=== PATIENT | female | born 1935 | race Caucasian/White ===

== ENCOUNTER 2016-06-23 09:58 | Inpatient (IN) | payer OTHER, MEDICARE ==
[~2016-06-23] VITALS: Ht 148.6 cm; Wt 68.4 kg
[~2016-06-23 09:58] MED LIST: ALLO100T PO; AMOX500C3 PO; ASPI81TA28 PO; ATOR-24 PO; B-COCAP21 PO; CALC667C4 PO; CITA10TA4 PO; FLUO0.0543; FRS/40 PO; HYDR1SOL OTB; ISOS30TA51 PO; LABE300T PO; LEVO125T4 PO; NTRGSL/4 UT
[2016-06-23] MEDS ORDERED: NITROGLYCERIN 0.4 MG SL PER TAB CHARGE SL PRN (10:30)
[2016-06-23 10:59] LABS: BASO % 0.6 %; BASO ABS # 0.05 K/uL (0-0.2); EOS % 3.7 %; HEMATOCRIT 32.6 % (37-47); IG% 0.1 %; LYMPH % 11.9 %; LYMPH ABS # 0.99 K/uL (1.2-3.4); MEAN CELL VOLUME 103.5 fL (80-100); MEAN CORPUSCULAR HEMOGLOBIN 33.3 pg (25-34); MEAN PLATELET VOLUME 9.2 fL (7.4-10.4); MONO % 9.4 %; NEUT % 74.3 %; PLATELET COUNT 203 K/uL (130-400); RED BLOOD COUNT 3.15 M/uL (4.2-5.4); WHITE BLOOD COUNT 8.33 K/uL (4.8-10.8)
[2016-06-23 11:15] LABS: COMPLETE YES; MEAN CORPUSCULAR HGB CONC 32.2 g/dl (32-36)
[2016-06-23 11:23] VITALS: BP 177/76; PULSE 69; TEMP 36.7; O2SAT 96; Ht 148.6 cm; Wt 68.4 kg
[2016-06-23 11:26] LABS: ALT/SGPT 21 U/L (12-78); BLOOD UREA NITROGEN 52 mg/dl (7-18); CALCIUM 8.9 mg/dl (8.5-10.1); CARBON DIOXIDE 28 mmol/L (21-32); CHLORIDE 100 mmol/L (98-107); GLUCOSE 88 mg/dl (70-99); MAGNESIUM 2.1 mg/dl (1.8-2.4); POTASSIUM 4.3 mmol/L (3.5-5.1); SODIUM 140 mmol/L (136-145)
[2016-06-23 11:29] LABS: ALB/GLOB RATIO 0.8 (0.9-2); ALKALINE PHOSPHATASE 72 U/L (45-117); AST/SGOT 17 U/L (15-37); CKMB/CK RATIO 5.3 (0-3.0)
--- NOTE | 2016-06-23 12:41 | DIAGNOSTIC IMAGING REPORT ---
CHEST 2 VIEWS ROUTINE CLINICAL HISTORY: CAD, DYSPNEA dyspnea COMPARISON STUDY: 09/12/2015 FINDINGS: Interval development of a large right pleural effusion. This occupies 50% of right hemithoracic volume. Platelike atelectasis left midlung. Slight blunting left base and left lateral costophrenic angle. IMPRESSION: Interval development of right pleural effusion occupying 50% right hemithoracic volume. Atelectasis left midlung Electronically signed by: Bari Fu M.D. 06/23/2016 12:39 PM Dictated Date/Time: 06/23/2016 12:39 PM
[2016-06-23 13:23] LABS: INR 1.1 (0.9-1.1); PROTHROMBIN TIME (PATIENT) 11.4 SECONDS (9.0-12.0)
[2016-06-23] MEDS ORDERED: PNEUMOCOCCAL POLYSACCHARIDES 25 MCG/0.5 ML VIAL/SYR IM. ONE (14:45)
[2016-06-23] MEDS ORDERED: PNEUMOCOCCAL ADMINISTRATION CHARGE ONE (14:45)
--- NOTE | 2016-06-23 14:51 | PULMONARY CONSULTATION ---
DATE OF CONSULTATION: 06/23/2016 TIME: 1:45 p.m. REPORT OF CONSULTATION: The patient was seen in room #220. She is a pleasant 81-year-old female who has a chief complaint of shortness of breath. She has had worsening shortness of breath for about a month. Last week, she had some chest pain on the left side of her chest. She had 2 episodes which occurred the same day. They were lasting short periods of time. She has been unable to do any significant activity because of the shortness of breath. She is winded at rest. She is very short of breath just walking across the room. She has not noticed any swelling in her legs. She does not feel like she has a cold. There has been no chills, fevers or sweats. She has an occasional cough. There has been no sputum production or hemoptysis. The patient states she has been on nasal cannula oxygen for about a year. She wears 3 liters continuously. She has not been getting any relief with her oxygen. Earlier today, she was seeing Dr. Villar for a cardiac evaluation. He referred her in to be admitted after he discussed with Dr. Brambila. Pertinent history is that she has chronic renal disease and is on dialysis. She states she has been on dialysis for about a year. She could not tell me that she had had any specific lung problems. She was not certain why she had the oxygen. She has never smoked. She did not have any jobs where she worked with any significant dust, fumes or chemicals. PAST MEDICAL HISTORY: 1. Hypertension. 2. Coronary artery disease. 3. CVA. 4. Chronic kidney disease. 5. Hypothyroidism. 6. Childbirth x2. 7. Macular degeneration. PAST SURGICAL HISTORY: 1. Perm-A-Cath insertion. 2. Cholecystectomy 1957. 3. Hysterectomy 2002. 4. Abdominal surgery for diverticulitis with removal of 18 inches of colon 5. Right and left cataract surgeries. SOCIAL HISTORY: Tobacco - never. ETOH - none. ALLERGIES: BACITRACIN AND POLYMYXIN. FAMILY HISTORY: Father at age 49, [place]. Mother age 69, had diabetes and heart disease. MEDICATIONS AT HOME: 1. Acetic acid/hydrocortisone eardrops b.i.d. 2. Allopurinol 100 mg daily. 3. Amoxicillin 500 mg t.i.d. 4. Aspirin 81 mg daily. 5. Atorvastatin 40 mg daily. 6. B complex C and folic acid 1 daily. 7. Calcium acetate 667 mg t.i.d. 8. Citalopram 10 mg daily. 9. Furosemide 40 mg daily. 10. Isosorbide 30 mg daily. 11. Labetalol 300 mg b.i.d. 12. Levothyroxine 125 mcg 1 daily. 13. Nitro p.r.n. REVIEW OF SYSTEMS: GENERAL: The patient's energy level has been very poor. NEUROLOGIC: Denies syncope or near syncope. OPHTHALMIC: She has diminished vision, primarily due to macular degeneration. ENT: Denies nasal congestion or coryza. CARDIAC: No chest pains today. She had chest pain last week as noted. She does not notice any palpitations. PULMONARY: As noted above. GASTROINTESTINAL: Denies heartburn, nausea, vomiting, diarrhea, constipation. She does have some stool incontinence. GENITOURINARY: She does urinate about 2 times per day in relatively small quantities. She also has some urinary stress incontinence. MUSCULOSKELETAL: She complains of diffuse arthritic pains. DERMATOLOGIC: Denies rash. ENDOCRINE: No lymphadenopathy. PHYSICAL EXAMINATION: GENERAL: The patient is a pleasant 81-year-old female who was cooperative, alert and oriented. She is dyspneic at rest. HEENT: Eye exam showed implants bilaterally. Nasal passages were clear. Nasal cannula was in place. Mouth exam showed dentures on top. There was no erythema or exudate in the pharynx. NECK: Palpation of the neck reveals no lymph nodes. Neck veins were somewhat distended. CHEST: Normal development. Percussion reveals dullness in the right chest in the lower two-thirds. The breath sounds on the right lower two-thirds are very diminished to slightly tubular. Lung kinney were clear otherwise. No wheezing was heard. Her respiratory rate was increased to 36 breaths per minute. Oxygen saturation was 96% on 3 liters. Heart rate was 70 per minute and regular. Blood pressure 177/76. ABDOMEN: Soft. Good bowel sounds were heard. There were numerous scars from prior surgeries. There was no tenderness to palpation or mass. EXTREMITIES: Showed no cyanosis, clubbing or edema. She had degenerative joint disease of her knees. There is also some DJD of the hands. IMAGING DATA: Chest x-ray done today shows a moderate to large right pleural effusion occupying more than half of the lung space. This reflects a change compared with a prior x-ray done 09/12/2015 at which time she had very small bilateral pleural effusions. LABORATORY DATA: CBC shows a white count of 8.33. Hemoglobin is 10.5. Platelets 203,000. INR is 1.1 and PTT is 1.0. Electrolytes show sodium 140, potassium 4.3, chloride 100 and bicarbonate 28. BUN is 52 with a creatinine of 4.3. Blood sugar 96. Calcium is 8.9. Magnesium is 2.1. AST and ALT and alkaline phosphatase were all normal. Troponin was normal. Albumin was 3.3 with total protein 7.3. TSH is 2.77. The patient had an EKG done. This shows evidence of a new right bundle branch block compared with September of 2015. The underlying rhythm was normal sinus. IMPRESSIONS: 1. Right pleural effusion. 2. Shortness of breath secondary to right pleural effusion. 3. End-stage renal disease. 4. Coronary artery disease. COMMENTS: The patient has a moderate to large effusion, which I suspect is most likely a transudate. She does need a thoracentesis therapeutically and also diagnostically at least for 1 check of the numbers. I have consulted Dr. Howard for this procedure. I called and left a message on his voicemail and put the order in. I think she will get a lot of relief once this has been done. The question of course is teague the effusion. It should be checked for cell count and diff, cytology, LDH, protein, glucose, and amylase. Serum LDH should also be checked, so we can compare the ratios with the pleural fluid. We already have a total serum protein. Further suggestions will be made as her course unfolds. Thank you so much for asking me to assist in her care.
[2016-06-23 15:37] VITALS: BP 170/71; PULSE 75; TEMP 36.5; O2SAT 96
--- NOTE | 2016-06-23 15:42 | DIAGNOSTIC IMAGING REPORT ---
CHEST ONE VIEW PORTABLE CLINICAL HISTORY: thoracentesis postthoracentesis COMPARISON STUDY: No previous studies for comparison. FINDINGS: No evidence pneumothorax status post thoracentesis. Mild stable cardia megaly. Considerable improvement in aeration right base. IMPRESSION: No evidence pneumothorax status post right thoracentesis Electronically signed by: Bari Fu M.D. 06/23/2016 3:40 PM Dictated Date/Time: 06/23/2016 3:39 PM
[2016-06-23 16:31] LABS: CKMB/CK RATIO 3.5 (0-3.0)
[2016-06-23 16:42] LABS: PLEURAL FLUID TOTAL PROTEIN 4.5 g/dl
[2016-06-23 17:20] LABS: PLEURAL FLUID APPEARANCE CLOUDY; PLEURAL FLUID COLOR YELLOW; PLEURAL FLUID MONONUC RELAT 97.7 %; PLEURAL FLUID POLYNUC 2.3 %; PLEURAL FLUID SOURCE RIGHT PLEURAL FLUID; PLEURAL FLUID WBC (A) 1489 /uL
--- NOTE | 2016-06-23 17:24 | OPERATIVE REPORT ---
DATE OF OPERATION: 06/23/2016 PREOPERATIVE DIAGNOSIS: Right pleural effusion. POSTOPERATIVE DIAGNOSIS: Same. PROCEDURE: Right thoracentesis under ultrasound guidance. SURGEON: Dr. Howard. CO-SURGEON: Josue Ramirez. INDICATIONS FOR PROCEDURE: This is an 81-year-old with end-stage renal disease, had increasing right pleural effusion and is quite symptomatic at that point. I had a long talk with the patient and her family before the procedure. After appropriate consent had been signed, time-out being called, her right posterior chest was prepped and draped in the usual sterile fashion after an ultrasound revealed a good area to insert the catheter. A skin wheal was raised, 25 gauge needle was then advanced. A large bore needle was used to anesthetize the deeper muscle layers and pleura. I then put a guidewire through this we got free-flowing fluid and the needle was removed. Introducer sheath was gently slid over the guidewire and then removed. A triple lumen catheter was slid over the guidewire up to 17 cm and the guidewire removed. The patient was drained for about 1100 mL of a light rust-colored fluid. It appeared that he gotten all of this and we could no further out from any of the ports and we slowly pulled the catheter out. A Band-Aid was placed on her chest tube site. Chest x-ray is pending at this time. I attest to the content of the Intraoperative Record and any orders documented therein. Any exceptio ns are noted below.
--- NOTE | 2016-06-23 17:38 | Nephrology Consultation ---
Nephrology Consultation Date & Providers Date of Consultation: Jun 23, 2016. Primary Care Provider: Anant Brown M.D. Referring Provider: Reason for Consultation Assist in the care of this patient w/ ESRD on HD admitted with right pleural effusion History of Present Illness Mrs. Morgan is an 81 year old white female who is seen at the request of Dr. Brambila to assist in her medical care and to provide in patient HD during her hospitalization. Medical records in the EMR were reviewed during the patient's evaluation today and are summarized as follows: Mrs. Morgan had CKD w/ creatinine 1.6 - 1.8. She was hospitalized 08/24 due to UTI w/ septicemia. She developed ATN with renal failure and never recovered. She currently dialyzes TTS at [facility] (3 hr 45 min, 2K 2Ca, F-160NR, Qb 330, EDW 68.5 kg ). Her dialysis treatments have been complicated by relative hypotension which has limited her UF. The patient reports that she has experienced progressive dyspnea over the last one month. Recently this has been associated with left chest discomfort. She was evaluated by cardiology in the office today who recommended that she be admitted to the hospital for CXR, echocardiogram and ongoing evaluation. Upon admission the patient was found to have a large left pleural effusion. Thoracentesis has been performed and 1100 cc fluid was removed. Mrs. Morgan reports that her breathing is now much improved. Past Medical/Surgical History Medical: # ESRD following hospitalization for urosepsis w/ ATN. Patient dialyzes TTS at [facility] # HTN # ASCVD s/p PTCA w/ stent 2003 # Aortic stenosis # Hyperlipidemia # Macular degeneration - legally blind Surgical: # Coronary LAD stent 2003 # Left upper arm AVF by Dr. Palomares 09/23 Allergies Coded Allergies: Bacitracin (Verified Allergy, Unknown, EYES SWELLING-OINTMENT PLACED AROUND EYE, 04/21/16) Polymyxin B (Verified Allergy, Unknown, EYES [id number] PLACED AROUND EYE, 04/21/16) Inpatient Medications Current Inpatient Medications Medications (Trade) Dose Ordered Sig/Debora Route Start Time Stop Time Status Last Admin Dose Admin Nitroglycerin (Nitrostat Tab) 0.4 mg UD PRN SL 06/23/16 10:30 07/23/16 10:29 Allopurinol (Zyloprim Tab) 100 mg QAM PO 06/24/16 09:00 07/24/16 08:59 Aspirin (Ecotrin Tab) 81 mg QAM PO 06/24/16 09:00 07/24/16 08:59 Atorvastatin Calcium (Lipitor Tab) 40 mg QAM PO 06/24/16 09:00 07/24/16 08:59 Labetalol HCl (Normodyne Tab) 300 mg BID PO 06/23/16 21:00 07/23/16 20:59 Levothyroxine Sodium (Synthroid Tab) 125 mcg DAILYBB PO 06/24/16 06:00 07/24/16 05:59 Family History Negative for CKD/ESRD Social History Smoking Status: Never Smoker . Retired. Never a smoker Review of Systems Constitutional: No fever Eyes: + problem reported (legally blind due to macular degeneration) Respiratory: No shortness of breath Cardiovascular: No chest pain Abdomen: No nausea, No pain, No vomiting Genitourinary - Female: No dysuria A complete review of systems was performed. Pertinent positives are noted above. All other systems are negative. Physical Exam Date Time Temp Pulse Resp B/P Pulse Ox O2 Delivery O2 Flow Rate FiO2 06/23/16 16:00 Nasal Cannula 3.0 06/23/16 15:37 36.5 75 20 170/71 96 Nasal Cannula 3.0 06/23/16 11:23 36.7 69 18 177/76 96 Nasal Cannula 3.0 General Appearance: no apparent distress Head: normocephalic, atraumatic Eyes: PERRL, EOMI Neck: no adenopathy Respiratory/Chest: no respiratory distress, + crackles (right base) Cardiovascular: regular rate, rhythm Abdomen/GI: normal bowel sounds, non tender, soft Back: + pertinent finding (clean dressing over right thoracenesis site) Extremities/Musculoskelatal: no pedal edema, + pertinent finding (left upper arm AVF w/ + bruit) Neurologic/Psych: alert, oriented x 3, + pertinent finding (legally blind due to macular degeneration) Skin: warm/dry Laboratory Results Last 24 Hours Test 06/23/16 00:00 06/23/16 10:45 06/23/16 11:38 06/23/16 13:00 Pleural Fluid Source RIGHT PLEURAL FLUID Pleural Fluid Color YELLOW Pleural Fluid Appearance CLOUDY Pleural Fluid WBC 1489 /uL Pleural Fluid RBC 4000 /uL Pleural Fluid pH 7.39 Pleural Fluid Polynuclear WBCs % 2.3 % Pleural Fluid Mononuclear WBCs % 97.7 % Pleural Fluid Total Protein 4.5 g/dl Pleural Fluid LDH 127 IU Pleural Fluid Glucose 95 mg/dl Pleural Fluid Amylase 137 U/L White Blood Count 8.33 K/uL Red Blood Count 3.15 M/uL Hemoglobin 10.5 g/dL Hematocrit 32.6 % Mean Corpuscular Volume 103.5 fL Mean Corpuscular Hemoglobin 33.3 pg Mean Corpuscular Hemoglobin Concent 32.2 g/dl Platelet Count 203 K/uL Mean Platelet Volume 9.2 fL Neutrophils (%) (Auto) 74.3 % Lymphocytes (%) (Auto) 11.9 % Monocytes (%) (Auto) 9.4 % Eosinophils (%) (Auto) 3.7 % Basophils (%) (Auto) 0.6 % Neutrophils # (Auto) 6.19 K/uL Lymphocytes # (Auto) 0.99 K/uL Monocytes # (Auto) 0.78 K/uL Eosinophils # (Auto) 0.31 K/uL Basophils # (Auto) 0.05 K/uL RDW Standard Deviation 55.2 fL RDW Coefficient of Variation 14.4 % Immature Granulocyte % (Auto) 0.1 % Immature Granulocyte # (Auto) 0.01 K/uL Sodium Level 140 mmol/L Potassium Level 4.3 mmol/L Chloride Level 100 mmol/L Carbon Dioxide Level 28 mmol/L Anion Gap 12.0 mmol/L Blood Urea Nitrogen 52 mg/dl Creatinine 4.30 mg/dl Estimated GFR () 10.4 Estimated GFR (Non- 9.0 BUN/Creatinine Ratio 12.0 Random Glucose 88 mg/dl Calcium Level 8.9 mg/dl Magnesium Level 2.1 mg/dl Total Bilirubin 0.4 mg/dl Aspartate Amino Transf (AST/SGOT) 17 U/L Alanine Aminotransferase (ALT/SGPT) 21 U/L Alkaline Phosphatase 72 U/L Total Creatine Kinase 36 U/L Creatine Kinase MB 1.9 ng/ml Creatine Kinase MB Ratio 5.3 Troponin I < 0.015 ng/ml Total Protein 7.3 gm/dl Albumin 3.3 gm/dl Globulin 4.0 gm/dl Albumin/Globulin Ratio 0.8 Thyroid Stimulating Hormone (TSH) 2.770 uIu/ml Free Thyroxine 1.24 ng/dl Bedside Glucose 96 mg/dl Prothrombin Time 11.4 SECONDS Prothromb Time International Ratio 1.1 Activated Partial Thromboplast Time 25.5 SECONDS Partial Thromboplastin Ratio 1.0 Test 06/23/16 15:34 06/23/16 16:10 Lactate Dehydrogenase 158 U/L Total Creatine Kinase 40 U/L Creatine Kinase MB 1.4 ng/ml Creatine Kinase MB Ratio 3.5 Troponin I < 0.015 ng/ml Bedside Glucose 134 mg/dl Impression (1) Pleural effusion on right (2) End-stage renal disease needing dialysis (3) Coronary artery disease Mrs. Morgan was admitted for evaluation of dyspnea. CXR revealed a large right pleural effusion. She has undergone thoracentesis w/ 1100 cc volume removal. Her breathing is now subjectively improved. ECG shows RBBB. Initial cardiac enzymes are negative. Echocardiogram is pending. Patient has ESRD. She will require HD TTS during her hospitalization. Recommendations -- Will schedule heparin free HD for am -- Await thoracentesis results -- Await culture results -- Await echocardiogram results -- Continue Phos-lo with meals and provide daily nephrocap
--- NOTE | 2016-06-23 17:50 | ECHOCARDIOGRAM REPORT ---
*NOTICE TO RECEIVING LIBERTARIAN AGENCY This information is strictly Confidential and protected under [place] law. [place] law prohibits you from making any further disclosure of this information unless further disclosure is expressly permitted by the written consent of the person to whom it pertains or is authorized by law. A general authorization for the release of medical or other information is not sufficient for this purpose. Hospital accepts no responsibility if the information is made available to any other person, INCLUDING THE PATIENT. Interpretation Summary * NO DEFINITY USED, PATIENT DID NOT HAVE IV * Name: ALEKSANDR GREGORIO Study Date: 06/23/2016 12:44 PM BP: 177/76 mmHg * Patient Location: 220 HR: 69 * : 1935 (M/d/yyy) Gender: Female Height: 59 in * Age: 81 yrs Ethnicity: [place] Weight: 164 lb * Referring Physician: ANNY SIDDIQUI * Performed By: Karen Montgomery RDCS * * Reason For Study: CHEST PAIN * BSA: 1.7 m2 * History: CHEST PAIN * -- Conclusions -- * 1. Normal LV size. Mild concentric LVH. * 2. Normal LV systolic function. LVEF 60-65%. No regional wall motion abnormalities. Grade 2 diastolic dysfunction * 3. Normal RV size and function. * 4. Mild aortic valve sclerosis without stenosis. Trace aortic insufficiency * 5. Normal estimated PA and RA pressures. * 6. Compared with prior study on 07/31/2015: No significant change Procedure Details * A complete two-dimensional transthoracic echocardiogram was performed (2D, M-mode, Doppler and color flow Doppler). Left Ventricle * The left ventricle is grossly normal size. * There is mild concentric left ventricular hypertrophy. * Ejection Fraction = 60-65%. Right Ventricle * The right ventricle is grossly normal size. * The right ventricular systolic function is normal as assessed by tricuspid annular plane systolic excursion (TAPSE) (normal >1.5 cm). Atria * The left atrium is mildly dilated. * Right atrial size is normal. * No ASD detected; PFO is not assessed. Mitral Valve * The mitral valve leaflets appear thickened, but open well. * Mitral stenosis is absent. * Significant mitral regurgitation is absent. Tricuspid Valve * The tricuspid valve is not well visualized. * There is trace tricuspid regurgitation. Aortic Valve * The aortic valve is trileaflet. * Aortic valve sclerosis mild, without significant aortic valvular stenosis. * Trace aortic regurgitation. Pulmonic Valve * The pulmonary valve is inadequately visualized, but the Doppler data is adequate for interpretation. * There is no pulmonic valvular stenosis. * Trace pulmonic valvular regurgitation. Great Vessels * The aortic root and proximal ascending aorta are normal sized. Pericardium/Pleural * There is no pericardial effusion. Great Vessels * Normal inferior vena cava size and collapsability with sniff indicates a normal right atrial pressure of 3 mmHg Left Ventricular Diastolic Function * Diastolic dysfunction, Grade II (pseudonormalization pattern). MMode 2D Measurements and Calculations IVSd 1.2 cm IVSs 1.7 cm LVIDd 4.3 cm LVIDs 2.7 cm LVPWd 1.2 cm LVPWs 1.5 cm IVS/LVPW 0.96 FS 38.0 % EDV(Teich) 83.0 ml ESV(Teich) 26.2 ml EF(Teich) 68.4 % EDV(cubed) 79.5 ml ESV(cubed) 19.0 ml EF(cubed) 76.1 % % IVS thick 39.8 % % LVPW thick 19.8 % LV mass(C)d 186.2 grams LV mass(C)dI 109.9 grams/m\S\2 LV mass(C)s 146.8 grams LV mass(C)sI 86.6 grams/m\S\2 SV(Teich) 56.8 ml SI(Teich) 33.5 ml/m\S\2 SV(cubed) 60.5 ml SI(cubed) 35.7 ml/m\S\2 LVAd ap4 26.6 cm\S\2 LVLd ap4 7.4 cm EDV(MOD-sp4) 80.5 ml EDV(sp4-el) 80.5 ml LVAs ap4 16.0 cm\S\2 LVLs ap4 6.0 cm ESV(MOD-sp4) 36.9 ml ESV(sp4-el) 36.5 ml EF(MOD-sp4) 54.1 % EF(sp4-el) 54.7 % LVAd ap2 28.6 cm\S\2 LVLd ap2 7.9 cm EDV(MOD-sp2) 86.3 ml EDV(sp2-el) 87.4 ml LVAs ap2 14.7 cm\S\2 LVLs ap2 6.1 cm ESV(MOD-sp2) 30.3 ml ESV(sp2-el) 30.2 ml EF(MOD-sp2) 64.9 % EF(sp2-el) 65.5 % LVLd %diff 6.3 % EDV(MOD-bp) 86.2 ml LVLs %diff 1.9 % ESV(MOD-bp) 33.4 ml EF(MOD-bp) 61.3 % SV(MOD-sp4) 43.6 ml SI(MOD-sp4) 25.7 ml/m\S\2 SV(MOD-sp2) 56.1 ml SI(MOD-sp2) 33.1 ml/m\S\2 SV(MOD-bp) 52.8 ml SI(MOD-bp) 31.2 ml/m\S\2 SV(sp4-el) 44.0 ml SI(sp4-el) 26.0 ml/m\S\2 SV(sp2-el) 57.2 ml SI(sp2-el) 33.8 ml/m\S\2 Doppler Measurements and Calculations MV E max monserrat 114.0 cm/sec MV A max monserrat 101.9 cm/sec MV E/A 1.1 MV dec time 0.21 sec Ao V2 max 170.5 cm/sec Ao max PG 11.6 mmHg Ao max PG (full) 5.8 mmHg LV V1 max PG 5.8 mmHg LV V1 max 120.3 cm/sec TR max monserrat 225.3 cm/sec
[2016-06-23 19:39] VITALS: BP 167/65; PULSE 80; TEMP 36.8; O2SAT 92
[2016-06-23] MEDS ORDERED: LABETALOL HCL 300 MG TAB PO SCH (21:00)
--- NOTE | 2016-06-23 22:32 | HISTORY & PHYSICAL EXAMINATION ---
DATE OF ADMISSION: 06/23/2016 SUBJECTIVE: An 81-year-old female admitted directly from Dr. Villar's office with chest pain and shortness of breath. HISTORY OF PRESENT ILLNESS: The patient with an extensive medical history including end-stage renal failure, currently on hemodialysis, coronary artery disease with history of stenting of her LAD in June of 2013, arterial hypertension, hyperlipidemia, hypothyroidism, degenerative disk disease of the lumbar spine with spinal stenosis, macular degeneration with legal blindness and history of gout. The patient had an appointment this morning to see Dr. Villar for her cardiology followup. He called me after he saw the patient. He was alarmed about her condition. She was complaining of left-sided chest pain. She was markedly dyspneic. She was feeling weak and tired. She has not had any fever or any chills. No cough or sputum or hemoptysis. She had no nausea or vomiting. He was concerned about her shortness of breath and chest pain and he recommended that we admit the patient for further evaluation and treatment. PAST MEDICAL HISTORY: 1. Coronary artery disease. She had a cardiac catheterization done on 07/08/2013. She had 90% stenosis of her mid LAD. A drug-eluting stent was placed. The cardiac catheterization was done because of her chest pain and abnormal stress test. 2. End-stage renal disease. She has been on hemodialysis. 3. AV fistula, left arm. Now, the fistula is used without any problem. Initially, there were some issues related to the use of her fistula on a regular basis. She did have a tunneled dialysis catheter which has been removed. 4. Arterial hypertension. Longstanding. Treated. 5. Mild to moderate aortic stenosis as demonstrated on her prior echocardiogram. 6. History of diverticulitis. She has had multiple episodes. She has required sigmoid colon resection because of stenosis and recurrent acute infectious episodes. This was done in 2006. 7. Cholecystectomy in 1958. 8. TAHBSO done in the remote past. She had cysts. 9. Tonsillectomy in childhood. 10. Bilateral cataract surgery. The right eye was done in July 2004 and the left one in 2006. She did require post-cataract laser treatment in the right eye in 2006. 11. Macular degeneration. Severe. She is legally blind. 12. History of microhematuria. She has had a urology evaluation in the past which was unremarkable for any evidence of any specific etiology. 13. History of gout. Has not had any recent acute episode. 14. Hypothyroidism. Compensated. She has been treated for at least about 16 years. 15. Left basal ganglia, lacunar cerebral infarction and left thalamic acute cerebral infarction in March of 2012. She does not have any residual deficit. 16. Degenerative disk disease of the lumbar spine with spinal stenosis. 17. Mild depression and anxiety. 18. General debilitation with progressive fatigue. SOCIAL HISTORY: She is , had 2 daughters. No history of any smoking, no alcohol or drugs. No excessive coffee, tea or soft drinks. 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 FAMILY HISTORY: Her mother at age 69, she was diabetic and had renal complications. She also had coronary artery disease. Her father at age 49, had tuberculosis and heart disease. One sister had lung removed for lung cancer. One brother who is diabetic. Her maternal grandmother had throat cancer. One daughter is treated for arterial hypertension. ALLERGIES: 1. BACITRACIN. 2. POLYMYXIN B. BOTH TOPICAL ANTIBIOTICS PRODUCED LOCAL REACTION. CURRENT MEDICATIONS: Include: 1. Symbicort 160/4.5 two inhalations twice a day. 2. Allopurinol 100 mg daily. 3. Lipitor 40 mg daily. 4. Renal cap 1 daily. 5. Labetalol 200 mg twice a day. 6. Levothyroxine 125 mcg daily. 7. Isosorbide mononitrate 30 mg daily. 8. Citalopram 10 mg daily. 9. Furosemide 80 mg daily. REVIEW OF SYSTEMS: Overall, her condition has been deteriorating. She has been feeling tired and weak. She denied any headache. No dizziness, no lightheadedness. She is legally blind. She has had chest pain as noted above, mostly left side. She has been complaining of progressive dyspnea. This has been going on for about 1 month. Denied any abdominal pain. No nausea, no vomiting and no problem with her bowel movements. She still has some residual urine output. She does complain of chronic back pain. She does not have any ankle edema. She does have chronic respiratory failure and she is on oxygen by nasal cannula at 3 liters per minute. PHYSICAL EXAMINATION: GENERAL: Well developed in no distress. Her recorded weight is 70.45 kg, height 148.6 cm, BMI 31.9. VITAL SIGNS: On arrival to the hospital, her blood pressure was 177/76, pulse 69, respirations 18, temperature 36.7, oxygen saturation 96% on 3 liter oxygen by nasal cannula. SKIN: Warm and dry. No rash. She does have some ecchymotic areas over her left arm where the fistula is. HEENT: She wears glasses. Markedly decreased vision. She is legally blind pain. She does have chronic eczematous rash of her external ears and the distal part of her external ear canals. No mucosal abnormality in her nose, mouth or throat. She does have her oxygen cannula in place. NECK: Supple. Nontender. No adenopathy, no thyromegaly. No JVD. Normal carotid pulses. She does have bilateral carotid bruit. CHEST: Normal. HEART: Regular heart sounds with 1-2/6 systolic murmur. No rub, no gallop. LUNGS: Decreased breath sounds. No wheezing, no rhonchi. ABDOMEN: Soft, nontender, without organomegaly or masses. Surgical scars. BACK: She does have some low back pain, which is chronic. EXTREMITIES: No edema, clubbing, or cyanosis. No joint or muscle tenderness. Absent dorsalis pedis pulses. Good posterior tibialis pulses. She does have an AV fistula in her left arm. NEUROLOGIC: She is alert and oriented. There is no evidence of any lateralized deficit. ADMISSION LABORATORY TESTS: WBC count 8330, hemoglobin 10.5, hematocrit 32.6, platelet count 203,000. Prothrombin time 11.4, INR 1.1, PTT 25.5. Sodium 140, potassium 4.3, chloride 100, CO2 28, BUN 52, creatinine 4.3, glucose 88, calcium 8.9, magnesium 2.1, total bilirubin 0.4, AST 17, ALT 21, alkaline phosphatase 72, total CK 36, MB fraction 1.9, troponin I less than 0.015, total protein 7.3, albumin 3.3, globulin 4.0. TSH 2.77, free T4 1.24. IMAGING DATA: Her electrocardiogram showed a sinus rhythm with a new right bundle branch block. Her chest x-ray showed evidence of a large right pleural effusion. It was occupying 50% of the right hemithoracic volume. ASSESSMENT: 1. Coronary artery disease. 2. Chest pain. 3. Dyspnea. 4. Large right pleural effusion. 5. Chronic obstructive pulmonary disease. 6. Chronic respiratory failure. 7. History of diastolic congestive heart failure. 8. Chronic respiratory failure on home oxygen. 9. Arterial hypertension. 10. Hypothyroidism. 11. Hyperlipidemia. 12. Depression. 13. Mild to moderate aortic stenosis. 14. Legally blind from macular degeneration. 15. Arteriovenous fistula, left arm. She does have end-stage renal disease and currently on hemodialysis with a Thursday, , Thursday schedule. PLAN: 1. The patient was admitted to PCU with telemetry. Resuscitation level 5. All her laboratory tests were ordered. Cardiology consultation was requested from Dr. Villar. He just saw the patient this morning in his office. Renal consultation was requested to continue with her hemodialysis. After the finding on the chest x-ray with a large right pleural effusion was noted, I requested a pulmonary consultation. The patient was seen by Dr. Qasim Farah. He consulted Dr. Qasim Howard and a thoracentesis was done. He evacuated 1100 mL of pleural fluid. The fluid was sent for different studies. After the procedure, the patient felt much improved. An echocardiogram was done. Continued on her oral medications. Continued her on oxygen. She will be scheduled for hemodialysis tomorrow. We will complete her cardiac isoenzymes. We will repeat her electrocardiogram. Dr. Villar will decide on further cardiac evaluation. The patient's condition improved significantly after the thoracentesis. I spoke with her family, everybody was in her room including her 2 daughters, her son-in-law and her . SAWYER
[2016-06-23 23:26] VITALS: BP 188/62; PULSE 81; TEMP 36.8; O2SAT 92
--- NOTE | 2016-06-23 23:42 | SURGICAL CONSULTATION ---
DATE OF CONSULTATION: 06/23/2016 Chief complaint: "I'm having a hard time breathing". HPI: This is a pleasant 81 yo with ESRD who has noted increasing dyspnea, especially over the last few weeks. CXR's show an enlarging right pleural effusion despite dialysis. She is markedly SOB. No fevers or productive cough. No weight loss. Past Medical History 1. Enlarging right pleural effusion. 2. Chronic renal failure (dialysis dependent). 3. History of coronary artery disease. 4. Hypothyroidism. 5. Macular degeneration resulting in legal blindness. 6. Cerebrovascular accident in the past. PAST SURGICAL HISTORY: 1. 2, para 2, aborta 0. 2. Hysterectomy. 3. Left colon resection for diverticulitis. 4. Bilateral cataract extractions with lens implants. 5. Cholecystectomy (open). 6. Permacath insertion and autogenous arteriovenous hemodialysis fistula. MEDICATIONS: 1. Nitroglycerin sublingually p.r.n. 2. Synthroid. 3. Eardrops. 4. Allopurinol. 5. Citalopram. 6. Lasix. 7. Isosorbide. 8. Labetalol. 9. Aspirin. 10. Amoxicillin. 11. Folic acid. ALLERGIES: 1. BACITRACIN. 2. POLYMYXIN. SOCIAL HISTORY: The patient lives with her family, who are very supportive. She has never smoked cigarettes. She is a very attentive mother and grandmother. Her 2 daughters and her were at the bedside during this interview. FAMILY MEDICAL HISTORY: The patient's father at age 49 of myocardial infarction. Mother at age 69 of diabetes mellitus and coronary artery disease. Her children, grandchildren and great grandchildren are healthy. REVIEW OF SYSTEMS: The patient has had shortness of breath for the last several months, which is progressively getting worse and worse. She has been fatigued. She really has difficulty seeing secondary to her macular degeneration. She has had no neurologic events such as focal weakness, seizure, amaurosis fugax, transient ischemic attacks. She continues to urinate although very small amounts. She does move her bowels, although she has had bit of incontinence recently. She has had no nausea or vomiting. She is quite short of breath, but denies productive cough. She has had no fevers. She has had no skin breakdown. She does have arthritic pain. PHYSICAL EXAMINATION: GENERAL: This is a small (4-foot, 10-1/2-inch) 155-pound white female, who wears glasses. She has evidence of cataract extractions. Her extraocular movements are intact. She has no nasolabial flattening. Her tongue is midline. NECK: Supple. I detect no carotid bruits. LUNGS: She has decreased breath sounds at both bases, particularly on the right. She also has some end expiratory wheezing. HEART: She has a regular rate and rhythm of her heart with a soft systolic ejection murmur versus rub. ABDOMEN: Soft, nontender and protuberant. I detect no evidence of abdominal aortic aneurysm. EXTREMITIES: Evaluation of her lower extremities, she does have peripheral pulses. She has no real joint effusions. She has trace edema of her lower extremities. NEUROLOGIC: She has no asterixis. She is awake, alert and oriented, no focal deficits. DATA: I reviewed her chest x-ray and she has a large right pleural effusion. ASSESSMENT AND PLAN: Large right pleural effusion. I discussed this case with Dr. Rey Farah as well as the patient and her and family members. Long discussion and I discussed observation from one end of the spectrum and thoracoscopy with pleurectomy at the other end. We could also insert a PleurX catheter, but I think at this point that a simple right thoracentesis would be helpful not only a diagnosis, but assessing how she responds to drainage of the fluid. We will perform this thoracentesis later this afternoon. SAWYER
[2016-06-23 23:44] LABS: CKMB/CK RATIO 4.3 (0-3.0)
[2016-06-23] MEDS ORDERED: NURSING VERBAL MED ORDER ONE (23:45)
[2016-06-23] MEDS ORDERED: ACETAMINOPHEN 500 MG TAB PO ONE (23:45)
[2016-06-24] VITALS (11 sets, daily range): BP systolic 103–185; BP diastolic 52–82; PULSE 64–84; TEMP 36.6–37; O2SAT 91–94
[2016-06-24] MEDS ORDERED: AMLODIPINE BESYLATE 5 MG TAB PO ONE (05:45)
[2016-06-24] MEDS ORDERED: EPOETIN ALFA 10,000 UNITS/ML VIAL IV. ONE (06:00)
[2016-06-24] MEDS ORDERED: EPOETIN ALFA INJ 7,000 UNITS in SYRINGE 0 ML IV. SCH (06:00)
[2016-06-24] MEDS: LEVOTHYROXINE 125 MCG TAB PO SCH (06:17)
[2016-06-24 07:03] LABS: MEAN CELL VOLUME 102.6 fL (80-100); MEAN CORPUSCULAR HEMOGLOBIN 33.7 pg (25-34); MEAN CORPUSCULAR HGB CONC 32.8 g/dl (32-36); MEAN PLATELET VOLUME 9.4 fL (7.4-10.4); PLATELET COUNT 181 K/uL (130-400); RED BLOOD COUNT 3.12 M/uL (4.2-5.4); WHITE BLOOD COUNT 8.22 K/uL (4.8-10.8)
[2016-06-24] MEDS: CALCIUM ACETATE 667MG GELCAP PO SCH ×3 (07:15→16:45)
[2016-06-24] MEDS: ATORVASTATIN 40 MG TAB PO SCH (07:15)
[2016-06-24] MEDS: ASPIRIN 81 MG ECTAB PO SCH (07:15)
[2016-06-24] MEDS: CITALOPRAM 20 MG TAB PO SCH (07:16)
[2016-06-24] MEDS: ALLOPURINOL 100 MG TAB PO SCH (07:18)
[2016-06-24] MEDS: NEPHROCAPS PO SCH (07:18)
[2016-06-24 07:53] LABS: BUN/CREATININE RATIO 13.9 (10-20); CALCIUM 8.9 mg/dl (8.5-10.1); POTASSIUM 4.5 mmol/L (3.5-5.1)
[2016-06-24] MEDS ORDERED: LABETALOL HCL 300 MG TAB PO SCH (09:00)
[2016-06-24] MEDS: LABETALOL HCL 100 MG TAB PO SCH ×3 (09:00→20:25)
--- NOTE | 2016-06-24 09:15 | Nephrology Progress Note ---
Nephrology Progress Note Date of Service Jun 24, 2016. Chief Complaint Assist in the care of this patient w/ ESRD on HD admitted with right pleural effusion Subjective Mrs. Morgan was seen & examined in her hospital room this morning. She reports that her breathing has improved following thoracentesis. She denies fever, dyspnea, pleurisy or angina. Review of Systems Constitutional: No fever Cardiovascular: No chest pain Respiratory: No dyspnea at rest Abdomen: No nausea, No pain, No vomiting Extremities: No leg edema A complete review of systems was performed. Pertinent positives are noted above. All other systems are negative. Vital Signs Last 8 Hrs Date Time Temp Pulse Resp B/P Pulse Ox O2 Delivery O2 Flow Rate FiO2 06/24/16 08:00 Nasal Cannula 3.0 06/24/16 07:37 36.9 71 16 153/72 94 Nasal Cannula 2.0 06/24/16 04:00 Nasal Cannula 3.0 06/24/16 03:33 36.6 76 20 185/71 94 Nasal Cannula 3.0 I & O 24-Hour Column 06/24/16 07:59 Intake Total 1010 ml Output Total 450 ml Balance 560 ml Last Recorded Weight Weight (Kilograms): 69.700 Physical Exam General Appearance: no apparent distress Head: normocephalic, atraumatic Eyes: PERRL, EOMI Neck: no adenopathy Respiratory/Chest: + crackles (right base) Cardiovascular: regular rate, rhythm Abdomen/GI: normal bowel sounds, non tender, soft Extremities/Musculoskelatal: no pedal edema, + pertinent finding (left upper arm AVF + bruit) Neurologic/Psych: alert, oriented x 3 Family History Negative for CKD/ESRD Social History Smoking Status: Never smoker . Retired. Never a smoker Laboratory Results Past 24 Hours 06/23/16 10:45 Red Blood Count 3.15, Mean Corpuscular Volume 103.5, Mean Corpuscular Hemoglobin 33.3, Mean Corpuscular Hemoglobin Concent 32.2, Mean Platelet Volume 9.2, Neutrophils (%) (Auto) 74.3, Lymphocytes (%) (Auto) 11.9, Monocytes (%) ( Auto) 9.4, Eosinophils (%) (Auto) 3.7, Basophils (%) (Auto) 0.6, Neutrophils # ( Auto) 6.19, Lymphocytes # (Auto) 0.99, Monocytes # (Auto) 0.78, Eosinophils # ( Auto) 0.31, Basophils # (Auto) 0.05 06/24/16 06:56 06/23/16 10:45 06/24/16 06:56 Test 06/23/16 10:45 06/23/16 11:38 06/23/16 13:00 06/23/16 15:34 White Blood Count 8.33 K/uL (4.8-10.8) Red Blood Count 3.15 M/uL (4.2-5.4) Hemoglobin 10.5 g/dL (12.0-16.0) Hematocrit 32.6 % (37-47) Mean Corpuscular Volume 103.5 fL (80-100) Mean Corpuscular Hemoglobin 33.3 pg (25-34) Mean Corpuscular Hemoglobin Concent 32.2 g/dl (32-36) Platelet Count 203 K/uL (130-400) Mean Platelet Volume 9.2 fL (7.4-10.4) Neutrophils (%) (Auto) 74.3 % Lymphocytes (%) (Auto) 11.9 % Monocytes (%) (Auto) 9.4 % Eosinophils (%) (Auto) 3.7 % Basophils (%) (Auto) 0.6 % Neutrophils # (Auto) 6.19 K/uL (1.4-6.5) Lymphocytes # (Auto) 0.99 K/uL (1.2-3.4) Monocytes # (Auto) 0.78 K/uL (0.11-0.59) Eosinophils # (Auto) 0.31 K/uL (0-0.5) Basophils # (Auto) 0.05 K/uL (0-0.2) RDW Standard Deviation 55.2 fL (36.4-46.3) RDW Coefficient of Variation 14.4 % (11.5-14.5) Immature Granulocyte % (Auto) 0.1 % Immature Granulocyte # (Auto) 0.01 K/uL (0.00-0.02) Anion Gap 12.0 mmol/L (3-11) Estimated GFR () 10.4 Estimated GFR (Non- 9.0 BUN/Creatinine Ratio 12.0 (10-20) Calcium Level 8.9 mg/dl (8.5-10.1) Magnesium Level 2.1 mg/dl (1.8-2.4) Total Bilirubin 0.4 mg/dl (0.2-1) Aspartate Amino Transf (AST/SGOT) 17 U/L (15-37) Alanine Aminotransferase (ALT/SGPT) 21 U/L (12-78) Alkaline Phosphatase 72 U/L (45-117) Total Creatine Kinase 36 U/L (26-192) 40 U/L (26-192) Creatine Kinase MB 1.9 ng/ml (0.5-3.6) 1.4 ng/ml (0.5-3.6) Creatine Kinase MB Ratio 5.3 (0-3.0) 3.5 (0-3.0) Troponin I < 0.015 ng/ml (0-0.045) < 0.015 ng/ml (0-0.045) Total Protein 7.3 gm/dl (6.4-8.2) Albumin 3.3 gm/dl (3.4-5.0) Globulin 4.0 gm/dl (2.5-4.0) Albumin/Globulin Ratio 0.8 (0.9-2) Thyroid Stimulating Hormone (TSH) 2.770 uIu/ml (0.300-4.500) Free Thyroxine 1.24 ng/dl (0.80-1.60) Bedside Glucose 96 mg/dl (70-90) Prothrombin Time 11.4 SECONDS (9.0-12.0) Prothromb Time International Ratio 1.1 (0.9-1.1) Activated Partial Thromboplast Time 25.5 SECONDS (21.0-31.0) Partial Thromboplastin Ratio 1.0 Lactate Dehydrogenase 158 U/L (84-246) Test 06/23/16 16:10 06/23/16 20:10 06/23/16 23:01 06/24/16 06:32 Bedside Glucose 134 mg/dl (70-90) 110 mg/dl (70-90) 96 mg/dl (70-90) Total Creatine Kinase 37 U/L (26-192) Creatine Kinase MB 1.6 ng/ml (0.5-3.6) Creatine Kinase MB Ratio 4.3 (0-3.0) Troponin I < 0.015 ng/ml (0-0.045) Test 06/24/16 06:56 Red Blood Count 3.12 M/uL (4.2-5.4) Mean Corpuscular Volume 102.6 fL (80-100) Mean Corpuscular Hemoglobin 33.7 pg (25-34) Mean Corpuscular Hemoglobin Concent 32.8 g/dl (32-36) RDW Standard Deviation 53.9 fL (36.4-46.3) RDW Coefficient of Variation 14.3 % (11.5-14.5) Mean Platelet Volume 9.4 fL (7.4-10.4) Anion Gap 11.0 mmol/L (3-11) Est Creatinine Clear Calc Drug Dose 7.3 ml/min Estimated GFR () 8.7 Estimated GFR (Non- 7.5 BUN/Creatinine Ratio 13.9 (10-20) Calcium Level 8.9 mg/dl (8.5-10.1) Allergies Coded Allergies: Bacitracin (Verified Allergy, Unknown, EYES SWELLING-OINTMENT PLACED AROUND EYE, 04/21/16) Polymyxin B (Verified Allergy, Unknown, EYES [id number] PLACED AROUND EYE, 04/21/16) Medications Current Inpatient Medications Medications (Trade) Dose Ordered Sig/Debora Route Start Time Stop Time Status Last Admin Dose Admin Nitroglycerin (Nitrostat Tab) 0.4 mg UD PRN SL 06/23/16 10:30 07/23/16 10:29 Allopurinol (Zyloprim Tab) 100 mg QAM PO 06/24/16 09:00 07/24/16 08:59 06/24/16 07:18 100 MG Aspirin (Ecotrin Tab) 81 mg QAM PO 06/24/16 09:00 07/24/16 08:59 06/24/16 07:15 81 MG Atorvastatin Calcium (Lipitor Tab) 40 mg QAM PO 06/24/16 09:00 07/24/16 08:59 06/24/16 07:15 40 MG Levothyroxine Sodium (Synthroid Tab) 125 mcg DAILYBB PO 06/24/16 06:00 07/24/16 05:59 06/24/16 06:17 125 MCG Heparin Sodium (Porcine) 1 ea 1 ea TODAY@0600 N/A 06/24/16 06:00 06/24/16 23:00 Epoetin Magdy/ Syringe (Procrit Inj/ Syringe) 0.35 ml @ 1 mls/min TODAY@0600 IV. 06/24/16 06:00 06/24/16 23:00 Labetalol HCl (Normodyne Tab) 200 mg BID PO 06/24/16 09:00 07/24/16 08:59 Vitamin B Complex/ Vit C/Folic Acid (Nephrocaps) 1 cap DAILY PO 06/24/16 09:00 07/24/16 08:59 06/24/16 07:18 1 CAP Calcium Acetate (Phoslo Cap) 667 mg TIDM PO 06/24/16 07:30 07/24/16 07:29 06/24/16 07:15 667 MG Furosemide (Lasix Tab) 80 mg QAM PO 06/24/16 09:00 07/24/16 08:59 Citalopram Hydrobromide (celeXA TAB) 10 mg QAM PO 06/24/16 09:00 07/24/16 08:59 06/24/16 07:16 10 MG Isosorbide Mononitrate (Imdur Ext Rel Tab) 30 mg QAM PO 06/24/16 09:00 07/24/16 08:59 Acetaminophen (Tylenol Tab) 500 mg Q4H PRN PO 06/23/16 23:45 07/23/16 23:44 Impression (1) Pleural effusion on right (2) End-stage renal disease needing dialysis (3) Coronary artery disease Mrs. Morgan was admitted for evaluation of dyspnea. CXR revealed a large right pleural effusion. She has undergone thoracentesis w/ 1100 cc volume removal. Her breathing is now subjectively improved. ECG shows RBBB. Initial cardiac enzymes are negative. Echocardiogram is pending. Patient has ESRD. She will require HD TTS during her hospitalization. Recommendations -- Heparin free HD has been scheduled for this am. Orders entered into EMR and HD RN notified -- Await thoracentesis results and further pulmonology recommendations -- Await culture results -- Echocardiogram report 06/23/16 reviewed: Normal LVEF, mild to moderate MR -- Continue Phos-lo with meals and provide daily nephrocap
--- NOTE | 2016-06-24 09:47 | SURGERY PROGRESS NOTE ---
DATE: 06/24/2016 DATE: 06/24/2016. Ms. Morgan was seen today on 06/24/2016. I performed a thoracentesis yesterday of her right pleural cavity and drained out about 1100 mL of a rust colored fluid. Her x-ray looked quite good. She looks better. Her oxygen saturation has been 94% on 2 liters. She subjectively is much better and she slept well last night. This fluid is transudate and pH 7.39. It does not appear that we are dealing with any infections or malignancy. ASSESSMENT AND PLAN: Right pleural effusion, probably related to renal failure. The patient is extremely happy with how much better she feels. She sounds better on auscultation. At this point, should the fluid reaccumulated I believe inserting a PleurX catheter and sending her home with it would be advisable. We will see how she does over the next few days.
--- NOTE | 2016-06-24 10:54 | Dialysis Progress Note ---
Hemodialysis Note Date of Service Jun 24, 2016. Chief Complaint Assist in the care of this patient w/ ESRD on HD admitted with right pleural effusion Vital Signs Last 8 Hrs Date Time Temp Pulse Resp B/P Pulse Ox O2 Delivery O2 Flow Rate FiO2 06/24/16 09:31 Nasal Cannula 3.0 06/24/16 08:00 Nasal Cannula 3.0 06/24/16 07:37 36.9 71 16 153/72 94 Nasal Cannula 2.0 06/24/16 04:00 Nasal Cannula 3.0 06/24/16 03:33 36.6 76 20 185/71 94 Nasal Cannula 3.0 I & O 24-Hour Column 06/24/16 07:59 Intake Total 1010 ml Output Total 450 ml Balance 560 ml Last Recorded Weight Weight (Kilograms): 69.700 Family History Negative for CKD/ESRD Social History Smoking Status: Never smoker . Retired. Never a smoker Laboratory Results Past 24 Hours 06/24/16 06:56 06/24/16 06:56 Test 06/23/16 11:38 06/23/16 13:00 06/23/16 15:34 06/23/16 16:10 Bedside Glucose 96 mg/dl (70-90) 134 mg/dl (70-90) Prothrombin Time 11.4 SECONDS (9.0-12.0) Prothromb Time International Ratio 1.1 (0.9-1.1) Activated Partial Thromboplast Time 25.5 SECONDS (21.0-31.0) Partial Thromboplastin Ratio 1.0 Lactate Dehydrogenase 158 U/L (84-246) Total Creatine Kinase 40 U/L (26-192) Creatine Kinase MB 1.4 ng/ml (0.5-3.6) Creatine Kinase MB Ratio 3.5 (0-3.0) Troponin I < 0.015 ng/ml (0-0.045) Test 06/23/16 20:10 06/23/16 23:01 06/24/16 06:32 06/24/16 06:56 Bedside Glucose 110 mg/dl (70-90) 96 mg/dl (70-90) Total Creatine Kinase 37 U/L (26-192) Creatine Kinase MB 1.6 ng/ml (0.5-3.6) Creatine Kinase MB Ratio 4.3 (0-3.0) Troponin I < 0.015 ng/ml (0-0.045) Red Blood Count 3.12 M/uL (4.2-5.4) Mean Corpuscular Volume 102.6 fL (80-100) Mean Corpuscular Hemoglobin 33.7 pg (25-34) Mean Corpuscular Hemoglobin Concent 32.8 g/dl (32-36) RDW Standard Deviation 53.9 fL (36.4-46.3) RDW Coefficient of Variation 14.3 % (11.5-14.5) Mean Platelet Volume 9.4 fL (7.4-10.4) Anion Gap 11.0 mmol/L (3-11) Est Creatinine Clear Calc Drug Dose 7.3 ml/min Estimated GFR () 8.7 Estimated GFR (Non- 7.5 BUN/Creatinine Ratio 13.9 (10-20) Calcium Level 8.9 mg/dl (8.5-10.1) Allergies Coded Allergies: Bacitracin (Verified Allergy, Unknown, EYES SWELLING-OINTMENT PLACED AROUND EYE, 04/21/16) Polymyxin B (Verified Allergy, Unknown, EYES [id number] PLACED AROUND EYE, 04/21/16) Medications Current Inpatient Medications Medications (Trade) Dose Ordered Sig/Debora Route Start Time Stop Time Status Last Admin Dose Admin Nitroglycerin (Nitrostat Tab) 0.4 mg UD PRN SL 06/23/16 10:30 07/23/16 10:29 Allopurinol (Zyloprim Tab) 100 mg QAM PO 06/24/16 09:00 07/24/16 08:59 06/24/16 07:18 100 MG Aspirin (Ecotrin Tab) 81 mg QAM PO 06/24/16 09:00 07/24/16 08:59 06/24/16 07:15 81 MG Atorvastatin Calcium (Lipitor Tab) 40 mg QAM PO 06/24/16 09:00 07/24/16 08:59 06/24/16 07:15 40 MG Levothyroxine Sodium (Synthroid Tab) 125 mcg DAILYBB PO 06/24/16 06:00 07/24/16 05:59 06/24/16 06:17 125 MCG Heparin Sodium (Porcine) 1 ea 1 ea TODAY@0600 N/A 06/24/16 06:00 06/24/16 23:00 Epoetin Magdy/ Syringe (Procrit Inj/ Syringe) 0.35 ml @ 1 mls/min TODAY@0600 IV. 06/24/16 06:00 06/24/16 23:00 Labetalol HCl (Normodyne Tab) 200 mg BID PO 06/24/16 09:00 07/24/16 08:59 Vitamin B Complex/ Vit C/Folic Acid (Nephrocaps) 1 cap DAILY PO 06/24/16 09:00 07/24/16 08:59 06/24/16 07:18 1 CAP Calcium Acetate (Phoslo Cap) 667 mg TIDM PO 06/24/16 07:30 07/24/16 07:29 06/24/16 07:15 667 MG Furosemide (Lasix Tab) 80 mg QAM PO 06/24/16 09:00 07/24/16 08:59 Citalopram Hydrobromide (celeXA TAB) 10 mg QAM PO 06/24/16 09:00 07/24/16 08:59 06/24/16 07:16 10 MG Isosorbide Mononitrate (Imdur Ext Rel Tab) 30 mg QAM PO 06/24/16 09:00 07/24/16 08:59 Acetaminophen (Tylenol Tab) 500 mg Q4H PRN PO 06/23/16 23:45 07/23/16 23:44 Impression (1) Pleural effusion on right (2) End-stage renal disease needing dialysis (3) Coronary artery disease Mrs. Morgan was admitted for evaluation of dyspnea. CXR revealed a large right pleural effusion. She has undergone thoracentesis w/ 1100 cc volume removal. Her breathing is now subjectively improved. ECG shows RBBB. Initial cardiac enzymes are negative. Echocardiogram is pending. Patient has ESRD. She will require HD TTS during her hospitalization. Recommendations HD RN reports difficulty accessing AVF. Patient had high venous resistance while on HD. Treatment stopped after 25 minutes. Will reschedule dialysis for tomorrow am and have HD RN attempt different site placement of needles.
[2016-06-24] MEDS: FUROSEMIDE 80 MG TAB PO SCH (11:01)
[2016-06-24] MEDS: ISOSORBIDE MONONITRATE 30 MG TABCR PO SCH (11:01)
--- NOTE | 2016-06-24 12:57 | PROGRESS NOTE ---
DATE: 06/24/2016 PROBLEM LIST: Includes, 1. Dyspnea. 2. Pleural effusion on the right. 3. End-stage renal disease. 4. Coronary artery disease. SUBJECTIVE: The patient underwent thoracentesis yesterday with Dr. Howard. He removed 1100 mL of fluid, it does look to be transudative at this time. The patient is reporting significant improvement in her breathing. She states that she is not back to normal yet, but is much improved. She still has a little bit of discomfort at the thoracentesis site, but states that it is significantly improving as well. She still has a little bit of cough and wheeze, this is no worse than her normal. She states that she is feeling pretty well otherwise. She has no chest pain, no palpitations, no chest heaviness or tightness. She has no abdominal pain. No nausea, vomiting, no indigestion or heartburn. She has no difficulty with her bowels. She was scheduled for dialysis today. Unfortunately, there was some difficulty with access, so she is having dialysis tomorrow, otherwise no complaints. OBJECTIVE: GENERAL: The patient is a small framed 81-year-old female lying in bed. No acute distress. She is interactive and co-operative, no respiratory distress. VITAL SIGNS: Temp 36.9, pulse 71, respirations 16, blood pressure is 152/72, pulse ox 94% on 3 liters. HEENT: Normocephalic, atraumatic. Pupils equal, round and reactive to light and accommodation. Extraocular movements are intact. [place] moist gingival and buccal mucosa. NECK: Short neck. No mass. No adenopathy. No bruits, no JVD, no thyromegaly. CHEST: Diminished breath sounds, a little bit of dullness and decreased breath sounds on the right base, but much improved. No wheezing, rale or rhonchi heard. CARDIOVASCULAR: Regular rate and rhythm. No murmurs, gallops or rubs appreciated. ABDOMEN: Bowel sounds present. Abdomen soft, nontender. No guarding, rigidity or organomegaly. EXTREMITIES: No cyanosis or clubbing. No edema noted. NEUROLOGIC: Cranial nerves II through XII are intact. No focal deficits. LABORATORY DATA: Shows a white count of 8000, H\T\H are 10.5 and 32.0, platelet count of 181,000. Pleural fluid showed a pH of 7.39. White blood cell count 1489, red blood cell count of 4000, total protein of 4.5. LDH 127, glucose 95, amylase 137. Gram stain is showing many white blood cells, but no organisms. Fungal is showing no yeast or hyphae. No new imaging. IMPRESSION: This is an 81-year-old female with right-sided pleural effusion, appears to be transudative, most likely secondary to her chronic kidney disease. At this time, her breathing is improved following thoracentesis. At this point, we will continue to follow the patient through hospitalization. PULMONARY ATTENDING ADDENDUM: The patient's clinical hx would be most compatible with a transudate but the pleural fluid protein is elevated. This would raise suspicion for an exudate. Await further studies. AMADOUD
--- NOTE | 2016-06-24 17:38 | PROGRESS NOTE ---
DATE: 06/24/2016 HISTORY OF PRESENT ILLNESS: An 81-year-old female admitted with shortness of breath and chest pain. She was found to have a large right pleural effusion. Her medical problems also include end-stage renal disease, she is on hemodialysis, coronary artery disease, arterial hypertension, and hypothyroidism. The patient was admitted. She was seen in pulmonary consultation by Dr. Farah. Dr. Farah consulted Dr. Howard and a thoracentesis was done and 1100 mL of fluid drained. She was also seen in renal consultation by Dr. Llanes. She is on dialysis with the scheduled of Thursday, and Thursday. The patient was admitted directly from Dr. Villar's office after he saw her in his office. Overall, she had an excellent night. She rested comfortably. She has not had any pain. No headache and no dizziness. No chest pain. Her shortness of breath persists, but she does have chronic respiratory failure and she is chronically on oxygen, but definitely her condition has markedly improved since yesterday. No nausea and no vomiting. No problem with her bowel movements. She does have residual urine flow. Denied any pain in her back. Denied any swelling in her ankles. PHYSICAL EXAMINATION: GENERAL: Well developed in no distress. VITAL SIGNS: Blood pressure 153/72, pulse 71, respirations 16, temperature 36.9, and oxygen saturation 94% on 2 liter oxygen by nasal cannula. SKIN: Warm and dry. No rash. HEENT: She is legally blind because of macular degeneration. No mucosal abnormality. NECK: No JVD. No adenopathy. Bilateral bruit. HEART: Regular heart sounds with 2/6 systolic murmur. LUNGS: Decreased breath sounds. Scattered rhonchi. ABDOMEN: Soft and nontender. EXTREMITIES: No edema, clubbing, or cyanosis. AV fistula in the left arm. TODAY'S LABORATORY TESTS: WBC count 8220, hemoglobin 10.5, hematocrit 32%, and platelet count 181,000. Sodium 138, potassium 4.5, chloride 101, CO2 of 26, BUN 69, creatinine 5.0, glucose 95, and calcium 8.9. ASSESSMENT: 1. Large right-sided pleural effusion requiring thoracentesis with removal of 1100 mL. 2. Dyspnea, most likely related to her pleural effusion. 3. Coronary artery disease. 4. Arterial hypertension. 5. End-stage renal disease on hemodialysis. PLAN: 1. Continuing the same medications. 2. Her blood pressure was elevated during the night, so I gave her 1 dose of amlodipine 5 mg p.o. and her blood pressure improved. 3. She will be dialyzed today. 4. We will order physical and occupation therapy. 5. We will repeat her chest x-ray in the morning.
--- NOTE | 2016-06-24 19:29 | CARDIOLOGY PROGRESS NOTE ---
DATE: 06/24/2016 TIME: 1632 p.m. SUBJECTIVE: Ms. Morgan was evaluated today at 7:45 a.m. She feels 65% better following thoracentesis removing 1.1 liters of pleural fluid yesterday by Dr. Howard. Her breathing is not yet back to what she considers baseline, but much improved from presentation. She denies chest pain but this sort at the thoracentesis site. She denies syncope, near syncope, palpitations or edema. She is due for dialysis today. OBJECTIVE: VITAL SIGNS: Temperature 36.9 degrees, heart rate 71 beats per minute, respiration rate 16, blood pressure 153/72 mmHg, oxygen saturation 94% on 2 liters per nasal cannula. Weight 69.7 kg. GENERAL: No acute distress. She was alert. NECK: Mild JVD. CARDIAC: No ventricular heave, regular, normal S1, S2, 2/6 systolic murmur. No rubs or gallops. LUNGS: Coarse breath sounds throughout with scant expiratory wheezing. Much better air movement in the right lower lung field compared to when she was evaluated in the office yesterday. ABDOMEN: Soft, nontender, nondistended. Normoactive bowel sounds. EXTREMITIES: No cyanosis or edema. PSYCHIATRIC: Affect appears appropriate. MEDICATIONS: Include aspirin 81 mg daily, Lipitor 40 mg daily, Lasix 80 mg p.o. daily, isosorbide mononitrate 30 mg daily, labetalol 200 mg p.o. b.i.d., Synthroid 125 mcg daily. LABORATORY DATA: White blood cell count is 8.2, hemoglobin 10.5, platelets 181. Sodium 138, potassium 4.5, BUN 69, creatinine 5. Troponin undetectable x3. TSH 2.77, AST 17, ALT 21. Magnesium 2.1. IMAGING DATA: Chest x-ray performed yesterday after the thoracentesis demonstrated no evidence of pneumothorax as per radiology. Prior to thoracentesis, chest x-ray reported a right pleural effusion occupying 50% of the right hemithoracic volume. Echocardiogram report reviewed. This was performed on 06/23/2016. Normal left ventricular systolic function with an EF of 60-65%. Normal wall motion. Type 2 diastolic dysfunction. Sclerotic aortic valve without stenosis. Trace AI. Normal estimated right ventricular systolic pressure. ECG upon presentation personally reviewed. Sinus rhythm, right bundle branch block, 72 beats per minute. Chart reviewed. ASSESSMENT AND PLAN: 1. Shortness of breath: Likely secondary to the pleural effusion which has been managed by pulmonology and Dr. Howard of thoracic surgery. Shortness of breath overall much improved following thoracentesis. Hopefully, she improves even further after dialysis today. 2. Chest pain: She did have some atypical chest pain which was described as a left-sided chest discomfort at rest. This happened as an outpatient. No further chest pain as an inpatient. It may or may not have been related to her pleural effusion and other respiratory issues. If it returns, could perform an ischemic evaluation but her symptoms were not typical for angina. 3. Coronary artery disease status post mid left anterior descending percutaneous coronary intervention: She describes that her chest pain is different than prior angina. She appeared euvolemic yesterday, possibly slightly hypervolemic today but is due for dialysis. Continue aspirin 81 mg daily indefinitely given percutaneous coronary intervention. Continue beta annette and statin therapy. 4. Hypertension: We will defer to nephrology given the fact that she has had issues with symptomatic hypotension during dialysis. 5. Disposition: The patient's care was discussed with Dr. Farah of pulmonology who has seen her in consultation.
[2016-06-24] MEDS: ACETAMINOPHEN 500 MG TAB PO PRN (20:25)
[2016-06-25] VITALS (25 sets, daily range): BP systolic 103–163; BP diastolic 46–95; PULSE 57–81; TEMP 36.5–37.3; O2SAT 92–99
[2016-06-25] MEDS ORDERED: EPOETIN ALFA INJ 7,000 UNITS in SYRINGE 0 ML IV. SCH (06:00)
[2016-06-25] MEDS ORDERED: EPOETIN ALFA 10,000 UNITS/ML VIAL IV. ONE (06:00)
[2016-06-25 06:19] LABS: HEMATOCRIT 29.6 % (37-47); MEAN CELL VOLUME 102.8 fL (80-100); MEAN CORPUSCULAR HEMOGLOBIN 33.7 pg (25-34); MEAN CORPUSCULAR HGB CONC 32.8 g/dl (32-36); MEAN PLATELET VOLUME 9.6 fL (7.4-10.4); PLATELET COUNT 182 K/uL (130-400); RED BLOOD COUNT 2.88 M/uL (4.2-5.4)
[2016-06-25] MEDS: LEVOTHYROXINE 125 MCG TAB PO SCH (06:22)
[2016-06-25 07:11] LABS: BUN/CREATININE RATIO 13.3 (10-20); CALCIUM 8.5 mg/dl (8.5-10.1); CREATININE 5.2 mg/dl (0.60-1.20); POTASSIUM 4.6 mmol/L (3.5-5.1)
[2016-06-25] MEDS: CALCIUM ACETATE 667MG GELCAP PO SCH ×3 (07:30→16:47)
--- NOTE | 2016-06-25 08:55 | DIAGNOSTIC IMAGING REPORT ---
TWO VIEW CHEST CLINICAL HISTORY: Pleural effusion. Recent thoracentesis. FINDINGS: AP and lateral chest radiographs are compared to study dated 06/23/2016 and correlated with chest CT dated 04/18/2010. The AP view is degraded by patient rotation, and the examination is also degraded by large body habitus. The heart is enlarged and there is atherosclerotic calcification of the thoracic aorta. There is pulmonary vascular congestion. There are small to moderate pleural effusions, right larger than left with associated bibasilar consolidation. These appear at least partially loculated. There is a small right-sided pneumothorax. The skeletal structures are osteopenic. Degenerative change is present throughout the thoracic spine. IMPRESSION: 1. There are small to moderate pleural effusions with bibasilar consolidation, right slightly larger than left. 2. There is a small right apical pneumothorax. 3. Cardiomegaly with mild pulmonary vascular congestion. Electronically signed by: Meir Mooney M.D. 06/25/2016 8:54 AM Dictated Date/Time: 06/25/2016 8:51 AM
--- NOTE | 2016-06-25 09:04 | CARDIOLOGY PROGRESS NOTE ---
DATE: 06/25/2016 TIME: 8:09 a.m. SUBJECTIVE: She feels much better today. Unfortunately, she stated that dialysis was unable to be completed yesterday and therefore she states that she has dialysis scheduled once again for today. Her breathing is stable, much improved following thoracentesis. No chest pain, syncope, near syncope, or palpitations. She denies any bleeding. OBJECTIVE: VITAL SIGNS: Temperature 36.5 degrees, heart rate 76 beats per minute, respiration rate 22, blood pressure 154/70 mmHg, oxygen saturation 92% on 3 liters per nasal cannula. GENERAL: No acute distress. She is alert. NECK: Mild JVD. CARDIAC EXAMINATION: No ventricular heave. Regular, normal S1, S2. A 2/6 systolic murmur. No rubs or gallops. LUNGS: Much improved from yesterday. Rather clear throughout. ABDOMEN: Soft, nontender, nondistended. Normoactive bowel sounds. EXTREMITIES: No significant edema. No cyanosis. PSYCHIATRIC: Affect appears appropriate. MEDICATIONS: Include aspirin 81 mg daily, atorvastatin 40 mg every day, Lasix 80 mg p.o. every day, isosorbide mononitrate 30 mg daily, labetalol 200 mg p.o. b.i.d. She also received a dose of amlodipine 5 mg yesterday morning. LABORATORIES: White blood cell count is 8.9, hemoglobin 9.7, platelets 182. Sodium 138, potassium 4.6, BUN 69, creatinine 5.2. ASSESSMENT AND PLAN: 1. Shortness of breath/pleural effusion: Her shortness of breath appears to be secondary to pleural effusion which is being managed by Pulmonology and Dr. Howard of thoracic surgery. No further cardiac testing planned at this time. 2. Chest pain: She had atypical chest pain as an outpatient which has not returned. It did not appear to be consistent with her prior angina. No further testing from a cardiac standpoint at this time unless her chest discomfort returns and cannot be attributed to her pulmonary issues. 3. Coronary artery disease status post left anterior descending percutaneous coronary intervention: Continue aspirin 81 mg daily indefinitely to reduce the risk of stent thrombosis. Continue beta annette and statin therapy. No angina. 4. Hypertension: She was given amlodipine with improvement of her blood pressure yesterday. She has had issues with symptomatic hypotension during dialysis in the past. Therefore, will defer further management to Dr. Brambila and Nephrology. 5. Disposition: Cardiology will sign off at this time. Please call for any further questions or concerns.
--- NOTE | 2016-06-25 10:18 | Nephrology Progress Note ---
Nephrology Progress Note Date of Service Jun 25, 2016. Chief Complaint Assist in the care of this patient w/ ESRD on HD admitted with right pleural effusion Subjective Mrs. Morgan was seen & examined in her hospital room this morning. She reports that her breathing has improved following thoracentesis. She is scheduled for a follow up CXR this morning. Mrs. Morgan currently denies fever, dyspnea, pleurisy or angina. The patient received only 20 min HD yesterday. Her AVF was difficult to access. She had repeated high venous pressure alarms. Dialysis was stopped yesterday. She has been scheduled for dialysis later this morning. AVF has a small amount of ecchymosis surrounding the venous limb. AVF has + bruit Review of Systems Constitutional: No fever Cardiovascular: No chest pain Respiratory: No dyspnea at rest Abdomen: No nausea, No pain, No vomiting Extremities: No leg edema A complete review of systems was performed. Pertinent positives are noted above. All other systems are negative. Vital Signs Last 8 Hrs Date Time Temp Pulse Resp B/P Pulse Ox O2 Delivery O2 Flow Rate FiO2 06/25/16 10:00 72 141/74 06/25/16 09:45 72 103/53 06/25/16 09:34 72 152/69 06/25/16 08:00 Nasal Cannula 3.0 06/25/16 07:34 36.8 76 20 156/77 94 Nasal Cannula 2.5 06/25/16 04:00 Nasal Cannula 3.0 06/25/16 03:37 36.5 76 22 154/70 92 Nasal Cannula 3.0 I & O 24-Hour Column 06/25/16 08:00 Intake Total 360 ml Output Total 200 ml Balance 160 ml Last Recorded Weight Weight (Kilograms): 68.500 Physical Exam General Appearance: no apparent distress Head: normocephalic (temporal muscle wasting) Eyes: PERRL, EOMI Neck: no adenopathy Respiratory/Chest: + crackles (right base) Cardiovascular: regular rate, rhythm Abdomen/GI: normal bowel sounds, non tender, soft Extremities/Musculoskelatal: no pedal edema, + pertinent finding (left upper arm AVF + bruit) Neurologic/Psych: alert, oriented x 3 Family History Negative for CKD/ESRD Social History Smoking Status: Never smoker . Retired. Never a smoker Laboratory Results Past 24 Hours 06/25/16 05:49 06/25/16 05:49 Test 06/24/16 11:15 06/24/16 15:56 06/24/16 20:03 06/25/16 05:49 Bedside Glucose 106 mg/dl (70-90) 112 mg/dl (70-90) 134 mg/dl (70-90) Red Blood Count 2.88 M/uL (4.2-5.4) Mean Corpuscular Volume 102.8 fL (80-100) Mean Corpuscular Hemoglobin 33.7 pg (25-34) Mean Corpuscular Hemoglobin Concent 32.8 g/dl (32-36) RDW Standard Deviation 54.1 fL (36.4-46.3) RDW Coefficient of Variation 14.3 % (11.5-14.5) Mean Platelet Volume 9.6 fL (7.4-10.4) Anion Gap 9.0 mmol/L (3-11) Est Creatinine Clear Calc Drug Dose 6.9 ml/min Estimated GFR () 8.3 Estimated GFR (Non- 7.1 BUN/Creatinine Ratio 13.3 (10-20) Calcium Level 8.5 mg/dl (8.5-10.1) Test 06/25/16 06:26 Bedside Glucose 88 mg/dl (70-90) Allergies Coded Allergies: Bacitracin (Verified Allergy, Unknown, EYES SWELLING-OINTMENT PLACED AROUND EYE, 04/21/16) Polymyxin B (Verified Allergy, Unknown, EYES [id number] PLACED AROUND EYE, 04/21/16) Medications Current Inpatient Medications Medications (Trade) Dose Ordered Sig/Debora Route Start Time Stop Time Status Last Admin Dose Admin Nitroglycerin (Nitrostat Tab) 0.4 mg UD PRN SL 06/23/16 10:30 07/23/16 10:29 Allopurinol (Zyloprim Tab) 100 mg QAM PO 06/24/16 09:00 07/24/16 08:59 06/24/16 07:18 100 MG Aspirin (Ecotrin Tab) 81 mg QAM PO 06/24/16 09:00 07/24/16 08:59 06/24/16 07:15 81 MG Atorvastatin Calcium (Lipitor Tab) 40 mg QAM PO 06/24/16 09:00 07/24/16 08:59 06/24/16 07:15 40 MG Levothyroxine Sodium (Synthroid Tab) 125 mcg DAILYBB PO 06/24/16 06:00 07/24/16 05:59 06/25/16 06:22 125 MCG Vitamin B Complex/ Vit C/Folic Acid (Nephrocaps) 1 cap DAILY PO 06/24/16 09:00 07/24/16 08:59 06/24/16 07:18 1 CAP Calcium Acetate (Phoslo Cap) 667 mg TIDM PO 06/24/16 07:30 07/24/16 07:29 06/25/16 07:30 667 MG Furosemide (Lasix Tab) 80 mg QAM PO 06/24/16 09:00 07/24/16 08:59 06/24/16 11:01 80 MG Citalopram Hydrobromide (celeXA TAB) 10 mg QAM PO 06/24/16 09:00 07/24/16 08:59 06/24/16 07:16 10 MG Isosorbide Mononitrate (Imdur Ext Rel Tab) 30 mg QAM PO 06/24/16 09:00 07/24/16 08:59 06/24/16 11:01 30 MG Acetaminophen (Tylenol Tab) 500 mg Q4H PRN PO 06/23/16 23:45 07/23/16 23:44 06/24/16 20:25 500 MG Heparin Sodium (Porcine) (No Heparin In Dialysis) 1 ea TODAY@0600 N/A 06/25/16 06:00 06/25/16 23:59 Labetalol HCl 200 mg 200 mg BID PO 06/24/16 09:00 07/24/16 08:59 06/24/16 20:25 200 MG Epoetin Magdy/ Syringe (Procrit Inj/ Syringe) 0.35 ml @ 1 mls/min TODAY@0600 IV. 06/25/16 06:00 06/25/16 23:59 Impression (1) Pleural effusion on right (2) End-stage renal disease needing dialysis (3) Coronary artery disease Mrs. Morgan was admitted for evaluation of dyspnea. CXR revealed a large right pleural effusion. She has undergone thoracentesis w/ 1100 cc volume removal. Her breathing is now subjectively improved. ECG shows RBBB. Initial cardiac enzymes are negative. Echocardiogram is pending. Patient has ESRD. She will require HD TTS during her hospitalization. Recommendations -- Heparin free HD has been scheduled for this am. Orders entered into EMR and HD RN notified -- CXR films reviewed this am. Patient has recurrent right pleural effusion and a small apical pneumothorax -- Bacterial cultures of pleural fluid are negative. Await fungal and mycobacterial cultures -- Await further pulmonology recommendations -- Echocardiogram report 06/23/16 reviewed: Normal LVEF, mild to moderate MR -- Continue Phos-lo with meals and provide daily Nephrocaps
[2016-06-25] MEDS: ISOSORBIDE MONONITRATE 30 MG TABCR PO SCH (14:10)
[2016-06-25] MEDS: CITALOPRAM 20 MG TAB PO SCH (14:10)
[2016-06-25] MEDS: FUROSEMIDE 80 MG TAB PO SCH (14:10)
[2016-06-25] MEDS: LABETALOL HCL 100 MG TAB PO SCH ×2 (14:10→20:26)
[2016-06-25] MEDS: ASPIRIN 81 MG ECTAB PO SCH (14:11)
[2016-06-25] MEDS: ALLOPURINOL 100 MG TAB PO SCH (14:11)
[2016-06-25] MEDS: ATORVASTATIN 40 MG TAB PO SCH (14:11)
[2016-06-25] MEDS: NEPHROCAPS PO SCH (14:11)
--- NOTE | 2016-06-25 16:36 | PULMONARY PROGRESS NOTE ---
DATE: 06/25/2016 TIME: 4:00 p.m. SUBJECTIVE: The patient complains of nausea today. She did not tell the nurse. She has not vomited, but she felt like it. This was earlier in the day. Her breathing is much better since the fluid was removed 2 days ago. The fluid analysis was reviewed. This shows that the pleural fluid, LDH was elevated to 127 and the ratio between the pleural fluid and the serum LDH was elevated at 0.8. Review of the pleural fluid protein shows it is 4.5, which would be elevated. These numbers would suggest an exudate. However, she has been on furosemide, which can alter the results somewhat. One would be anticipating more of a transudate with her history of renal failure. The pleural fluid cytology showed no evidence of any tumor cells. OBJECTIVE: GENERAL: The patient appeared comfortable. She was not short of breath at all. She is afebrile with a temperature of 36.5. HEART: Heart rate was 80 beats per minute. The rhythm was regular. LUNGS: Lung kinney revealed rales bilaterally posteriorly. The breath sounds were diminished on the right compared with the left. ABDOMEN: Soft. Bowel sounds were present. There was no tenderness to palpation. EXTREMITIES: Showed no edema. Chest x-ray today suggests a small right apical pneumothorax. She did not take a deeper breath, but it appears that there may be some recurrence already of pleural effusions. CBC today showed a white count of 8.9. Hemoglobin was 9.7. Platelets were 182,000. The MCV has been elevated. Electrolytes today show sodium 138, potassium 4.6, chloride 103, bicarbonate 26. The BUN today was 69 and had been 52 on June 23. Creatinine today was 5.2 and it had been 4.3 on June 23. Fungal smear of pleural fluid was negative. AFB smear was negative. Bacterial culture shows no growth. IMPRESSIONS: 1. Right pleural effusion -- uncertain etiology. 2. Shortness of breath secondary to #1 -- improved. 3. End-stage renal disease stage IV. 4. Small right pneumothorax. COMMENTS AND RECOMMENDATIONS: Would continue surveillance of a chest x-ray probably in about 48 hours or so. I told the patient, she should let nursing staff know if she is having significant nausea, so that something could be ordered for her.
[2016-06-26] VITALS (7 sets, daily range): BP systolic 123–150; BP diastolic 55–78; PULSE 71–77; TEMP 36.7–37; O2SAT 94–99
[2016-06-26] MEDS: LEVOTHYROXINE 125 MCG TAB PO SCH (06:10)
[2016-06-26 07:26] LABS: HEMATOCRIT 30.2 % (37-47); MEAN CORPUSCULAR HEMOGLOBIN 32.4 pg (25-34); MEAN CORPUSCULAR HGB CONC 32.1 g/dl (32-36); MEAN PLATELET VOLUME 9.2 fL (7.4-10.4); PLATELET COUNT 197 K/uL (130-400); RED BLOOD COUNT 2.99 M/uL (4.2-5.4); WHITE BLOOD COUNT 8.16 K/uL (4.8-10.8)
[2016-06-26 07:56] LABS: BUN/CREATININE RATIO 9.6 (10-20); CALCIUM 8.4 mg/dl (8.5-10.1); CREATININE 3.5 mg/dl (0.60-1.20); POTASSIUM 4.3 mmol/L (3.5-5.1)
--- NOTE | 2016-06-26 08:01 | DIAGNOSTIC IMAGING REPORT ---
TWO VIEW CHEST CLINICAL HISTORY: Pleural effusion. FINDINGS: AP and lateral chest radiographs are compared to study dated 06/25/2016 and correlated with chest CT dated 04/18/2010. The AP view is degraded by patient rotation, and the examination is also degraded by large body habitus. The heart is enlarged and there is atherosclerotic calcification of the thoracic aorta. There is pulmonary vascular congestion. There are small to moderate pleural effusions, right larger than left with associated bibasilar consolidation. Fluid is noted at the right apex. The small right-sided pneumothorax seen yesterday is no longer identified. The skeletal structures are osteopenic. Degenerative change is present throughout the thoracic spine. IMPRESSION: 1. There are small to moderate pleural effusions with bibasilar consolidation, right slightly larger than left. These are similar to yesterday. 2. The small right apical pneumothorax identified yesterday is no longer seen. Fluid is now noted at the right apex. 3. Cardiomegaly with persistent pulmonary vascular congestion. Electronically signed by: Meir Mooney M.D. 06/26/2016 7:59 AM Dictated Date/Time: 06/26/2016 7:57 AM
[2016-06-26] MEDS: CALCIUM ACETATE 667MG GELCAP PO SCH ×3 (08:02→16:44)
[2016-06-26] MEDS: ISOSORBIDE MONONITRATE 30 MG TABCR PO SCH (08:03)
[2016-06-26] MEDS: ALLOPURINOL 100 MG TAB PO SCH (08:03)
[2016-06-26] MEDS: FUROSEMIDE 80 MG TAB PO SCH (08:03)
[2016-06-26] MEDS: CITALOPRAM 20 MG TAB PO SCH (08:03)
[2016-06-26] MEDS: NEPHROCAPS PO SCH (08:03)
[2016-06-26] MEDS: LABETALOL HCL 100 MG TAB PO SCH ×2 (08:03→20:40)
[2016-06-26] MEDS: ATORVASTATIN 40 MG TAB PO SCH (08:04)
[2016-06-26] MEDS: ASPIRIN 81 MG ECTAB PO SCH (08:04)
[2016-06-26 08:46] LABS: HEPATITIS B AB NEG
--- NOTE | 2016-06-26 09:34 | Nephrology Progress Note ---
Nephrology Progress Note Date of Service Jun 26, 2016. Chief Complaint Assist in the care of this patient w/ ESRD on HD admitted with right pleural effusion Subjective Mrs. Morgan was seen & examined in her hospital room this morning. She reports that her breathing has improved following thoracentesis. She currently denies fever, dyspnea, pleurisy or angina. The patient dialyzed for 3 hr 45 min yesterday. 2.2 L UF obtained. AVF functioned without complication. Patient voices no new medical concerns at this time. Review of Systems Constitutional: No fever Cardiovascular: No chest pain Respiratory: No dyspnea at rest Abdomen: No diarrhea, No pain, No vomiting Extremities: No leg edema A complete review of systems was performed. Pertinent positives are noted above. All other systems are negative. Vital Signs Last 8 Hrs Date Time Temp Pulse Resp B/P Pulse Ox O2 Delivery O2 Flow Rate FiO2 06/26/16 08:00 Nasal Cannula 3.0 06/26/16 07:22 36.7 72 21 149/71 96 Nasal Cannula 2.0 06/26/16 04:09 37.0 77 22 148/55 97 Nasal Cannula 4.0 06/26/16 04:00 97 Nasal Cannula I & O 24-Hour Column 06/26/16 08:00 Intake Total 170 ml Output Total 2400 ml Balance -2230 ml Last Recorded Weight Weight (Kilograms): 67.300 Physical Exam General Appearance: no apparent distress Head: normocephalic, atraumatic Eyes: PERRL, EOMI Neck: no adenopathy Respiratory/Chest: + crackles (at right base) Cardiovascular: regular rate, rhythm Abdomen/GI: normal bowel sounds, non tender, soft Extremities/Musculoskelatal: no calf tenderness, no pedal edema, + pertinent finding (left upper arm AVF + bruit) Neurologic/Psych: alert, oriented x 3 Family History Negative for CKD/ESRD Social History Smoking Status: Never smoker . Retired. Never a smoker Laboratory Results Past 24 Hours 06/26/16 07:12 06/26/16 07:12 Test 06/25/16 16:20 06/26/16 07:12 Bedside Glucose 121 mg/dl (70-90) Red Blood Count 2.99 M/uL (4.2-5.4) Mean Corpuscular Volume 101.0 fL (80-100) Mean Corpuscular Hemoglobin 32.4 pg (25-34) Mean Corpuscular Hemoglobin Concent 32.1 g/dl (32-36) RDW Standard Deviation 53.5 fL (36.4-46.3) RDW Coefficient of Variation 14.5 % (11.5-14.5) Mean Platelet Volume 9.2 fL (7.4-10.4) Anion Gap 7.0 mmol/L (3-11) Est Creatinine Clear Calc Drug Dose 10.2 ml/min Estimated GFR () 13.4 Estimated GFR (Non- 11.5 BUN/Creatinine Ratio 9.6 (10-20) Calcium Level 8.4 mg/dl (8.5-10.1) Hepatitis B Surface Antigen NEG (NEG) Hepatitis B Surface Antibody NEG Allergies Coded Allergies: Bacitracin (Verified Allergy, Unknown, EYES SWELLING-OINTMENT PLACED AROUND EYE, 04/21/16) Polymyxin B (Verified Allergy, Unknown, EYES [id number] PLACED AROUND EYE, 04/21/16) Medications Current Inpatient Medications Medications (Trade) Dose Ordered Sig/Debora Route Start Time Stop Time Status Last Admin Dose Admin Nitroglycerin (Nitrostat Tab) 0.4 mg UD PRN SL 06/23/16 10:30 07/23/16 10:29 Allopurinol (Zyloprim Tab) 100 mg QAM PO 06/24/16 09:00 07/24/16 08:59 06/26/16 08:03 100 MG Aspirin (Ecotrin Tab) 81 mg QAM PO 06/24/16 09:00 07/24/16 08:59 06/26/16 08:04 81 MG Atorvastatin Calcium (Lipitor Tab) 40 mg QAM PO 06/24/16 09:00 07/24/16 08:59 06/26/16 08:04 40 MG Levothyroxine Sodium (Synthroid Tab) 125 mcg DAILYBB PO 06/24/16 06:00 07/24/16 05:59 06/26/16 06:10 125 MCG Vitamin B Complex/ Vit C/Folic Acid (Nephrocaps) 1 cap DAILY PO 06/24/16 09:00 07/24/16 08:59 06/26/16 08:03 1 CAP Calcium Acetate (Phoslo Cap) 667 mg TIDM PO 06/24/16 07:30 07/24/16 07:29 06/26/16 08:02 667 MG Furosemide (Lasix Tab) 80 mg QAM PO 06/24/16 09:00 07/24/16 08:59 06/26/16 08:03 80 MG Citalopram Hydrobromide (celeXA TAB) 10 mg QAM PO 06/24/16 09:00 07/24/16 08:59 06/26/16 08:03 10 MG Isosorbide Mononitrate (Imdur Ext Rel Tab) 30 mg QAM PO 06/24/16 09:00 07/24/16 08:59 06/26/16 08:03 30 MG Acetaminophen (Tylenol Tab) 500 mg Q4H PRN PO 06/23/16 23:45 07/23/16 23:44 06/24/16 20:25 500 MG Labetalol HCl (Normodyne Tab) 200 mg BID PO 06/24/16 09:00 07/24/16 08:59 06/26/16 08:03 200 MG Impression (1) Pleural effusion on right (2) End-stage renal disease needing dialysis (3) Coronary artery disease Mrs. Morgan was admitted for evaluation of dyspnea. CXR revealed a large right pleural effusion. She has undergone thoracentesis 06/23/16 with 1100 cc volume removal. Her breathing is now subjectively improved. ECG shows RBBB. Initial cardiac enzymes are negative. Echocardiogram is pending. Patient has ESRD. She will require HD 3 x weekly during her hospitalization. Her outpatient HD schedule is TTS. Recommendations -- Patient dialyzed yesterday without complication. Volume status and electrolyte balance are acceptable at this time. No acute indication for HD today. Will schedule next HD for tomorrow. -- AVF examined this am. Fistula has a strong bruit. 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 There is only a short venous segment available for cannulation. This dives deep into the muscle and limits needle placement. Patient has ecchymosis surrounding the venous limb associated with previous infiltration. If continued difficulty w/ AVF may need to ask vascular surgery to reassess AVF and evaluate for transposition -- CXR films reviewed yesterday. Patient has recurrent right pleural effusion and a small apical pneumothorax. Await further input from thoracic surgery -- Bacterial cultures of pleural fluid are negative. Await fungal and mycobacterial cultures -- Echocardiogram report 06/23/16 reviewed: Normal LVEF, mild to moderate MR -- Continue Phos-lo with meals and provide daily Nephrocaps
--- NOTE | 2016-06-26 10:04 | SURGERY PROGRESS NOTE ---
DATE: 06/26/2016 DATE: 06/26/2016. Ms. Morgan was seen today on 06/26/2016. Unfortunately, she is continuing to have more dyspnea. She was down to 2 but now back up to 3 liters to maintain her. In addition, an x-ray was obtained this morning and I think she has a bit more fluid on the right than she did 2 days ago. I discussed this case with Dr. Brambila. I believe that Mrs. Morgan is a candidate for PleurX catheter insertion. We will do this tomorrow. I think this will help her symptoms and help her get out of the hospital.
--- NOTE | 2016-06-26 11:52 | PULMONARY PROGRESS NOTE ---
DATE: 06/26/2016 PROBLEM LIST: Includes: 1. Right pleural effusion. 2. Right pneumothorax, which is small. 3. End-stage renal disease, on dialysis. SUBJECTIVE: The patient reports that she is feeling pretty good today. She did undergo dialysis yesterday and is feeling better from that. She states that her breathing is about the same as it has been, she may be a little bit more short of breath. She is not really having much in the way of cough or congestion. No wheezing, no chest heaviness or tightness. No abdominal pain. No nausea or vomiting. No change in the swelling of her legs. Her chest x-ray did show a little bit increase in fluid and after reviewing Dr. Howard's note, concern is that the pleural effusion is reaccumulating. Therefore, the plan is to place a PleurX catheter tomorrow. This was discussed and explained to the patient. The patient voiced understanding. OBJECTIVE: GENERAL: The patient is an 81-year-old female lying in bed in no acute distress. She is alert and oriented x3. Mood is good. Affect is good. VITAL SIGNS: Temp 36.7, pulse 72, respirations 21, blood pressure 149/71, pulse ox 96% on 2 liters. HEENT: Normocephalic, atraumatic. Pupils equal, round and reactive to light and accommodation. Extraocular movements are intact. [place] moist gingival and buccal mucosa. NECK: Supple. No mass. No adenopathy. No bruit. CHEST: Bibasilar rales which are faint. No wheeze or rhonchi noted. CARDIOVASCULAR: Regular rate and rhythm. No murmurs, no gallops, no rubs noted. ABDOMEN: Bowel sounds present. Abdomen soft, nontender. No guarding, rigidity or organomegaly. EXTREMITIES: No erythema or edema. NEUROLOGIC: Cranial nerves II-XII are intact. No focal deficits noted. LABORATORY DATA: Shows a white count of 8000, H\T\H 9.7 and 30.2, platelet count of 197,000. Creatinine down to 3.5 from 5.2. The patient did have chest x-ray done showing pleural effusion, predominantly on the left. Not much change from yesterday. The pneumothorax noted yesterday not seen today. IMPRESSION: 1. Right-sided pleural effusion. At this point, after reviewing Dr. Howard's note, he is planning on doing PleurX catheter in the a.m. Again, this was discussed with the patient and explained to her to some degree. The patient voiced understanding. 2. Pneumothorax on the right, which no evidence of this today. 3. End-stage renal disease. PLAN: Continue to provide supportive care to the patient from a pulmonary side. Will continue to follow through hospitalization.
--- NOTE | 2016-06-26 12:15 | DIAGNOSTIC IMAGING REPORT ---
CHEST CT WITHOUT CONTRAST CT DOSE: 421.63 mGycm HISTORY: Atypical chest pain. Short of breath. pleural effusion TECHNIQUE: Multiaxial CT images of the chest were performed without contrast. COMPARISON: Chest CT 04/18/2010. Chest x-ray 06/26/2016. FINDINGS: The central airways are patent. Mild emphysema. Small left pleural effusion. Consolidation within the left lower lobe posteriorly favors compressive atelectasis from the pleural fluid. There is also a linear density within the lingula suggestive of subsegmental atelectasis. Groundglass and patchy consolidation seen throughout the majority of the right lower lobe. There is a [id number] partially loculated right pleural effusion. Small focus of gas seen within one of the loculated areas of pleural fluid within the posterior medial hemithorax. There are few subcentimeter nodules within the right upper lobe with the largest on image 79 measuring 4 mm. The visualized liver and spleen are unremarkable. Mild thickening of the left gland remains stable. Normal right adrenal gland. Subcentimeter mediastinal lymph nodes do not meet CT criteria for pathologic involvement. Calcified subcarinal lymph node. The heart is top normal in size. Normal caliber thoracic aorta. IMPRESSION: 1. Small to moderate partially loculated right pleural effusion. There is a small pocket of gas within the right pleural fluid medially. 2. Small left pleural effusion. 3. Right lower lobe consolidation may be due to compressive atelectasis from the pleural fluid, reexpansion pulmonary edema, or a developing pneumonia. 4. A few subcentimeter nodules within the right upper lobe with the largest measuring 4 mm. Please refer to the chart below for recommended follow-up. 5. Lingular and left lower lobe consolidation favors atelectasis. Please refer to below summary of Fleischner criteria recommendations for follow-up of incidental CT nodules (Devi Farnsworth, Guidelines for management of small pulmonary nodules detected on CT scans: A statement from the Fleischner Society, Radiology 237: [id number].) Low Risk Patient: Minimal or no smoking or other known risk factors for malignancy <=4 mm: No follow-up needed. >4-6 mm: Initial follow-up CT at 12 months; if unchanged, no further follow-up. >6-8 mm: Initial follow-up CT at 6-12 months then at 18-24 months if no change. >8 mm: Follow-up CT at \R\3, 9, 24 months, or PET and/or biopsy. High Risk Patient: History of smoking or other known risk factors <=4 mm: Follow-up at 12 months; if unchanged, no further follow-up. >4-6 mm: Initial follow-up CT at 6-12 months then at 18-24 months if no change. >6-8 mm: Initial follow-up CT at 3-6 months then at 9-12 and 24 months if no change. >8 mm: Same as low risk patient. Note: Nodule size measured as average of length and width. Ground glass or partly solid nodules may require longer follow-up to exclude indolent adenocarcinoma. Electronically signed by: Cleve Hill M.D. 06/26/2016 12:14 PM Dictated Date/Time: 06/26/2016 12:00 PM
[2016-06-26] MEDS: ACETAMINOPHEN 500 MG TAB PO PRN (20:58)
--- NOTE | 2016-06-26 21:55 | PROGRESS NOTE ---
DATE: 06/26/2016 An 81-year-old female admitted with shortness of breath. She has a complex medical history with coronary artery disease, qgjd-[id number]-[id number] aortic stenosis, arterial hypertension, end-stage renal disease, on hemodialysis, hypothyroidism. On admission, she was found to have a large right pleural effusion. Pulmonary consultation was requested from Dr. Farah. After he evaluated the patient, he asked Dr. Howard to see the patient to do a thoracentesis, which was done and he evacuated 1100 mL of fluid. Subsequently, she was feeling well. Her condition improved significantly after the procedure. The patient was continued on dialysis, but at one time, she only was able to be dialyzed for 24 minutes, because there was a problem with the fistula, but yesterday, the whole session of dialysis went fine without any problem. The patient denied any headache or dizziness. No chest pain. Her shortness of breath has markedly improved. No nausea, no vomiting. No problem with her bowel movements. No problem urinating. No pain in her back or extremities. PHYSICAL EXAMINATION: GENERAL: Well developed, in no distress. VITAL SIGNS: Blood pressure 149/71, pulse 72, respiration 21, temperature 36.7, oxygen saturation 96% on 2 liters oxygen by nasal cannula. SKIN: Warm and dry. No rash. HEENT: Oxygen cannula in place. NECK: No JVD. No adenopathy. Bilateral bruits. HEART: Regular heart sounds with a 2/6 systolic murmur. LUNGS: Markedly decreased breath sounds, especially at the right base. ABDOMEN: Soft, nontender. BACK: No spinal tenderness. EXTREMITIES: No edema, clubbing, or cyanosis. TODAY'S LABORATORY TESTS: WBC count 8160, hemoglobin 9.7, hematocrit 30.2, platelet count 197,000. Sodium 138, potassium 4.3, chloride 104, CO2 27, BUN 34, creatinine 3.5, glucose 83, calcium 8.4. ASSESSMENT: 1. Large right pleural effusion, status post thoracentesis. 2. Evidence of re-accumulation of the pleural effusion on repeated chest x-ray, including the one done this morning. 3. Coronary artery disease. 4. Qdxi-du-oqnwghka aortic stenosis. 5. Arterial hypertension. 6. End-stage renal disease, on hemodialysis. PLAN: 1. I spoke with Dr. Farah and Dr. Whitlark this morning. Dr. Howard is recommending placement of a drainage catheter that could be taken care of at home by home health nursing. 2. Dr. Llanes is deciding on further dialysis. 3. Continuing all her medications. 4. Physical and occupation therapies continued. 5. Her condition is improved, but we need to take care of the right pleural effusion. Hopefully, the catheter that Dr. Howard is placing tomorrow will address this situation. 6. We will continue with her treatment and medications and dialysis and physical and occupational therapies.
[2016-06-27] VITALS (24 sets, daily range): BP systolic 94–164; BP diastolic 41–76; PULSE 65–80; TEMP 36.6–37; O2SAT 92–97
[2016-06-27] MEDS: LEVOTHYROXINE 125 MCG TAB PO SCH (05:47)
[2016-06-27] MEDS ORDERED: EPOETIN ALFA 10,000 UNITS/ML VIAL IV. SCH (06:00)
[2016-06-27 07:58] LABS: BUN/CREATININE RATIO 10.2 (10-20); CALCIUM 8.5 mg/dl (8.5-10.1); CREATININE 4.8 mg/dl (0.60-1.20); POTASSIUM 4.5 mmol/L (3.5-5.1)
[2016-06-27] MEDS: ISOSORBIDE MONONITRATE 30 MG TABCR PO SCH (08:10)
[2016-06-27] MEDS: FUROSEMIDE 80 MG TAB PO SCH (08:10)
[2016-06-27] MEDS: CITALOPRAM 20 MG TAB PO SCH (08:10)
[2016-06-27] MEDS: ASPIRIN 81 MG ECTAB PO SCH (08:11)
[2016-06-27] MEDS: LABETALOL HCL 100 MG TAB PO SCH ×2 (08:11→21:23)
[2016-06-27] MEDS: ATORVASTATIN 40 MG TAB PO SCH (08:11)
[2016-06-27] MEDS: ALLOPURINOL 100 MG TAB PO SCH (08:11)
[2016-06-27] MEDS: CALCIUM ACETATE 667MG GELCAP PO SCH ×3 (08:11→17:14)
[2016-06-27] MEDS: NEPHROCAPS PO SCH (09:00)
--- NOTE | 2016-06-27 09:40 | Dialysis Progress Note ---
Hemodialysis Note Date of Service Jun 27, 2016. Chief Complaint Assist in the care of this patient w/ ESRD on HD admitted with right pleural effusion Subjective Mrs. Morgan was seen & examined in her hospital room during HD this morning. She is currently breathing comfortably. She reports that she may require a right Pleur-x catheter. She currently denies fever, dyspnea, pleurisy or angina. The patient's AVF is functioning well at Qb 400 cc/min. HD director of midwifery/staff midwife reports that the venous limb is deep. A 1.25 in venous needle is needed in order to access the venous limb of the AVF. The patient voices no new medical concerns at this time. Review of Systems Constitutional: No fever Cardiovascular: No chest pain Respiratory: No dyspnea at rest Abdomen: No diarrhea, No pain, No vomiting Extremities: No leg edema A complete review of systems was performed. Pertinent positives are noted above. All other systems are negative. Vital Signs Last 8 Hrs Date Time Temp Pulse Resp B/P Pulse Ox O2 Delivery O2 Flow Rate FiO2 06/27/16 09:09 66 148/65 06/27/16 07:49 36.7 69 18 154/71 97 3.0 06/27/16 04:00 Nasal Cannula 3.0 06/27/16 03:55 36.6 69 20 161/64 97 Nasal Cannula 3.0 I & O 24-Hour Column 06/27/16 07:59 Intake Total 635 ml Output Total 350 ml Balance 285 ml Last Recorded Weight Weight (Kilograms): 68.500 Physical Exam General Appearance: no apparent distress Head: atraumatic Eyes: PERRL, EOMI Neck: no adenopathy Respiratory/Chest: lungs clear (anteriorly) Cardiovascular: regular rate, rhythm Abdomen/GI: normal bowel sounds, non tender, soft Extremities/Musculoskelatal: no pedal edema, + pertinent finding (left arm AVF functioning well) Neurologic/Psych: alert (legally blind due to macular degeneration), oriented x 3 Family History Negative for CKD/ESRD Social History Smoking Status: Never smoker . Retired. Never a smoker Laboratory Results Past [address] 06/26/16: 1. Small to moderate partially loculated right pleural effusion. There is a small pocket of gas within the right pleural fluid medially. 2. Small left pleural effusion. 3. Right lower lobe consolidation may be due to compressive atelectasis from the pleural fluid, reexpansion pulmonary edema, or a developing pneumonia. 4. A few subcentimeter nodules within the right upper lobe with the largest measuring 4 mm. Please refer to the chart below for recommended follow-up. 5. Lingular and left lower lobe consolidation favors atelectasis. 06/27/16 06:15 Test 06/27/16 06:15 Anion Gap 11.0 mmol/L (3-11) Est Creatinine Clear Calc Drug Dose 7.5 ml/min Estimated GFR () 9.1 Estimated GFR (Non- 7.9 BUN/Creatinine Ratio 10.2 (10-20) Calcium Level 8.5 mg/dl (8.5-10.1) Allergies Coded Allergies: Bacitracin (Verified Allergy, Unknown, EYES SWELLING-OINTMENT PLACED AROUND EYE, 04/21/16) Polymyxin B (Verified Allergy, Unknown, EYES [id number] PLACED AROUND EYE, 04/21/16) Medications Current Inpatient Medications Medications (Trade) Dose Ordered Sig/Debora Route Start Time Stop Time Status Last Admin Dose Admin Nitroglycerin (Nitrostat Tab) 0.4 mg UD PRN SL 06/23/16 10:30 07/23/16 10:29 Allopurinol (Zyloprim Tab) 100 mg QAM PO 06/24/16 09:00 07/24/16 08:59 06/27/16 08:11 100 MG Aspirin (Ecotrin Tab) 81 mg QAM PO 06/24/16 09:00 07/24/16 08:59 06/27/16 08:11 81 MG Atorvastatin Calcium (Lipitor Tab) 40 mg QAM PO 06/24/16 09:00 07/24/16 08:59 06/27/16 08:11 40 MG Levothyroxine Sodium (Synthroid Tab) 125 mcg DAILYBB PO 06/24/16 06:00 07/24/16 05:59 06/27/16 05:47 125 MCG Vitamin B Complex/ Vit C/Folic Acid (Nephrocaps) 1 cap DAILY PO 06/24/16 09:00 07/24/16 08:59 06/26/16 08:03 1 CAP Calcium Acetate (Phoslo Cap) 667 mg TIDM PO 06/24/16 07:30 07/24/16 07:29 06/27/16 08:11 667 MG Furosemide (Lasix Tab) 80 mg QAM PO 06/24/16 09:00 07/24/16 08:59 06/27/16 08:10 80 MG Citalopram Hydrobromide (celeXA TAB) 10 mg QAM PO 06/24/16 09:00 07/24/16 08:59 06/27/16 08:10 10 MG Isosorbide Mononitrate (Imdur Ext Rel Tab) 30 mg QAM PO 06/24/16 09:00 07/24/16 08:59 06/27/16 08:10 30 MG Acetaminophen (Tylenol Tab) 500 mg Q4H PRN PO 06/23/16 23:45 07/23/16 23:44 06/26/16 20:58 500 MG Labetalol HCl (Normodyne Tab) 200 mg BID PO 06/24/16 09:00 07/24/16 08:59 06/27/16 08:11 200 MG Epoetin Magdy (Procrit Inj) 10,000 units TODAY@0600 IV. 06/27/16 06:00 06/27/16 18:00 Heparin Sodium (Porcine) (No Heparin In Dialysis) 1 ea 0600 N/A 06/27/16 06:00 06/27/16 18:00 Impression (1) Pleural effusion on right (2) End-stage renal disease needing dialysis (3) Coronary artery disease Mrs. Morgan was admitted for evaluation of dyspnea. CXR revealed a large right pleural effusion. She has undergone thoracentesis 06/23/16 with 1100 cc volume removal. Her breathing is now subjectively improved. ECG shows RBBB. Cardiac enzymes were negative. Echocardiogram revealed normal LVEF and mild/moderate MR. Patient has ESRD. She will require HD 3 x weekly during her hospitalization. Her outpatient HD schedule is TTS. Recommendations END STAGE RENAL DISEASE: -- Patient dialyzing today without complication. Will attempt 3 L UF. Heparin is being held. -- HD director of midwifery/staff midwife reports that 1.25 in needle is needed to access venous limb of AVF. Venous limb is deep. I have notified the outpatient HD unit today to use 1.25 in venous needle. -- Continue Phos-lo with meals and provide daily Nephrocaps RIGHT PLEURAL EFFUSION: -- Chest CT report 06/26/16 reviewed today: Patient has recurrent right pleural effusion. This is partially loculated. She also has small pulmonary nodules which will require outpatient follow up. Await further input from thoracic surgery -- Echocardiogram report 06/23/16 reviewed: Normal LVEF, mild to moderate MR ID: -- Bacterial cultures of pleural fluid are negative. Await fungal and mycobacterial cultures
--- NOTE | 2016-06-27 11:11 | PROGRESS NOTE ---
DATE: 06/27/2016 PULMONARY PROGRESS NOTE PROBLEM LIST: Includes: 1. Right pleural effusion. 2. Right pneumothorax which is small 3. End-stage renal disease on dialysis. SUBJECTIVE: The patient reports no difficulty. At this time, she states that she got up to go take a bath last evening and did become dyspneic. Otherwise no complaints or concerns. Very little cough, very little congestion at this time. No wheezing that she is aware of. No chest heaviness, no tightness. Denies any abdominal pain. No nausea or vomiting. Appetite is doing pretty well. No change in swelling in her extremities. The patient was receiving dialysis when I evaluated her. OBJECTIVE: GENERAL: The patient is an 81-year-old female, lying in bed in no acute distress. She is alert and oriented x3. Mood is good. Affect is good. VITAL SIGNS: Temp 36.7, pulse 69, respirations 18, blood pressure is 154/71, pulse ox 97% on 3 liters. HEENT: Normocephalic, atraumatic. Pupils equal, round and reactive to light and accommodation. Extraocular movements are intact. [place] moist gingival and buccal mucosa. NECK: Supple, short. No mass. No adenopathy. No bruit. CHEST: Still some diminished breath sounds on the right, otherwise no significant changes. No wheeze, rale or rhonchi appreciated. CARDIOVASCULAR: Regular rate and rhythm. There are no murmurs, gallops or rubs noted. ABDOMEN: Bowel sounds are positive. Abdomen is soft, nontender. No guarding, no rigidity, no organomegaly. EXTREMITIES: No erythema or edema. NEUROLOGIC: Cranial nerves II-XII are intact. No focal deficit noted. LABORATORY DATA: Shows white count of 8000, platelet count is 197,000. IMAGING DATA: CT of the chest done yesterday shows loculated pleural effusion, small to moderate in size, some compressive atelectasis in the right lower lobe. IMPRESSION: This is an 81-year-old female who we have been following for pleural effusion and some compressive atelectasis at that time. I did speak with Dr. Howard who had planned to place a PleurX catheter; however, after reviewing the images he is going to hold off. He is questioning if she may need bronchoscopic evaluation. Dr. Howard is going to hold off on PleurX for now. Dr. Waters is covering the hospital starting tomorrow and potentially will possibly do a bronchoscopy on Thursday. Will discuss this with him when I see him later today. At this point, continue to follow patient and discuss further with Dr. Waters. SAWYER
--- NOTE | 2016-06-27 12:25 | SURGERY PROGRESS NOTE ---
DATE: 06/27/2016 DATE: 06/27/2016. Ms. Morgan was seen today on 06/27/2016. I had contemplated placing a chest tube; however, in reviewing her CT scan with Gabriel Alvarado we are in agreement that I would hold off putting this in as I think that part of the problem with her right lung is consolidation and I do not believe this is compressive from the fluid. She states that she "feels fine." She is on dialysis this morning. Her pulse oximetry is 97%.
--- NOTE | 2016-06-27 19:55 | PROGRESS NOTE ---
DATE: 06/27/2016 An 81-year-old female, admitted with shortness of breath and chest pain. She has end-stage renal disease on hemodialysis, arterial hypertension and hyperlipidemia. On admission, her chest x-ray showed a large right-sided pleural effusion. She had a thoracentesis done by Dr. Howard and 1100 mL of fluid was evacuated. She was also seen in pulmonary consultation by Dr Farah. Her condition has improved. She is being dialyzed. She was dialyzed today and was well-tolerated. She denied any headache or dizziness. No chest pain, no shortness of breath. No abdominal pain. She is tolerating her diet. No nausea, no vomiting. No pain in her back or extremities. Dr. Howard was planning on placing a pleural catheter today, but he decided not to proceed with the procedure mainly because of the finding on her CT scan related to her right lower lobe. We will monitor and see if this procedure is necessary. We will be repeating her chest x-ray to see if there is any reaccumulation of the pleural effusion. PHYSICAL EXAMINATION: GENERAL: Well-developed, in no distress. VITAL SIGNS: Blood pressure early this morning when I first saw her 154/71, pulse 69, respirations 18, temperature 36.7 and oxygen saturation 97% on 3 liters oxygen by nasal cannula. SKIN: Warm and dry. No rash. HEENT: She is legally blind. She has macular degeneration. NECK: No JVD. No adenopathy. HEART: Regular heart sounds with 2/6 systolic murmur. LUNGS: Decreased breath sounds, especially at the right base. ABDOMEN: Soft, nontender. EXTREMITIES: No edema, clubbing or cyanosis. AV fistula in place. TODAY'S LABORATORY TESTS: WBC count 8160, hemoglobin 9.7, hematocrit 30.2 and platelet count 197,000. Sodium 135, potassium 4.5, chloride 101, CO2 23, BUN 49, creatinine 4.8, glucose 82 and calcium 8.5. ASSESSMENT: 1. Large right pleural effusion. 2. Coronary artery disease. 3. Chronic respiratory failure. 4. End-stage renal disease, on dialysis. 5. Arterial hypertension. PLAN: 1. Continue the same medication. 2. We will repeat her chest x-ray on Thursday. 3. Decide on the need for any additional thoracentesis or any drainage tube. 4. She was dialyzed today and well tolerated. 5. Dr Llanes decides on the need for dialysis. 6. Anticipating that after her acute hospitalization the patient will be able to go home with her family. SAWYER
[2016-06-28] VITALS (7 sets, daily range): BP systolic 104–182; BP diastolic 62–75; PULSE 67–90; TEMP 36.6–36.9; O2SAT 95–98
[2016-06-28] MEDS: ACETAMINOPHEN 500 MG TAB PO PRN ×2 (03:35→21:47)
[2016-06-28] MEDS: LEVOTHYROXINE 125 MCG TAB PO SCH (06:25)
--- NOTE | 2016-06-28 06:33 | Surgery Progress Note ---
Subjective Date of Service: Jun 28, 2016. Pt. notes a restful night. Currently no SOB. Objective Vitals Date Time Temp Pulse Resp B/P Pulse Ox O2 Delivery O2 Flow Rate FiO2 06/28/16 04:00 Nasal Cannula 3.0 06/28/16 04:00 36.6 80 20 164/75 95 Nasal Cannula 3.0 06/28/16 00:00 97 Nasal Cannula 3.0 06/28/16 00:00 36.9 79 20 153/72 97 Nasal Cannula 3.0 06/27/16 20:00 95 Nasal Cannula 3.0 06/27/16 19:33 36.9 80 18 164/76 95 Nasal Cannula 3.0 06/27/16 16:05 36.7 77 18 147/70 92 Nasal Cannula 2.0 06/27/16 16:02 Nasal Cannula 3.0 06/27/16 14:54 93 06/27/16 13:20 36.6 71 131/54 06/27/16 12:45 65 103/55 06/27/16 12:30 65 103/49 06/27/16 12:15 65 117/52 06/27/16 12:06 Nasal Cannula 3.0 06/27/16 12:00 65 105/51 06/27/16 11:45 67 106/47 06/27/16 11:30 65 103/55 06/27/16 11:15 65 94/41 06/27/16 11:00 65 120/57 06/27/16 10:45 65 117/51 06/27/16 10:30 66 124/56 06/27/16 10:15 65 115/49 06/27/16 10:00 66 118/62 06/27/16 09:45 67 114/53 06/27/16 09:30 67 121/56 06/27/16 09:09 66 148/65 06/27/16 09:00 36.7 67 151/70 06/27/16 08:05 Nasal Cannula 3.0 06/27/16 07:49 36.7 69 18 154/71 97 3.0 Physical Exam General: + well developed, + well nourished, No distress CV: + RRR Pulmonary: + pertinent finding (some decrease BS noted at right base), No accessory muscle use, No respiratory distress Extremities: No calf tenderness 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
[2016-06-28 07:39] LABS: HEMATOCRIT 31.9 % (37-47); MEAN CELL VOLUME 102.6 fL (80-100); MEAN CORPUSCULAR HEMOGLOBIN 33.1 pg (25-34); MEAN CORPUSCULAR HGB CONC 32.3 g/dl (32-36); MEAN PLATELET VOLUME 9.3 fL (7.4-10.4); PLATELET COUNT 253 K/uL (130-400); RED BLOOD COUNT 3.11 M/uL (4.2-5.4)
[2016-06-28] MEDS: CITALOPRAM 20 MG TAB PO SCH (07:41)
[2016-06-28] MEDS: NEPHROCAPS PO SCH (07:41)
[2016-06-28] MEDS: ASPIRIN 81 MG ECTAB PO SCH (07:41)
[2016-06-28] MEDS: FUROSEMIDE 80 MG TAB PO SCH (07:41)
[2016-06-28] MEDS: ATORVASTATIN 40 MG TAB PO SCH (07:41)
[2016-06-28] MEDS: ISOSORBIDE MONONITRATE 30 MG TABCR PO SCH (07:42)
[2016-06-28] MEDS: CALCIUM ACETATE 667MG GELCAP PO SCH ×3 (07:42→16:02)
[2016-06-28] MEDS: LABETALOL HCL 100 MG TAB PO SCH ×2 (07:42→21:13)
[2016-06-28] MEDS: ALLOPURINOL 100 MG TAB PO SCH (07:42)
[2016-06-28 08:17] LABS: BUN/CREATININE RATIO 6.3 (10-20); CALCIUM 8.6 mg/dl (8.5-10.1); CREATININE 3.3 mg/dl (0.60-1.20); POTASSIUM 3.8 mmol/L (3.5-5.1)
--- NOTE | 2016-06-28 12:20 | Nephrology Progress Note ---
Nephrology Progress Note Date of Service Jun 28, 2016. Chief Complaint Follow-up for end-stage renal disease on hemodialysis. Cande Campos was seen and examined in his room this morning. She is currently otherwise feeling well, denies shortness of breath or chest pain. Overnight had some difficulty sleeping but eventually was able to sleep with Tylenol p.m.. Had dialysis yesterday, currently blood pressure electrolyte and volume status stable. Review of Systems A complete review of systems was performed. Pertinent positives are noted above. All other systems are negative. Vital Signs Last 8 Hrs Date Time Temp Pulse Resp B/P Pulse Ox O2 Delivery O2 Flow Rate FiO2 06/28/16 07:51 36.9 71 16 154/73 98 2.0 06/28/16 04:00 Nasal Cannula 3.0 06/28/16 04:00 36.6 80 20 164/75 95 Nasal Cannula 3.0 I & O 24-Hour Column 06/28/16 08:00 Intake Total 320 ml Output Total 2300 ml Balance -1980 ml Last Recorded Weight Weight (Kilograms): 66.700 Physical Exam GENERAL:Elderly female , AAA x 3, pleasant, healthy-appearing, not in any distress. NECK: Supple, no JVD. RESPIRATORY: Normal breathing efforts, no accessory muscle use, crackles at both lung bases. CARDIOVASCULAR: S1, S2 normal, rate rhythm regular. EXTREMITY: No lower extremity edema NEURO: speech fluent. PSYCHIATRY: Normal mood and judgment Family History Negative for CKD/ESRD Social History Smoking Status: Never smoker . Retired. Never a smoker Laboratory Results Past 24 Hours 06/28/16 06:49 06/28/16 06:49 Test 06/28/16 06:49 Red Blood Count 3.11 M/uL (4.2-5.4) Mean Corpuscular Volume 102.6 fL (80-100) Mean Corpuscular Hemoglobin 33.1 pg (25-34) Mean Corpuscular Hemoglobin Concent 32.3 g/dl (32-36) RDW Standard Deviation 54.3 fL (36.4-46.3) RDW Coefficient of Variation 14.5 % (11.5-14.5) Mean Platelet Volume 9.3 fL (7.4-10.4) Anion Gap 11.0 mmol/L (3-11) Est Creatinine Clear Calc Drug Dose 10.8 ml/min Estimated GFR () 14.3 Estimated GFR (Non- 12.4 BUN/Creatinine Ratio 6.3 (10-20) Calcium Level 8.6 mg/dl (8.5-10.1) Allergies Coded Allergies: Bacitracin (Verified Allergy, Unknown, EYES SWELLING-OINTMENT PLACED AROUND EYE, 04/21/16) Polymyxin B (Verified Allergy, Unknown, EYES [id number] PLACED AROUND EYE, 04/21/16) Medications Current Inpatient Medications Medications (Trade) Dose Ordered Sig/Debora Route Start Time Stop Time Status Last Admin Dose Admin Nitroglycerin (Nitrostat Tab) 0.4 mg UD PRN SL 06/23/16 10:30 07/23/16 10:29 Allopurinol (Zyloprim Tab) 100 mg QAM PO 06/24/16 09:00 07/24/16 08:59 06/28/16 07:42 100 MG Aspirin (Ecotrin Tab) 81 mg QAM PO 06/24/16 09:00 07/24/16 08:59 06/28/16 07:41 81 MG Atorvastatin Calcium (Lipitor Tab) 40 mg QAM PO 06/24/16 09:00 07/24/16 08:59 06/28/16 07:41 40 MG Levothyroxine Sodium (Synthroid Tab) 125 mcg DAILYBB PO 06/24/16 06:00 07/24/16 05:59 06/28/16 06:25 125 MCG Vitamin B Complex/ Vit C/Folic Acid (Nephrocaps) 1 cap DAILY PO 06/24/16 09:00 07/24/16 08:59 06/28/16 07:41 1 CAP Calcium Acetate (Phoslo Cap) 667 mg TIDM PO 06/24/16 07:30 07/24/16 07:29 06/28/16 07:42 667 MG Furosemide (Lasix Tab) 80 mg QAM PO 06/24/16 09:00 07/24/16 08:59 06/28/16 07:41 80 MG Citalopram Hydrobromide (celeXA TAB) 10 mg QAM PO 06/24/16 09:00 07/24/16 08:59 06/28/16 07:41 10 MG Isosorbide Mononitrate (Imdur Ext Rel Tab) 30 mg QAM PO 06/24/16 09:00 07/24/16 08:59 06/28/16 07:42 30 MG Acetaminophen (Tylenol Tab) 500 mg Q4H PRN PO 06/23/16 23:45 07/23/16 23:44 06/28/16 03:35 500 MG Labetalol HCl (Normodyne Tab) 200 mg BID PO 06/24/16 09:00 07/24/16 08:59 06/28/16 07:42 200 MG Impression (1) Pleural effusion on right (2) End-stage renal disease needing dialysis (3) Coronary artery disease Mrs. Morgan was admitted for evaluation of dyspnea. CXR revealed a large right pleural effusion. She has undergone thoracentesis 06/23/16 with 1100 cc volume removal. Her breathing is now subjectively improved. ECG shows RBBB. Cardiac enzymes were negative. Echocardiogram revealed normal LVEF and mild/moderate MR. Patient has ESRD. She will require HD 3 x weekly during her hospitalization. Her outpatient HD schedule is TTS. Recommendations END STAGE RENAL DISEASE: -- Patient had dialysis yesterday without complication. Heparin is being held. --currently electrolyte, volume status and blood pressure stable no acute indication for dialysis, will monitor over the weekend and keep on schedule for dialysis on Thursday --avoid IV fluid, continue on renal diet -- Continue Phos-lo with meals and provide daily Nephrocaps RIGHT PLEURAL EFFUSION: -- Chest CT report 06/26/16 reviewed today: Patient has recurrent right pleural effusion. This is partially loculated. She also has small pulmonary nodules which will require outpatient follow up. Await further input from thoracic surgery -- Echocardiogram report 06/23/16 reviewed: Normal LVEF, mild to moderate MR ID: -- Bacterial cultures of pleural fluid are negative. Await fungal and mycobacterial cultures
--- NOTE | 2016-06-28 15:20 | Pulmonology Progress Note ---
Pulmonary Progress Note Date of Service Jun 28, 2016. Attending Sourav Waters Subjective 81-year-old female admitted for acute on chronic shortness of breath with history of chronic renal failure on hemodialysis Thursday, CVA (left basal ganglia lacunar infarction ), macular degeneration and coronary artery disease. Since her admission she is undergone diuresis as well as A1.1 liter thoracentesis. Patient notes dramatic improvement in respiratory status especially with ambulation. At this time she denies: Fever, chills, productive cough, chest pain Objective Patient is doing well shows no signs of increased work of breathing: She is able to complete full sentences, she is not, it is able to ambulate with no signs of increased work of breathing as well. Vital signs: Reviewed stable Respiratory: Decreased breath sounds bilaterally at the bases right greater than left Cardiac: S1 and S2 distant heart sounds I'm unable to auscultate for murmurs rubs or gallops Abdomen, positive bowel sounds soft nontender next line skin: No tissue breakdown, no edema noted Labs from 06/23/2016 Pleural effusion: CBC within normal limits/pill protein 4.5/LDH 127/glucose 97 /amylase 137/cholesterol 29/pH: 7.39 oMicrobiologic analysis negative to date o Pathology: Many lymphocytes, reactive mesothelial cells with no tumor burden noted Serum chemistry: Total protein 7.3/glucose 96 Gradient: 7.3-4.5= 2.6 CT thorax 06/26/2016: Multiloculated right-sided pleural effusion with pleural calcifications and diffuse infiltrate of the lower lobe. Also appears to be possible loculated versus free-flowing pleural effusion left-sided with pleural calcifications also noted. Cali station 7 calcification. Consolidation of the lingula platelike. Infiltrative the lingula lateral subsegment Chest x-ray 03/10/2013: Elevated right hemidiaphragm no blunting of costophrenic angles Chest x-ray 07/31/15: Elevated right hemidiaphragm but no blunting of costophrenic angles Chest x-ray 08/25/2015: Blunting of the bilateral costophrenic angles right greater than left Chest x-ray 09/12/2015: Mild blunting of the right costophrenic angle notable purulent at the left costophrenic angle Chest x-ray 06/23/2016: Opacification care home through the right alden-thorax with blunting of the left costophrenic angle Chest x-ray 06/25/2016: Bilateral costophrenic blunting right greater than left with small most likely pseudo-pneumothorax Assessment & Plan 7-year-old female admitted for acute on chronic shortness of breath: #1 pleural effusion: Patient's pleural effusion is notably exudative in nature with elevated amylase level. Amylase which pleural effusions are notably worrisome as they have a higher rate of malignancy. Other etiologies are notably tuberculosis, pancreatitis both acute/chronic, cirrhosis, cardiac failure and esophageal ruptures. At this time the patient's pleural fluid evaluation is most consistent with a CHF/parapneumonic effusion as the glucose was 97 and no lymphocytes where noted. 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 The patient is clinically improved and continue to maintain proper I's and O's. She can be reevaluated as an outpatient if required for possible repeat thoracentesis and/ or Pleurx catheter at that time. #2 pulmonary nodule: 4.4 mm pulmonary nodule noted on CAT scan. We'll have to risk stratify patient for further follow-up. Data Medications: Current Inpatient Medications Medications (Trade) Dose Ordered Sig/Debora Route Start Time Stop Time Status Last Admin Dose Admin Nitroglycerin (Nitrostat Tab) 0.4 mg UD PRN SL 06/23/16 10:30 07/23/16 10:29 Allopurinol (Zyloprim Tab) 100 mg QAM PO 06/24/16 09:00 07/24/16 08:59 06/28/16 07:42 100 MG Aspirin (Ecotrin Tab) 81 mg QAM PO 06/24/16 09:00 07/24/16 08:59 06/28/16 07:41 81 MG Atorvastatin Calcium (Lipitor Tab) 40 mg QAM PO 06/24/16 09:00 07/24/16 08:59 06/28/16 07:41 40 MG Levothyroxine Sodium (Synthroid Tab) 125 mcg DAILYBB PO 06/24/16 06:00 07/24/16 05:59 06/28/16 06:25 125 MCG Vitamin B Complex/ Vit C/Folic Acid (Nephrocaps) 1 cap DAILY PO 2/14/17 09:00 07/24/16 08:59 06/28/16 07:41 1 CAP Calcium Acetate (Phoslo Cap) 667 mg TIDM PO 06/24/16 07:30 07/24/16 07:29 06/28/16 07:42 667 MG Furosemide (Lasix Tab) 80 mg QAM PO 06/24/16 09:00 07/24/16 08:59 06/28/16 07:41 80 MG Citalopram Hydrobromide (celeXA TAB) 10 mg QAM PO 06/24/16 09:00 07/24/16 08:59 06/28/16 07:41 10 MG Isosorbide Mononitrate (Imdur Ext Rel Tab) 30 mg QAM PO 06/24/16 09:00 07/24/16 08:59 06/28/16 07:42 30 MG Acetaminophen (Tylenol Tab) 500 mg Q4H PRN PO 06/23/16 23:45 07/23/16 23:44 06/28/16 03:35 500 MG Labetalol HCl (Normodyne Tab) 200 mg BID PO 06/24/16 09:00 07/24/16 08:59 06/28/16 07:42 200 MG I & O: 24-Hour Column 06/28/16 08:00 Intake Total 320 ml Output Total 2300 ml Balance -1980 ml Vital Signs: Date Time Temp Pulse Resp B/P Pulse Ox O2 Delivery O2 Flow Rate FiO2 06/28/16 12:02 Nasal Cannula 3.0 06/28/16 11:14 36.9 67 16 104/62 97 Nasal Cannula 2.0 06/28/16 08:05 Nasal Cannula 3.0 06/28/16 07:51 36.9 71 16 154/73 98 2.0 06/28/16 04:00 Nasal Cannula 3.0 06/28/16 04:00 36.6 80 20 164/75 95 Nasal Cannula 3.0 06/28/16 00:00 97 Nasal Cannula 3.0 06/28/16 00:00 36.9 79 20 153/72 97 Nasal Cannula 3.0 06/27/16 20:00 95 Nasal Cannula 3.0 06/27/16 19:33 36.9 80 18 164/76 95 Nasal Cannula 3.0 06/27/16 16:05 36.7 77 18 147/70 92 Nasal Cannula 2.0 06/27/16 16:02 Nasal Cannula 3.0 Laboratory Results: Last 24 Hours Test 06/28/16 06:49 White Blood Count 8.90 K/uL Red Blood Count 3.11 M/uL Hemoglobin 10.3 g/dL Hematocrit 31.9 % Mean Corpuscular Volume 102.6 fL Mean Corpuscular Hemoglobin 33.1 pg Mean Corpuscular Hemoglobin Concent 32.3 g/dl RDW Standard Deviation 54.3 fL RDW Coefficient of Variation 14.5 % Platelet Count 253 K/uL Mean Platelet Volume 9.3 fL Sodium Level 139 mmol/L Potassium Level 3.8 mmol/L Chloride Level 103 mmol/L Carbon Dioxide Level 25 mmol/L Anion Gap 11.0 mmol/L Blood Urea Nitrogen 21 mg/dl Creatinine 3.30 mg/dl Est Creatinine Clear Calc Drug Dose 10.8 ml/min Estimated GFR () 14.3 Estimated GFR (Non- 12.4 BUN/Creatinine Ratio 6.3 Random Glucose 82 mg/dl Calcium Level 8.6 mg/dl
--- NOTE | 2016-06-28 18:26 | PROGRESS NOTE ---
DATE: 06/28/2016 An 81-year-old female, admitted with chest pain and shortness of breath. She does have coronary artery disease, history of congestive heart failure, end-stage renal disease on hemodialysis and treated for arterial hypertension. The patient was admitted. Chest x-ray showed a large right pleural effusion. She underwent a thoracentesis by Dr. Howard. She is also undergoing her hemodialysis. Her condition has improved. She denied any headache. No dizziness. No chest pain. Her shortness of breath has definitely improved after the thoracentesis. No abdominal pain, no nausea, no vomiting. No problem with her bowel movements. She does produce some urine. She denied any pain in her back or extremities. No ankle edema. PHYSICAL EXAMINATION: GENERAL: Well-developed, in no distress. VITAL SIGNS: Blood pressure 154/73, pulse 71, respirations 18, temperature 36.9 and oxygen saturation 98% on 2 liters oxygen by nasal cannula. SKIN: Warm and dry. No rash. HEENT: She is legally blind. Macular degeneration. No mucosal abnormality. NECK: No adenopathy, no thyromegaly. No JVD. HEART: Regular heart sounds. LUNGS: Markedly decreased breath sounds, right base. ABDOMEN: Soft and nontender, without organomegaly or masses. BACK: No spinal tenderness. EXTREMITIES: No edema, clubbing or cyanosis. Left arm fistula. TODAY'S LABORATORY TESTS: WBC count 8900, hemoglobin 10.3, hematocrit 31.9 and platelet count 253,000. Sodium 139, potassium 3.8, chloride 103, CO2 25, BUN 21, creatinine 3.3, glucose 82 and calcium 8.6. ASSESSMENT: 1. Large right pleural effusion. 2. End-stage renal disease, on dialysis. 3. Coronary artery disease. 4. Arterial hypertension. PLAN: 1. Continuing the same medications. 2. Continue with her therapies. 3. Dialysis as recommended by Dr. Do. The patient is on a Thursday, and Thursday schedule. 4. Planning on repeating her chest x-ray tomorrow. To decide on any further thoracentesis.
[2016-06-29] VITALS (9 sets, daily range): BP systolic 118–188; BP diastolic 52–82; PULSE 66–84; TEMP 36.6–37; O2SAT 91–98
[2016-06-29] MEDS: LEVOTHYROXINE 125 MCG TAB PO SCH (05:20)
[2016-06-29 08:02] LABS: BASO % 0.5 %; BASO ABS # 0.05 K/uL (0-0.2); COMPLETE YES; EOS % 5.3 %; HEMATOCRIT 32.3 % (37-47); IG% 0.2 %; LYMPH % 11.8 %; LYMPH ABS # 1.11 K/uL (1.2-3.4); MEAN CELL VOLUME 101.3 fL (80-100); MEAN CORPUSCULAR HEMOGLOBIN 32.9 pg (25-34); MEAN CORPUSCULAR HGB CONC 32.5 g/dl (32-36); MONO % 6.2 %; PLATELET COUNT 266 K/uL (130-400); RED BLOOD COUNT 3.19 M/uL (4.2-5.4); WHITE BLOOD COUNT 9.39 K/uL (4.8-10.8)
[2016-06-29] MEDS: FUROSEMIDE 80 MG TAB PO SCH (08:02)
[2016-06-29] MEDS: ISOSORBIDE MONONITRATE 30 MG TABCR PO SCH (08:02)
[2016-06-29] MEDS: CALCIUM ACETATE 667MG GELCAP PO SCH ×3 (08:02→16:50)
[2016-06-29] MEDS: CITALOPRAM 20 MG TAB PO SCH (08:02)
[2016-06-29] MEDS: NEPHROCAPS PO SCH (08:02)
[2016-06-29] MEDS: ATORVASTATIN 40 MG TAB PO SCH (08:03)
[2016-06-29] MEDS: ALLOPURINOL 100 MG TAB PO SCH (08:03)
[2016-06-29] MEDS: ASPIRIN 81 MG ECTAB PO SCH (08:03)
[2016-06-29] MEDS: LABETALOL HCL 100 MG TAB PO SCH (08:04)
[2016-06-29 09:07] LABS: BUN/CREATININE RATIO 8.4 (10-20); POTASSIUM 4.7 mmol/L (3.5-5.1)
--- NOTE | 2016-06-29 09:38 | DIAGNOSTIC IMAGING REPORT ---
CHEST 2 VIEWS ROUTINE CLINICAL HISTORY: pleural effusion dyspnea COMPARISON STUDY: 06/26/2016 FINDINGS: Similar/slightly improved right pleural effusion. Diminished left pleural effusion. Plate like atelectasis mid lung regions bilaterally. No evidence pneumothorax. IMPRESSION: Bilateral pleural effusions slightly improved in the prior study. No evidence for pneumothorax Electronically signed by: Bari Fu M.D. 06/29/2016 9:37 AM Dictated Date/Time: 06/29/2016 9:35 AM
--- NOTE | 2016-06-29 12:21 | Nephrology Progress Note ---
Nephrology Progress Note Date of Service Jun 29, 2016. Chief Complaint Follow-up for end-stage renal disease on hemodialysis. Cande Campos was seen and examined in his room this morning. She is currently otherwise feeling well, denies shortness of breath or chest pain. Had dialysis on Thursday, currently blood pressure electrolyte and volume status stable. Review of Systems A complete review of systems was performed. Pertinent positives are noted above. All other systems are negative. Vital Signs Last 8 Hrs Date Time Temp Pulse Resp B/P Pulse Ox O2 Delivery O2 Flow Rate FiO2 06/29/16 11:14 36.9 66 16 118/52 96 Nasal Cannula 2.0 06/29/16 08:00 Nasal Cannula 3.0 06/29/16 07:37 36.6 73 16 145/67 91 2.0 I & O 24-Hour Column 06/29/16 08:00 Intake Total 1340 ml Balance 1340 ml Last Recorded Weight Weight (Kilograms): 67.100 Physical Exam GENERAL:Elderly female , AAA x 3, pleasant, healthy-appearing, not in any distress. NECK: Supple, no JVD. RESPIRATORY: Normal breathing efforts, no accessory muscle use, crackles at right base. CARDIOVASCULAR: S1, S2 normal, rate rhythm regular. EXTREMITY: No lower extremity edema NEURO: speech fluent. PSYCHIATRY: Normal mood and judgment Family History Negative for CKD/ESRD Social History Smoking Status: Never smoker . Retired. Never a smoker Laboratory Results Past 24 Hours 06/29/16 07:50 Red Blood Count 3.19, Mean Corpuscular Volume 101.3, Mean Corpuscular Hemoglobin 32.9, Mean Corpuscular Hemoglobin Concent 32.5, Mean Platelet Volume 9.0, Neutrophils (%) (Auto) 76.0, Lymphocytes (%) (Auto) 11.8, Monocytes (%) ( Auto) 6.2, Eosinophils (%) (Auto) 5.3, Basophils (%) (Auto) 0.5, Neutrophils # ( Auto) 7.13, Lymphocytes # (Auto) 1.11, Monocytes # (Auto) 0.58, Eosinophils # ( Auto) 0.50, Basophils # (Auto) 0.05 06/29/16 07:50 Test 06/29/16 07:50 White Blood Count 9.39 K/uL (4.8-10.8) Red Blood Count 3.19 M/uL (4.2-5.4) Hemoglobin 10.5 g/dL (12.0-16.0) Hematocrit 32.3 % (37-47) Mean Corpuscular Volume 101.3 fL (80-100) Mean Corpuscular Hemoglobin 32.9 pg (25-34) Mean Corpuscular Hemoglobin Concent 32.5 g/dl (32-36) Platelet Count 266 K/uL (130-400) Mean Platelet Volume 9.0 fL (7.4-10.4) Neutrophils (%) (Auto) 76.0 % Lymphocytes (%) (Auto) 11.8 % Monocytes (%) (Auto) 6.2 % Eosinophils (%) (Auto) 5.3 % Basophils (%) (Auto) 0.5 % Neutrophils # (Auto) 7.13 K/uL (1.4-6.5) Lymphocytes # (Auto) 1.11 K/uL (1.2-3.4) Monocytes # (Auto) 0.58 K/uL (0.11-0.59) Eosinophils # (Auto) 0.50 K/uL (0-0.5) Basophils # (Auto) 0.05 K/uL (0-0.2) RDW Standard Deviation 53.4 fL (36.4-46.3) RDW Coefficient of Variation 14.3 % (11.5-14.5) Immature Granulocyte % (Auto) 0.2 % Immature Granulocyte # (Auto) 0.02 K/uL (0.00-0.02) Anion Gap 12.0 mmol/L (3-11) Est Creatinine Clear Calc Drug Dose 7.1 ml/min Estimated GFR () 8.7 Estimated GFR (Non- 7.5 BUN/Creatinine Ratio 8.4 (10-20) Calcium Level 9.0 mg/dl (8.5-10.1) Allergies Coded Allergies: Bacitracin (Verified Allergy, Unknown, EYES SWELLING-OINTMENT PLACED AROUND EYE, 04/21/16) Polymyxin B (Verified Allergy, Unknown, EYES [id number] PLACED AROUND EYE, 04/21/16) Medications Current Inpatient Medications Medications (Trade) Dose Ordered Sig/Debora Route Start Time Stop Time Status Last Admin Dose Admin Nitroglycerin (Nitrostat Tab) 0.4 mg UD PRN SL 06/23/16 10:30 07/23/16 10:29 Allopurinol (Zyloprim Tab) 100 mg QAM PO 06/24/16 09:00 07/24/16 08:59 06/29/16 08:03 100 MG Aspirin (Ecotrin Tab) 81 mg QAM PO 06/24/16 09:00 07/24/16 08:59 06/29/16 08:03 81 MG Atorvastatin Calcium (Lipitor Tab) 40 mg QAM PO 06/24/16 09:00 07/24/16 08:59 06/29/16 08:03 40 MG Levothyroxine Sodium (Synthroid Tab) 125 mcg DAILYBB PO 06/24/16 06:00 07/24/16 05:59 06/29/16 05:20 125 MCG Vitamin B Complex/ Vit C/Folic Acid (Nephrocaps) 1 cap DAILY PO 06/24/16 09:00 07/24/16 08:59 06/29/16 08:02 1 CAP Calcium Acetate (Phoslo Cap) 667 mg TIDM PO 06/24/16 07:30 07/24/16 07:29 06/29/16 11:32 667 MG Furosemide (Lasix Tab) 80 mg QAM PO 06/24/16 09:00 07/24/16 08:59 06/29/16 08:02 80 MG Citalopram Hydrobromide (celeXA TAB) 10 mg QAM PO 06/24/16 09:00 07/24/16 08:59 06/29/16 08:02 10 MG Isosorbide Mononitrate (Imdur Ext Rel Tab) 30 mg QAM PO 06/24/16 09:00 07/24/16 08:59 06/29/16 08:02 30 MG Acetaminophen (Tylenol Tab) 500 mg Q4H PRN PO 06/23/16 23:45 07/23/16 23:44 06/28/16 21:47 500 MG Labetalol HCl (Normodyne Tab) 300 mg BID PO 06/29/16 21:00 07/29/16 20:59 Impression (1) Pleural effusion on right (2) End-stage renal disease needing dialysis (3) Coronary artery disease Mrs. Morgan was admitted for evaluation of dyspnea. CXR revealed a large right pleural effusion. She has undergone thoracentesis 06/23/16 with 1100 cc volume removal. Her breathing is now subjectively improved. ECG shows RBBB. Cardiac enzymes were negative. Echocardiogram revealed normal LVEF and mild/moderate MR. Patient has ESRD. She will require HD 3 x weekly during her hospitalization. Her outpatient HD schedule is TTS. Recommendations END STAGE RENAL DISEASE: -- Patient had dialysis last Thursday. Currently she is otherwise stable, volume status, blood pressure electrolyte acceptable. Will plan for dialysis tomorrow morning and then patient will get discharged and she will go to her outpatient dialysis unit Thursday as her regular schedule. --avoid IV fluid, continue on renal diet -- Continue Phos-lo with meals and provide daily Nephrocaps RIGHT PLEURAL EFFUSION: -- had thoracentesis, currently clinically stable, no plan for any further intervention, tentatively plan to discharge on Thursday. ID: -- Bacterial cultures of pleural fluid are negative. Await fungal and mycobacterial cultures
[2016-06-29] MEDS: LABETALOL HCL 300 MG TAB PO SCH (20:03)
--- NOTE | 2016-06-29 20:25 | PROGRESS NOTE ---
DATE: 06/29/2016 An 81-year-old female, admitted with shortness of breath. She also has coronary artery disease and chronic kidney disease. She is on hemodialysis. Treated for arterial hypertension, hyperlipidemia and hypothyroidism. She has macular degeneration and she is legally blind. The patient was admitted. Her chest x-ray showed a large right pleural effusion. A thoracentesis was done by Dr. Howard. Her condition improved. She was also seen in pulmonary consultation by Dr. Farah. The patient is improving. She remains afebrile. No headache, no dizziness, no lightheadedness. No chest pain. No shortness of breath. No nausea or vomiting. She is tolerating her diet. She is still producing some urine. No pain in her back or extremities. PHYSICAL EXAMINATION: GENERAL: Well-developed, in no distress. VITAL SIGNS: Blood pressure 145/67, pulse 73, respirations 16, temperature 36.3 and oxygen saturation 91% on 2 liters oxygen by nasal cannula. SKIN: Warm and dry. No rash. HEENT: She is legally blind. Oxygen cannula is in place. NECK: No JVD. No adenopathy. Bilateral carotid bruits. HEART: Regular heart sounds with 2/6 systolic murmur. LUNGS: Decreased breath sounds at the bases. ABDOMEN: Soft and nontender. EXTREMITIES: She has a fistula in her left arm. No edema, clubbing or cyanosis. TODAY'S LABORATORY TESTS: WBC count 9390, hemoglobin 10.5, hematocrit 32.5, platelet count 266,000. Sodium 139, potassium 4.7, chloride 104, CO2 23, BUN 42, creatinine 5.0, glucose 116 and calcium 9.0. A repeat chest x-ray was done today. It showed bilateral pleural effusions, slightly improved from the prior study. No evidence of any pneumothorax. ASSESSMENT: 1. Large right pleural effusion. 2. Acute respiratory failure. 3. Chronic respiratory failure, on home oxygen. 4. Chronic kidney disease, on hemodialysis. 5. Coronary artery disease. 6. Mild to moderate aortic stenosis. 7. Arterial hypertension. PLAN: 1. Continuing the same medications. 2. Continue with her therapies. 3. She was transferred to a medical bed. 4. I spoke with Dr. Do this morning. We will plan on getting her dialyzed tomorrow. If her condition permits, I will discharge her after her dialysis tomorrow. SAWYER
[2016-06-29] MEDS: ACETAMINOPHEN 500 MG TAB PO PRN (23:17)
[2016-06-30] VITALS (17 sets, daily range): BP systolic 129–184; BP diastolic 63–87; PULSE 69–81; TEMP 36.4–36.8; O2SAT 95–96
[2016-06-30] MEDS: LEVOTHYROXINE 125 MCG TAB PO SCH (06:05)
[2016-06-30] MEDS: NEPHROCAPS PO SCH (07:39)
[2016-06-30] MEDS: ASPIRIN 81 MG ECTAB PO SCH (07:40)
[2016-06-30] MEDS: CITALOPRAM 20 MG TAB PO SCH (07:40)
[2016-06-30] MEDS: ATORVASTATIN 40 MG TAB PO SCH (07:40)
[2016-06-30] MEDS: CALCIUM ACETATE 667MG GELCAP PO SCH ×3 (07:40→18:00)
[2016-06-30] MEDS: ALLOPURINOL 100 MG TAB PO SCH (07:41)
[2016-06-30] MEDS: LABETALOL HCL 300 MG TAB PO SCH (07:41)
--- NOTE | 2016-06-30 12:03 | Pulmonology Progress Note ---
Pulmonary Progress Note Date of Service Jun 30, 2016. Attending Sourav Waters Subjective Patient continues to note dramatic improvement in her respiratory status. She still notes dyspnea on exertion but has dramatically improved since her admission. At this time denies: Productive cough, pleurisy, cardiac chest pain, fever or chills Objective Patient is lying in bed in the supine position and able have conversation with no signs of increased work of breathing. Vital signs: Reviewed stable (3LNC) Respiratory: Decreased breath sounds bilaterally at the bases right greater than left Cardiac: S1 and S2 distant heart sounds I'm unable to auscultate for murmurs rubs or gallops Abdomen, positive bowel sounds soft nontender next line skin: No tissue breakdown, no edema noted Labs from 06/23/2016 Pleural effusion: CBC within normal limits/pill protein 4.5/LDH 127/glucose 97 /amylase 137/cholesterol 29/pH: 7.39 oMicrobiologic analysis negative to date o Pathology: Many lymphocytes, reactive mesothelial cells with no tumor burden noted Serum chemistry: Total protein 7.3/glucose 96 Gradient: 7.3-4.5= 2.6 CT thorax 06/26/2016: Multiloculated right-sided pleural effusion with pleural calcifications and diffuse infiltrate of the lower lobe. Also appears to be possible loculated versus free-flowing pleural effusion left-sided with pleural calcifications also noted. Cali station 7 calcification. Consolidation of the lingula platelike. Infiltrative the lingula lateral subsegment Chest x-ray 03/10/2013: Elevated right hemidiaphragm no blunting of costophrenic angles Chest x-ray 07/31/15: Elevated right hemidiaphragm but no blunting of costophrenic angles Chest x-ray 08/25/2015: Blunting of the bilateral costophrenic angles right greater than left Chest x-ray 09/12/2015: Mild blunting of the right costophrenic angle notable purulent at the left costophrenic angle Chest x-ray 06/23/2016: Opacification snf through the right alden-thorax with blunting of the left costophrenic angle Chest x-ray 06/25/2016: Bilateral costophrenic blunting right greater than left with small most likely pseudo-pneumothorax Chest x-ray 06/25/2016: Bilateral costophrenic blunting right greater than left with small most likely pseudo-pneumothorax Assessment & Plan 81-year-old female admitted for acute on chronic shortness of breath: #1 Pleural Effusion: Patient admitted with acute on chronic shortness of breath and underwent 1.1 L thoracentesis on 04/22/17 along with aggressive diuresis. At this time the patient notes dramatic improvement. I do believe that the patient most likely has trapped versus entrapped lung with associated rounded atelectasis. As patient did have a transudate effusion that should be monitored in the future and possible repeat thoracentesis and if required IPC/ Pluer-X placement. #2 Pulmonary Nodule: 4.4 mm pulmonary nodule noted on CAT scan. We'll have to risk stratify patient for further follow-up. #3 Follow-Up: Patient in follow-up in the [place] [facility] in at this time pulmonary will sign off. Please contact the pulmonary service if any changes are noted. Data Medications: Current Inpatient Medications Medications (Trade) Dose Ordered Sig/Debora Route Start Time Stop Time Status Last Admin Dose Admin Nitroglycerin (Nitrostat Tab) 0.4 mg UD PRN SL 06/23/16 10:30 07/23/16 10:29 Allopurinol (Zyloprim Tab) 100 mg QAM PO 06/24/16 09:00 07/24/16 08:59 06/30/16 07:41 100 MG Aspirin (Ecotrin Tab) 81 mg QAM PO 06/24/16 09:00 07/24/16 08:59 06/30/16 07:40 81 MG Atorvastatin Calcium (Lipitor Tab) 40 mg QAM PO 06/24/16 09:00 07/24/16 08:59 06/30/16 07:40 40 MG Levothyroxine Sodium (Synthroid Tab) 125 mcg DAILYBB PO 06/24/16 06:00 07/24/16 05:59 06/30/16 06:05 125 MCG Vitamin B Complex/ Vit C/Folic Acid (Nephrocaps) 1 cap DAILY PO 06/24/16 09:00 07/24/16 08:59 06/30/16 07:39 1 CAP Calcium Acetate (Phoslo Cap) 667 mg TIDM PO 06/24/16 07:30 07/24/16 07:29 06/30/16 07:40 667 MG Furosemide (Lasix Tab) 80 mg QAM PO 06/24/16 09:00 07/24/16 08:59 06/29/16 08:02 80 MG Citalopram Hydrobromide (celeXA TAB) 10 mg QAM PO 06/24/16 09:00 07/24/16 08:59 06/30/16 07:40 10 MG Isosorbide Mononitrate (Imdur Ext Rel Tab) 30 mg QAM PO 06/24/16 09:00 07/24/16 08:59 06/29/16 08:02 30 MG Acetaminophen (Tylenol Tab) 500 mg Q4H PRN PO 06/23/16 23:45 07/23/16 23:44 06/29/16 23:17 500 MG Labetalol HCl (Normodyne Tab) 300 mg BID PO 06/29/16 20:00 07/29/16 20:59 06/29/16 20:03 300 MG I & O: 24-Hour Column 06/30/16 07:59 Intake Total 660 ml Balance 660 ml Vital Signs: Date Time Temp Pulse Resp B/P Pulse Ox O2 Delivery O2 Flow Rate FiO2 06/30/16 08:00 Nasal Cannula 3.0 06/30/16 07:57 36.6 69 16 138/69 95 2.0 06/30/16 00:00 Nasal Cannula 3.0 06/29/16 23:23 36.8 81 20 143/60 97 3.0 06/29/16 19:59 78 164/82 06/29/16 15:45 94 Nasal Cannula 3.0 06/29/16 15:41 37.0 72 20 148/67 94 Room Air 2.0 06/29/16 14:52 36.9 66 16 96 3.0 06/29/16 12:00 Nasal Cannula 3.0
[2016-06-30] MEDS: FUROSEMIDE 80 MG TAB PO SCH (12:08)
[2016-06-30] MEDS: ISOSORBIDE MONONITRATE 30 MG TABCR PO SCH (12:08)
--- NOTE | 2016-06-30 12:20 | Nephrology Progress Note ---
Nephrology Progress Note Date of Service Jun 30, 2016. Chief Complaint Follow-up for end-stage renal disease on hemodialysis. Cande Campos was seen and examined in his room this morning. She is currently otherwise feeling well, denies shortness of breath or chest pain. Had dialysis on Thursday, currently blood pressure electrolyte and volume status stable. Looking forward to go home. Review of Systems A complete review of systems was performed. Pertinent positives are noted above. All other systems are negative. Vital Signs Last 8 Hrs Date Time Temp Pulse Resp B/P Pulse Ox O2 Delivery O2 Flow Rate FiO2 06/30/16 08:00 Nasal Cannula 3.0 06/30/16 07:57 36.6 69 16 138/69 95 2.0 I & O 24-Hour Column 06/30/16 07:59 Intake Total 660 ml Balance 660 ml Last Recorded Weight Weight (Kilograms): 67.100 Physical Exam GENERAL:Elderly female , AAA x 3, pleasant, healthy-appearing, not in any distress. NECK: Supple, no JVD. RESPIRATORY: Normal breathing efforts, no accessory muscle use, crackles at right base. CARDIOVASCULAR: S1, S2 normal, rate rhythm regular. EXTREMITY: No lower extremity edema NEURO: speech fluent. PSYCHIATRY: Normal mood and judgment Family History Negative for CKD/ESRD Social History Smoking Status: Never smoker . Retired. Never a smoker Allergies Coded Allergies: Bacitracin (Verified Allergy, Unknown, EYES SWELLING-OINTMENT PLACED AROUND EYE, 04/21/16) Polymyxin B (Verified Allergy, Unknown, EYES [id number] PLACED AROUND EYE, 04/21/16) Medications Current Inpatient Medications Medications (Trade) Dose Ordered Sig/Debora Route Start Time Stop Time Status Last Admin Dose Admin Nitroglycerin (Nitrostat Tab) 0.4 mg UD PRN SL 06/23/16 10:30 07/23/16 10:29 Allopurinol (Zyloprim Tab) 100 mg QAM PO 06/24/16 09:00 07/24/16 08:59 06/30/16 07:41 100 MG Aspirin (Ecotrin Tab) 81 mg QAM PO 06/24/16 09:00 07/24/16 08:59 06/30/16 07:40 81 MG Atorvastatin Calcium (Lipitor Tab) 40 mg QAM PO 06/24/16 09:00 07/24/16 08:59 06/30/16 07:40 40 MG Levothyroxine Sodium (Synthroid Tab) 125 mcg DAILYBB PO 06/24/16 06:00 07/24/16 05:59 06/30/16 06:05 125 MCG Vitamin B Complex/ Vit C/Folic Acid (Nephrocaps) 1 cap DAILY PO 06/24/16 09:00 07/24/16 08:59 06/30/16 07:39 1 CAP Calcium Acetate (Phoslo Cap) 667 mg TIDM PO 06/24/16 07:30 07/24/16 07:29 06/30/16 12:07 667 MG Furosemide (Lasix Tab) 80 mg QAM PO 06/24/16 09:00 07/24/16 08:59 06/29/16 08:02 80 MG Citalopram Hydrobromide (celeXA TAB) 10 mg QAM PO 06/24/16 09:00 07/24/16 08:59 06/30/16 07:40 10 MG Isosorbide Mononitrate (Imdur Ext Rel Tab) 30 mg QAM PO 06/24/16 09:00 07/24/16 08:59 06/29/16 08:02 30 MG Acetaminophen (Tylenol Tab) 500 mg Q4H PRN PO 06/23/16 23:45 07/23/16 23:44 06/29/16 23:17 500 MG Labetalol HCl (Normodyne Tab) 300 mg BID PO 06/29/16 20:00 07/29/16 20:59 06/29/16 20:03 300 MG Impression (1) Pleural effusion on right (2) End-stage renal disease needing dialysis (3) Coronary artery disease Mrs. Morgan was admitted for evaluation of dyspnea. CXR revealed a large right pleural effusion. She has undergone thoracentesis 06/23/16 with 1100 cc volume removal. Her breathing is now subjectively improved. ECG shows RBBB. Cardiac enzymes were negative. Echocardiogram revealed normal LVEF and mild/moderate MR. Patient has ESRD. She will require HD 3 x weekly during her hospitalization. Her outpatient HD schedule is TTS. Recommendations END STAGE RENAL DISEASE: -- Patient had dialysis last Thursday. Currently she is otherwise stable, volume status, blood pressure electrolyte acceptable. Will plan for dialysis this afternoon and then patient will get discharged and she will go to her outpatient dialysis unit Thursday as her regular schedule. --avoid IV fluid, continue on renal diet -- Continue Phos-lo with meals and provide daily Nephrocaps RIGHT PLEURAL EFFUSION: -- had thoracentesis, currently clinically stable, no plan for any further intervention, tentatively plan to discharge on Thursday. ID: -- Bacterial cultures of pleural fluid are negative. Await fungal and mycobacterial cultures
--- NOTE | 2016-06-30 17:32 | SURGERY PROGRESS NOTE ---
DATE: 06/30/2016 HISTORY OF PRESENT ILLNESS: Ms. Morgan was seen today on 06/30/2016. She states that her breathing is better. Her x-ray looks a bit better. Her left pleural effusion looks better and her right has not really reaccumulated. She has better aeration in the right base. At this point, I would not do anything different. AMADOUD
[2016-06-30] MEDS ORDERED: IMDSR30 PO (18:05)
[2016-06-30] MEDS ORDERED: LBT300 PO (18:05)
--- NOTE | 2016-06-30 18:11 | Discharge Instructions ---
Discharge Instructions Admission Reason for Admission: LARGE RIGHT PLEURAL EFFUSION CHRONIC RESPIRATORY DISEASE END STAGE RENAL DISEASE ON DIALYSIS CORONARY ARTERY DISEASE ARTERIAL HYPERTENSION HYPOTHYROIDISM MACULAR DEGENERATION Discharge Discharge Diagnosis / Problem: RIGHT PLEURAL EFFUSION,CHRONIC RESPIRATORY FAILURE, END-STAGE RENAL DISEASE Discharge Goals Goal(s): Decrease discomfort, Improve function, Increase independence, Improve disease control, Improve nutritional status Activity Recommendations Activity Limitations: resume your previous activity . Instructions / Follow-Up Instructions / Follow-Up DIALYSIS ON SCHEDULE TOMORROW DR CHACON IN ONE WEEK Current Hospital Diet Patient's current hospital diet: AHA Diet (Heart Healthy), Renal Diet Discharge Diet Recommended Diet: Renal Diet Pending Studies Studies pending at discharge: no Medical Emergencies . Who to Call and When: Medical Emergencies: If at any time you feel your situation is an emergency, please call 911 immediately. . Non-Emergent Contact Non-Emergency issues call your: Primary Care Provider . . "Provider Documentation" section prepared by Anant Chacon. VTE Core Measure Inpt VTE Proph given/why not?: Treatment not indicated
--- NOTE | 2016-06-30 22:41 | PROGRESS NOTE ---
DATE: 06/30/2016 An 81-year-old female, admitted with shortness of breath and chest pain. On admission, she was noted to have a large right pleural effusion. She had a thoracentesis done by Dr. Howard and 1100 mL of pleural fluid removed. Her medical problems also include; end-stage renal disease on hemodialysis, arterial hypertension, hyperlipidemia and hypothyroidism. Her condition has improved after the thoracentesis. Her chest x-rays were repeated. There is still some evidence of pleural effusions, but definitely no reaccumulation at this point. She denied any headache or dizziness. No chest pain. She does feel short of breath with activity. She does have chronic respiratory failure. She is on home oxygen. She denied any abdominal pain. No nausea, no vomiting. No problem with her bowel movements. No problem urinating. She is still producing some urine. No pain in her back. No ankle edema. PHYSICAL EXAMINATION: GENERAL: Well-developed, in no distress. VITAL SIGNS: Blood pressure 138/69, pulse 69, respirations 18, temperature 36.6 and oxygen saturation 95% on 2 liters oxygen by nasal cannula. SKIN: Warm and dry. No rash. HEENT: She is legally blind related to her macular degeneration. NECK: No JVD. No adenopathy. HEART: Regular heart sounds with 2/6 systolic murmur. LUNGS: Decreased breath sounds at the bases. ABDOMEN: Soft and nontender. EXTREMITIES: No edema, clubbing or cyanosis. NEUROLOGIC: She does have an AV fistula in her left arm. ASSESSMENT: 1. Large right pleural effusion, status post thoracentesis. 2. Coronary artery disease. 3. Arterial hypertension. 4. Chronic respiratory failure, on home oxygen. 5. End-stage renal disease, on dialysis. PLAN: 1. The patient did well throughout the day. She was dialyzed this afternoon for 3 hours. I saw her after dialysis. She was doing well. The plan was for her to go home with home health nursing; this has been arranged. 2. I will see her in the office in 1 week. 3. She will continue her dialysis on schedule; Thursday, and Thursday. 4. Nephrology followup with Dr. Do.
--- NOTE | 2016-07-13 18:15 | DISCHARGE SUMMARY ---
DISCHARGE DIAGNOSES: 1. Large right pleural effusion. 2. Chronic respiratory failure. 3. End-stage renal disease, on hemodialysis. 4. Coronary artery disease. 5. Arterial hypertension. 6. Hypothyroidism. 7. Macular degeneration. DISCHARGE MEDICATIONS: Included: 1. Imdur 30 mg daily. 2. Labetalol 300 mg twice a day. 3. Allopurinol 100 mg daily. 4. Aspirin 81 mg daily. 5. Lipitor 40 mg daily. 6. Strang caps 1 capsule daily. 7. PhosLo 667 mg 3 times a day with meals. 8. Citalopram 10 mg daily. 9. Lidex 0.05% cream to apply on the rash in her ears as needed. 10. Furosemide 40 mg daily. 11. Acetic acid/hydrocortisone eardrops to use in both ears twice daily as needed. CONSULTATIONS: 1. Dr. Qasim Farah in pulmonary medicine. 2. Dr. Qasim Howard in thoracic surgery. 3. Dr. Alfa Llanes in nephrology. 4. Dr. Ignacio Villar in cardiology. PROCEDURE: Right-sided thoracentesis done by Dr. Howard. HISTORY OF PRESENT ILLNESS: An 81-year-old female, admitted directly from Dr. Villar's office with chest pain and shortness of breath. The patient with extensive medical history including end-stage renal disease, on dialysis, coronary artery disease with history of LAD stenting in June 2013, arterial hypertension, hyperlipidemia, hypothyroidism, degenerative disc disease of the lumbar spine and spinal stenosis, macular degeneration with legal blindness and gout. The patient had an appointment in the morning of her admission day with Dr. Villar for her cardiology followup. He called me after he saw the patient because he was alarmed about her condition. She was complaining of left-sided chest pain. She was markedly dyspneic. She was feeling weak and tired. She has not had any fever or chills. No cough or sputum or hemoptysis. No nausea or vomiting but the shortness of breath was the main concern. So we made arrangements for her to be admitted. PAST MEDICAL HISTORY, SOCIAL HISTORY AND FAMILY HISTORY: All as noted. ALLERGIES: 1. BACITRACIN. 2. POLYMYXIN. MEDICATIONS ON ADMISSION: All as noted on her history and physical. PHYSICAL EXAMINATION AND ADMISSION LABORATORY TESTS: All as noted. HOSPITAL COURSE: The patient was admitted to PCU with telemetry. Resuscitation level 5. All her laboratory tests were ordered. Cardiology consultation was requested. After her chest x-ray became available and showing a large right pleural effusion, pulmonary consultation was requested from Dr. Farah. The patient needed a thoracentesis. So Dr. Farah asked Dr. Howard to see the patient and performed a thoracentesis. He evacuated 1100 mL of pleural fluid. After the procedure, the patient felt much better. Laboratory tests were ordered. Echocardiogram was ordered. She was continued on her oxygen. Renal consultation was requested. The patient was to continue with her dialysis. After the thoracentesis and remarkable improvement in her condition, Dr. Villar did not feel that she needed any additional cardiac testing at this point. Her condition improved. Her shortness of breath subsided. She continued to feel tired and exhausted most of the time but this has been a chronic issue related to her chronic kidney disease and hemodialysis. Her blood pressure was also elevated. She required addition of amlodipine and also the increase of the dose of her labetalol from 200 twice a day to 300 twice a day. The patient was continued on dialysis. Her renal function was monitored. Her echocardiogram did not really show any new changes. She had mild to moderate aortic stenosis. She had good left ventricular function. Physical and occupational therapies were ordered. She was tolerating her increased activity. Tolerating her diet. Tolerated her dialysis. Repeat chest x-rays were done. There were persistent consolidative changes at the lung bases but she remained afebrile. She had no evidence of any cough or purulent sputum or hemoptysis. At one time, Dr. Howard recommended placing a drainage tube for her recurrent pleural effusion but the chest x-ray did not really show any significant reaccumulation, so that was put on hold. Case management consultation was requested. The patient was to continue with her medications. She has excellent support at home. The potential need for a Pleurx catheter insertion is to be considered in the future. The patient was discharged home once her condition improved. Medications as noted above. She was to resume her dialysis on the Thursday, and Thursday schedule. She was to follow up with Dr. Villar. She was to see me in the office in 1 week after her discharge.
[2016-11-24] MEDS ORDERED: FURO80TA63 PO (12:38)
[2016-11-24] MEDS ORDERED: ISOS60TA2 PO (12:38)
[2016-11-24] MEDS ORDERED: CALC667C4 PO (12:38)
[2016-11-24] MEDS ORDERED: B-COCAP21 PO (12:38)
== END 2016-06-30 19:45 | disposition home health service (06) | DRG 186 ==
LOC: ENRESERVDT → ENRESERVTM → UNDOADMIN 09:58 → C.2T 09:58 → C.4E 06-29 15:00
PROVIDERS: ADMIT Internal Medicine; ATTEND Internal Medicine
PROC: 0W993ZZ Drainage of Right Pleural Cavity, Percutaneous Approach (ICD-10-PCS; principal; 2016-06-23)
DX: J90 Pleural effusion, not elsewhere classified (principal); J96.20 Acute and chronic respiratory failure, unspecified whether with hypoxia or hypercapnia; N18.6 End stage renal disease; I13.2 Hypertensive heart and chronic kidney disease with heart failure and with stage 5 chronic kidney disease, or end stage renal disease; I50.32 Chronic diastolic (congestive) heart failure; Z99.2 Dependence on renal dialysis; M10.9 Gout, unspecified; E78.5 Hyperlipidemia, unspecified; E03.9 Hypothyroidism, unspecified; H54.8 Legal blindness, as defined in USA; Z95.5 Presence of coronary angioplasty implant and graft; Z86.73 Personal history of transient ischemic attack (TIA), and cerebral infarction without residual deficits; F32.9 Major depressive disorder, single episode, unspecified; F41.9 Anxiety disorder, unspecified; Z79.899 Other long term (current) drug therapy; G89.29 Other chronic pain; I35.0 Nonrheumatic aortic (valve) stenosis; Z99.81 Dependence on supplemental oxygen; I25.10 Atherosclerotic heart disease of native coronary artery without angina pectoris; J44.9 Chronic obstructive pulmonary disease, unspecified; H35.30 Unspecified macular degeneration; Z83.3 Family history of diabetes mellitus; Z82.49 Family history of ischemic heart disease and other diseases of the circulatory system; Z79.82 Long term (current) use of aspirin; Z98.41 Cataract extraction status, right eye; Z98.42 Cataract extraction status, left eye; Z96.1 Presence of intraocular lens; Z90.710 Acquired absence of both cervix and uterus; Z90.49 Acquired absence of other specified parts of digestive tract; R91.1 Solitary pulmonary nodule; M51.36 Other intervertebral disc degeneration, lumbar region; R53.81 Other malaise; Z87.19 Personal history of other diseases of the digestive system; Z84.1 Family history of disorders of kidney and ureter; Z80.1 Family history of malignant neoplasm of trachea, bronchus and lung; Z80.8 Family history of malignant neoplasm of other organs or systems; Z90.722 Acquired absence of ovaries, bilateral; Z90.79 Acquired absence of other genital organ(s); Z88.1 Allergy status to other antibiotic agents

== ENCOUNTER → 2016-07-07 | Outpatient (CLI) | payer OTHER, MEDICARE ==
[~2016-07-07] MED LIST changes: -AMOX500C3 PO; +FURO80TA63 PO; +IMDSR30 PO; -ISOS30TA51 PO; +ISOS60TA2 PO; -LABE300T PO; +LBT300 PO
--- NOTE | 2016-07-07 12:33 | DIAGNOSTIC IMAGING REPORT ---
TWO VIEW CHEST CLINICAL HISTORY: Pleural effusion. FINDINGS: PA and lateral chest radiographs are compared to study dated 06/29/2016 and correlated with chest CT dated 06/26/2016. The PA view is degraded by patient rotation, and the examination is also degraded by large body habitus. The heart is enlarged and there is atherosclerotic calcification of the thoracic aorta. There is pulmonary vascular congestion. There are small to moderate pleural effusions, right larger than left with associated bibasilar consolidation. Fluid tracks to the right apex. No pneumothorax is seen. The skeletal structures are osteopenic. Degenerative change is present throughout the thoracic spine. IMPRESSION: 1. Cardiomegaly with persistent pulmonary vascular congestion. 2. Unchanged appearance of pleural effusions with bibasilar consolidation, right larger than left when compared to the 06/29/2016 examination. Electronically signed by: Meir Mooney M.D. 07/07/2016 12:31 PM Dictated Date/Time: 07/07/2016 12:29 PM
== END | disposition home or self-care (01) ==
LOC: C.RAD1850 12:15
PROVIDERS: ATTEND Surgery
DX: J90 Pleural effusion, not elsewhere classified (principal)

== ENCOUNTER → 2016-08-04 | Outpatient (CLI) | payer OTHER, MEDICARE ==
--- NOTE | 2016-08-04 09:02 | DIAGNOSTIC IMAGING REPORT ---
TWO VIEW CHEST CLINICAL HISTORY: Pleural effusions. FINDINGS: PA and lateral chest radiographs are compared to study dated 07/07/2016 and correlated with chest CT dated 06/26/2016. The PA view is degraded by patient rotation, and the examination is also degraded by large body habitus. The heart is enlarged and there is atherosclerotic calcification of the thoracic aorta. There is mild pulmonary vascular congestion. There are small to moderate pleural effusions, right larger than left with associated bibasilar consolidation. Fluid tracks to the right apex. No pneumothorax is seen. The skeletal structures are osteopenic. Degenerative change is present throughout the thoracic spine. IMPRESSION: 1. Cardiomegaly with persistent pulmonary vascular congestion. 2. Unchanged appearance of pleural effusions with bibasilar consolidation, right larger than left when compared to the 07/07/2016 examination. Electronically signed by: Meir Mooney M.D. 08/04/2016 9:01 AM Dictated Date/Time: 08/04/2016 8:59 AM
== END | disposition home or self-care (01) ==
LOC: C.RAD1850 08:46
PROVIDERS: ATTEND Surgery
DX: J90 Pleural effusion, not elsewhere classified (principal)

== ENCOUNTER → 2016-08-13 | Outpatient (CLI) | payer OTHER, MEDICARE ==
[~2016-08-13] MED LIST changes: -LEVO125T4 PO; +LEVO125T5 PO
--- NOTE | 2016-08-13 14:42 | MAMMOGRAPHY REPORT ---
BILATERAL DIGITAL SCREENING MAMMOGRAM WITH CAD: 08/13/2016 CLINICAL HISTORY: Routine screening. Patient has no complaints. TECHNIQUE: Current study was also evaluated with a Computer Aided Detection (CAD) system. Bilatera l CC and MLO views were obtained. COMPARISON: Comparison is made to exams dated: 06/21/2015 mammogram, 06/20/2014 mammogram, 06/14/2013 m ammogram, 06/10/2012 mammogram, 06/10/2011 mammogram, and 10/11/2009 mammogram - [facility] enter. BREAST COMPOSITION: There are scattered areas of fibroglandular density in both breasts. FINDINGS: No suspicious masses, calcifications, or areas of architectural distortion are noted in e ither breast. There has been no significant interval change compared to prior exams. IMPRESSION: ACR BI-RADS CATEGORY 1: NEGATIVE There is no mammographic evidence of malignancy. A 1 year screening mammogram is recommended. The p atient will receive written notification of the results. Approximately 10% of breast cancers are not detected with mammography. A negative mammographic repor t should not delay biopsy if a clinically suggestive mass is present. Beth Luque M.D. /:08/13/2016 13:37:54 Scroll Saw Operator: Mery OVIEDO(R)(M), [facility] letter sent: Normal 1/2 BI-RADS Code: ACR BI-RADS Category 1: Negative
== END | disposition home or self-care (01) ==
LOC: C.MAMM 12:39
PROVIDERS: ATTEND Internal Medicine
DX: Z12.31 Encounter for screening mammogram for malignant neoplasm of breast (principal)

== ENCOUNTER → 2016-09-15 | Outpatient (CLI) | payer OTHER, MEDICARE ==
--- NOTE | 2016-09-15 09:38 | DIAGNOSTIC IMAGING REPORT ---
CHEST 2 VIEWS ROUTINE CLINICAL HISTORY: Pleural effusion. COMPARISON STUDY: Chest CT June 26, 2016 and chest radiograph August 04, 2016. FINDINGS: Linear left midlung opacity persists. This may reflect scarring or atelectasis. Small bilateral pleural effusion are noted. The right pleural effusion is decreased in size since exam of August 04, 2016. Mild cardiomegaly is unchanged. There is pulmonary vascular congestion. There is no pneumothorax. IMPRESSION: 1. Small bilateral pleural effusions. The right pleural effusion has decreased in size since exam August 04, 2016. 2. Pulmonary vascular congestion with possible mild pulmonary edema. Electronically signed by: Alexy Pierre M.D. 09/15/2016 9:37 AM Dictated Date/Time: 09/15/2016 9:31 AM
== END | disposition home or self-care (01) ==
LOC: C.RAD1850 09:21
PROVIDERS: ATTEND Surgery
DX: J90 Pleural effusion, not elsewhere classified (principal)

== ENCOUNTER → 2016-10-01 | Outpatient (CLI) | payer OTHER, MEDICARE ==
--- NOTE | 2016-10-01 13:37 | DIAGNOSTIC IMAGING REPORT ---
LUMBAR SPINE 5 VIEWS CLINICAL HISTORY: Fall. Low back pain. FINDINGS: Five views of the lumbar spine are correlated with MRI of the lumbar spine dated 05/15/2011. Skeletal structures are osteopenic. There is no radiographic evidence of fracture or malalignment. Vertebral body height and alignment are maintained throughout the lumbar spine. Anterior and lateral marginal osteophytes are seen throughout. The transverse and spinous processes appear intact. There is no evidence of spondylolysis. There is qwradvel-[id number] degenerative disc space narrowing at L5-S1 with associated endplate sclerosis. Moderate degenerative disc space narrowing is seen at L4-L5. Only mild disc space narrowing is seen at the remaining lumbar levels. Facet arthropathy is seen in the [id number] lumbar region. The bony pelvis is intact as imaged. Sclerotic change is noted in the sacroiliac joints. Enthesophytes arise from the anterosuperior iliac spine bilaterally. There is a nonobstructed abdominal bowel gas pattern noting moderate colonic fecal retention. Advanced atherosclerotic calcification is present in the abdominal aorta. IMPRESSION: 1. There is no acute bony abnormality seen involving the lumbosacral spine. 2. Osteopenia and spondylotic change as above. Dictated: 10/01/2016 1:29 PM Transcribed: 10/01/2016 1:36 PM Dwayne Electronically signed by: Meir Mooney M.D. 10/01/2016 1:43 PM Dictated Date/Time: 10/01/2016 1:29 PM
== END | disposition home or self-care (01) ==
LOC: C.RAD 12:27
PROVIDERS: ATTEND Internal Medicine
DX: M54.5 Low back pain (principal); W19.XXXA Unspecified fall, initial encounter

== ENCOUNTER → 2016-11-26 | Day surgery (SDC) | payer OTHER, MEDICARE ==
[2016-11-24 12:39] VITALS: BMI 29.0
[~2016-11-26] VITALS: Ht 149.9 cm; Wt 65.9 kg
[~2016-11-26] MED LIST changes: -FLUO0.0543; -FRS/40 PO; -HYDR1SOL OTB; -IMDSR30 PO; +LEVO125T4 PO; -LEVO125T5 PO; +LIDOCAINE HCL 2% 2 ML VIAL (20MG/ML) ONE; -NTRGSL/4 UT; +PROPOFOL IV EMULSION 10 MG/ML 20 ML VIAL IV ONE; +SODIUM CHLORIDE 0.9% 500ML 500 ML IV ONE
[2016-11-26 12:44] VITALS: Ht 149.9 cm; Wt 65.9 kg
[2016-11-26 13:04] VITALS: TEMP 36.3
--- NOTE | 2016-11-26 13:19 | Endo History and Physical ---
History & Physical Date of Service: Nov 26, 2016. Chief Complaint: diarrhea and weight loss. Referring Physician: Dr. Tran Valdez History of Present Illness anorexia; diarrhea, fecal incontinence Past Medical History Neurological Disorder, Angioplasty/Stent, Endocrine Disorder, Osteoporosis, Arthritis, Gastrointestinal Disorder, Anxiety, High Cholesterol, Heart Disease, Hypertension, Thyroid Disease, Kidney Disease, Other, Depression Past Surgical History Hx Cardiac Surgery: Yes (HEART CATH-2 STENTS PLACED) Hx Internal Defibrillator: No Hx Pacemaker: No Hx Abdominal Surgery: Yes (COLON RESECTION, ZAID, HYSTERECTOMY) Hx of Implantable Prosthesis: No Hx Post-Op Nausea and Vomiting: No Hx Cancer Surgery: No Hx Thoracic Surgery: No Hx Orthopedic: No Hx Urinary Tract Surgery: No Family History None Social History Smoking Status: Never Smoker Hx Substance Use: No Hx Alcohol Use: No Allergies Coded Allergies: Bacitracin (Verified Allergy, Unknown, EYES SWELLING-OINTMENT PLACED AROUND EYE, 11/26/16) Polymyxin B (Verified Allergy, Unknown, EYES [id number] PLACED AROUND EYE, 11/26/16) Current Medications Reported Home Medications Medications Dose Route/Sig Max Daily Dose Days Date Category Kevin Caps (B-Complex W/ C & Folic Acid) 1 Cap Cap 1 Cap PO DAILY AT LUNCH 11/24/16 Reported Lasix (Furosemide) 80 Mg Tab 80 Mg PO DAILY AFTERNOON 11/24/16 Reported Imdur Ext Rel (Isosorbide Mononitrate) 60 Mg Tab 60 Mg PO QAM 11/24/16 Reported Phoslo 667 Mg (Calcium Acetate) 667 Mg Cap 2 Cap PO TID 30 11/24/16 Reported Labetalol HCl 300 Mg Tab 300 Mg PO BID 90 06/30/16 Rx Levothyroxine Sodium 125 Mcg Tab 1 Tab PO QAM 90 09/12/15 Reported Lipitor (Atorvastatin Calcium) 40 Mg Tab 40 Mg PO QAM 09/12/15 Reported Zyloprim (Allopurinol) 100 Mg Tab 100 Mg PO QAM 09/12/15 Reported Citalopram Hydrobromide 10 Mg Tab 10 Mg PO QAM 07/08/13 Reported Aspirin Ec (Aspirin) 81 Mg Tab 81 Mg PO QAM 07/08/13 Reported Vital Signs Weight (Kilograms): 65.91 Height (Feet): 4 Height (Inches): 11 Date Time Temp Pulse Resp B/P (MAP) Pulse Ox O2 Delivery O2 Flow Rate FiO2 7/19/17 13:04 36.3 69 18 141/63 (89) 99 Nasal Cannula 3 Physical Exam AAOx3 Nls1s2 Lungs CTA Abd soft NT/ND + BS - CCE Assessment and Plan EGD/BX Colon Bx
--- NOTE | 2016-11-26 13:58 | Discharge Instructions ---
Endoscopy Patient Instructions Date / Procedure(s) Performed Nov 26, 2016. Colonoscopy, EGD Allergy Information Coded Allergies: Bacitracin (Verified Allergy, Unknown, EYES SWELLING-OINTMENT PLACED AROUND EYE, 11/26/16) Polymyxin B (Verified Allergy, Unknown, EYES [id number] PLACED AROUND EYE, 11/26/16) Discharge Date / Findings Nov 26, 2016. 1) HH; mild gastritis 2) COLON WITH TICS, POLYPS, Medication Instructions Stopped Medication(s): no medication taken this am. Restart Stopped Medication(s): Reported Home Medications Medications Dose Route/Sig Max Daily Dose Days Date Category Kevin Caps (B-Complex W/ C & Folic Acid) 1 Cap Cap 1 Cap PO DAILY AT LUNCH 11/24/16 Reported Lasix (Furosemide) 80 Mg Tab 80 Mg PO DAILY AFTERNOON 11/24/16 Reported Imdur Ext Rel (Isosorbide Mononitrate) 60 Mg Tab 60 Mg PO QAM 11/24/16 Reported Phoslo 667 Mg (Calcium Acetate) 667 Mg Cap 2 Cap PO TID 30 11/24/16 Reported Labetalol HCl 300 Mg Tab 300 Mg PO BID 90 06/30/16 Rx Levothyroxine Sodium 125 Mcg Tab 1 Tab PO QAM 90 09/12/15 Reported Lipitor (Atorvastatin Calcium) 40 Mg Tab 40 Mg PO QAM 09/12/15 Reported Zyloprim (Allopurinol) 100 Mg Tab 100 Mg PO QAM 09/12/15 Reported Citalopram Hydrobromide 10 Mg Tab 10 Mg PO QAM 07/08/13 Reported Aspirin Ec (Aspirin) 81 Mg Tab 81 Mg PO QAM 07/08/13 Reported Reported Home Medications Medications Dose Route/Sig Max Daily Dose Days Date Category [place] Caps (B-Complex W/ C & Folic Acid) 1 Cap Cap 1 Cap PO DAILY AT LUNCH 11/24/16 Reported Lasix (Furosemide) 80 Mg Tab 80 Mg PO DAILY AFTERNOON 11/24/16 Reported Imdur Ext Rel (Isosorbide Mononitrate) 60 Mg Tab 60 Mg PO QAM 11/24/16 Reported Phoslo 667 Mg (Calcium Acetate) 667 Mg Cap 2 Cap PO TID 30 11/24/16 Reported Labetalol HCl 300 Mg Tab 300 Mg PO BID 90 06/30/16 Rx Levothyroxine Sodium 125 Mcg Tab 1 Tab PO QAM 90 09/12/15 Reported Lipitor (Atorvastatin Calcium) 40 Mg Tab 40 Mg PO QAM 09/12/15 Reported Zyloprim (Allopurinol) 100 Mg Tab 100 Mg PO QAM 09/12/15 Reported Citalopram Hydrobromide 10 Mg Tab 10 Mg PO QAM 07/08/13 Reported Aspirin Ec (Aspirin) 81 Mg Tab 81 Mg PO QAM 07/08/13 Reported Provider Instructions Activity Restrictions - No exercising or heavy lifting for 24 hours. - Do not drink alcohol the day of the procedure. - Do not drive a car or operate machinery until the day after the procedure. - Do not make any important decisions or sign important papers in 24 hours after the procedure. Following Day: - Return to full activity which may include returning to work/school. Diet Start your diet with liquids and light foods (jello, soup, juice, toast). Then eat your usual diet if not nauseated. Treatment For Common After Affects For mild abdominal pain, bloating, or excessive gas: - Rest - Eat lightly - Lie on right side Follow-Up Information Follow-up with Dr. Tran Valdez as scheduled Anesthesia Information What You Should Know You have had a procedure that required some medicine to reduce anxiety and discomfort. This treatment is called moderate sedation. After receiving the treatment, you may be sleepy, but you will be able to breathe on your own. The effects of the treatment may last for several hours. Follow these instructions along with Activity/Diet recommendations noted above: * Do NOT do anything where dizziness or clumsiness would be dangerous. * Rest quietly at home today, then you can be up and about tomorrow. * Have a responsible person stay with you the rest of today. * You may have had an I.V. today. If so, you may take the dressing off later today. Recommendations Call your doctor if: * Trouble breathing * Continuous vomiting for more than 24 hours * Temperature above 101 degrees * Severe abdominal pain or bloating * Pain not relieved by pain medicine ordered * There is increased drainage or redness from any incision * A large amount of rectal bleeding greater than 2-3 tablespoons. (If you had a polyp/s removed or have hemorrhoids, a small amount of blood - from the rectum is to be expected.) * You have any unanswered questions or concerns. IN THE EVENT OF A SERIOUS EMERGENCY, GO TO THE NEAREST EMERGENCY ROOM Your discharge instructions were prepared by provider Hector Jones. Patient Instructions Signature Page Beth Morgan Patient (or Guardian) Signature/Date: I have read and understand the instructions given to me by my caregivers. Caregiver/RN/Doctor Signature/Date: The above-named patient and/or guardian has received patient instructions on this date. + Original Patient Signature Page (only) stays with chart. Please make copy for patient.
[2016-11-26 14:15] LABS: ISTAT CREATININE 4.2 mg/dl (0.6-1.3); ISTAT HEMOGLOBIN 12.2 g/dl (12.0-16.0); ISTAT IONIZED CALCIUM 1.16 mmol/l (1.12-1.32)
--- NOTE | 2016-11-26 14:17 | GI REPORT ---
Procedure Date: 11/26/2016 1:29 PM Procedure: Colonoscopy Indications: Chronic diarrhea, Fecal incontinence Medicines: Propofol per Anesthesia Complications: No immediate complications. Estimated Blood Loss: Estimated blood loss was minimal. Estimated blood loss was minimal. Procedure: Pre-Anesthesia Assessment: - Prior to the procedure, a History and Physical was performed, and patient medications and allergies were reviewed. The patient's tolerance of previous anesthesia was also reviewed. The risks and benefits of the procedure and the sedation options and risks were discussed with the patient. All questions were answered, and informed consent was obtained. Prior Anticoagulants: The patient has taken no previous anticoagulant or antiplatelet agents. ASA Grade Assessment: IV - A patient with severe systemic disease that is a constant threat to life. After reviewing the risks and benefits, the patient was deemed in satisfactory condition to undergo the procedure. After I obtained informed consent, the scope was passed under direct vision. Throughout the procedure, the patient's blood pressure, pulse, and oxygen saturations were monitored continuously. The scope was introduced through the anus and advanced to the terminal ileum, with identification of the appendiceal orifice and IC valve. The colonoscopy was performed without difficulty. The patient tolerated the procedure well. The quality of the bowel preparation was good. Findings: The perianal and digital rectal examinations were normal. Pertinent negatives include normal sphincter tone, no palpable rectal lesions and no anal lesion or abnormality was detected. A 5 mm polyp was found in the rectum. The polyp was sessile. The polyp was removed with a cold biopsy forceps. Resection and retrieval were complete. Estimated blood loss was minimal. Verification of patient identification for the specimen was done by the physician and auto body repair technician using the patient's name and medical record number. Many small-mouthed diverticula were found in the entire colon. The terminal ileum appeared normal. The rectum, descending colon and ascending colon appeared normal. Biopsies were taken with a cold forceps for histology. Estimated blood loss was minimal. Verification of patient identification for the specimen was done by the physician and auto body repair technician using the patient's name and medical record number. The exam was otherwise without abnormality. The retroflexed view of the distal rectum and anal verge was normal and showed no anal or rectal abnormalities. Impression: - One 5 mm polyp in the rectum, removed with a cold biopsy forceps. Resected and retrieved. - Diverticulosis in the entire examined colon. - The examined portion of the ileum was normal. - The rectum, descending colon and ascending colon are normal. Biopsied. - The examination was otherwise normal. - The distal rectum and anal verge are normal on retroflexion view. Recommendation: - Discharge patient to home (ambulatory). - Advance diet as tolerated. - Continue present medications. - Await pathology results. - Return to referring physician as previously scheduled. MD Hector Regan MD 11/26/2016 2:16:38 PM This report has been signed electronically. Note Initiated On: 11/26/2016 1:29 PM I attest to the content of the Intraoperative Record and orders documented therein, exceptions below
[2016-11-26 14:24] VITALS: BP 160/59; PULSE 74; O2SAT 99
--- NOTE | 2016-11-26 14:33 | Anesthesiology Progress Note ---
Anesthesia Post Op Note Date & Time Nov 26, 2016 at 14:33 Vital Signs Pain Intensity: 0 Vital Signs Past 12 Hours Date Time Temp Pulse Resp B/P (MAP) Pulse Ox O2 Delivery O2 Flow Rate FiO2 11/26/16 14:24 74 18 160/59 (92) 99 Nasal Cannula 3 11/26/16 14:09 69 18 137/51 (79) 97 Nasal Cannula 3 11/26/16 13:54 73 18 131/49 (76) 97 Nasal Cannula 3 11/26/16 13:04 36.3 69 18 141/63 (89) 99 Nasal Cannula 3 Notes Mental Status: alert / awake / arousable, participated in evaluation Pt Amnestic to Procedure: Yes Nausea / Vomiting: adequately controlled Pain: adequately controlled Airway Patency, RR, SpO2: stable & adequate BP & HR: stable & adequate Hydration State: stable & adequate Anesthetic Complications: no major complications apparent
--- NOTE | 2016-11-26 14:39 | GI REPORT ---
Procedure Date: 11/26/2016 1:00 PM Procedure: Upper GI endoscopy Indications: Anorexia Medicines: Propofol per Anesthesia Complications: No immediate complications. Estimated blood loss: Minimal. Estimated Blood Loss: Estimated blood loss was minimal. Procedure: Pre-Anesthesia Assessment: - Prior to the procedure, a History and Physical was performed, and patient medications and allergies were reviewed. The patient's tolerance of previous anesthesia was also reviewed. The risks and benefits of the procedure and the sedation options and risks were discussed with the patient. All questions were answered, and informed consent was obtained. Prior Anticoagulants: The patient has taken no previous anticoagulant or antiplatelet agents. ASA Grade Assessment: IV - A patient with severe systemic disease that is a constant threat to life. After reviewing the risks and benefits, the patient was deemed in satisfactory condition to undergo the procedure. After obtaining informed consent, the endoscope was passed under direct vision. Throughout the procedure, the patient's blood pressure, pulse, and oxygen saturations were monitored continuously. The scope was introduced through the mouth, and advanced to the third part of duodenum. The upper GI endoscopy was accomplished without difficulty. The patient tolerated the procedure well. Findings: The examined esophagus was normal. A small hiatus hernia was found. The proximal extent of the gastric folds (end of tubular esophagus) was 37 cm from the incisors. The hiatal narrowing was 40 cm from the incisors. The Z-line was 37 cm from the incisors. Patchy mildly erythematous mucosa without bleeding was found in the gastric antrum. Biopsies were taken with a cold forceps for histology. Estimated blood loss was minimal. Verification of patient identification for the specimen was done by the physician and pharmacy picking technician using the patient's name and medical record number. The examined duodenum was normal. Biopsies for histology were taken with a cold forceps for evaluation of celiac disease. Estimated blood loss was minimal. Verification of patient identification for the specimen was done by the physician and pharmacy picking technician using the patient's name and medical record number. The cardia and gastric fundus were normal on retroflexion. Retained gastric contents are not identified on this exam. The exam of the stomach was otherwise normal. Impression: - Normal esophagus. - Small hiatus hernia. - Erythematous mucosa in the antrum. Biopsied. - Normal examined duodenum. Biopsied. Recommendation: - Discharge patient to home (ambulatory). - Discharge patient to home (ambulatory). - Advance diet as tolerated. - Await pathology results. - Return to referring physician as previously scheduled. MD Hector Regan MD 11/26/2016 2:38:50 PM This report has been signed electronically. Note Initiated On: 11/26/2016 1:00 PM I attest to the content of the Intraoperative Record and orders documented therein, exceptions below
== END | disposition home or self-care (01) ==
LOC: C.GI 12:09
PROVIDERS: ATTEND Internal Medicine Gastroenterology
DX: R63.0 Anorexia (principal); R19.7 Diarrhea, unspecified; K62.1 Rectal polyp; K44.9 Diaphragmatic hernia without obstruction or gangrene; K57.90 Diverticulosis of intestine, part unspecified, without perforation or abscess without bleeding; R15.9 Full incontinence of feces; Z95.5 Presence of coronary angioplasty implant and graft; M81.0 Age-related osteoporosis without current pathological fracture; E78.00 Pure hypercholesterolemia, unspecified; I10 Essential (primary) hypertension; Z90.49 Acquired absence of other specified parts of digestive tract; Z90.710 Acquired absence of both cervix and uterus; Z79.82 Long term (current) use of aspirin; J44.9 Chronic obstructive pulmonary disease, unspecified; Z99.81 Dependence on supplemental oxygen; I25.10 Atherosclerotic heart disease of native coronary artery without angina pectoris; E78.5 Hyperlipidemia, unspecified; M19.90 Unspecified osteoarthritis, unspecified site; Z86.73 Personal history of transient ischemic attack (TIA), and cerebral infarction without residual deficits; E03.9 Hypothyroidism, unspecified; Z99.2 Dependence on renal dialysis; N18.6 End stage renal disease

== ENCOUNTER 2016-12-02 12:50 | Observation (INO) | payer OTHER, MEDICARE ==
[~2016-12-02] VITALS: Ht 148.6 cm; Wt 65.6 kg
[~2016-12-02 12:50] MED LIST changes: -LIDOCAINE HCL 2% 2 ML VIAL (20MG/ML) ONE; -PROPOFOL IV EMULSION 10 MG/ML 20 ML VIAL IV ONE; -SODIUM CHLORIDE 0.9% 500ML 500 ML IV ONE
[2016-12-02 13:20] LABS: BASO % 0.4 %; BASO ABS # 0.04 K/uL (0-0.2); COMPLETE YES; EOS % 2.4 %; HEMATOCRIT 32.7 % (37-47); IG% 0.2 %; LYMPH % 4.3 %; LYMPH ABS # 0.45 K/uL (1.2-3.4); MEAN CELL VOLUME 98.8 fL (80-100); MEAN CORPUSCULAR HEMOGLOBIN 31.1 pg (25-34); MEAN CORPUSCULAR HGB CONC 31.5 g/dl (32-36); MEAN PLATELET VOLUME 8.8 fL (7.4-10.4); MONO % 9.5 %; NEUT % 83.2 %; PLATELET COUNT 254 K/uL (130-400); RED BLOOD COUNT 3.31 M/uL (4.2-5.4); WHITE BLOOD COUNT 10.46 K/uL (4.8-10.8)
--- NOTE | 2016-12-02 13:29 | EMERGENCY ROOM VISIT NOTE ---
History Report prepared by Valarie: Nazia Acevedo Under the Supervision of: Dr. Santana Byrd M.D. 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 She states that she was receiving dialysis when she experienced syncope. She thinks that she was almost finished with her dialysis when she experienced syncope. The patient does not remember what happened but she remembers waking up with nurses surrounding her. The patient was sitting in the chair when she experienced syncope. EMS reported that the patient experienced LOC for 10 minutes. The patient's daughter states that the patient has experienced syncope with dialysis in the past, but never to this extent. The patient has not missed dialysis at all recently. She receives dialysis Tuesdays, , and Saturdays. She also adds that the patient's blood pressure has been very low when she receives dialysis recently. The patient is also experiencing intermittent dizziness but she states that she has been experiencing dizziness since she started dialysis over 1 year ago. The patient states that she feels fatigued and her daughter states that she has been fatigued a lot recently. She states that she still makes a very small amount of urine. The patient is eating and drinking normally. She denies headache, fevers, chills, cough, congestion, nausea, vomiting, chest pain, abdominal pain, diarrhea, and burning with urination. The patient lives at home with her and they live next door to their daughter. The patient's daughter states that she had a colonoscopy and endoscopy 6 days ago. 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 A total of ten systems were reviewed and were otherwise negative. Past Medical & Surgical Medical Problems: (1) Acute kidney injury (2) Anemia (3) CHEST PAIN,CAD,ESRD (4) chf exac /ESRD/uremic (5) Chronic kidney disease (6) Coronary artery disease (7) DEHYD.,UTI, MSC, CAD (8) DEHYDRATION, MSC, UTI (9) End-stage renal disease needing dialysis (10) Metabolic acidosis (11) Pleural effusion on right (12) Proteinuria (13) Secondary hyperparathyroidism of renal origin (14) SYNCOPE,ESRD,CAD (15) Volume overload Family History Cancer Diabetes mellitus Gallbladder disease Heart disease Hypertension Lung disease Social History Smoking Status: Never Smoker Marital Status: Housing Status: lives with family Current/Historical Medications Scheduled Allopurinol (Zyloprim), 100 MG PO QAM Aspirin (Aspirin Ec), 81 MG PO QAM Atorvastatin (Lipitor), 40 MG PO QAM B-Complex W/ C & Folic Acid (Kevin Caps), 1 CAP PO DAILY AT LUNCH Calcium Acetate (Phoslo 667 Mg), 2 CAP PO TID Citalopram Hydrobromide (Citalopram Hydrobromide), 10 MG PO QAM Furosemide (Lasix), 80 MG PO DAILY AFTERNOON Isosorbide Mononitrate (Imdur Ext Rel), 60 MG PO QAM Labetalol HCl (Labetalol HCl), 300 MG PO BID Levothyroxine Sodium (Levothyroxine Sodium), 1 TAB PO QAM Allergies Coded Allergies: Bacitracin (Verified Allergy, Unknown, EYES SWELLING-OINTMENT PLACED AROUND EYE, 11/26/16) Polymyxin B (Verified Allergy, Unknown, EYES [id number] PLACED AROUND EYE, 11/26/16) Physical Exam Vital Signs Date Time Temp Pulse Resp B/P (MAP) Pulse Ox O2 Delivery O2 Flow Rate FiO2 12/02/16 14:45 71 24 97 12/02/16 13:57 67 18 99/44 98 Nasal Cannula 2.0 12/02/16 13:05 67 12/02/16 13:00 Nasal Cannula 3.0 12/02/16 12:59 Room Air 12/02/16 12:54 36.8 68 20 127/48 94 Room Air 3.0 Nasal Cannula Physical Exam GENERAL: Awake, alert, fatigued, weak-appearing, in no distress HENT: Normocephalic, atraumatic. Dry mucous membranes. EYES: Normal conjunctiva. Sclera non-icteric. NECK: Supple. No nuchal rigidity. FROM. No JVD. RESPIRATORY: Clear to auscultation. CARDIAC: Regular rate, normal rhythm. Extremities warm and well perfused. Pulses equal. ABDOMEN: Soft, non-distended. No tenderness to palpation. No rebound or guarding. No masses. RECTAL: Deferred. MUSCULOSKELETAL: Chest examination reveals no tenderness. The back is symmetrical on inspection without obvious abnormality. There is no CVA tenderness to palpation. No joint edema. LOWER EXTREMITIES: Calves are equal size bilaterally and non-tender. No edema. No discoloration. NEURO: Normal sensorium. No sensory or motor deficits noted. No focal deficits. Moving all extremities. SKIN: No rash or jaundice noted. Medical Decision & Procedures ER Provider Diagnostic Interpretation: Radiology results as stated below per my review and radiologist interpretation: CHEST ONE VIEW PORTABLE FINDINGS: There are calcifications of the tracheobronchial tree. Cardiac silhouette is again mildly enlarged. There is no pneumothorax. There is unchanged blunting of the bilateral costophrenic angles compatible small pleural effusions. Linear pleural-based opacities are again seen within the lateral mid lungs bilaterally compatible with atelectasis/scarring. There is mild pulmonary vascular congestion without significant change from comparison. There is mild left basilar consolidation. There is atherosclerosis of the aorta. The bones are grossly intact. IMPRESSION: 1. Cardiomegaly with mild pulmonary vascular congestion. 2. Small bilateral pleural effusions with left basilar consolidation suggesting atelectasis. The above report was generated using voice recognition software. It may contain grammatical, syntax or spelling errors. Electronically signed by: Ernesto Faulkner M.D. 12/02/2016 1:32 PM Dictated Date/Time: 12/02/2016 1:31 PM Laboratory Results 12/02/16 13:05 Red Blood Count 3.31, Mean Corpuscular Volume 98.8, Mean Corpuscular Hemoglobin 31.1, Mean Corpuscular Hemoglobin Concent 31.5, Mean Platelet Volume 8.8, Neutrophils (%) (Auto) 83.2, Lymphocytes (%) (Auto) 4.3, Monocytes (%) (Auto) 9.5, Eosinophils (%) (Auto) 2.4, Basophils (%) (Auto) 0.4, Neutrophils # (Auto) 8.71, Lymphocytes # (Auto) 0.45, Monocytes # (Auto) 0.99, Eosinophils # (Auto) 0.25, Basophils # (Auto) 0.04 12/02/16 13:05 Test 12/02/16 13:05 White Blood Count 10.46 K/uL (4.8-10.8) Red Blood Count 3.31 M/uL (4.2-5.4) Hemoglobin 10.3 g/dL (12.0-16.0) Hematocrit 32.7 % (37-47) Mean Corpuscular Volume 98.8 fL (80-100) Mean Corpuscular Hemoglobin 31.1 pg (25-34) Mean Corpuscular Hemoglobin Concent 31.5 g/dl (32-36) Platelet Count 254 K/uL (130-400) Mean Platelet Volume 8.8 fL (7.4-10.4) Neutrophils (%) (Auto) 83.2 % Lymphocytes (%) (Auto) 4.3 % Monocytes (%) (Auto) 9.5 % Eosinophils (%) (Auto) 2.4 % Basophils (%) (Auto) 0.4 % Neutrophils # (Auto) 8.71 K/uL (1.4-6.5) Lymphocytes # (Auto) 0.45 K/uL (1.2-3.4) Monocytes # (Auto) 0.99 K/uL (0.11-0.59) Eosinophils # (Auto) 0.25 K/uL (0-0.5) Basophils # (Auto) 0.04 K/uL (0-0.2) RDW Standard Deviation 59.8 fL (36.4-46.3) RDW Coefficient of Variation 16.7 % (11.5-14.5) Immature Granulocyte % (Auto) 0.2 % Immature Granulocyte # (Auto) 0.02 K/uL (0.00-0.02) Anion Gap 6.0 mmol/L (3-11) Est Creatinine Clear Calc Drug Dose 10.9 ml/min Estimated GFR () 14.9 Estimated GFR (Non- 12.8 BUN/Creatinine Ratio 7.8 (10-20) Calcium Level 9.1 mg/dl (8.5-10.1) Phosphorus Level 1.8 mg/dl (2.5-4.9) Magnesium Level 2.0 mg/dl (1.8-2.4) Troponin I < 0.015 ng/ml (0-0.045) Laboratory results reviewed by me ECG Indication: syncope Rate (beats per minute): 69 Rhythm: normal sinus Findings: no acute ischemic change, other (right axis deviation) ED Course 1258: The patient was evaluated in room A10. A complete history and physical exam was performed. 1325: The patient's nurse called dialysis to have them come deactivate the patient's fistula. 1354: Discussed the patient's case with Dr. Brambila of the [facility]. The patient will be evaluated for further treatment and disposition. 1400: Upon reexamination, the patient was resting comfortably. She is still feeling a little fatigued. I discussed the test results and treatment plan with the patient and her family. The patient was reluctant but agreeable. The patient will be evaluated for further management. Medical Decision I reviewed the patient's past medical history, medications, and the nursing notes as described above. Differential diagnoses considered include orthostatic hypotension in the setting of dialysis, vasovagal episode, ACS, dehydration. Patient is an 81-year-old woman with a conjugate past medical history including end-stage renal disease on hemodialysis presents to emergency department after having a syncopal episode when nearing the end of her dialysis session. Per EMS report staff reported that the patient became unresponsive for 10 minutes in the setting of hypotension. Per family the patient has been having episodes of brief syncope during her dialysis dialysis sessions similar to today however never for such a prolonged period of time. On arrival the patient appears fatigued and weak however in no acute distress. AFVSS. Clinically dry. EKG unremarkable. Chest x-ray with mild venous congestion however patient at baseline oxygen saturation 2 L nasal cannula. Otherwise, labs are unremarkable with normal white count and negative troponin. Symptoms most likely consistent with orthostatic syncope in the setting of mild intravascular depletion in the setting of hemodialysis. Considering prolonged syncopal episode in the setting of hypotension in this elderly patient with multiple comorbidities hospital observation is reasonable. Findings and plan discussed with patient's doctor Dr. Brambila who agreed with plan and will admit patient Medication Reconcilliation Current Medication List: was personally reviewed by me Blood Pressure Screening Patient's blood pressure: Elevated blood pressure Blood pressure disposition: Did not require urgent referral Consults Time Called: 1351 Consulting Physician: Dr. Brambila - [facility] Returned Call: 1354 Discussed the patient's case with Dr. Brambila of the [facility]. The patient will be evaluated for further treatment and disposition. Impression Primary Impression: Syncope Scribe Attestation The scribe's documentation has been prepared under my direction and personally reviewed by me in its entirety. I confirm that the note above accurately reflects all work, treatment, procedures, and medical decision making performed by me. Departure Information Dispostion Other (Being Evaluated by Dr. Brambila of the [facility]) Referrals Anant Brown M.D. (PCP) Patient Instructions My [facility] Problem Qualifiers Primary Impression: Syncope Syncope type: unspecified Qualified Codes: R55 - Syncope and collapse
--- NOTE | 2016-12-02 13:34 | DIAGNOSTIC IMAGING REPORT ---
CHEST ONE VIEW PORTABLE HISTORY: 81 years-old Female syncope COMPARISON: Chest radiographs 09/15/2016 TECHNIQUE: Portable upright AP view of the chest FINDINGS: There are calcifications of the tracheobronchial tree. Cardiac silhouette is again mildly enlarged. There is no pneumothorax. There is unchanged blunting of the bilateral costophrenic angles compatible small pleural effusions. Linear pleural-based opacities are again seen within the lateral mid lungs bilaterally compatible with atelectasis/scarring. There is mild pulmonary vascular congestion without significant change from comparison. There is mild left basilar consolidation. There is atherosclerosis of the aorta. The bones are grossly intact. IMPRESSION: 1. Cardiomegaly with mild pulmonary vascular congestion. 2. Small bilateral pleural effusions with left basilar consolidation suggesting atelectasis. The above report was generated using voice recognition software. It may contain grammatical, syntax or spelling errors. Electronically signed by: Ernesto Faulkner M.D. 12/02/2016 1:32 PM Dictated Date/Time: 12/02/2016 1:31 PM
[2016-12-02 13:35] LABS: BLOOD UREA NITROGEN 25 mg/dl (7-18); BUN/CREATININE RATIO 7.8 (10-20); CALCIUM 9.1 mg/dl (8.5-10.1); CARBON DIOXIDE 31 mmol/L (21-32); CHLORIDE 99 mmol/L (98-107); GLUCOSE 104 mg/dl (70-99); POTASSIUM 3.9 mmol/L (3.5-5.1); SODIUM 136 mmol/L (136-145)
[2016-12-02 13:39] LABS: PHOSPHORUS 1.8 mg/dl (2.5-4.9)
[2016-12-02] MEDS ORDERED: ACETAMINOPHEN 325 MG TAB PO PRN (14:15)
[2016-12-02] MEDS ORDERED: IV FLUIDS COMPLETED PRN (14:45)
[2016-12-02 16:00] VITALS: BP 140/52; PULSE 81; TEMP 37; O2SAT 96
[2016-12-02 18:08] VITALS: BP 140/52; PULSE 81; TEMP 37; Ht 148.6 cm; Wt 65.6 kg
--- NOTE | 2016-12-02 19:22 | Nephrology Consultation ---
Nephrology Consultation Date & Providers Date of Consultation: Dec 02, 2016. Primary Care Provider: Aannt Brown M.D. Referring Provider: Reason for Consultation ESRD History of Present Illness Mrs. Beth Morgan is a an 81-year-old female with ESRD who was seen and evaluated this afternoon with her family at the bedside. She was admitted from the dialysis unit following an episode of acute unresponsiveness and hypotension. Beth is maintained on hemodialysis on a TTS scheduled at [facility]. She was seen and evaluated this morning during dialysis by Dr. Llanes. At the time of his evaluation, she was tolerating hemodialysis well. Blood pressure predialysis was 140/70 mmHg. Ultrafiltration was set for 3 L. Prior treatments have averaged around 1.5-2 liter UF. EDW is ~65 kg. Weight has been stable. She has left the dialysis unit at 65-65.5 kg for the last several treatments. Unfortunately, within the last 15 minutes of her treatment today she became acutely unresponsive. Beth does not recall losing consciousness or feeling poorly during dialysis. Staff report that she was unable to be aroused for at least 5 minutes. She was attended to by nursing staff and blood pressure was notably low. Pressure was initially difficult to obtain. IVF 500 ml bolus was given to obtain a systolic pressure greater than 100 mmHg. The patient left the dialysis unit with a blood pressure of 145/80 mmHg after several minutes. Her post weight was documented at 65 kg. Heart rate reported to remain consistently 70-80 bpm. She has some baseline dementia reported but she was not found to be significant confused following the event. No focal findings were appreciated on initial assessment or by EMS or ED attendings. No cardiac arrythmia reported. She denies any recent palpitations. She was having left sided chest pain within the past couple of months. This seemed to improve in September after her LA nitrate was increased. Beth has chronic hypotension with dialysis. She does not tolerate large volume UF well. EDW was increased in the beginning of October. She has been struggling with recent chronic diarrhea. Appetite is good. She denies significant weight loss. She had a recent colonoscopy and EGD on November 27. Polypectomy and gastric biopsies were performed. Medical history is notable for CAD, aortic sclerosis as well as a history of stroke (left basal ganglia lacunar infarction and left thalamic acute infarction March 2012). She is on 3 L of supplemental oxygen via nasal cannula. Past Medical/Surgical History Medical: # ESRD attributed to ATN and history of microvascular CKD. Started hemodialysis in August of 2015. Patient dialyzes TTS at [facility]. # HTN # ASCVD s/p PTCA w/ stent 2013 # Aortic sclerosis without significant stenosis per most recent echocardiogram # Hyperlipidemia # Macular degeneration - legally blind # Pleural effusion - transudative # Osteoarthritis # Hypothyroidism Surgical: # Coronary LAD stent 2003 # Left upper arm transposed AVF by Dr. Palomares 09/23 # Thoracentesis for right pleural effusion Allergies Coded Allergies: Bacitracin (Verified Allergy, Unknown, EYES SWELLING-OINTMENT PLACED AROUND EYE, 11/26/16) Polymyxin B (Verified Allergy, Unknown, EYES [id number] PLACED AROUND EYE, 11/26/16) Inpatient Medications Current Inpatient Medications Medications (Trade) Dose Ordered Sig/Debora Route Start Time Stop Time Status Last Admin Dose Admin Acetaminophen (Tylenol Tab) 650 mg Q4H PRN PO 12/02/16 14:15 01/01/17 14:14 Allopurinol (Zyloprim Tab) 100 mg QAM PO 12/03/16 09:00 01/02/17 08:59 Aspirin (Ecotrin Tab) 81 mg QAM PO 12/03/16 09:00 01/02/17 08:59 Atorvastatin Calcium (Lipitor Tab) 40 mg QAM PO 12/03/16 09:00 01/02/17 08:59 Vitamin B Complex/ Vit C/Folic Acid (Nephrocaps) 1 cap DAILY PO 12/03/16 09:00 01/02/17 08:59 Calcium Acetate (Phoslo Cap) 1,334 mg TID PO 12/02/16 21:00 01/01/17 20:59 Furosemide (Lasix Tab) 80 mg DAILY PO 12/03/16 09:00 01/02/17 08:59 Isosorbide Mononitrate (Imdur Ext Rel Tab) 60 mg QAM PO 12/03/16 09:00 01/02/17 08:59 Labetalol HCl (Normodyne Tab) 300 mg BID PO 12/02/16 21:00 01/01/17 20:59 Levothyroxine Sodium (Synthroid Tab) 125 mcg DAILYBB PO 12/03/16 06:30 01/02/17 06:59 Citalopram Hydrobromide (celeXA TAB) 10 mg QAM PO 12/03/16 09:00 01/02/17 08:59 Miscellaneous (Iv Fluids Completed) 1 ea PRN PRN N/A 12/02/16 14:45 12/02/17 14:44 Family History Cancer Diabetes mellitus Gallbladder disease Heart disease Hypertension Lung disease Social History Smoking Status: Never Smoker Marital Status: Review of Systems A complete review of systems was performed. Pertinent positives are noted above. All other systems are negative. Physical Exam Date Time Temp Pulse Resp B/P (MAP) Pulse Ox O2 Delivery O2 Flow Rate FiO2 12/02/16 16:00 37.0 81 18 140/52 (81) 96 Nasal Cannula 3.0 12/02/16 15:27 36.8 73 22 100/47 98 12/02/16 15:20 73 22 100/47 98 12/02/16 14:50 73 24 96 12/02/16 14:45 71 24 97 12/02/16 13:57 67 18 99/44 98 Nasal Cannula 2.0 12/02/16 13:05 67 12/02/16 13:00 Nasal Cannula 3.0 12/02/16 12:59 Room Air 12/02/16 12:54 36.8 68 20 127/48 94 Room Air 3.0 Nasal Cannula General Appearance: no apparent distress, + obese Head: normocephalic, atraumatic Eyes: normal inspection, sclerae normal ENT: normal ENT inspection, pharynx normal Neck: supple, no JVD Respiratory/Chest: lungs clear, no respiratory distress, no accessory muscle use Cardiovascular: regular rate, rhythm, no gallop, + systolic murmur Abdomen/GI: non tender, soft Extremities/Musculoskelatal: normal inspection, + pedal edema (trace; LUE AVF with thrill and bruit) Neurologic/Psych: alert, normal mood/affect Laboratory Results Last 24 Hours Test 12/02/16 13:05 White Blood Count 10.46 K/uL Red Blood Count 3.31 M/uL Hemoglobin 10.3 g/dL Hematocrit 32.7 % Mean Corpuscular Volume 98.8 fL Mean Corpuscular Hemoglobin 31.1 pg Mean Corpuscular Hemoglobin Concent 31.5 g/dl Platelet Count 254 K/uL Mean Platelet Volume 8.8 fL Neutrophils (%) (Auto) 83.2 % Lymphocytes (%) (Auto) 4.3 % Monocytes (%) (Auto) 9.5 % Eosinophils (%) (Auto) 2.4 % Basophils (%) (Auto) 0.4 % Neutrophils # (Auto) 8.71 K/uL Lymphocytes # (Auto) 0.45 K/uL Monocytes # (Auto) 0.99 K/uL Eosinophils # (Auto) 0.25 K/uL Basophils # (Auto) 0.04 K/uL RDW Standard Deviation 59.8 fL RDW Coefficient of Variation 16.7 % Immature Granulocyte % (Auto) 0.2 % Immature Granulocyte # (Auto) 0.02 K/uL Sodium Level 136 mmol/L Potassium Level 3.9 mmol/L Chloride Level 99 mmol/L Carbon Dioxide Level 31 mmol/L Anion Gap 6.0 mmol/L Blood Urea Nitrogen 25 mg/dl Creatinine 3.20 mg/dl Est Creatinine Clear Calc Drug Dose 10.9 ml/min Estimated GFR () 14.9 Estimated GFR (Non- 12.8 BUN/Creatinine Ratio 7.8 Random Glucose 104 mg/dl Calcium Level 9.1 mg/dl Phosphorus Level 1.8 mg/dl Magnesium Level 2.0 mg/dl Troponin I < 0.015 ng/ml Impression (1) End-stage renal disease needing dialysis (2) Syncope Mrs. eBth Morgan is an 81 year-old female with ESRD who was admitted for evaluation of an acute loss of consciousness during hemodialysis today. Treatment was stopped 15 minutes early. Post weight consistent with EDW (65 kg) . We will check orthostatic vital signs now and tomorrow AM. Overall blood pressure and volume status currently appear appropriate. Unfortunately, Beth does not tolerate large volume UF with hemodialysis well. Aortic valve was evaluated as recently as June per records. She does not have significant valvular heart disease. She has chronic hypotension but nitrate and beta annette have been escalated to help control chronic stable anginal symptoms. I will plan on discussing further with cardiology and her PCP tomorrow. In the interim, I have educated the patient about limiting fluid intake. She is taking a diuretic but reports very minimal urine output. She remains in sinus rhythm on telemetry and repeat cardiac enzymes are pending. I do not have detailed records regarding her prior CVA evaluation.
[2016-12-02 19:43] VITALS: BP 175/56; PULSE 80; TEMP 36.9; O2SAT 97
[2016-12-02 20:46] VITALS: BP 188/67; PULSE 76
[2016-12-02] MEDS: LABETALOL HCL 300 MG TAB PO SCH (20:49)
[2016-12-02] MEDS: CALCIUM ACETATE 667MG GELCAP PO SCH (20:50)
--- NOTE | 2016-12-02 21:33 | History and Physical ---
History & Physical Date of Service Dec 02, 2016. History & Physical CHIEF COMPLAINT: 81-year-old female admitted through the emergency room after a syncopal episode which she sustained during her dialysis session in the outpatient dialysis unit. She was brought to the emergency room by ambulance. PRESENT ILLNESS: Patient with extensive medical history E. She has end-stage renal disease she is on hemodialysis 3 times a week on Tuesdays and Saturdays. She has coronary artery disease. She underwent stenting of her left anterior descending artery in June of 2013. She is also treated for arterial hypertension, hyperlipidemia, hypothyroidism, degenerative disc disease of the lumbar spine with spinal stenosis, macular degeneration with legally blind status, gout, anxiety, depression, recent diarrhea, and generalized weakness. Patient was in the outpatient dialysis unit today. Toward the end of her dialysis session she had a syncopal episode which was witnessed by her family and the dialysis staff. She was completely unresponsive. It is estimated that she had been unresponsive for about 10 minutes. She continued to have spontaneous respirations. She was hypotensive. She was transferred to the emergency room. After the syncopal episode she was back to her baseline status neurologically. She was awake and alert. She remembers when she woke up in the dialysis unit everybody was around her looking at her. She denied any headache or dizziness. No chest pain no shortness of breath. No abdominal pain. No nausea no vomiting. Overall her condition has been weakening progressively. She has had multiple problems in dialysis with fistula access and also with hypotension. Patient was evaluated in the emergency room. Multiple laboratory tests were done. She was reported to be in her usual mental status. The patient was complaining of feeling weakened and fatigued. Her family was concerned. In view of her multiple medical problems and a syncopal episode I admitted her under observation status to PCU with telemetry. PAST MEDICAL HISTORY: 1. Coronary artery disease. First diagnosed on 07/08/2013. she was complaining of chest pain and had an abnormal stress test.She had a 90% stenosis of her left mid LAD. A drug-eluting stent was placed. 2. End-stage renal disease. She is on hemodialysis. 3. She has an AV fistulain her left arm. Initially she did have problem being dialyzed through her physicians. There was a problem with access in it. But now the problem seems to have been resolved and her fistula is used every time she goes to dialysis. 4. Arterial hypertension. Long-standing. 5. Moderate to mild aortic stenosis. She had an echocardiogram during her last hospitalization back in June of this year. 6. History of diverticulitis. She had multiple episodes. She had stenosis of the sigmoid colon. She did require resection back in 2006 7. Cholecystectomy in 195 8. Total abdominal hysterectomy in the remote past. She had multiple cysts. 9. Tonsillectomy in childhood 10. History of bilateral cataract surgery in 2004 10 2006. She did require post cataract laser treatments. Most in the right eye in 2006. 11. Macular degeneration. Severe. She is legally blind. 12. History of microhematuria with negative urological evaluation in the past. 13. History of gout. No recent acute episode. 14. Hypothyroidism. Compensated. 15. History of CVA in 2011 with involvement of the left basal ganglia she had a lacunar infarction. She also had a left thalamic acute cerebral infarction. She does not have any residual deficit. 16. Degenerative disc disease of the lumbar spine with spinal stenosis. 17. Anxiety and depression. Treated. 18. Back in June of this year she was admitted with large right pleural effusion. She did require thoracentesis. Eventually the effusion resolved. SOCIAL HISTORY: She is . Has 2 daughters. No history of any smoking or alcohol or drugs. No excessive coffee tea or soft drinks. 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 FAMILY HISTORY: Her mother had diabetes mellitus and renal complications and coronary artery disease. She at age 69. Her father at age 49 had tuberculosis and heart disease. One sister had lung removal for lung cancer. One brother is diabetic. Her maternal grandmother had throat cancer. One daughter is treated for arterial hypertension. ALLERGIES: Polymyxin B with local reaction Bacitracin with local reaction CURRENT MEDICATIONS: All as noted on her home medication list REVIEW OF SYSTEMS: She has been feeling quite tired and exhausted. Her symptoms are quite exacerbated after her dialysis session. She denied any headache. She does feel lightheaded. She does not have any history of prior syncopal episode. She is legally blind. No earache sore throat or neck pain. No chest pain pressure or tightness. No shortness of breath. No cough. No abdominal pain. No nausea no vomiting. As noted she had diarrhea recently. She had a GI evaluation. She had an EGD and a colonoscopy. Some of the biopsies are still pending..She does have chronic pain in her back.no leg edema noted. EXAMINATION: GENERAL : Well developed. Well nourished. No acute distress.Feeling very weak and tired. Her recorded weight is 65.6 kg. Height 148.6 cm. BMI 29.7. VITAL SIGNS ; Blood Pressure : 127/48, pulse 68, respiration 20, temperature 36.8, oxygen saturation 94% on 3 L oxygen by nasal cannula. SKIN : Warm and dry. multiple ecchymotic areas HEENT :She is legally blind. Chronic eczematous rash of her extremity use. No mucosal abnormalities in her nose mouth or throat. Oxygen cannula in place. NECK : Supple. No lymph node or thyroid enlargement. No JVD. Normal carotid pulses. Bilateral carotid bruits. HEART: Regular heart tones with 2/6 systolic murmur. No rub no gallop. LUNGS: Clear. decreased breath sounds at the bases ABDOMEN: Soft nontender. No organomegaly or masses. Good bowel sounds. BACK: No spine or CVA tenderness. EXTREMITIES: No edema clubbing or cyanosis. Multiple ecchymotic areas. Fish in the left arm. Absent dorsalis pedis pulses. NEUROLOGICAL EXAMINATION: She is alert and oriented. She is at her normal mental status. There is no evidence of any lateralized deficit. Admission laboratory tests: WBC count 10,460, hemoglobin 10.3, hematocrit 32.7, platelet count 254,000. Sodium 136, potassium 3.9, chloride 99, CO2 31, BUN 25, creatinine 3.2, glucose 104, calcium 9.1, phosphorus 1.8, magnesium 2.0, troponin I less than 0.015. Chest x-ray showed cardiomegaly with mild pulmonary vascular congestion. Smal bilateral pulmonary effusions with left base consolidation suggesting atelectasis. Electrocardiogram did not show any acute changes. ASSESSMENT: 1.Syncopal episode during her dialysis session. Most likely on the basis of hypotension. Initial cardiac and neurological evaluations have been unremarkable. She is back to her usual mental status. 2. End-stage renal disease on dialysis 3. Coronary artery disease 4. Arterial hypertension. She does become hypotensive with her dialysis. 5. Hyperlipidemia 6. Hypothyroidism 7. History of gout 8. Generalized weakness 9. Blindness secondary to macular degeneration. PLAN: Patient was admitted to PCU with telemetry under observation status. All her laboratory tests were ordered. Will check her cardiac isoenzymes. Her blood pressure would be monitored. Cardiology consultation was requested. Nephrology consultation was also requested. As far as her medications she had been on Lasix. She has minimal urine output. I would go head and discontinue it for now. One of the things that we have to consider whether we should adjust her medications specifically on the day of her dialysis especially her nitrates and beta blockers. Her condition will be monitored. So far there is no evidence of any arrhythmias. Mentally she is back to normal. She is continued on her oxygen. We see what the recommendation from cardiology and nephrology. If her condition remains stable I anticipate sending her home tomorrow afternoon. Her condition and the plan of treatment were discussed with her family including her and her 2 daughters.
[2016-12-02 22:24] VITALS: BP 174/66; PULSE 75
[2016-12-03] VITALS (9 sets, daily range): BP systolic 118–183; BP diastolic 56–73; PULSE 71–77; TEMP 36.9–37.1; O2SAT 94–99
[2016-12-03 00:58] LABS: CKMB/CK RATIO 2.2 (0-3.0)
[2016-12-03] MEDS ORDERED: LEVOTHYROXINE 125 MCG TAB PO SCH (06:30)
[2016-12-03 06:54] LABS: BASO % 0.5 %; BASO ABS # 0.04 K/uL (0-0.2); COMPLETE YES; EOS % 3.4 %; HEMATOCRIT 33.1 % (37-47); IG% 0.2 %; LYMPH % 11.8 %; LYMPH ABS # 0.97 K/uL (1.2-3.4); MEAN CELL VOLUME 99.1 fL (80-100); MEAN CORPUSCULAR HEMOGLOBIN 30.5 pg (25-34); MEAN CORPUSCULAR HGB CONC 30.8 g/dl (32-36); MONO % 8.9 %; NEUT % 75.2 %; PLATELET COUNT 257 K/uL (130-400); RED BLOOD COUNT 3.34 M/uL (4.2-5.4); WHITE BLOOD COUNT 8.24 K/uL (4.8-10.8)
[2016-12-03 07:35] LABS: ALB/GLOB RATIO 0.7 (0.9-2); ALKALINE PHOSPHATASE 100 U/L (45-117); ALT/SGPT 25 U/L (12-78); AST/SGOT 22 U/L (15-37); BUN/CREATININE RATIO 8.3 (10-20); CARBON DIOXIDE 29 mmol/L (21-32); CHLORIDE 100 mmol/L (98-107); CKMB/CK RATIO 2.2 (0-3.0); GLUCOSE 86 mg/dl (70-99); POTASSIUM 4.1 mmol/L (3.5-5.1); SODIUM 135 mmol/L (136-145)
[2016-12-03 07:53] LABS: BLOOD UREA NITROGEN 41 mg/dl (7-18)
[2016-12-03 07:55] LABS: PHOSPHORUS 3.6 mg/dl (2.5-4.9)
[2016-12-03] MEDS: LABETALOL HCL 300 MG TAB PO SCH (08:30)
[2016-12-03] MEDS: CALCIUM ACETATE 667MG GELCAP PO SCH ×2 (08:30→13:26)
[2016-12-03] MEDS ORDERED: ATORVASTATIN 40 MG TAB PO SCH (09:00)
[2016-12-03] MEDS ORDERED: FUROSEMIDE 80 MG TAB PO SCH (09:00)
[2016-12-03] MEDS ORDERED: ISOSORBIDE MONONITRATE 60 MG TABCR PO SCH (09:00)
[2016-12-03] MEDS ORDERED: CITALOPRAM 20 MG TAB PO SCH (09:00)
[2016-12-03] MEDS ORDERED: ALLOPURINOL 100 MG TAB PO SCH (09:00)
[2016-12-03] MEDS ORDERED: NEPHROCAPS PO SCH (09:00)
[2016-12-03] MEDS ORDERED: ASPIRIN 81 MG ECTAB PO SCH (09:00)
--- NOTE | 2016-12-03 09:19 | Cardiology Consultation ---
Cardiology Consultation Date of Consultation: Dec 03, 2016. Requesting Physician: Dr. Brambila Attending Physician: Dr. Brambila Reason for Consultation: Syncope and CAD Pt evaluation today including: conversation w/ patient, physical exam, chart review, lab review, review of studies, conversation w/ commercial sales consultant (Dr. Singh), review of inpatient medication list History of Present Illness Mrs. Morgan is a pleasant 81-year-old female with a history significant for CAD status post LAD PCI, hypertension, ESRD on hemodialysis (T,H,Sat), and stroke ( left basal ganglia lacunar infarction and left thalamic acute infarction March 2012). She also has progressively worsening eyesight secondary to macular degeneration. She is on 3 L of supplemental oxygen via nasal cannula. She has had the following studies: 1. Nuclear stress 07/05/13: Positive for apical and inferolateral ischemia. Lexiscan induced chest pain and dyspnea. Normal EF. 2. Cardiac cath and PCI 07/08/13: Mid LAD 90%. Xience 2.75 x 15 mm YUMKIO placed within mid LAD. Mid circumflex 20-30%. Dominant circumflex. No aortic stenosis. 3. Echo 07/28/13: Normal LV size, wall motion, systolic function. EF 60-65%. Sclerotic aortic valve with mild regurgitation. Mild to moderate MR. 4. Myocardial perfusion scan 05/10/14: Negative for significant ischemia. Large anterior, anteroseptal, anterolateral defect which was fixed. Normal wall motion. Fixed defect likely secondary to attenuation artifact. EF 67%. 5. Echo 05/10/14: Normal LV size, wall motion, systolic function. EF 65%. Sclerotic aortic valve with mild regurgitation. Mild MR. Mild to moderate PI. Definity used. 6. Echo 06/23/2016: Normal LV systolic function. EF 60-65%. Type 2 diastolic dysfunction. Sclerotic aortic valve without significant stenosis. Trace AI. While at dialysis, she was having more fluid removed than usual and had a syncopal episode. She was reportedly hypotensive as well. She otherwise denies syncope or near syncopal episodes. She denies chest discomfort since her medications have been adjusted a few months ago. She denies worsening shortness of breath and states that now she feels short of breath only if she does not use her oxygen. She denies palpitations, edema, melena, hematochezia, hematuria, or other significant bleeding. She has had some minor epistaxis with her nasal cannula in place intermittently. She states that when she awakened from her syncopal episode, she felt her usual self. She feels at her baseline currently as well. Review of systems: As above and review of systems otherwise negative/ unremarkable. Family History Cancer Diabetes mellitus Gallbladder disease Heart disease Hypertension Lung disease Her mother at 69 with diabetes and renal complications. She also had heart disease. Her father at age 49 with heart disease and tuberculosis. She has a sister with lung cancer and a brother with diabetes. Social History Smoking Status: Never Smoker History of Alcohol Use: No Denies tobacco, alcohol, drug abuse. 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 She is and has 2 daughters. She was alone in her hospital room when she was evaluated this morning at approximately 9:00 a.m.. Allergies Coded Allergies: Bacitracin (Verified Allergy, Unknown, EYES SWELLING-OINTMENT PLACED AROUND EYE, 11/26/16) Polymyxin B (Verified Allergy, Unknown, EYES [id number] PLACED AROUND EYE, 11/26/16) Medications Current Inpatient Medications Medications (Trade) Dose Ordered Sig/Debora Route Start Time Stop Time Status Last Admin Dose Admin Acetaminophen (Tylenol Tab) 650 mg Q4H PRN PO 12/02/16 14:15 01/01/17 14:14 Allopurinol (Zyloprim Tab) 100 mg QAM PO 12/03/16 09:00 01/02/17 08:59 12/03/16 08:29 100 MG Aspirin (Ecotrin Tab) 81 mg QAM PO 12/03/16 09:00 01/02/17 08:59 12/03/16 08:29 81 MG Atorvastatin Calcium (Lipitor Tab) 40 mg QAM PO 12/03/16 09:00 01/02/17 08:59 12/03/16 08:28 40 MG Vitamin B Complex/ Vit C/Folic Acid (Nephrocaps) 1 cap DAILY PO 12/03/16 09:00 01/02/17 08:59 12/03/16 08:28 1 CAP Calcium Acetate (Phoslo Cap) 1,334 mg TID PO 12/02/16 21:00 01/01/17 20:59 12/03/16 08:30 1,334 MG Furosemide (Lasix Tab) 80 mg DAILY PO 12/03/16 09:00 01/02/17 08:59 12/03/16 08:28 80 MG Isosorbide Mononitrate (Imdur Ext Rel Tab) 60 mg QAM PO 12/03/16 09:00 01/02/17 08:59 12/03/16 08:29 60 MG Labetalol HCl (Normodyne Tab) 300 mg BID PO 12/02/16 21:00 01/01/17 20:59 12/03/16 08:30 300 MG Levothyroxine Sodium (Synthroid Tab) 125 mcg DAILYBB PO 12/03/16 06:30 01/02/17 06:59 12/03/16 07:04 125 MCG Citalopram Hydrobromide (celeXA TAB) 10 mg QAM PO 12/03/16 09:00 01/02/17 08:59 12/03/16 08:30 10 MG Miscellaneous (Iv Fluids Completed) 1 ea PRN PRN N/A 12/02/16 14:45 12/02/17 14:44 Physical Exam Vital Signs Past 12 Hours Date Time Temp Pulse Resp B/P (MAP) Pulse Ox O2 Delivery O2 Flow Rate FiO2 12/03/16 08:27 76 171/70 (103) 12/03/16 08:00 Room Air 12/03/16 07:07 37.1 77 20 141/64 (89) 94 Room Air 12/03/16 04:05 36.9 75 18 168/69 (102) 94 Nasal Cannula 3.0 12/03/16 04:00 Nasal Cannula 3.0 12/03/16 00:33 37.1 76 20 183/73 (109) 99 Nasal Cannula 3.0 12/03/16 00:00 Nasal Cannula 3.0 12/02/16 22:24 75 174/66 (102) Gen.: No acute distress. Alert. HEENT: Anicteric sclera. Neck: No appreciable JVD. Cardiac: PMI was nonpalpable. No ventricular heave. Regular. No ectopy. Normal S1-S2. 2/6 early peaking systolic ejection murmur right upper sternal border. No rubs, or gallops. Continuous murmur left upper chest, likely secondary to left upper extremity AV fistula. Pulmonary: Clear without wheezes, rales, or rhonchi Abdomen: Soft, nontender, nondistended, with normoactive bowel sounds. No bruits noted. Extremities: 2+ right radial pulse. Left upper extremity AV fistula with palpable thrill and audible bruit. 2+ posterior tibialis pulses bilaterally. No edema or cyanosis. Psychiatric: Affect appears appropriate. Data Laboratory Results: Last 24 Hours Test 12/02/16 13:05 12/03/16 00:21 12/03/16 06:08 White Blood Count 10.46 K/uL 8.24 K/uL Red Blood Count 3.31 M/uL 3.34 M/uL Hemoglobin 10.3 g/dL 10.2 g/dL Hematocrit 32.7 % 33.1 % Mean Corpuscular Volume 98.8 fL 99.1 fL Mean Corpuscular Hemoglobin 31.1 pg 30.5 pg Mean Corpuscular Hemoglobin Concent 31.5 g/dl 30.8 g/dl Platelet Count 254 K/uL 257 K/uL Mean Platelet Volume 8.8 fL 9.0 fL Neutrophils (%) (Auto) 83.2 % 75.2 % Lymphocytes (%) (Auto) 4.3 % 11.8 % Monocytes (%) (Auto) 9.5 % 8.9 % Eosinophils (%) (Auto) 2.4 % 3.4 % Basophils (%) (Auto) 0.4 % 0.5 % Neutrophils # (Auto) 8.71 K/uL 6.20 K/uL Lymphocytes # (Auto) 0.45 K/uL 0.97 K/uL Monocytes # (Auto) 0.99 K/uL 0.73 K/uL Eosinophils # (Auto) 0.25 K/uL 0.28 K/uL Basophils # (Auto) 0.04 K/uL 0.04 K/uL RDW Standard Deviation 59.8 fL 59.9 fL RDW Coefficient of Variation 16.7 % 16.8 % Immature Granulocyte % (Auto) 0.2 % 0.2 % Immature Granulocyte # (Auto) 0.02 K/uL 0.02 K/uL Sodium Level 136 mmol/L 135 mmol/L Potassium Level 3.9 mmol/L 4.1 mmol/L Chloride Level 99 mmol/L 100 mmol/L Carbon Dioxide Level 31 mmol/L 29 mmol/L Anion Gap 6.0 mmol/L 6.0 mmol/L Blood Urea Nitrogen 25 mg/dl 41 mg/dl Creatinine 3.20 mg/dl 4.90 mg/dl Est Creatinine Clear Calc Drug Dose 10.9 ml/min 7.2 ml/min Estimated GFR () 14.9 8.9 Estimated GFR (Non- 12.8 7.7 BUN/Creatinine Ratio 7.8 8.3 Random Glucose 104 mg/dl 86 mg/dl Calcium Level 9.1 mg/dl 9.0 mg/dl Phosphorus Level 1.8 mg/dl 3.6 mg/dl Magnesium Level 2.0 mg/dl 2.0 mg/dl Troponin I < 0.015 ng/ml < 0.015 ng/ml < 0.015 ng/ml Total Creatine Kinase 41 U/L 36 U/L Creatine Kinase MB 0.9 ng/ml 0.8 ng/ml Creatine Kinase MB Ratio 2.2 2.2 Total Bilirubin 0.5 mg/dl Aspartate Amino Transf (AST/SGOT) 22 U/L Alanine Aminotransferase (ALT/SGPT) 25 U/L Alkaline Phosphatase 100 U/L Total Protein 7.8 gm/dl Albumin 3.2 gm/dl Globulin 4.6 gm/dl Albumin/Globulin Ratio 0.7 ECG personally reviewed. ECG 12/02/2016: Sinus rhythm 69 bpm. ECG 12/03/2016: Sinus rhythm 74 bpm. Telemetry personally reviewed. No arrhythmia. Chest x-ray 12/02/2016: Cardiomegaly. Small bilateral pleural effusions with left basilar consolidation suggesting atelectasis as per Radiology. Mild pulmonary vascular congestion per Radiology. Assessment & Plan ASSESSMENT/PLAN: 1. Syncope: Likely due to hypotension during dialysis. Dr. Singh, of Nephrology , inform me that they were removing more fluid than usual. He states that she does have fluctuations of her blood pressure with intermittent hypotension during dialysis. If larger amounts of fluid need to be removed, can reduce labetalol or hold labetalol on the day of dialysis to allow appropriate ultrafiltration as deemed by Nephrology. She does appear to be orthostatic with vital signs that were done today, but otherwise has resting hypertension and therefore would continue medications on non dialysis days as otherwise prescribed as she asymptomatic, without syncope on these other days. 2. CAD status post mid LAD PCI: She has describes symptoms concerning for angina in the past, and during her outpatient visit on 09/12/2016, isosorbide mononitrate was increased to 60 mg daily. She does not recall any further chest pain since then. Would continue her outpatient doses of her anti anginal medications and make adjustments as necessary during dialysis as noted above. Continue aspirin 81 mg daily indefinitely given prior PCI. She had easy bruising and epistaxis on Plavix and chose to discontinue this in the past. Continue statin therapy. 3. Hypertension: She has hypertension, and blood pressure has been elevated during her hospitalization. She also has orthostatic hypotension as noted. Recommendations as above. 4. Sclerotic aortic valve: No significant stenosis on most recent echo. No further evaluation necessary at this time. 5. Orthostatic hypotension: Can change positions slowly. Monitor closely for hypotension during dialysis. Nephrology will make adjustments to her antihypertensive regimen as they deem appropriate to avoid further syncopal episodes. Consider support stockings. 6. Disposition: Patient care was discussed with Nephrology to help manage her antihypertensive medications. Please call for any other questions or concerns. No further evaluation recommended at this time from a cardiology standpoint. Thank you for allowing me to participate in the care of your patient. Please call for any other questions or concerns. Sincerely, Jj Villar M.D.
--- NOTE | 2016-12-03 10:27 | Nephrology Progress Note ---
Nephrology Progress Note Date of Service Dec 03, 2016. Chief Complaint ESRD Subjective No acute events overnight. Beth was resting comfortably in bed this morning. Appetite is good. She admits to liberal fluid intake. She denies shortness of breath. She denies lightheadedness or dizziness since admission. She denies fevers or chills. No changes noted on telemetry. Review of Systems A complete review of systems was performed. Pertinent positives are noted above. All other systems are negative. Vital Signs Last 8 Hrs Date Time Temp Pulse Resp B/P (MAP) Pulse Ox O2 Delivery O2 Flow Rate FiO2 12/03/16 08:27 76 171/70 (103) 12/03/16 08:00 Room Air 12/03/16 07:07 37.1 77 20 141/64 (89) 94 Room Air 12/03/16 04:05 36.9 75 18 168/69 (102) 94 Nasal Cannula 3.0 12/03/16 04:00 Nasal Cannula 3.0 Last Recorded Weight Weight (Kilograms): 65.600 Physical Exam General Appearance: no apparent distress, + obese Head: normocephalic, atraumatic Eyes: normal inspection, sclerae normal ENT: normal ENT inspection, pharynx normal Neck: supple, + JVD (JVP slightly increased) Respiratory/Chest: chest non-tender Cardiovascular: regular rate, rhythm, + systolic murmur Abdomen/GI: non tender, soft Extremities/Musculoskelatal: + pertinent finding (AVF with thrill and bruit) Neurologic/Psych: alert, oriented x 3 Family History Cancer Diabetes mellitus Gallbladder disease Heart disease Hypertension Lung disease Social History Smoking Status: Never smoker Marital Status: Laboratory Results Past 24 Hours 12/02/16 13:05 Red Blood Count 3.31, Mean Corpuscular Volume 98.8, Mean Corpuscular Hemoglobin 31.1, Mean Corpuscular Hemoglobin Concent 31.5, Mean Platelet Volume 8.8, Neutrophils (%) (Auto) 83.2, Lymphocytes (%) (Auto) 4.3, Monocytes (%) (Auto) 9.5, Eosinophils (%) (Auto) 2.4, Basophils (%) (Auto) 0.4, Neutrophils # (Auto) 8.71, Lymphocytes # (Auto) 0.45, Monocytes # (Auto) 0.99, Eosinophils # (Auto) 0.25, Basophils # (Auto) 0.04 12/03/16 06:08 Red Blood Count 3.34, Mean Corpuscular Volume 99.1, Mean Corpuscular Hemoglobin 30.5, Mean Corpuscular Hemoglobin Concent 30.8, Mean Platelet Volume 9.0, Neutrophils (%) (Auto) 75.2, Lymphocytes (%) (Auto) 11.8, Monocytes (%) (Auto) 8.9, Eosinophils (%) (Auto) 3.4, Basophils (%) (Auto) 0.5, Neutrophils # (Auto) 6.20, Lymphocytes # (Auto) 0.97, Monocytes # (Auto) 0.73, Eosinophils # (Auto) 0.28, Basophils # (Auto) 0.04 12/02/16 13:05 12/03/16 06:08 Test 12/02/16 13:05 12/03/16 00:21 12/03/16 06:08 White Blood Count 10.46 K/uL (4.8-10.8) 8.24 K/uL (4.8-10.8) Red Blood Count 3.31 M/uL (4.2-5.4) 3.34 M/uL (4.2-5.4) Hemoglobin 10.3 g/dL (12.0-16.0) 10.2 g/dL (12.0-16.0) Hematocrit 32.7 % (37-47) 33.1 % (37-47) Mean Corpuscular Volume 98.8 fL (80-100) 99.1 fL (80-100) Mean Corpuscular Hemoglobin 31.1 pg (25-34) 30.5 pg (25-34) Mean Corpuscular Hemoglobin Concent 31.5 g/dl (32-36) 30.8 g/dl (32-36) Platelet Count 254 K/uL (130-400) 257 K/uL (130-400) Mean Platelet Volume 8.8 fL (7.4-10.4) 9.0 fL (7.4-10.4) Neutrophils (%) (Auto) 83.2 % 75.2 % Lymphocytes (%) (Auto) 4.3 % 11.8 % Monocytes (%) (Auto) 9.5 % 8.9 % Eosinophils (%) (Auto) 2.4 % 3.4 % Basophils (%) (Auto) 0.4 % 0.5 % Neutrophils # (Auto) 8.71 K/uL (1.4-6.5) 6.20 K/uL (1.4-6.5) Lymphocytes # (Auto) 0.45 K/uL (1.2-3.4) 0.97 K/uL (1.2-3.4) Monocytes # (Auto) 0.99 K/uL (0.11-0.59) 0.73 K/uL (0.11-0.59) Eosinophils # (Auto) 0.25 K/uL (0-0.5) 0.28 K/uL (0-0.5) Basophils # (Auto) 0.04 K/uL (0-0.2) 0.04 K/uL (0-0.2) RDW Standard Deviation 59.8 fL (36.4-46.3) 59.9 fL (36.4-46.3) RDW Coefficient of Variation 16.7 % (11.5-14.5) 16.8 % (11.5-14.5) Immature Granulocyte % (Auto) 0.2 % 0.2 % Immature Granulocyte # (Auto) 0.02 K/uL (0.00-0.02) 0.02 K/uL (0.00-0.02) Anion Gap 6.0 mmol/L (3-11) 6.0 mmol/L (3-11) Est Creatinine Clear Calc Drug Dose 10.9 ml/min 7.2 ml/min Estimated GFR () 14.9 8.9 Estimated GFR (Non- 12.8 7.7 BUN/Creatinine Ratio 7.8 (10-20) 8.3 (10-20) Calcium Level 9.1 mg/dl (8.5-10.1) 9.0 mg/dl (8.5-10.1) Phosphorus Level 1.8 mg/dl (2.5-4.9) 3.6 mg/dl (2.5-4.9) Magnesium Level 2.0 mg/dl (1.8-2.4) 2.0 mg/dl (1.8-2.4) Troponin I < 0.015 ng/ml (0-0.045) < 0.015 ng/ml (0-0.045) < 0.015 ng/ml (0-0.045) Total Creatine Kinase 41 U/L (26-192) 36 U/L (26-192) Creatine Kinase MB 0.9 ng/ml (0.5-3.6) 0.8 ng/ml (0.5-3.6) Creatine Kinase MB Ratio 2.2 (0-3.0) 2.2 (0-3.0) Total Bilirubin 0.5 mg/dl (0.2-1) Aspartate Amino Transf (AST/SGOT) 22 U/L (15-37) Alanine Aminotransferase (ALT/SGPT) 25 U/L (12-78) Alkaline Phosphatase 100 U/L (45-117) Total Protein 7.8 gm/dl (6.4-8.2) Albumin 3.2 gm/dl (3.4-5.0) Globulin 4.6 gm/dl (2.5-4.0) Albumin/Globulin Ratio 0.7 (0.9-2) Allergies Coded Allergies: Bacitracin (Verified Allergy, Unknown, EYES SWELLING-OINTMENT PLACED AROUND EYE, 11/26/16) Polymyxin B (Verified Allergy, Unknown, EYES [id number] PLACED AROUND EYE, 11/26/16) Medications Current Inpatient Medications Medications (Trade) Dose Ordered Sig/Debora Route Start Time Stop Time Status Last Admin Dose Admin Acetaminophen (Tylenol Tab) 650 mg Q4H PRN PO 12/02/16 14:15 01/01/17 14:14 Allopurinol (Zyloprim Tab) 100 mg QAM PO 12/03/16 09:00 01/02/17 08:59 12/03/16 08:29 100 MG Aspirin (Ecotrin Tab) 81 mg QAM PO 12/03/16 09:00 01/02/17 08:59 12/03/16 08:29 81 MG Atorvastatin Calcium (Lipitor Tab) 40 mg QAM PO 12/03/16 09:00 01/02/17 08:59 12/03/16 08:28 40 MG Vitamin B Complex/ Vit C/Folic Acid (Nephrocaps) 1 cap DAILY PO 12/03/16 09:00 01/02/17 08:59 12/03/16 08:28 1 CAP Calcium Acetate (Phoslo Cap) 1,334 mg TID PO 12/02/16 21:00 01/01/17 20:59 12/03/16 08:30 1,334 MG Furosemide (Lasix Tab) 80 mg DAILY PO 12/03/16 09:00 01/02/17 08:59 12/03/16 08:28 80 MG Isosorbide Mononitrate (Imdur Ext Rel Tab) 60 mg QAM PO 12/03/16 09:00 01/02/17 08:59 12/03/16 08:29 60 MG Labetalol HCl (Normodyne Tab) 300 mg BID PO 12/02/16 21:00 01/01/17 20:59 12/03/16 08:30 300 MG Levothyroxine Sodium (Synthroid Tab) 125 mcg DAILYBB PO 12/03/16 06:30 01/02/17 06:59 12/03/16 07:04 125 MCG Citalopram Hydrobromide (celeXA TAB) 10 mg QAM PO 12/03/16 09:00 01/02/17 08:59 12/03/16 08:30 10 MG Miscellaneous (Iv Fluids Completed) 1 ea PRN PRN N/A 12/02/16 14:45 12/02/17 14:44 Impression (1) End-stage renal disease needing dialysis (2) Syncope Mrs. Beth Morgan is an 81 year-old female with ESRD who was admitted for evaluation of an acute loss of consciousness during hemodialysis. I discussed the plan of care with Dr. Moreno this morning. Overall blood pressure is certainly acceptable this morning and volume status appears appropriate. I again had a long conversation with Beth regarding the importance of limiting fluid intake. There is no acute cardiac etiology to explain her symptoms. She has had recent cardiac evaluation. There is likely underlying cerebrovascular disease but unsure that an evaluation for carotid vascular is warranted or would pack changer. At this time, we will try holding labetalol prior to dialysis and avoid aggressive UF during treatment. I hope this will help with intradialytic hypotension in the future. Beth is aware of the risk of fluid accumulation by limiting UF and states that she will work on decreasing her fluid intake. Recommendations will be discussed with Dr. Brambila.
--- NOTE | 2016-12-03 14:38 | Progress Note ---
Progress Note Date of Service Dec 03, 2016. Progress Note 81-year-old female admitted yesterday through the emergency room after she was brought by ambulance from the dialysis unit the patient had a syncopal episode due to her dialysis session. She recovered without any symptoms whatsoever. Neurologically she was back to her usual mental status. She had no evidence of any headache or dizziness or lightheadedness. She had no chest pain or shortness of breath. Did not experience any abdominal pain or any nausea or any vomiting. She had no other complaints. Patient was admitted. All her laboratory tests were ordered. Cardiac isoenzymes were normal. Since then she has had no problem or complaints. She had no documented arrhythmias. Her vitals are stable and. Her blood pressure did fluctuate. Patient was seen in renal consultation by Dr. Singh. She was also seen in cardiology consultation by Dr. Villar. Patient is resting comfortably. She has a good appetite.she had no complaints. EXAMINATION: General : Well developed, well nourished, in no distress. Vital Signs : BP :141/64, ALT 77, respirations 20, temperature 37.1, oxygen saturation 94% on 3 L oxygen by nasal cannula. Skin : Warm and dry. No Rash. HEENT : no evidence of any mucosal abnormality.legally blind. Oxygen cannula in place Neck : Supple. Nontender. No adenopathy. No thyromegaly. No JVD. Normal carotid pulses. Bilateral carotid bruit. Heart : Regular heart sounds. No rub or gallop. PMI is not displaced. 2/6 systolic murmur Lungs : Clear. Decreased breath sounds at the bases Abdomen : Soft nontender. No organomegaly or masses. Active bowel sounds. No hernia. Back : No spinal or CVA tenderness. Extremities : No edema clubbing or cyanosis. Neurological Examination : Alert and oriented. No evidence of any lateralized deficit. Today's laboratory tests: WBC count 8240, hemoglobin 10.2, hematocrit 33.1, platelet count 257,000. Sodium 135, potassium 4.1, chloride 100, CO2 29, BUN 41, creatinine 4.9, glucose 86, calcium 9.0, phosphorus 3.6, magnesium 2.0, total bilirubin 0.5, AST 22, AST 25, alkaline phosphatase 100, total CK 36, MB fraction 0.8, troponin I less than 0.015, total protein 7.8, albumin 3.2. ASSESSMENT: Syncope End-stage renal disease on dialysis Coronary artery disease Arterial hypertension. But she does have significant drop of her blood pressure during dialysis and that is most likely the cause of her syncope Hypothyroidism Blindness PLAN: At this time we will plan on cutting down her medications before dialysis.I spoke with Dr. Singh today. I will be holding her labetalol on the day of dialysis in the morning and I also cut down her Imdur dose in half.I will speak with Dr. Villar to make sure that he has no objection. I will see her again this afternoon. If she remains stable then I plan on discharging her home. She is due for dialysis tomorrow. Dr. Singh is planning on modifyingher dialysis prescription.
--- NOTE | 2016-12-03 17:09 | Discharge Instructions ---
Discharge Instructions Date of Service Dec 03, 2016. Admission Reason for Admission: Syncope, Esrd, Cad Discharge Discharge Diagnosis / Problem: SYNCOPE. HYPOTENSION. RENAL FAILURE ON DIALYSIS Discharge Goals Goal(s): Improve function, Increase independence, Improve disease control Activity Recommendations Activity Limitations: resume your previous activity . Instructions / Follow-Up Instructions / Follow-Up MEDICATION CHANGES : 1) DISCONTINUE FUROSEMIDE 2) DO NOT TAKE LABETALOL IN THE MORNING ON YOUR DIALYSIS DAYS THURSDAY, THURSDAY , THURSDAY 3) IMDUR OR ISOSORBIDE MONONITRATE. YOU ARE TAKING 60 MG DAILY. ON YOUR DIALYSIS DAYS THURSDAY, THURSDAY AND THURSDAY TAKE ONLY 1/2 (ONE HALF) TABLET. 4) OTHERWISE CONTINUE YOUR MEDICATIONS UNCHANGED. FOLLOW-UP IN THE OFFICE IN 7-10 DAYS.. Current Hospital Diet Patient's current hospital diet: Renal Diet Discharge Diet Recommended Diet: Renal Diet Pending Studies Studies pending at discharge: no Medical Emergencies . Who to Call and When: Medical Emergencies: If at any time you feel your situation is an emergency, please call 911 immediately. . Non-Emergent Contact Non-Emergency issues call your: Primary Care Provider . . "Provider Documentation" section prepared by Anant Brambila. . VTE Core Measure Inpt VTE Proph given/why not?: Treatment not indicated
--- NOTE | 2016-12-13 16:11 | Discharge Summary ---
Discharge Summary Date of Service Dec 13, 2016. Discharge Summary ADMISSION DATE: 12/02/2016 DISCHARGE DATE: 12/03/2016 DISCHARGED DIAGNOSES: * syncope. Most likely related to hypotension during her dialysis session. * End-stage renal disease on hemodialysis * Coronary artery disease * Hyperlipidemia * arterial hypertension * hypothyroidism * Gout * Generalized weakness * Macular degeneration with legal blindness * mild depression DISCHARGE MEDICATIONS: * allopurinol 100 mg daily * Aspirin 81 mg daily * Lipitor 40 mg daily * [place] Caps one capsule daily * calcium acetate 667 mg 2 capsules 3 times a day * Citalopram 20 mg daily * Isosorbide mononitrate 60 mg tablets one tablet daily except for Tuesdays, , Saturdays to take only half a tablet daily before dialysis * Labetalol 300 mg twice a day. Instructed to skip the morning dose on her dialysis days Tuesdays, and Saturdays * Levothyroxine 125 mcg daily * Discontinue Lasix. She was on 80 mg daily CONSULTATIONS: * Dr. Navi Singh in nephrology * Dr. Ignacio Villar in cardiology 81-year-old female admitted through the emergency room after a syncopal episode which she sustained during her dialysis session in the outpatient dialysis unit. Patient with extensive medical history including coronary artery disease, status post stenting of her LAD, end-stage renal disease on hemodialysis, arterial hypertension, hyperlipidemia, mild depression, hypothyroidism, degenerative disc disease of the lumbar spine, gout, and advanced macular degeneration with legal blindness. Patient was having her hemodialysis on the day of admission. Toward the end of her session she had a syncopal episode which was witnessed by her family and the dialysis staff. She was completely unresponsive. It is estimated that she may have been unresponsive for about 10 minutes. She continued to have spontaneous respiration. She was hypotensive. there was no evidence of any seizure activity. She was brought to the emergency room by ambulance. By that time she was awake and alert. She was back to her baseline status from a neurological standpoint. She denied any headache. No chest pain. No shortness of breath. No abdominal pain no nausea no vomiting. She was evaluated in the emergency room. Multiple laboratory tests were ordered. She was complaining of feeling weak. She was tired. Patient was admitted to PCU with telemetry for observation. Past medical history, social history, family history, all as noted on her admission history and physical Allergies: Topical antibiotic with local reaction including bacitracin and polymyxin B. Medications on admission were all as noted on her home medication list HOSPITAL COURSE : Patient was admitted to PCU with telemetry. Observation status. Resuscitation level 5. All her laboratory tests were ordered. Cardiac isoenzymes were ordered. Cardiology and nephrology consultations were requested. Her condition remained stable her. She had no evidence of any arrhythmias. Her isoenzymes were negative for any evidence of myocardial infarction. She was seen in cardiology consultation by Dr. Igancio Villar and a nephrology consultation by Dr. iSngh. The recommendation was to adjust her medications prior to her dialysis session. Also Dr. Singh was going to make adjustments in her dialysis prescription. She remained asymptomatic. She was tolerating her diet. She was getting out of bed. Patient was discharged home. Medications as noted above. Maintain her dialysis scheduled on scheduled. Followup in the office in one week.
== END 2016-12-03 18:40 | disposition home or self-care (01) ==
LOC: EDBD 12:50 → C.EDA 12:53 → C.MED 14:21 → EDBEDREQ 14:36 → ENRESERV 15:10
PROVIDERS: ADMIT Internal Medicine; ATTEND Internal Medicine
DX: R55 Syncope and collapse (principal); Z99.2 Dependence on renal dialysis; N18.6 End stage renal disease; I25.10 Atherosclerotic heart disease of native coronary artery without angina pectoris; N25.81 Secondary hyperparathyroidism of renal origin; Z83.3 Family history of diabetes mellitus; Z82.49 Family history of ischemic heart disease and other diseases of the circulatory system; Z79.82 Long term (current) use of aspirin; Z95.818 Presence of other cardiac implants and grafts; E78.5 Hyperlipidemia, unspecified; H35.30 Unspecified macular degeneration; J90 Pleural effusion, not elsewhere classified; M19.90 Unspecified osteoarthritis, unspecified site; I12.9 Hypertensive chronic kidney disease with stage 1 through stage 4 chronic kidney disease, or unspecified chronic kidney disease; Z90.49 Acquired absence of other specified parts of digestive tract; Z90.710 Acquired absence of both cervix and uterus; E03.9 Hypothyroidism, unspecified; Z86.73 Personal history of transient ischemic attack (TIA), and cerebral infarction without residual deficits; F32.9 Major depressive disorder, single episode, unspecified; F41.9 Anxiety disorder, unspecified; M10.9 Gout, unspecified

== ENCOUNTER → 2017-02-23 | Outpatient (CLI) | payer OTHER, MEDICARE ==
[~2017-02-23] MED LIST changes: -FURO80TA63 PO
--- NOTE | 2017-02-23 17:28 | DIAGNOSTIC IMAGING REPORT ---
CHEST 2 VIEWS ROUTINE CLINICAL HISTORY: Chest tightness. Pleural effusion. COMPARISON STUDY: Chest CT June 26, 2016 and chest radiograph December 02, 2016. FINDINGS: Lung volumes are normal. No pneumothorax is present. Small bilateral pleural effusions are unchanged. Linear bilateral opacities suggest atelectasis or scarring. Cardiomegaly is unchanged. Pulmonary vascular congestion is unchanged. IMPRESSION: No change in appearance of the chest with small bilateral pleural effusions and pulmonary vascular congestion. Electronically signed by: Alexy Pierre M.D. 02/23/2017 5:26 PM Dictated Date/Time: 02/23/2017 5:24 PM
== END | disposition home or self-care (01) ==
LOC: C.RAD1850 16:53
PROVIDERS: ATTEND Physician Assistant
DX: J90 Pleural effusion, not elsewhere classified (principal); R07.89 Other chest pain

== ENCOUNTER → 2017-03-06 | Outpatient (CLI) | payer OTHER, MEDICARE ==
[~2017-03-06] MED LIST changes: -LEVO125T4 PO; +LEVO125T5 PO; +REGADENOSON 0.4 MG/5 ML SYR ONE
--- NOTE | 2017-03-10 15:38 | Myocardial Perfusion Study ---
Myocardial Perfusion Study Rpt Myocardial Perfusion Study Rpt Date of Service 03/10/17 Myocardial Perfusion Study Rpt Procedure: 1. Myocardial perfusion study performed in multiple views/images 2. Lexiscan pharmacologic stress ECG Indications: 1. Chest pain 2. CAD Consent: Informed written consent was obtained prior to the procedure. Ordering physician: Dr. Villar Procedural notes: I was made aware that this study was performed and pending interpretation on 03/10/2017. Procedural details: For the stress portion of the study, Lexiscan 0.4 mg was intravenously administered followed by a saline flush. This was followed by 29.4 mCi of technetium 99m Cardiolite, injected at 11:15 a.m. on 03/06/2017. 30 minutes following the injection, imaging of the heart was performed in multiple projections. For the rest portion of the study, 9.7 mCi technetium 99m Cardiolite was injected intravenously at 9:40 a.m. on 03/06/2017. 1 hour following the injection, imaging of the heart was performed in the same projections. Lexiscan stress ECG: Resting ECG demonstrated: Sinus rhythm at 79 bpm. Left posterior fascicular block. Maximum heart rate: 87 bpm Resting blood pressure: 156/74 mmHg Maximum blood pressure: 156/74 mmHg Maximal, age-predicted heart rate: 63 % Significant ST changes: None Arrhythmia: None. Stress ECG demonstrated development of right bundle branch block. Symptoms: Chest tightness and vomiting. Findings: Rotating raw imaging demonstrated no significant lung uptake. There is no significant motion artifact. Heart size appeared normal. Myocardial perfusion was normal, without significant reversible or fixed defect. Ejection fraction: 71 % Wall motion: Normal No significant transient ischemic dilation. Impression: 1. Normal myocardial perfusion study, without significant infarct or ischemia 2. Ejection fraction 71%. Normal LV systolic function. 3. Normal wall motion. 4. No arrhythmia. 5. Lexiscan induced chest tightness and vomiting. 6. Nondiagnostic Lexiscan ECG. There was development of right bundle branch block.
== END | disposition home or self-care (01) ==
LOC: C.NUCL 09:13
PROVIDERS: ATTEND Physician Assistant
DX: I10 Essential (primary) hypertension (principal); I25.10 Atherosclerotic heart disease of native coronary artery without angina pectoris; R06.02 Shortness of breath; R07.89 Other chest pain

== ENCOUNTER 2017-05-05 13:49 | Inpatient (IN) | payer OTHER, MEDICARE ==
[~2017-05-05] VITALS: Ht 149.9 cm; Wt 68.2 kg
[~2017-05-05 13:49] MED LIST changes: -REGADENOSON 0.4 MG/5 ML SYR ONE
--- NOTE | 2017-05-05 15:15 | EMERGENCY ROOM VISIT NOTE ---
History Report prepared by Valarie: Juan Bermudez Under the Supervision of: Dr. Riley Epps M.D. First contact with patient: 15:12 Chief Complaint: GI ASSESSMENT Stated Complaint: DOCTOR SENT TO ER;BLEEDING FROM BOWELS History of Present Illness The patient is an 82 year old white female with a past medical history of CHF, end-stage renal disease, hypertension, hyperlipidemia, external hemorrhoids, diverticulitis, partial colon removal who presents to the ED with a cc of a persistent need for a GI assessment beginning 3 days ago. Positive diarrhea, rectal bleeding, dark stool. Negative abdominal pain, nausea, vomiting, rectal pain. She states that she is dialyzed 3 days per week, and was dialyzed prior to coming in today. She says that the bright red blood fills the toilet, and she notices blood on wiping. The patient states that she is having 2 to 3 episodes of the diarrhea each day. The patient wears 3 liters of oxygen daily. Source of History: patient Onset: 3 days ago Position: other (global - need for GI assessment) Timing: other (persistent need) Associated Symptoms: + diarrhea, No nausea, No vomiting, No abdominal pain Note: Associated symptoms: Rectal bleeding, dark stool. Denies rectal pain. Review of Systems See HPI for pertinent positives and negatives. A total of ten systems were reviewed and were otherwise negative. Past Medical & Surgical Medical Problems: (1) Acute kidney injury (2) Anemia (3) CHEST PAIN,CAD,ESRD (4) chf exac /ESRD/uremic (5) Chronic kidney disease (6) Coronary artery disease (7) DEHYD.,UTI, MSC, CAD (8) DEHYDRATION, MSC, UTI (9) End-stage renal disease needing dialysis (10) Metabolic acidosis (11) Pleural effusion on right (12) Proteinuria (13) Secondary hyperparathyroidism of renal origin (14) SYNCOPE,ESRD,CAD (15) Volume overload Family History Cancer Diabetes mellitus Gallbladder disease Heart disease Hypertension Lung disease Social History Smoking Status: Never Smoker Marital Status: Housing Status: lives with family Current/Historical Medications Scheduled Allopurinol (Zyloprim), 100 MG PO QAM Aspirin (Aspirin Ec), 81 MG PO QAM Atorvastatin (Lipitor), 40 MG PO QAM B-Complex W/ C & Folic Acid ([place] Caps), 1 CAP PO DAILY AT LUNCH Calcium Acetate (Phoslo 667 Mg), 2 CAP PO TIDM Citalopram Hydrobromide (Citalopram Hydrobromide), 10 MG PO QAM Colestipol Hcl (Colestid), 1 GM PO DAILY Isosorbide Mononitrate (Imdur Ext Rel), 60 MG PO QAM Labetalol HCl (Labetalol HCl), 300 MG PO AMPM Levothyroxine Sodium (Levothyroxine Sodium), 1 TAB PO QAM Methylcellulose (Laxative) (Citrucel), 1 TAB PO DAILY Allergies Coded Allergies: Bacitracin (Verified Allergy, Unknown, EYES SWELLING-OINTMENT PLACED AROUND EYE, 05/05/17) Polymyxin B (Verified Allergy, Unknown, EYES [id number] PLACED AROUND EYE, 05/05/17) Physical Exam Vital Signs Date Time Temp Pulse Resp B/P (MAP) Pulse Ox O2 Delivery O2 Flow Rate FiO2 05/05/17 20:12 86 156/63 05/05/17 17:58 37.1 82 16 156/63 100 Nasal Cannula 3.0 05/05/17 17:56 Nasal Cannula 3.0 05/05/17 16:23 81 05/05/17 16:06 74 16 155/52 96 Room Air 05/05/17 13:52 36.4 84 20 151/84 100 3.0 Physical Exam GENERAL: Awake, alert, obese, well-appearing, NAD HENT: Normocephalic, atraumatic. EYES: Normal conjunctiva. Sclera non-icteric. NECK: Supple. No nuchal rigidity. FROM. RESPIRATORY: CTAB, no rhonchi, wheezing, crackle CARDIAC: RRR, murmur noted at the pulmonary position. ABDOMEN: Soft, NTND, BS+. Surgical scars over abdomen. MSK: No chest wall TTP, no LE edema NEURO: GCS 15, CN 2-12 intact, moves all 4s on command SKIN: No rash or jaundice noted. Medical Decision & Procedures ER Provider Diagnostic Interpretation: Radiology results as stated below per my review and radiologist interpretation: CHEST ONE VIEW PORTABLE CLINICAL HISTORY: ABDOMINAL PAIN/GI pain. Nausea. COMPARISON STUDY: 02/23/2017 FINDINGS: Mild stable cardiomegaly. Platelike scarring/atelectasis left midlung unchanged. A slight chronic blunting left lateral costophrenic angle. Lungs otherwise appear clear. IMPRESSION: Chronic change. Mild stable cardiomegaly. No acute or interval process. The above report was generated using voice recognition software. It may contain grammatical, syntax or spelling errors. Electronically signed by: Bari Fu M.D. 05/05/2017 3:50 PM Dictated Date/Time: 05/05/2017 3:49 PM ABD/PELVIS NO IV OR ORAL CONT CLINICAL HISTORY: 82 years-old Female presenting with LLQ tenderness, diarrhea, Gi bleed. TECHNIQUE: Multidetector CT of the abdomen and pelvis was performed without the use of intravenous contrast. IV contrast: None. A dose lowering technique was used consistent with the principles of ALARA (as low as reasonably achievable). COMPARISON: 11/16/2006. CT DOSE (mGy.cm): The estimated cumulative dose is 379.25 mGy.cm. 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 Lung bases: Extensive basilar consolidation in the dependent distribution. Associated volume loss. Multichamber enlargement of the heart. Coronary artery and aortic valve calcification. Small left pleural effusion with suggestion of pleural thickening. Liver: Normal morphology. Normal density. Biliary: Mild biliary ductal prominence likely a reservoir effect in the post cholecystectomy state. Gallbladder surgically absent. Pancreas: Normal noncontrast appearance. Spleen: Normal noncontrast appearance. Adrenal glands: Normal noncontrast appearance. Kidneys and ureters: Marked cortical atrophy of the bilateral kidneys. Exophytic low-density lesion along the posterior aspect of the interpolar region of the right kidney likely cyst. No commencing evidence of a solid renal neoplasm. No hydronephrosis. Renal vascular calcification versus few punctate nonobstructing renal calculi. Ureters normal. Bladder: Incompletely evaluated secondary to underdistention. Pelvic organs: Uterus surgically absent. Bowel: Nelson colonic diverticulosis with mild stool burden primarily in the left colon. Prominent diverticulum measuring over 3 cm in diameter in the central pelvis arising from the proximal to mid sigmoid colon. No pericolonic inflammatory change. Lipomatous hypertrophy of the ileocecal valve. No bowel obstruction. Small hiatal hernia. Limited herniation of small bowel in the midline infraumbilical abdomen. No bowel wall thickening or perienteric inflammatory change. Peritoneal cavity: No free fluid or intraperitoneal gas. Lymph nodes: No gross lymphadenopathy allowing for noncontrast technique. Vasculature: Atherosclerosis of the normal caliber abdominal aorta. Abdominal wall: Focal ventral midline hernia in the infraumbilical region associated with a surgical scar. This contains small bowel and mesentery. No evidence of strangulation. Mild body wall edema. Musculoskeletal: Degenerative changes of the spine. Old fracture deformity of the left inferior pubic ramus. Mild osteopenia. IMPRESSION: 1. Diverticulosis including a large sigmoid colon diverticula. No evidence of diverticulitis. No acute intra-abdominal pathology. 2. Ventral incisional hernia in the infraumbilical midline abdominal wall containing a limited loop of small bowel. No bowel obstruction or evidence of strangulation. 3. Extensive bibasilar atelectasis. 4. Small left pleural effusion with suggestion of left pleural thickening. This could suggest a chronic effusion, acute or chronic inflammatory change, or infection. Correlate clinically. 5. Marked bilateral renal atrophy. Electronically signed by: Ehsna Smith M.D. 05/05/2017 5:24 PM Dictated Date/Time: 05/05/2017 5:15 PM Laboratory Results 05/05/17 16:24 Red Blood Count 2.21, Mean Corpuscular Volume 105.4, Mean Corpuscular Hemoglobin 33.5, Mean Corpuscular Hemoglobin Concent 31.8, Mean Platelet Volume 9.7, Neutrophils (%) (Auto) 83.8, Lymphocytes (%) (Auto) 8.5, Monocytes (%) ( Auto) 5.7, Eosinophils (%) (Auto) 1.4, Basophils (%) (Auto) 0.3, Neutrophils # ( Auto) 9.08, Lymphocytes # (Auto) 0.92, Monocytes # (Auto) 0.62, Eosinophils # ( Auto) 0.15, Basophils # (Auto) 0.03 05/05/17 16:24 Test 05/05/17 16:24 White Blood Count 10.83 K/uL (4.8-10.8) Red Blood Count 2.21 M/uL (4.2-5.4) Hemoglobin 7.4 g/dL (12.0-16.0) Hematocrit 23.3 % (37-47) Mean Corpuscular Volume 105.4 fL (80-100) Mean Corpuscular Hemoglobin 33.5 pg (25-34) Mean Corpuscular Hemoglobin Concent 31.8 g/dl (32-36) Platelet Count 169 K/uL (130-400) Mean Platelet Volume 9.7 fL (7.4-10.4) Neutrophils (%) (Auto) 83.8 % Lymphocytes (%) (Auto) 8.5 % Monocytes (%) (Auto) 5.7 % Eosinophils (%) (Auto) 1.4 % Basophils (%) (Auto) 0.3 % Neutrophils # (Auto) 9.08 K/uL (1.4-6.5) Lymphocytes # (Auto) 0.92 K/uL (1.2-3.4) Monocytes # (Auto) 0.62 K/uL (0.11-0.59) Eosinophils # (Auto) 0.15 K/uL (0-0.5) Basophils # (Auto) 0.03 K/uL (0-0.2) RDW Standard Deviation 54.7 fL (36.4-46.3) RDW Coefficient of Variation 14.9 % (11.5-14.5) Immature Granulocyte % (Auto) 0.3 % Immature Granulocyte # (Auto) 0.03 K/uL (0.00-0.02) Polychromasia 1+ Hypochromasia PRESENT Macrocytosis PRESENT Anion Gap 5.0 mmol/L (3-11) Est Creatinine Clear Calc Drug Dose 13.9 ml/min Estimated GFR () 18.9 Estimated GFR (Non- 16.3 BUN/Creatinine Ratio 7.7 (10-20) Calcium Level 7.7 mg/dl (8.5-10.1) Magnesium Level 2.1 mg/dl (1.8-2.4) Total Bilirubin 0.3 mg/dl (0.2-1) Direct Bilirubin < 0.1 mg/dl (0-0.2) Aspartate Amino Transf (AST/SGOT) 21 U/L (15-37) Alanine Aminotransferase (ALT/SGPT) 24 U/L (12-78) Alkaline Phosphatase 110 U/L (45-117) Troponin I < 0.015 ng/ml (0-0.045) Total Protein 6.6 gm/dl (6.4-8.2) Albumin 3.0 gm/dl (3.4-5.0) Lipase 295 U/L (73-393) Laboratory results reviewed by me ECG Indication: other (fall) Rate (beats per minute): 76 Rhythm: normal sinus Findings: RBBB, T-wave inversion (V2 and lead 3), other (wide QRS) Comparison ECG Date: compared to 12/03/16, RBBB is new, TWI in V2 is new ED Course 1514: The patient was evaluated in room C6 by the resident. A complete history and physical exam was performed. 1610: The patient was evaluated in room C6. A complete history and physical exam was performed. 1840: The patient was discussed with Dr. Jocelyn Ny - [facility] closing agent - he will evaluate the patient for further treatment. 1845: Upon reexamination, the patient was resting comfortably. I discussed the test results and treatment plan with her. She expressed understanding and agreement The patient will be evaluated for further management. Medical Decision The patient is an 82 year old white female with a past medical history of CHF, end-stage renal disease, hypertension, hyperlipidemia, external hemorrhoids, diverticulitis, partial colon removal who presents to the ED with a cc of a persistent need for a GI assessment beginning 3 days ago. Positive diarrhea, rectal bleeding, dark stool. Negative abdominal pain, nausea, vomiting, rectal pain. Differential diagnosis: Etiologies such as diverticulosis, AVM, coagulopathy, colitis, inflammatory bowel disease, malignancy, Kimberly-Christine tear, esophagitis, peptic ulcer disease , variceal bleed, gastritis, epistaxis, fissure, hemorrhoids, as well as others were entertained. Patient was seen and evaluated the bedside. Patient is a has a known history of ESRD dialyzed prior to presenting here. Patient has noticed some blood in her stool. Patient does not take any blood thinning medications. Patient did have a prior history of diverticulitis status post colectomy. On exam patient is fairly well-appearing. Patient did have melenic appearing stool in her diaper which is heme positive. Patient's hemoglobin had dropped from 10 to 7. Patient was not tachycardic nor hypotensive. Patient was typed and screened and 2 units were ordered of PRBCs in addition to a PPI drip. Patient admitted to medicine. CT non-con w/ diverticulosis w/o diverticulitis. Known CKD, elevated creatinine. Medication Reconcilliation Current Medication List: was personally reviewed by me Blood Pressure Screening Patient's blood pressure: Elevated blood pressure Referred to closing agent. Consults Time Called: 1830 Consulting Physician: Dr. Jocelyn Alejo closing agent Returned Call: 1840 The patient was discussed with Dr. Jocelyn Alejo closing agent - he will evaluate the patient for further treatment. Impression Primary Impression: Anemia Additional Impressions: GI bleed ESRD (end stage renal disease) Critical Care I have personally spent greater than 35 minutes of critical care time in the direct management of this patient. This includes bedside care, interpretation of diagnostic studies, and testing, discussion with consultants, patient, and family members, and other required patient management activities. This 35 minutes is in excess of all separately billable procedures. Scribe Attestation The scribe's documentation has been prepared under my direction and personally reviewed by me in its entirety. I confirm that the note above accurately reflects all work, treatment, procedures, and medical decision making performed by me. Departure Information Dispostion Being Evaluated By Hospitalist Referrals Anant Brown M.D. (PCP) Patient Instructions My [facility] Problem Qualifiers Primary Impression: Anemia Anemia type: other cause Other causes of anemia: acute posthemorrhagic Qualified Codes: D62 - Acute posthemorrhagic anemia Additional Impressions: GI bleed GI bleed type/associated pathology: unspecified gastrointestinal hemorrhage type Qualified Codes: K92.2 - Gastrointestinal hemorrhage, unspecified
--- NOTE | 2017-05-05 15:51 | DIAGNOSTIC IMAGING REPORT ---
CHEST ONE VIEW PORTABLE CLINICAL HISTORY: ABDOMINAL PAIN/GI pain. Nausea. COMPARISON STUDY: 02/23/2017 FINDINGS: Mild stable cardiomegaly. Platelike scarring/atelectasis left midlung unchanged. A slight chronic blunting left lateral costophrenic angle. Lungs otherwise appear clear. IMPRESSION: Chronic change. Mild stable cardiomegaly. No acute or interval process. The above report was generated using voice recognition software. It may contain grammatical, syntax or spelling errors. Electronically signed by: Bari Fu M.D. 05/05/2017 3:50 PM Dictated Date/Time: 05/05/2017 3:49 PM
--- NOTE | 2017-05-05 15:58 | EMERGENCY ROOM VISIT NOTE ---
History First contact with patient: 15:10 Chief Complaint: GI ASSESSMENT Stated Complaint: DOCTOR SENT TO ER;BLEEDING FROM BOWELS History of Present Illness The patient is a 82 year old female with hx of CHF, ESRD, anemia, HTN, hypothyroidism, gout and anxiety who presents to the Emergency Room with complaints of bright red blood and dark and loose BMs since thursday, 05/02. Reports blood fills the toilet and she has also noticed blood upon wiping. Gets HD on , and Sats. Came here today right after dialysis. Denies any rectal or abdominal pain, n/v. Associated with mouth dryness, increased blurry vision (pt is legally blind), chills (which she gets after HD), sob (at baseline on 3L of O2 at all times) and diarrhea/dark stools (has BM 2-3x/day). Reports hx of surgery about 11 years ago for diverticulosis (had 18 inches of colon removed). Pt reports hx of loose and uncontrollable bowels for which she had a recent colonoscopy by Dr. Jones. Recent EGD/colonscopy on 11/26/16 for diarrhea/anorexia which was normal with normal pathology results except for a hiatal hernia (per records). Reports taking colestipol and citracel now which has helped with diarrhea/control of bowels. Colestipol dosage was increased to 2x/day by Dr. Jones recently and she is not sure if that has caused current symptoms. Also has hx of hemorrhoids. Lives with who is in early stages of dementia. Here with daughter today who lives next door. Daughter working on getting them help at home. Review of Systems see below Constitutional: + chills, No fever Eyes: + worsening of vision Respiratory: + shortness of breath Cardiovascular: No chest pain Abdomen: + diarrhea (dark and loose stools), + GI bleeding (bright red blood ), No pain, No nausea, No vomiting, No constipation Genitourinary - Female: No dysuria Neurologic: No weakness, No numbness/tingling Past Medical/Surgical History Medical Problems: (1) Acute kidney injury (2) Anemia (3) CHEST PAIN,CAD,ESRD (4) chf exac /ESRD/uremic (5) Chronic kidney disease (6) Coronary artery disease (7) DEHYD.,UTI, MSC, CAD (8) DEHYDRATION, MSC, UTI (9) End-stage renal disease needing dialysis (10) Metabolic acidosis (11) Pleural effusion on right (12) Proteinuria (13) Secondary hyperparathyroidism of renal origin (14) SYNCOPE,ESRD,CAD (15) Volume overload Family History Cancer Diabetes mellitus Gallbladder disease Heart disease Hypertension Lung disease Social History Smoking Status: Never Smoker Marital Status: Housing Status: lives with family Current/Historical Medications Scheduled Allopurinol (Zyloprim), 100 MG PO QAM Aspirin (Aspirin Ec), 81 MG PO QAM Atorvastatin (Lipitor), 40 MG PO QAM B-Complex W/ C & Folic Acid ([place] Caps), 1 CAP PO DAILY AT LUNCH Calcium Acetate (Phoslo 667 Mg), 2 CAP PO TIDM Citalopram Hydrobromide (Citalopram Hydrobromide), 10 MG PO QAM Colestipol Hcl (Colestid), 1 GM PO DAILY Isosorbide Mononitrate (Imdur Ext Rel), 60 MG PO QAM Labetalol HCl (Labetalol HCl), 300 MG PO AMPM Levothyroxine Sodium (Levothyroxine Sodium), 1 TAB PO QAM Methylcellulose (Laxative) (Citrucel), 1 TAB PO DAILY Physical Exam Vital Signs Date Time Temp Pulse Resp B/P (MAP) Pulse Ox O2 Delivery O2 Flow Rate FiO2 05/05/17 17:58 37.1 82 16 156/63 100 Nasal Cannula 3.0 05/05/17 17:56 Nasal Cannula 3.0 05/05/17 16:23 81 05/05/17 16:06 74 16 155/52 96 Room Air 05/05/17 13:52 36.4 84 20 151/84 100 3.0 Physical Exam see below General Appearance: no apparent distress Eyes: normal inspection ENT: + pertinent finding (dry MMs) Neck: no JVD Respiratory/Chest: lungs clear, normal breath sounds Cardiovascular: regular rate, rhythm, no murmur Abdomen / GI: normal bowel sounds, soft, + tenderness (LLQ) Extremities: no calf tenderness, no pedal edema, + slow capillary refill, + pertinent finding (L arm HD port with good thrill; 2 cm area of sloughed epidermis on R wrist region) Medical Decision & Procedures Laboratory Results 05/05/17 16:24 Red Blood Count 2.21, Mean Corpuscular Volume 105.4, Mean Corpuscular Hemoglobin 33.5, Mean Corpuscular Hemoglobin Concent 31.8, Mean Platelet Volume 9.7, Neutrophils (%) (Auto) 83.8, Lymphocytes (%) (Auto) 8.5, Monocytes (%) ( Auto) 5.7, Eosinophils (%) (Auto) 1.4, Basophils (%) (Auto) 0.3, Neutrophils # ( Auto) 9.08, Lymphocytes # (Auto) 0.92, Monocytes # (Auto) 0.62, Eosinophils # ( Auto) 0.15, Basophils # (Auto) 0.03 05/05/17 16:24 Test 05/05/17 16:24 White Blood Count 10.83 K/uL (4.8-10.8) Red Blood Count 2.21 M/uL (4.2-5.4) Hemoglobin 7.4 g/dL (12.0-16.0) Hematocrit 23.3 % (37-47) Mean Corpuscular Volume 105.4 fL (80-100) Mean Corpuscular Hemoglobin 33.5 pg (25-34) Mean Corpuscular Hemoglobin Concent 31.8 g/dl (32-36) Platelet Count 169 K/uL (130-400) Mean Platelet Volume 9.7 fL (7.4-10.4) Neutrophils (%) (Auto) 83.8 % Lymphocytes (%) (Auto) 8.5 % Monocytes (%) (Auto) 5.7 % Eosinophils (%) (Auto) 1.4 % Basophils (%) (Auto) 0.3 % Neutrophils # (Auto) 9.08 K/uL (1.4-6.5) Lymphocytes # (Auto) 0.92 K/uL (1.2-3.4) Monocytes # (Auto) 0.62 K/uL (0.11-0.59) Eosinophils # (Auto) 0.15 K/uL (0-0.5) Basophils # (Auto) 0.03 K/uL (0-0.2) RDW Standard Deviation 54.7 fL (36.4-46.3) RDW Coefficient of Variation 14.9 % (11.5-14.5) Immature Granulocyte % (Auto) 0.3 % Immature Granulocyte # (Auto) 0.03 K/uL (0.00-0.02) Polychromasia 1+ Hypochromasia PRESENT Macrocytosis PRESENT Anion Gap 5.0 mmol/L (3-11) Est Creatinine Clear Calc Drug Dose 13.9 ml/min Estimated GFR () 18.9 Estimated GFR (Non- 16.3 BUN/Creatinine Ratio 7.7 (10-20) Calcium Level 7.7 mg/dl (8.5-10.1) Magnesium Level 2.1 mg/dl (1.8-2.4) Total Bilirubin 0.3 mg/dl (0.2-1) Direct Bilirubin < 0.1 mg/dl (0-0.2) Aspartate Amino Transf (AST/SGOT) 21 U/L (15-37) Alanine Aminotransferase (ALT/SGPT) 24 U/L (12-78) Alkaline Phosphatase 110 U/L (45-117) Troponin I < 0.015 ng/ml (0-0.045) Total Protein 6.6 gm/dl (6.4-8.2) Albumin 3.0 gm/dl (3.4-5.0) Lipase 295 U/L (73-393) ECG Indication: SOB/dyspnea Rate (beats per minute): 76 Rhythm: normal sinus ED Course -CBC w/t diff: H/H 7.4/23.3 - baseline 10.8 -CXR-1 view: no acute changes -EKG- NSR 76 -Troponin <0.015 -LFT - wnl -Lipase - nl 295 -BMP slightly elevated bicarb of 35; BUN/Cr 20/2.61 (HD today) -Heme occult positive -Abdomen/Pelvis CT without contrast - diverticulosis and a large sigmoid diverticula, ventral incisional hernia (infraumbilical midline) with limited loop of small bowel with no obstruction/strangulation; extensive bibasilar atelectasis; small L pleural effusion/pleural thickening consistent with chronic effusion; bilateral renal atrophy -Ordered type and screen given Hgb of 7.4 -Requested inpatient admission given 3 pt decrease in Hgb from baseline and active bright red lower GI bleed with melena and diarrhea in the setting of ESRD and CHF. Signed out pt to Dr. Ny. Per Dr. Ny ordered 2 units of pRBCs and Protonix 40mg IV BID. Medical Decision 82 year old female with hx of CHF, ESRD, anemia, HTN, hypothyroidism, gout and anxiety with bright red blood and dark/loose BMs x 4 days consistent with likely hemorrhoidal vs. diverticular bleeding vs. upper GI bleed given melena and aspirin usage. -Ordered labs: CBC w/t diff, BMP, magnesium, LFT, lipase, Udip, UA/UCx, CXR, ECG , Trop -CBC w/t diff: H/H 7.4/23.3 - baseline 10.8 -CXR-1 view: no acute changes -EKG- NSR 76 -Troponin <0.015 -LFT - wnl -Lipase - nl 295 -BMP slightly elevated bicarb of 35; BUN/Cr 20/2.61 (HD today) -Heme occult positive -Ordered CT abdomen without contrast given H&H significantly worse than baseline -Abdomen/Pelvis CT without contrast - diverticulosis and a large sigmoid diverticula, ventral incisional hernia (infraumbilical midline) with limited loop of small bowel with no obstruction/strangulation; extensive bibasilar atelectasis; small L pleural effusion/pleural thickening consistent with chronic effusion; bilateral renal atrophy -Ordered type and screen given Hgb of 7.4 -Requested inpatient admission given 3 pt decrease in Hgb from baseline and active bright red lower GI bleed with melena and diarrhea in the setting of ESRD and CHF. Signed out pt to Dr. Ny. Per Dr. Ny ordered 2 units of pRBCs and Protonix 40mg IV BID. -Pt consented for blood transfusion Impression Primary Impression: End-stage renal disease needing dialysis Resident Involvement: Resident Care Provided Care Provided: Adult ED Departure Information Referrals Anant Brown M.D. (PCP) Patient Instructions My [facility]
[2017-05-05] MEDS ORDERED: LBT300 PO (16:05)
[2017-05-05] MEDS ORDERED: COLE1TAB PO (16:05)
[2017-05-05] MEDS ORDERED: METH500T3 PO (16:05)
[2017-05-05 16:44] LABS: BASO % 0.3 %; BASO ABS # 0.03 K/uL (0-0.2); EOS % 1.4 %; EOS ABS # 0.15 K/uL (0-0.5); HEMATOCRIT 23.3 % (37-47); HEMOGLOBIN 7.4 g/dL (12.0-16.0); IG# 0.03 K/uL (0.00-0.02); LYMPH % 8.5 %; LYMPH ABS # 0.92 K/uL (1.2-3.4); MEAN CELL VOLUME 105.4 fL (80-100); MEAN CORPUSCULAR HEMOGLOBIN 33.5 pg (25-34); MEAN CORPUSCULAR HGB CONC 31.8 g/dl (32-36); MEAN PLATELET VOLUME 9.7 fL (7.4-10.4); MONO % 5.7 %; MONO ABS # 0.62 K/uL (0.11-0.59); NEUT % 83.8 %; NEUT ABS # 9.08 K/uL (1.4-6.5); PLATELET COUNT 169 K/uL (130-400); RED CELL DISTRIBUTION WIDTH CV 14.9 % (11.5-14.5); RED CELL DISTRIBUTION WIDTH SD 54.7 fL (36.4-46.3); WHITE BLOOD COUNT 10.83 K/uL (4.8-10.8)
[2017-05-05 17:04] LABS: ALT/SGPT 24 U/L (12-78); BLOOD UREA NITROGEN 20 mg/dl (7-18); CALCIUM 7.7 mg/dl (8.5-10.1); CARBON DIOXIDE 35 mmol/L (21-32); CREATININE 2.61 mg/dl (0.60-1.20); GLUCOSE 90 mg/dl (70-99); LIPASE 295 U/L (73-393); POTASSIUM 3.7 mmol/L (3.5-5.1); SODIUM 136 mmol/L (136-145)
[2017-05-05 17:09] LABS: ALKALINE PHOSPHATASE 110 U/L (45-117); AST/SGOT 21 U/L (15-37); TOTAL PROTEIN 6.6 gm/dl (6.4-8.2)
--- NOTE | 2017-05-05 17:25 | DIAGNOSTIC IMAGING REPORT ---
ABD/PELVIS NO IV OR ORAL CONT CLINICAL HISTORY: 82 years-old Female presenting with LLQ tenderness, diarrhea, Gi bleed. TECHNIQUE: Multidetector CT of the abdomen and pelvis was performed without the use of intravenous contrast. IV contrast: None. A dose lowering technique was used consistent with the principles of ALARA (as low as reasonably achievable). COMPARISON: 11/16/2006. CT DOSE (mGy.cm): The estimated cumulative dose is 379.25 mGy.cm. FINDINGS: [employer] Examiner topogram: Unremarkable. Lung bases: Extensive basilar consolidation in the dependent distribution. Associated volume loss. Multichamber enlargement of the heart. Coronary artery and aortic valve calcification. Small left pleural effusion with suggestion of pleural thickening. Liver: Normal morphology. Normal density. Biliary: Mild biliary ductal prominence likely a reservoir effect in the post cholecystectomy state. Gallbladder surgically absent. Pancreas: Normal noncontrast appearance. Spleen: Normal noncontrast appearance. Adrenal glands: Normal noncontrast appearance. Kidneys and ureters: Marked cortical atrophy of the bilateral kidneys. Exophytic low-density lesion along the posterior aspect of the interpolar region of the right kidney likely cyst. No commencing evidence of a solid renal neoplasm. No hydronephrosis. Renal vascular calcification versus few punctate nonobstructing renal calculi. Ureters normal. Bladder: Incompletely evaluated secondary to underdistention. Pelvic organs: Uterus surgically absent. Bowel: Nelson colonic diverticulosis with mild stool burden primarily in the left colon. Prominent diverticulum measuring over 3 cm in diameter in the central pelvis arising from the proximal to mid sigmoid colon. No pericolonic inflammatory change. Lipomatous hypertrophy of the ileocecal valve. No bowel obstruction. Small hiatal hernia. Limited herniation of small bowel in the midline infraumbilical abdomen. No bowel wall thickening or perienteric inflammatory change. Peritoneal cavity: No free fluid or intraperitoneal gas. Lymph nodes: No gross lymphadenopathy allowing for noncontrast technique. Vasculature: Atherosclerosis of the normal caliber abdominal aorta. Abdominal wall: Focal ventral midline hernia in the infraumbilical region associated with a surgical scar. This contains small bowel and mesentery. No evidence of strangulation. Mild body wall edema. Musculoskeletal: Degenerative changes of the spine. Old fracture deformity of the left inferior pubic ramus. Mild osteopenia. IMPRESSION: 1. Diverticulosis including a large sigmoid colon diverticula. No evidence of diverticulitis. No acute intra-abdominal pathology. 2. Ventral incisional hernia in the infraumbilical midline abdominal wall containing a limited loop of small bowel. No bowel obstruction or evidence of strangulation. 3. Extensive bibasilar atelectasis. 4. Small left pleural effusion with suggestion of left pleural thickening. This could suggest a chronic effusion, acute or chronic inflammatory change, or infection. Correlate clinically. 5. Marked bilateral renal atrophy. Electronically signed by: Ehsan Smith M.D. 05/05/2017 5:24 PM Dictated Date/Time: 05/05/2017 5:15 PM
[2017-05-05 17:56] VITALS: Ht 149.9 cm; Wt 68.2 kg
--- NOTE | 2017-05-05 18:09 | NUR ---
admission assessment completed in ED room C6 with patient daughters and present. see documentation. call marquis in reach. awaiting bed placement.
[2017-05-05] MEDS ORDERED: ZOLPIDEM TARTRATE 5 MG TAB PO PRN ×2 (21:00)
[2017-05-05] MEDS ORDERED: ONDANSETRON INJ 2 MG/ML 2 ML VIAL IV PRN (21:00)
[2017-05-05] MEDS ORDERED: ALUMINUM/MAGNESIUM/SIMETH (MAALOX MAX) 30 ML UDC PO PRN (21:00)
[2017-05-05] MEDS ORDERED: MAGNESIUM HYDROXIDE SUSP 30 ML UDC PO PRN (21:00)
[2017-05-05] MEDS ORDERED: POLYETHYLENE (MIRALAX) 17 GM PACK PO PRN (21:00)
[2017-05-05] MEDS ORDERED: ACETAMINOPHEN 325 MG TAB PO PRN (21:00)
--- NOTE | 2017-05-05 21:18 | History and Physical ---
History & Physical Date & Time of Service: May 05, 2017 at 20:55 Chief Complaint: Doctor Sent To Er;Bleeding From Bowels Primary Care Physician: Anant Brown M.D. History of Present Illness Source: patient, family 82 years old female with PMHx of hypertension, hyperlipidemia, hypothyroidism, degenerative disc disease of the lumbar spine with spinal stenosis, macular degeneration with legally blind status, gout, anxiety, depression end-stage renal disease on hemodialysis every Thursday//Thursday last dialysis was today, presented to the ED with one-week history of lower GI bleed. Patient has been having multiple episodes of bloody diarrhea mixed with black stools for the past 6 days. Denies any vomiting or abdominal pain or fever. Patient did not want to tell her family because she did not one-on-one the [place]. Daughter is at her bedside and angry because of that. Patient does have generalized weakness and fatigue but denies any other associated symptoms like chest pain or palpitation. Admit to chronic shortness of breath she is on home oxygen but other than that no active bleeding in her urine Patient has CAD S/P LAD stent in 06/2013, currently only on aspirin which also has been helped She is . Has 2 daughters Denies smoking or alcohol. Renal disease, heart disease, diabetes in her mother Dad from tuberculosis Family History Cancer Diabetes mellitus Gallbladder disease Heart disease Hypertension Lung disease Social History Smoking Status: Never Smoker Marital Status: Immunizations History of Influenza Vaccine: Yes Influenza Vaccine Date: Feb 10, 2012 History of Tetanus Vaccine?: No History of Pneumococcal: No History of Hepatitis B Vaccine: No Multi-Drug Resistant Organisms History of MDRO: Yes Type of MDRO: MRSA Allergies Coded Allergies: Bacitracin (Verified Allergy, Unknown, EYES SWELLING-OINTMENT PLACED AROUND EYE, 05/05/17) Polymyxin B (Verified Allergy, Unknown, EYES [id number] PLACED AROUND EYE, 05/05/17) Home Medications Scheduled Allopurinol (Zyloprim), 100 MG PO QAM Aspirin (Aspirin Ec), 81 MG PO QAM Atorvastatin (Lipitor), 40 MG PO QAM B-Complex W/ C & Folic Acid ([place] Caps), 1 CAP PO DAILY AT LUNCH Calcium Acetate (Phoslo 667 Mg), 2 CAP PO TIDM Citalopram Hydrobromide (Citalopram Hydrobromide), 10 MG PO QAM Colestipol Hcl (Colestid), 1 GM PO DAILY Isosorbide Mononitrate (Imdur Ext Rel), 60 MG PO QAM Labetalol HCl (Labetalol HCl), 300 MG PO AMPM Levothyroxine Sodium (Levothyroxine Sodium), 1 TAB PO QAM Methylcellulose (Laxative) (Citrucel), 1 TAB PO DAILY Review of Systems Constitutional: + weakness, + fatigue, No fever, No chills, No sweats, No weight loss, No problem reported Eyes: No worsening of vision, No eye pain, No redness, No discharge, No diplopia, No problem reported ENT: No hearing loss, No unusual epistaxis, No nasal symptoms, No sore throat, No tinnitus, No dental problems, No trouble swallowing, No problem reported Respiratory: No cough, No sputum, No wheezing, No shortness of breath, No dyspnea on exertion, No dyspnea at rest, No hemoptysis, No problem reported Cardiovascular: No chest pain, No orthopnea, No PND, No edema, No claudication , No palpitations, No problem reported Abdomen: + GI bleeding, No pain, No nausea, No vomiting, No diarrhea, No constipation, No problem reported Musculoskeletal: No joint pain, No muscle pain, No swelling, No calf pain, No problem reported Genitourinary - Female: No dysuria, No urinary frequency, No urinary urgency, No urinary incontinence, No urinary retention, No hematuria, No dysmenorrhea, No menorrhagia, No metrorrhagia, No rash, No vaginal bleeding, No vaginal discharge, No vaginal itching, No vulvodynia, No , No problem reported Neurologic: No memory loss, No paralysis, No weakness, No numbness/tingling, No vertigo, No balance problems, No problem reported Psychiatric: No depression symptoms, No anhedonism, No anxiety, No insomnia, No substance abuse, No problem reported Endocrine: No fatigue, No excessive thirst, No excessive urination, No problem reported Hematologic / Lymphatic: No abnormal bleeding/bruising, No clotting problems, No swollen lymph nodes, No night sweats, No problem reported Integumentary: No rash, No itch, No new/changing skin lesions, No color change , No bleeding, No problem reported Allergic / Immunologic: No environmental allergies, No seasonal allergies, No pet sensitivities, No food allergies, No hives, No frequent infections, No poor healing, No prolonged convalescence, No problem reported Physical Exam Vital Signs Date Time Temp Pulse Resp B/P (MAP) Pulse Ox O2 Delivery O2 Flow Rate FiO2 05/05/17 20:28 86 05/05/17 20:12 86 156/63 05/05/17 17:58 37.1 82 16 156/63 100 Nasal Cannula 3.0 05/05/17 17:56 Nasal Cannula 3.0 05/05/17 16:23 81 05/05/17 16:06 74 16 155/52 96 Room Air 05/05/17 13:52 36.4 84 20 151/84 100 3.0 General Appearance: WD/WN, + mild distress Head: normocephalic, atraumatic Eyes: normal inspection, EOMI, + pertinent finding (visual acuity) ENT: normal ENT inspection, hearing grossly normal Neck: supple Respiratory/Chest: chest non-tender, lungs clear, normal breath sounds, no respiratory distress Cardiovascular: regular rate, rhythm, no edema, no gallop, no JVD, no murmur Abdomen/GI: normal bowel sounds, non tender, soft, no organomegaly Back: normal inspection Extremities/Musculoskelatal: normal inspection, no calf tenderness, normal capillary refill, no pedal edema Neurologic/Psych: transport aide II-XII nml as tested, no motor/sensory deficits, alert, normal mood/affect, normal reflexes, oriented x 3 Skin: normal color, warm/dry, no rash Diagnostics Laboratory Results Results Past 24 Hours Test 05/05/17 16:24 05/05/17 20:46 Range/Units White Blood Count 10.83 4.8-10.8 K/uL Red Blood Count 2.21 4.2-5.4 M/uL Hemoglobin 7.4 12.0-16.0 g/dL Hematocrit 23.3 37-47 % Mean Corpuscular Volume 105.4 80-100 fL Mean Corpuscular Hemoglobin 33.5 25-34 pg Mean Corpuscular Hemoglobin Concent 31.8 32-36 g/dl Platelet Count 169 130-400 K/uL Mean Platelet Volume 9.7 7.4-10.4 fL Neutrophils (%) (Auto) 83.8 % Lymphocytes (%) (Auto) 8.5 % Monocytes (%) (Auto) 5.7 % Eosinophils (%) (Auto) 1.4 % Basophils (%) (Auto) 0.3 % Neutrophils # (Auto) 9.08 1.4-6.5 K/uL Lymphocytes # (Auto) 0.92 1.2-3.4 K/uL Monocytes # (Auto) 0.62 0.11-0.59 K/uL Eosinophils # (Auto) 0.15 0-0.5 K/uL Basophils # (Auto) 0.03 0-0.2 K/uL RDW Standard Deviation 54.7 36.4-46.3 fL RDW Coefficient of Variation 14.9 11.5-14.5 % Immature Granulocyte % (Auto) 0.3 % Immature Granulocyte # (Auto) 0.03 0.00-0.02 K/uL Polychromasia 1+ Hypochromasia PRESENT Macrocytosis PRESENT Sodium Level 136 136-145 mmol/L Potassium Level 3.7 3.5-5.1 mmol/L Chloride Level 96 98-107 mmol/L Carbon Dioxide Level 35 21-32 mmol/L Anion Gap 5.0 3-11 mmol/L Blood Urea Nitrogen 20 7-18 mg/dl Creatinine 2.61 0.60-1.20 mg/dl Est Creatinine Clear Calc Drug Dose 13.9 ml/min Estimated GFR () 18.9 Estimated GFR (Non- 16.3 BUN/Creatinine Ratio 7.7 10-20 Random Glucose 90 70-99 mg/dl Calcium Level 7.7 8.5-10.1 mg/dl Magnesium Level 2.1 1.8-2.4 mg/dl Total Bilirubin 0.3 0.2-1 mg/dl Direct Bilirubin < 0.1 0-0.2 mg/dl Aspartate Amino Transf (AST/SGOT) 21 15-37 U/L Alanine Aminotransferase (ALT/SGPT) 24 12-78 U/L Alkaline Phosphatase 110 45-117 U/L Troponin I < 0.015 0-0.045 ng/ml Total Protein 6.6 6.4-8.2 gm/dl Albumin 3.0 3.4-5.0 gm/dl Lipase 295 73-393 U/L Impression Assessment and Plan 82 years old female with PMHx of CAD S/P LAD on aspirin P/W lower GI fresh blood and melena X 6 days Assessment: GI bleed acute blood loss anemia CAD S/P LAD hypertension hyperlipidemia hypothyroidism spinal stenosis macular degeneration / legally blind gout anxiety / depression end-stage renal disease on hemodialysis every Thursday/ Plan: Admit to tele PPI BID GI consult one unit PRBCs hold asa continue home meds except asa decrease BB annette dose supportive care serial H&H SCD boots for dvt prophylaxis Advanced Directives Existing Living Will: Yes Existing Power of Water Pollution Specialist: Yes VTE Prophylaxis VTE Risk Assessment Done? Y/N: Yes Risk Level: Moderate
[2017-05-05 21:45] VITALS: O2SAT 100
--- NOTE | 2017-05-05 21:45 | NUR ---
A: Patient arrived to room 235 via litter. Patient A&O, denies pain. Patient states, "legally blind" can see "outlines." Left upper arm A/V with positive thrill and bruit. environmental monitoring specialist applied, NSR, HR 80's. Code word and fall agreement signed. Patient oriented to room, call marquis and procedures. Call marquis in reach, will monitor.
[2017-05-05 21:52] VITALS: BP 185/68; PULSE 90; TEMP 37.9; O2SAT 97
[2017-05-05 21:54] LABS: HEMATOCRIT 21.6 % (37-47); HEMOGLOBIN 7.2 g/dL (12.0-16.0)
[2017-05-05] MEDS: PANTOprazole INJ 40 MG in SYRINGE 0 ML IV SCH (22:39)
[2017-05-05] MEDS: LABETALOL HCL 200 MG TAB PO SCH (22:39)
[2017-05-05 22:54] VITALS: BP 163/63; PULSE 89; TEMP 37.8; O2SAT 94
[2017-05-05 23:09] VITALS: BP 150/70; PULSE 85; TEMP 37.1; O2SAT 100
[2017-05-05 23:30] VITALS: BP 151/67; PULSE 84; TEMP 37.1; O2SAT 100
[2017-05-06] VITALS (14 sets, daily range): BP systolic 111–158; BP diastolic 55–80; PULSE 69–78; TEMP 34.4–37.5; O2SAT 94–100
[2017-05-06] MEDS ORDERED: NURSING VERBAL MED ORDER ONE (00:30)
[2017-05-06] MEDS ORDERED: CALCIUM ACETATE 667MG GELCAP PO STA (00:32)
--- NOTE | 2017-05-06 04:00 | NUR ---
A: Patient without complaints through the night. PRBC's infusing without s/s of difficulty. Call marquis in reach, will monitor.
[2017-05-06] MEDS: LEVOTHYROXINE 125 MCG TAB PO SCH (05:18)
[2017-05-06 06:48] LABS: ALBUMIN 2.8 gm/dl (3.4-5.0); CALCIUM 8.1 mg/dl (8.5-10.1); CREATININE 3.78 mg/dl (0.60-1.20); POTASSIUM 4.3 mmol/L (3.5-5.1)
[2017-05-06 06:56] LABS: TOTAL PROTEIN 6.1 gm/dl (6.4-8.2)
[2017-05-06 06:57] LABS: HEMATOCRIT 26.3 % (37-47); HEMOGLOBIN 8.6 g/dL (12.0-16.0); MEAN CORPUSCULAR HEMOGLOBIN 32.7 pg (25-34); MEAN CORPUSCULAR HGB CONC 32.7 g/dl (32-36); MEAN PLATELET VOLUME 10.1 fL (7.4-10.4); PLATELET COUNT 154 K/uL (130-400)
[2017-05-06 07:02] LABS: BASO % 0.5 %; BASO ABS # 0.05 K/uL (0-0.2); EOS % 3.9 %; EOS ABS # 0.36 K/uL (0-0.5); IG# 0.02 K/uL (0.00-0.02); LYMPH % 15.2 %; LYMPH ABS # 1.41 K/uL (1.2-3.4); MONO % 8.1 %; MONO ABS # 0.75 K/uL (0.11-0.59); NEUT % 72.1 %; NEUT ABS # 6.71 K/uL (1.4-6.5)
--- NOTE | 2017-05-06 08:00 | NUR ---
Patient assessed around this time. vss. see EMR for more details. Patient requested dressing to KEE AV fistula be removed, when removed small amount of oozing noted new dressing applied. Patient assisted to bathroom, ambulated fairly well had moderated liquid josiah bloody stool. small amount of urine in the hat but not enough for a UA, will attempt to obtain when patient voids again. Per patient she occasionally voids due to dialysis, which she received yesterday. Call marquis in reach safety reviewed needs addressed. Patient is legally blind. Linens changed and skin care provided post BR.
[2017-05-06] MEDS: CALCIUM ACETATE 667MG GELCAP PO SCH ×3 (08:05→15:59)
[2017-05-06] MEDS: LABETALOL HCL 200 MG TAB PO SCH ×2 (08:05→19:54)
[2017-05-06] MEDS: ATORVASTATIN 20 MG TAB PO SCH (08:05)
[2017-05-06] MEDS: ISOSORBIDE MONONITRATE 60 MG TABCR PO SCH (08:06)
[2017-05-06] MEDS: CITALOPRAM 20 MG TAB PO SCH (08:06)
[2017-05-06] MEDS: ALLOPURINOL 100 MG TAB PO SCH (08:06)
[2017-05-06] MEDS: PANTOprazole INJ 40 MG in SYRINGE 0 ML IV SCH ×2 (08:17→20:00)
--- NOTE | 2017-05-06 09:00 | NUR ---
Angel from GI on unit, patient is established with Dr. Jones and a consult needs to be placed for him. Dr. Bishop paged to notify, awaiting call back.
--- NOTE | 2017-05-06 10:00 | NUR ---
Spoke with Dr. ventura around this time, updated on patient status he feels as though this is a diverticuli bleed and does not feel that a PPI gtt is warranted at this time.
[2017-05-06 10:38] LABS: HEMATOCRIT 24.5 % (37-47)
--- NOTE | 2017-05-06 11:21 | Nephrology Consultation ---
Nephrology Consultation Date & Providers Date of Consultation: May 06, 2017. Primary Care Provider: Anant Brown M.D. Referring Provider: Reason for Consultation ESRD requiring HD History of Present Illness Mrs. Morgan is an 82 year old white female who is seen at the request of Dr. Han to assist in her medical care and to provide inpatient HD during her hospitalization. Medical records in the EMR were reviewed today and are summarized as follows: Mrs. Morgan had CKD w/ creatinine 1.6 - 1.8. She was hospitalized 08/24 due to UTI w/ septicemia. She developed ATN with renal failure and never recovered. She currently dialyzes TTS at [facility] (3 hr 45 min, 2K 2Ca, F-160NR, Qb 330, EDW 68.5 kg). Her dialysis treatments have been complicated by relative hypotension which has limited her UF. The patient has had melanotic stool over the last week. She did not seek medical attention over the holiday. Last night she presented to the ED. She was FOBT + and Hgb was low at 7.2. Mrs. Morgan was transfused 2 U PRBC and admitted for ongoing monitoring, PPI infusion and GI evaluation. She was last dialyzed yesterday. Past Medical/Surgical History Medical: # ESRD following hospitalization for urosepsis w/ ATN. Patient dialyzes TTS at [facility] # HTN # ASCVD s/p PTCA w/ stent 2003 # Aortic stenosis # Hyperlipidemia # Macular degeneration - legally blind Surgical: # Coronary LAD stent 2003 # Left upper arm AVF by Dr. Palomares 09/23 Allergies Coded Allergies: Bacitracin (Verified Allergy, Unknown, EYES SWELLING-OINTMENT PLACED AROUND EYE, 05/05/17) Polymyxin B (Verified Allergy, Unknown, EYES [id number] PLACED AROUND EYE, 05/05/17) Inpatient Medications Current Inpatient Medications Medications (Trade) Dose Ordered Sig/Debora Route Start Time Stop Time Status Last Admin Dose Admin Pantoprazole Sodium 40 mg/ Syringe 10 ml @ 5 mls/min BID IV 05/05/17 21:00 05/10/17 20:59 05/06/17 08:17 5 MLS/MIN Allopurinol (Zyloprim Tab) 100 mg QAM PO 05/06/17 09:00 06/05/17 08:59 05/06/17 08:06 100 MG Atorvastatin Calcium (Lipitor Tab) 40 mg QAM PO 05/06/17 09:00 06/05/17 08:59 05/06/17 08:05 40 MG Calcium Acetate (Phoslo Cap) 1,334 mg TIDM PO 05/06/17 07:30 06/05/17 07:59 05/06/17 08:05 1,334 MG Isosorbide Mononitrate (Imdur Ext Rel Tab) 60 mg QAM PO 05/06/17 09:00 06/05/17 08:59 05/06/17 08:06 60 MG Labetalol HCl (Normodyne Tab) 200 mg BID PO 05/05/17 21:00 06/04/17 20:59 05/06/17 08:05 200 MG Levothyroxine Sodium (Synthroid Tab) 125 mcg DAILYBB PO 05/06/17 06:00 06/05/17 05:59 05/06/17 05:18 125 MCG Citalopram Hydrobromide (celeXA TAB) 10 mg QAM PO 05/06/17 09:00 06/05/17 08:59 05/06/17 08:06 10 MG Acetaminophen (Tylenol Tab) 650 mg Q4H PRN PO 05/05/17 21:00 06/04/17 20:59 Al Hydrox/Mg Hydrox/Simethicone (Maalox Max Susp) 15 ml Q4H PRN PO 05/05/17 21:00 06/04/17 20:59 Magnesium Hydroxide (Milk Of Magnesia Susp) 30 ml Q12H PRN PO 05/05/17 21:00 06/04/17 20:59 Zolpidem Tartrate (Ambien Tab) 5 mg HSZ PRN PO 05/05/17 21:00 06/04/17 20:59 Ondansetron HCl (Zofran Inj) 4 mg Q6H PRN IV 05/05/17 21:00 06/04/17 20:59 Polyethylene (Miralax Powder Packet) 17 gm DAILY PRN PO 05/05/17 21:00 06/04/17 20:59 Family History Cancer Diabetes mellitus Gallbladder disease Heart disease Hypertension Lung disease Negative for CKD/ESRD Social History Smoking Status: Never Smoker Marital Status: . Retired. Never a smoker Review of Systems Constitutional: No fever Respiratory: No shortness of breath Cardiovascular: No chest pain Abdomen: + problem reported (melena), No pain, No nausea, No vomiting A complete review of systems was performed. Pertinent positives are noted above. All other systems are negative. Physical Exam Date Time Temp Pulse Resp B/P (MAP) Pulse Ox O2 Delivery O2 Flow Rate FiO2 05/06/17 08:00 Nasal Cannula 3.0 05/06/17 08:00 37.1 71 22 129/70 (89) 99 Room Air 05/06/17 05:06 37.5 69 20 148/70 99 05/06/17 04:05 37.3 75 20 144/56 100 3.0 05/06/17 04:00 100 Nasal Cannula 3.0 05/06/17 03:01 34.4 73 20 153/75 100 05/06/17 02:30 37.0 73 19 148/80 98 05/06/17 01:58 37.5 73 20 158/71 99 05/06/17 01:13 37.1 74 18 148/67 100 05/06/17 00:03 100 Nasal Cannula 3.0 05/06/17 00:01 37.4 78 18 142/58 99 05/05/17 23:30 37.1 84 20 151/67 100 05/05/17 23:09 37.1 85 20 150/70 100 05/05/17 22:54 37.8 89 20 163/63 94 05/05/17 21:52 37.9 90 19 185/68 (107) 97 Nasal Cannula 2.0 05/05/17 21:45 100 Nasal Cannula 3.0 05/05/17 21:25 37.1 86 16 156/63 100 05/05/17 20:28 86 05/05/17 20:12 86 156/63 05/05/17 17:58 37.1 82 16 156/63 100 Nasal Cannula 3.0 05/05/17 17:56 Nasal Cannula 3.0 05/05/17 16:23 81 05/05/17 16:06 74 16 155/52 96 Room Air 05/05/17 13:52 36.4 84 20 151/84 100 3.0 General Appearance: + pertinent finding (frail appearing) Head: normocephalic, atraumatic Eyes: PERRL, EOMI Neck: no adenopathy Respiratory/Chest: lungs clear, no respiratory distress Cardiovascular: regular rate, rhythm Abdomen/GI: normal bowel sounds, non tender, soft Extremities/Musculoskelatal: no pedal edema, + pertinent finding (L upper arm AVF + bruit) Neurologic/Psych: alert, oriented x 3 Skin: warm/dry Laboratory Results Last 24 Hours Test 05/05/17 16:24 05/05/17 21:22 05/06/17 05:49 05/06/17 09:59 White Blood Count 10.83 K/uL 9.30 K/uL Red Blood Count 2.21 M/uL 2.63 M/uL Hemoglobin 7.4 g/dL 7.2 g/dL 8.6 g/dL 8.0 g/dL Hematocrit 23.3 % 21.6 % 26.3 % 24.5 % Mean Corpuscular Volume 105.4 fL 100.0 fL Mean Corpuscular Hemoglobin 33.5 pg 32.7 pg Mean Corpuscular Hemoglobin Concent 31.8 g/dl 32.7 g/dl Platelet Count 169 K/uL 154 K/uL Mean Platelet Volume 9.7 fL 10.1 fL Neutrophils (%) (Auto) 83.8 % 72.1 % Lymphocytes (%) (Auto) 8.5 % 15.2 % Monocytes (%) (Auto) 5.7 % 8.1 % Eosinophils (%) (Auto) 1.4 % 3.9 % Basophils (%) (Auto) 0.3 % 0.5 % Neutrophils # (Auto) 9.08 K/uL 6.71 K/uL Lymphocytes # (Auto) 0.92 K/uL 1.41 K/uL Monocytes # (Auto) 0.62 K/uL 0.75 K/uL Eosinophils # (Auto) 0.15 K/uL 0.36 K/uL Basophils # (Auto) 0.03 K/uL 0.05 K/uL RDW Standard Deviation 54.7 fL RDW Coefficient of Variation 14.9 % Immature Granulocyte % (Auto) 0.3 % 0.2 % Immature Granulocyte # (Auto) 0.03 K/uL 0.02 K/uL Polychromasia 1+ Hypochromasia PRESENT Macrocytosis PRESENT Sodium Level 136 mmol/L 138 mmol/L Potassium Level 3.7 mmol/L 4.3 mmol/L Chloride Level 96 mmol/L 99 mmol/L Carbon Dioxide Level 35 mmol/L 34 mmol/L Anion Gap 5.0 mmol/L 5.0 mmol/L Blood Urea Nitrogen 20 mg/dl 33 mg/dl Creatinine 2.61 mg/dl 3.78 mg/dl Est Creatinine Clear Calc Drug Dose 13.9 ml/min 9.5 ml/min Estimated GFR () 18.9 12.1 Estimated GFR (Non- 16.3 10.4 BUN/Creatinine Ratio 7.7 8.6 Random Glucose 90 mg/dl 81 mg/dl Calcium Level 7.7 mg/dl 8.1 mg/dl Magnesium Level 2.1 mg/dl 2.1 mg/dl Total Bilirubin 0.3 mg/dl 0.6 mg/dl Direct Bilirubin < 0.1 mg/dl Aspartate Amino Transf (AST/SGOT) 21 U/L 18 U/L Alanine Aminotransferase (ALT/SGPT) 24 U/L 21 U/L Alkaline Phosphatase 110 U/L 95 U/L Troponin I < 0.015 ng/ml Total Protein 6.6 gm/dl 6.1 gm/dl Albumin 3.0 gm/dl 2.8 gm/dl Lipase 295 U/L Anisocytosis PRESENT Globulin 3.3 gm/dl Albumin/Globulin Ratio 0.9 Impression (1) GI bleed (2) Anemia (3) End-stage renal disease needing dialysis (4) Coronary artery disease Recommendations END STAGE RENAL DISEASE: -- Patient was last dialyzed yesterday as an outpatient at [facility]. There were no complications -- Will schedule next HD for tomorrow am heparin free -- Protect L arm AVF ANEMIA: -- Will provide SARAH w/ HD -- On Pantoprazole 40 mg IV BID as per primary service -- Await GI evaluation HYPERTENSION: -- Blood pressure is currently well controlled -- Continue Labetalol and Isosorbide CKD-BMD: -- Continue Phos-Lo 2 capsules w/ each meal
--- NOTE | 2017-05-06 12:00 | NUR ---
Patient assessed around this time, see EMR for more details, no significant changes noted in assessment at this time . vss. no c/o pain nausea sob. call marquis in reach safety reviewed needs addressed. Sr on monitor.
--- NOTE | 2017-05-06 13:00 | Hospitalist Progress Note ---
Hospitalist Progress Note Date of Service May 06, 2017. (Yenifer Friend ., RIAZ-C) Subjective Pt evaluation today including: conversation w/ patient, physical exam, chart review, lab review, review of studies, review of inpatient medication list Pain: None PO Intake: Tolerating PO diet Voiding: no voiding problems (makes little urine w/ESRD on HD) The patient reports feeling well. She does feel a little short of breath as she was taken off her oxygen for lunchtime and she is chronically on 3L continuous. She otherwise denies complaints. She reports having two bowel movements this morning. Per nursing, these BMs have been bloody. The patient denies fevers, chills, sweats, chest pain, palpitations, claudication, cough, wheezing, nausea, vomiting, abdominal pain, dysuria, hematuria, urinary retention, paralysis, weakness, numbness and tingling. Additional Comments: See HPI for pertinent positives and negatives. All other systems reviewed and negative. (Yenifer Friend ., RIAZ-C) Objective Vital Signs Date Time Temp Pulse Resp B/P (MAP) Pulse Ox O2 Delivery O2 Flow Rate FiO2 05/06/17 12:00 36.7 73 18 111/63 (79) 100 Nasal Cannula 2.0 05/06/17 12:00 Nasal Cannula 3.0 05/06/17 08:00 Nasal Cannula 3.0 05/06/17 08:00 37.1 71 22 129/70 (89) 99 Room Air 05/06/17 05:06 37.5 69 20 148/70 99 05/06/17 04:05 37.3 75 20 144/56 100 3.0 05/06/17 04:00 100 Nasal Cannula 3.0 05/06/17 03:01 34.4 73 20 153/75 100 05/06/17 02:30 37.0 73 19 148/80 98 05/06/17 01:58 37.5 73 20 158/71 99 05/06/17 01:13 37.1 74 18 148/67 100 05/06/17 00:03 100 Nasal Cannula 3.0 05/06/17 00:01 37.4 78 18 142/58 99 05/05/17 23:30 37.1 84 20 151/67 100 05/05/17 23:09 37.1 85 20 150/70 100 05/05/17 22:54 37.8 89 20 163/63 94 05/05/17 21:52 37.9 90 19 185/68 (107) 97 Nasal Cannula 2.0 05/05/17 21:45 100 Nasal Cannula 3.0 05/05/17 21:25 37.1 86 16 156/63 100 05/05/17 20:28 86 05/05/17 20:12 86 156/63 05/05/17 17:58 37.1 82 16 156/63 100 Nasal Cannula 3.0 05/05/17 17:56 Nasal Cannula 3.0 05/05/17 16:23 81 05/05/17 16:06 74 16 155/52 96 Room Air 05/05/17 13:52 36.4 84 20 151/84 100 3.0 (Yenifer Friend ., PA-C) Physical Exam Notes: General appearance: +Obese. Well-developed, well-nourished, no apparent distress Head: Normocephalic, atraumatic Eyes: +Legally blind due to macular degeneration. Normal inspection, PERRL ENT: Normal ENT inspection, hearing grossly normal, pharynx normal Neck: Supple, no JVD, trachea midline Respiratory/Chest: Lungs clear to auscultation, normal breath sounds, no respiratory distress Cardiovascular: +Systolic murmur. Regular rate & rhythm, no gallop Abdomen/GI: +LLQ TTP. Normal bowel sounds, soft Extremities/Musculoskeletal: Normal inspection, no calf tenderness, no pedal edema Neurological/Psych: Alert, normal mood/affect, oriented x 3 Skin: Normal color, warm/dry, no rash (Yenifer Friend ., PA-C) Laboratory Results Last 24 Hours Test 05/05/17 16:24 05/05/17 21:22 05/06/17 05:49 05/06/17 09:59 White Blood Count 10.83 K/uL 9.30 K/uL Red Blood Count 2.21 M/uL 2.63 M/uL Hemoglobin 7.4 g/dL 7.2 g/dL 8.6 g/dL 8.0 g/dL Hematocrit 23.3 % 21.6 % 26.3 % 24.5 % Mean Corpuscular Volume 105.4 fL 100.0 fL Mean Corpuscular Hemoglobin 33.5 pg 32.7 pg Mean Corpuscular Hemoglobin Concent 31.8 g/dl 32.7 g/dl Platelet Count 169 K/uL 154 K/uL Mean Platelet Volume 9.7 fL 10.1 fL Neutrophils (%) (Auto) 83.8 % 72.1 % Lymphocytes (%) (Auto) 8.5 % 15.2 % Monocytes (%) (Auto) 5.7 % 8.1 % Eosinophils (%) (Auto) 1.4 % 3.9 % Basophils (%) (Auto) 0.3 % 0.5 % Neutrophils # (Auto) 9.08 K/uL 6.71 K/uL Lymphocytes # (Auto) 0.92 K/uL 1.41 K/uL Monocytes # (Auto) 0.62 K/uL 0.75 K/uL Eosinophils # (Auto) 0.15 K/uL 0.36 K/uL Basophils # (Auto) 0.03 K/uL 0.05 K/uL RDW Standard Deviation 54.7 fL RDW Coefficient of Variation 14.9 % Immature Granulocyte % (Auto) 0.3 % 0.2 % Immature Granulocyte # (Auto) 0.03 K/uL 0.02 K/uL Polychromasia 1+ Hypochromasia PRESENT Macrocytosis PRESENT Sodium Level 136 mmol/L 138 mmol/L Potassium Level 3.7 mmol/L 4.3 mmol/L Chloride Level 96 mmol/L 99 mmol/L Carbon Dioxide Level 35 mmol/L 34 mmol/L Anion Gap 5.0 mmol/L 5.0 mmol/L Blood Urea Nitrogen 20 mg/dl 33 mg/dl Creatinine 2.61 mg/dl 3.78 mg/dl Est Creatinine Clear Calc Drug Dose 13.9 ml/min 9.5 ml/min Estimated GFR () 18.9 12.1 Estimated GFR (Non- 16.3 10.4 BUN/Creatinine Ratio 7.7 8.6 Random Glucose 90 mg/dl 81 mg/dl Calcium Level 7.7 mg/dl 8.1 mg/dl Magnesium Level 2.1 mg/dl 2.1 mg/dl Total Bilirubin 0.3 mg/dl 0.6 mg/dl Direct Bilirubin < 0.1 mg/dl Aspartate Amino Transf (AST/SGOT) 21 U/L 18 U/L Alanine Aminotransferase (ALT/SGPT) 24 U/L 21 U/L Alkaline Phosphatase 110 U/L 95 U/L Troponin I < 0.015 ng/ml Total Protein 6.6 gm/dl 6.1 gm/dl Albumin 3.0 gm/dl 2.8 gm/dl Lipase 295 U/L Anisocytosis PRESENT Globulin 3.3 gm/dl Albumin/Globulin Ratio 0.9 (Yenifer Friend ., CAMILO) Assessment and Plan 82 y/o female with a history of CAD s/p stent Jun 2013, HTN, HLD, ESRD on HD, hypothyroidism, legally blind due to macular degeneration, anxiety/depression, and gout who presents with bloody diarrhea and melena x 6 days prior to arrival. GI bleed likely lower, acute blood loss anemia on anemia of chronic disease-- ongoing -Admit to telemetry. No acute events overnight, pt in sinus rhythm with HR in 70s -GI consulted, appreciate recs -Continue Protonix 40 mg IV BID -Hgb down to 7.2, received 2 units PRBC last night. Hgb up to 8.6 but last recheck was 8.0 on 05/06 -Hold off on further transfusion for now pending next recheck -Continue to trend H&H. Repeat at 1500 and 2100 -Pt had colonoscopy November 2016 with diverticulosis throughout entire colon, likely diverticular bleed. Defer to GI if repeat colonoscopy needed HTN, HLD, CAD, angina--stable -ASA on hold due to GI bleed -Continue labetalol 200 mg PO BID, Lipitor 40 mg PO qd, Colestid 1 gm PO qd, Imdur 60 mg PO qd ESRD on HD--stable -Nephrology following -Dialysis //. Will receive epoetin during dialysis -Continue Phoslo TIDM Hypothyroidism -Continue Synthroid 125 mcg PO qd Anxiety/depression--stable -Continue Celexa 10 mg PO qd Gout -Continue allopurinol 100 mg PO qd DVT prophylaxis -Hold chemical prophylaxis due to GI bleed/acute blood loss anemia -JONEL navarro and SCDs Code Status -Level I, FULL RESUSCITATION STATUS (Yenifer Friend ., CAMILO) RIAZ Physician Supervision Note: I interviewed and examined the patient. Discussed with Yenifer Friend PAC and agree with findings and plan as documented in the note. Any exceptions or clarifications are listed here: None PT presents with bloody diarrhea and melena for about a week found to be anemic with concerns for acute blood loss anemia. transfused 2 u prbc GI bleed likely lower, acute blood loss anemia on anemia of chronic disease--Pt with EGD and Colonoscopy this past fall, did have no bleeding in stomach and many diverticulae in colon, given lack of any upper symptoms must consider lower GI bleed from diverticuli without diverticulitis as none seen on CT -Continue Protonix 40 mg IV BID GI consult to eval if intervention vs conservative management HTN, HLD, CAD, angina--stable -ASA on hold, continue labetalol 200 mg PO BID, Lipitor 40 mg PO qd, Colestid 1 gm PO qd, Imdur 60 mg PO qd ESRD on HD--stable -Nephrology following Dr Llanes -Dialysis /. Will receive epoetin during dialysis Hypothyroidism stable on Synthroid 125 mcg PO qd Anxiety/depression-- Celexa 10 mg PO qd Gout allopurinol 100 mg PO qd DVT prophylaxis-JONEL navarro and SCDs Documented By: Sourav Bishop (Sourav Bishop M.D.)
[2017-05-06 15:40] LABS: HEMATOCRIT 23.8 % (37-47); HEMOGLOBIN 7.8 g/dL (12.0-16.0)
--- NOTE | 2017-05-06 16:00 | NUR ---
A- OOB TO BSC....MODERATE BLOODY BM....H/H LOW 7.8/23.8..... NOTIFIED....
--- NOTE | 2017-05-06 20:00 | NUR ---
A: Patient A&O, vision loss bilaterally. Denies pain, SOB on 3L O2 NC, nausea. Family at bedside. Voices no complaints, call marquis in reach, will monitor.
[2017-05-06] MEDS ORDERED: LAVAGE SOLUTION 4000ML PO SCH (22:00)
--- NOTE | 2017-05-06 22:00 | NUR ---
Dr. Jones to see patient. Ordered [facility] prep for EGD and colonoscopy.
[2017-05-06 23:13] LABS: HEMATOCRIT 24.6 % (37-47)
--- NOTE | 2017-05-06 23:56 | NUR ---
2300 Hemoglobin results 8.0. No PRBC's to infuse at this time, per Dr. Bishop previous order.
[2017-05-07] VITALS (19 sets, daily range): BP systolic 92–190; BP diastolic 41–84; PULSE 67–79; TEMP 36.4–37; O2SAT 97–100
--- NOTE | 2017-05-07 01:58 | NUR ---
Patient was ordered Pat for colonoscopy. Patient consumed 1/2 of the solution and is refusing to continue. Patient continues to have bloody to brown, liquid stool with blood clots. Patient was educated of the need to continue with prep, voiced understanding, and continues to refuse. Notified hospitalist. Will alert GI MD in am.
--- NOTE | 2017-05-07 02:06 | GASTROINTESTINAL CONSULTATION ---
DATE OF CONSULTATION: 05/06/2017 CHIEF COMPLAINT: Melena, bright red blood per rectum. HISTORY OF PRESENT ILLNESS: Mrs. Morgan is an 82-year-old white female known to me from previous procedures in November of this year. The patient was home and experienced bleeding for several days, which she apparently did not inform her family members. This had been present for approximately 6 days prior to admission on May 05. The patient does receive dialysis on Tuesdays, and Saturdays. She denied any abdominal pain with these events and had no hematemesis, coffee-ground emesis, nausea or vomiting. The patient also denied any fevers or shaking chills. There were no reports of syncopal or near syncopal events with this bleeding. She is on home oxygen. PAST MEDICAL HISTORY: Significant for coronary artery disease with a left anterior descending stent in June 2013 for which she takes aspirin. Her past medical history is significant for renal disease and she is on dialysis. She also has hyperlipidemia, hypothyroidism, degenerative disc disease, spinal stenosis, macular degeneration, gout, and anxiety. FAMILY HISTORY: Significant for diabetes, gallbladder disease, heart disease, hypertension, lung disease and cancer. SOCIAL HISTORY: The patient denies tobacco or alcohol usage. ALLERGIES: THE PATIENT HAS ALLERGIES TO BACITRACIN AND POLYMYXIN. HOME MEDICATIONS: Include allopurinol, aspirin, atorvastatin, calcium acetate, citalopram, colestipol for chronic diarrhea, isosorbide mononitrate, labetalol, levothyroxine, and Citrucel. REVIEW OF SYSTEMS: Otherwise noncontributory based on 13-point exam except for mentioned above. PHYSICAL EXAMINATION: VITAL SIGNS: In the emergency room, afebrile at 36.4, blood pressure 151/84, respirations 20, heart rate 84. She is 100% on 3 liters nasal cannula in the Emergency Room. GENERAL: The patient is awake, alert and oriented x3. At the present time, resting comfortably in bed. HEENT: Sclerae are anicteric, conjunctiva moist. Oral mucosa moist. HEART: Normal S1, S2. LUNGS: Clear to auscultation without wheezes. ABDOMEN: Soft, nontender, nondistended, mildly obese without rebound or guarding. There are no abdominal bruits or masses. I do not appreciate evidence of ascites or shifting dullness or positive bowel sounds. EXTREMITIES: Without clubbing or cyanosis. There is trace edema bilaterally. Extremities show overall normal range of motion. SKIN: Intact and dry. NEUROLOGIC: Shows no specific neurologic defects. The patient is awake, alert and oriented x3. ADMISSION LABORATORY STUDIES: Yesterday, white count 10.83, hemoglobin 7.4, MCV 105, platelets 169,000. BUN and creatinine are 20 and 2.6. ALT 21, AST 24, alkaline phosphatase 110. Troponin less than 0.015, lipase 295, albumin 3.0, magnesium 2.1, calcium 7.7, total and direct bilirubin 0.3 and 0.1, respectively. IMAGING STUDIES: The patient had a CT of the abdomen yesterday at 5:00 p.m. and this revealed evidence of diverticulosis, particularly in the sigmoid colon without evidence of acute diverticulitis. There are also ventral incisional hernias noted, which contains small bowel, but there is no evidence for bowel obstruction. There is a small left pleural effusion with bilateral renal atrophy. There is no significant lymphadenopathy identified, there is atherosclerosis. There is a focal midline hernia. Laboratory studies show that her hemoglobin has been ranging between 7.4 as high as 8.6 earlier this morning and is currently 7.8. The patient did receive 2 units of packed red blood cells. The source of the patient's bleeding is unclear, but may represent diverticular bleeding given its painless nature, possibly ischemic colitis, although one would expect abdominal pain. The mixed color of the patient's stools could suggest both an upper small bowel and lower source of bleeding. Therefore, based on these descriptions, transfusion requirement, I believe upper endoscopy and colonoscopy are prudent and we will arrange these for tomorrow. The patient will need a bowel prep tonight and this has been written. Ideally, it would be helpful if dialysis can be performed tomorrow morning with anticipation of a bidirectional endoscopy tomorrow afternoon. We would follow hemoglobin serially, renal dose adjusted, PPI as needed. Further recommendations to follow. All questions answered for the patient. Thank you for allowing me to participate in this patient's care.
[2017-05-07] MEDS ORDERED: EPOETIN ALFA 10,000 UNITS/ML VIAL IV. ONE (04:45)
[2017-05-07] MEDS ORDERED: EPOETIN ALFA INJ 8,000 UNITS in SYRINGE 0 ML IV. SCH (06:00)
[2017-05-07] MEDS: LEVOTHYROXINE 125 MCG TAB PO SCH (06:08)
--- NOTE | 2017-05-07 06:15 | NUR ---
Voice message left for dialysis dept. with [employer] request for dialysis to be done in AM for afternoon colonoscopy.
[2017-05-07 06:43] LABS: HEMATOCRIT 22.4 % (37-47); HEMOGLOBIN 7.3 g/dL (12.0-16.0); MEAN CELL VOLUME 99.6 fL (80-100); MEAN CORPUSCULAR HEMOGLOBIN 32.4 pg (25-34); MEAN CORPUSCULAR HGB CONC 32.6 g/dl (32-36); MEAN PLATELET VOLUME 9.7 fL (7.4-10.4); PLATELET COUNT 134 K/uL (130-400); RED CELL DISTRIBUTION WIDTH CV 20.2 % (11.5-14.5); RED CELL DISTRIBUTION WIDTH SD 72.3 fL (36.4-46.3); WHITE BLOOD COUNT 8.13 K/uL (4.8-10.8)
--- NOTE | 2017-05-07 07:00 | NUR ---
Dr. Joens returned page, reported patients refusal to consume bowel prep for colonoscopy. reeducated that he would have difficulty doing colonoscopy and to encourage patient to resume bowel prep.
[2017-05-07 07:26] LABS: CALCIUM 8.3 mg/dl (8.5-10.1); CREATININE 5.34 mg/dl (0.60-1.20); POTASSIUM 4.8 mmol/L (3.5-5.1)
--- NOTE | 2017-05-07 08:00 | NUR ---
A/ID: Patient resting in bed. Awake, alert, and oriented x4. Denies c/o pain. Patient did not well tolerate her bowel preparation over night. Has not had a bowel movement since 0500. Patient states that the prep made her feel nauseous and bloated. Encouraged patient to continue prep. She has agreed to attempt to continue. Plan is for dialysis today. 2 units PRBC's have been ordered by Dr. Bishop for Hgb of 7.3. Discussed with Dr. Llanes, will be transfused during dialysis today. This was also discussed with Dr. Bishop and he is in agreement. Patient is also planned for EGD/Colonoscopy by Dr. Jones later today. Has been NPO except for bowel prep since midnight. Assessment complete, see EMR for details. Patient is admitted from home where she lives with her . Undergoes outpatient hemodialysis on a Thursday//Thursday schedule. Transfers from bed to chair with 1 assist. Sinus rhythm on monitor. VSS. Side rails up x2, call marquis in reach.
--- NOTE | 2017-05-07 08:26 | Hospitalist Progress Note ---
Hospitalist Progress Note Date of Service May 07, 2017. (Blanca Patel PA-C) Subjective Pt evaluation today including: conversation w/ patient, physical exam, chart review, lab review, review of studies Pain: None PO Intake: NPO for colonoscopy and EGD today Voiding: no voiding problems The patient was seen and examined this morning. Pt reports doing ok this morning. Patient reports that she has difficulty completing the bowel prep overnight due to nausea. Her last bowel movement was 0500 and was reported as brown with blood clots in it per nursing. Patient feels somewhat lightheaded and dizzy when she does go from sitting to standing, but that it quickly resolves. Patient denies any episodes of vomiting. Patient is planning on dialysis today and understand she will be transfused another 2 units of PRBCs. Following dialysis patient will undergo endoscopy and colonoscopy by Dr. Jones. Additional Comments: Constitutional: No fever, sweats or chills Eyes: legally blind ENT: normal hearing, no trouble swallowing Respiratory: No cough, sputum, dyspnea at rest or on exertion Cardiovascular: No chest pain, tightness or palpitations Abdomen:+ Nausea, and bowel movements with dark red clot per nursing. Musculoskeletal: No joint pain, calf pain, swelling Neurologic: No weakness, numbness/tingling, or balance problems Psychiatric: No anxiety or depression Skin: No rash or itch (Blanca Patel PA-C) Objective Vital Signs Date Time Temp Pulse Resp B/P (MAP) Pulse Ox O2 Delivery O2 Flow Rate FiO2 05/07/17 07:31 36.7 70 18 125/42 (69) 98 2.0 05/07/17 04:07 Nasal Cannula 3.0 05/07/17 03:38 36.9 73 20 116/41 (66) 100 Nasal Cannula 2.0 05/07/17 00:01 Nasal Cannula 3.0 05/06/17 23:40 37.2 76 20 134/55 (81) 97 Nasal Cannula 2.0 05/06/17 20:00 Nasal Cannula 3.0 05/06/17 19:54 36.9 71 18 142/62 (88) 98 Nasal Cannula 2.0 05/06/17 16:52 Nasal Cannula 3.0 05/06/17 16:01 36.8 73 18 111/57 (75) 94 Room Air 05/06/17 12:00 36.7 73 18 111/63 (79) 100 Nasal Cannula 2.0 05/06/17 12:00 Nasal Cannula 3.0 (Blanca Patel PA-C) Physical Exam Notes: Constitutional: WD/AT Eyes: PERRL, EOMI ENT: hearing grossly normal, pharynx normal, MMM Respiratory: On 3 L via NC, no respiratory distress, lungs clear, no adventitious breath sounds, no accessory muscle use Cardiovascular: RRR, + systolic murmur, peripheral pulses intact Abdomen: NABS x 4, nondistended, nontender, no organomegaly Extremities: Non-tender, no pedal edema, no calf tenderness with palpation Neurologic: AAO x 3, CN II-XII intact, speech is clear Skin: normal color, warm/dry, no rash (Blanca Patel PA-C) Laboratory Results Last 24 Hours Test 05/06/17 09:59 05/06/17 15:32 05/06/17 23:00 05/07/17 06:08 Hemoglobin 8.0 g/dL 7.8 g/dL 8.0 g/dL 7.3 g/dL Hematocrit 24.5 % 23.8 % 24.6 % 22.4 % White Blood Count 8.13 K/uL Red Blood Count 2.25 M/uL Mean Corpuscular Volume 99.6 fL Mean Corpuscular Hemoglobin 32.4 pg Mean Corpuscular Hemoglobin Concent 32.6 g/dl RDW Standard Deviation 72.3 fL RDW Coefficient of Variation 20.2 % Platelet Count 134 K/uL Mean Platelet Volume 9.7 fL Sodium Level 136 mmol/L Potassium Level 4.8 mmol/L Chloride Level 97 mmol/L Carbon Dioxide Level 31 mmol/L Anion Gap 8.0 mmol/L Blood Urea Nitrogen 48 mg/dl Creatinine 5.34 mg/dl Est Creatinine Clear Calc Drug Dose 6.8 ml/min Estimated GFR () 8.0 Estimated GFR (Non- 6.9 BUN/Creatinine Ratio 9.1 Random Glucose 86 mg/dl Calcium Level 8.3 mg/dl (Blanca Patel PA-C) Assessment and Plan 82 y/o female with a history of CAD s/p stent Jun 2013, HTN, HLD, ESRD on HD, hypothyroidism, legally blind due to macular degeneration, anxiety/depression, and gout who presents with bloody diarrhea and melena x 6 days prior to arrival. GI bleed likely lower, acute blood loss anemia on anemia of chronic disease-- ongoing - No overnight events on tele, NSR in 60s. - GI consulted, appreciate recs - Repeat endoscopy and colonoscopy scheduled for today with Dr. Jones - Continue Protonix 40 mg IV BID - s/p 2 U PRBC on 05/05 - trending H&H- Hgb 7.3 today - plan to transfuse again 2 U PRBC during HD. HTN, HLD, CAD, angina--stable - ASA on hold due to GI bleed - Continue labetalol 200 mg PO BID, Lipitor 40 mg PO qd, Colestid 1 gm PO qd, Imdur 60 mg PO qd ESRD on HD--stable -Nephrology following -Dialysis //. Will receive epoetin during dialysis -Continue Phoslo TIDM Hypothyroidism -Continue Synthroid 125 mcg PO qd Anxiety/depression--stable -Continue Celexa 10 mg PO qd Gout -Continue allopurinol 100 mg PO qd DVT ppx: teds, scds, no chemical Code Status: Full Disposition: From home, lives with her but he is ill so possibly may need acute rehab, PT/OT on board, CM to assist with d/c planning. (Blanca Patel, CAMILO) PA Physician Supervision Note: I interviewed and examined the patient. Discussed with Blanca Patel PAC and agree with findings and plan as documented in the note. Any exceptions or clarifications are listed here: None Patient with melena and some mild anemia there was concern this was a diverticular bleed she underwent endoscopy and colonoscopy today confirming this is likely diverticular bleed should be self-limited her hemoglobin however did drop to 7.3 and she required transfusion during dialysis today Her vital signs are stable, her heart was regular lungs were clear abdomen was without tenderness with exception of some minor tenderness in the left lower quadrant Likely diverticular bleed, the patient supportive care as she likely has some chronic anemia from her renal disease. GI has recommended advancement of diet Documented By: Sourav Bishop (Sourav Bishop M.D.)
[2017-05-07] MEDS: CALCIUM ACETATE 667MG GELCAP PO SCH ×3 (09:03→18:17)
[2017-05-07] MEDS: CITALOPRAM 20 MG TAB PO SCH (09:04)
[2017-05-07] MEDS: ALLOPURINOL 100 MG TAB PO SCH (09:05)
[2017-05-07] MEDS: ATORVASTATIN 20 MG TAB PO SCH (09:05)
[2017-05-07] MEDS: LABETALOL HCL 200 MG TAB PO SCH ×2 (09:05→19:48)
[2017-05-07] MEDS: ISOSORBIDE MONONITRATE 60 MG TABCR PO SCH (09:05)
[2017-05-07] MEDS: PANTOprazole INJ 40 MG in SYRINGE 0 ML IV SCH ×2 (09:40→19:48)
[2017-05-07] MEDS ORDERED: SODIUM CHLORIDE 0.65% NA SOLN 45 ML (OCEAN) ONE (09:47)
--- NOTE | 2017-05-07 10:15 | NUR ---
A: Patient transported off floor for dialysis.
--- NOTE | 2017-05-07 11:11 | Nephrology Progress Note ---
Nephrology Progress Note Date of Service May 07, 2017. Chief Complaint ESRD requiring HD Subjective Ms. Morgan was seen & examined in the PCU this morning. She has had continued melena overnight. She denies abdominal pain. staff technologist reports that patient is scheduled for upper & lower endoscopy this afternoon. Review of Systems Constitutional: No fever Cardiovascular: No chest pain Respiratory: No dyspnea at rest Abdomen: No pain, No nausea, No vomiting Extremities: No leg edema A complete review of systems was performed. Pertinent positives are noted above. All other systems are negative. Vital Signs Last 8 Hrs Date Time Temp Pulse Resp B/P (MAP) Pulse Ox O2 Delivery O2 Flow Rate FiO2 05/07/17 08:00 Nasal Cannula 2.0 05/07/17 07:31 36.7 70 18 125/42 (69) 98 2.0 05/07/17 04:07 Nasal Cannula 3.0 05/07/17 03:38 36.9 73 20 116/41 (66) 100 Nasal Cannula 2.0 Last Recorded Weight Weight (Kilograms): 69.500 Physical Exam General Appearance: no apparent distress Head: normocephalic, atraumatic Eyes: PERRL, EOMI Neck: no adenopathy Respiratory/Chest: lungs clear Cardiovascular: regular rate, rhythm Abdomen/GI: normal bowel sounds, non tender, soft Extremities/Musculoskelatal: no pedal edema, + pertinent finding (AVF + bruit) Neurologic/Psych: alert, oriented x 3 Family History Cancer Diabetes mellitus Gallbladder disease Heart disease Hypertension Lung disease Negative for CKD/ESRD Social History Smoking Status: Never smoker Marital Status: . Retired. Never a smoker Laboratory Results Past 24 Hours 05/06/17 15:32 05/06/17 23:00 05/07/17 06:08 05/07/17 06:08 Test 05/07/17 06:08 Red Blood Count 2.25 M/uL (4.2-5.4) Mean Corpuscular Volume 99.6 fL (80-100) Mean Corpuscular Hemoglobin 32.4 pg (25-34) Mean Corpuscular Hemoglobin Concent 32.6 g/dl (32-36) RDW Standard Deviation 72.3 fL (36.4-46.3) RDW Coefficient of Variation 20.2 % (11.5-14.5) Mean Platelet Volume 9.7 fL (7.4-10.4) Anion Gap 8.0 mmol/L (3-11) Est Creatinine Clear Calc Drug Dose 6.8 ml/min Estimated GFR () 8.0 Estimated GFR (Non- 6.9 BUN/Creatinine Ratio 9.1 (10-20) Calcium Level 8.3 mg/dl (8.5-10.1) Allergies Coded Allergies: Bacitracin (Verified Allergy, Unknown, EYES SWELLING-OINTMENT PLACED AROUND EYE, 05/05/17) Polymyxin B (Verified Allergy, Unknown, EYES [id number] PLACED AROUND EYE, 05/05/17) Medications Current Inpatient Medications Medications (Trade) Dose Ordered Sig/Debora Route Start Time Stop Time Status Last Admin Dose Admin Pantoprazole Sodium 40 mg/ Syringe 10 ml @ 5 mls/min BID IV 05/05/17 21:00 05/10/17 20:59 05/07/17 09:40 5 MLS/MIN Allopurinol (Zyloprim Tab) 100 mg QAM PO 05/06/17 09:00 06/05/17 08:59 05/07/17 09:05 100 MG Atorvastatin Calcium (Lipitor Tab) 40 mg QAM PO 05/06/17 09:00 06/05/17 08:59 05/07/17 09:05 40 MG Calcium Acetate (Phoslo Cap) 1,334 mg TIDM PO 05/06/17 07:30 06/05/17 07:59 05/07/17 09:03 1,334 MG Isosorbide Mononitrate (Imdur Ext Rel Tab) 60 mg QAM PO 05/06/17 09:00 06/05/17 08:59 05/07/17 09:05 60 MG Labetalol HCl (Normodyne Tab) 200 mg BID PO 05/05/17 21:00 06/04/17 20:59 05/07/17 09:05 200 MG Levothyroxine Sodium (Synthroid Tab) 125 mcg DAILYBB PO 05/06/17 06:00 06/05/17 05:59 05/07/17 06:08 125 MCG Citalopram Hydrobromide (celeXA TAB) 10 mg QAM PO 05/06/17 09:00 06/05/17 08:59 05/07/17 09:04 10 MG Acetaminophen (Tylenol Tab) 650 mg Q4H PRN PO 05/05/17 21:00 06/04/17 20:59 Al Hydrox/Mg Hydrox/Simethicone (Maalox Max Susp) 15 ml Q4H PRN PO 05/05/17 21:00 06/04/17 20:59 Magnesium Hydroxide (Milk Of Magnesia Susp) 30 ml Q12H PRN PO 05/05/17 21:00 06/04/17 20:59 Zolpidem Tartrate (Ambien Tab) 5 mg HSZ PRN PO 05/05/17 21:00 06/04/17 20:59 Ondansetron HCl (Zofran Inj) 4 mg Q6H PRN IV 05/05/17 21:00 06/04/17 20:59 05/06/17 23:00 4 MG Polyethylene (Miralax Powder Packet) 17 gm DAILY PRN PO 05/05/17 21:00 06/04/17 20:59 Heparin Sodium (Porcine) (No Heparin In Dialysis) 1 ea TODAY@0600 N/A 05/07/17 06:00 05/07/17 18:00 Epoetin Magdy 8000 units/Syringe 0.4 ml @ 1 mls/min TODAY@0600 IV. 05/07/17 06:00 05/07/17 18:00 Polyethylene Glycol/ Electrolytes (Golytely Soln) 1 dose TODAY@2200 PO 05/06/17 22:00 05/07/17 13:00 05/06/17 22:00 1 DOSE Impression (1) GI bleed (2) Anemia (3) End-stage renal disease needing dialysis (4) Coronary artery disease Recommendations END STAGE RENAL DISEASE: -- Will provide heparin free HD this am prior to endoscopy -- Will transfuse 2 U PRBC prior to HD today -- Protect L arm AVF ANEMIA: -- Will provide SARAH w/ HD -- On Pantoprazole 40 mg IV BID as per primary service -- Await endoscopy results HYPERTENSION: -- Blood pressure is currently well controlled -- Continue Labetalol and Isosorbide CKD-BMD: -- Continue Phos-Lo 2 capsules w/ each meal
--- NOTE | 2017-05-07 15:15 | NUR ---
pt to gi lab via w/c at this time.
--- NOTE | 2017-05-07 16:04 | History & Physical Bridge Note ---
H&P Re-Evaluation Bridge Note: I have examined the patient, reviewed the History & Physical and in the interval since the performance of the History & Physical I have noted the following changes of clinical significance: No changes noted
[2017-05-07] MEDS ORDERED: PROPOFOL IV EMULSION 10 MG/ML 20 ML VIAL IV ONE ×3 (16:13→17:31)
[2017-05-07] MEDS ORDERED: LIDOCAINE HCL 2% 2 ML VIAL (20MG/ML) ONE ×2 (16:13→16:39)
[2017-05-07] MEDS ORDERED: PHENYLEPHRINE 100MCG/ML 5ML SYR ONE (17:32)
--- NOTE | 2017-05-07 17:51 | GI REPORT ---
Procedure Date: 05/07/2017 4:25 PM Procedure: Upper GI endoscopy Indications: Hematochezia, Melena Medicines: Propofol per Anesthesia Complications: No immediate complications. Estimated blood loss: None. Estimated Blood Loss: Estimated blood loss: none. Procedure: Pre-Anesthesia Assessment: - Prior to the procedure, a History and Physical was performed, and patient medications and allergies were reviewed. The patient's tolerance of previous anesthesia was also reviewed. The risks and benefits of the procedure and the sedation options and risks were discussed with the patient. All questions were answered, and informed consent was obtained. Prior Anticoagulants: The patient has taken no previous anticoagulant or antiplatelet agents. ASA Grade Assessment: III - A patient with severe systemic disease. After reviewing the risks and benefits, the patient was deemed in satisfactory condition to undergo the procedure. After obtaining informed consent, the endoscope was passed under direct vision. Throughout the procedure, the patient's blood pressure, pulse, and oxygen saturations were monitored continuously. The scope was introduced through the mouth, and advanced to the mid-jejunum. The upper GI endoscopy was accomplished without difficulty. The patient tolerated the procedure well. Findings: The examined esophagus was normal. A small hiatal hernia was present. The entire examined stomach was normal. The cardia and gastric fundus were normal on retroflexion. The examined duodenum was normal. The examined jejunum was normal. The cardia and gastric fundus were normal on retroflexion. Retained gastric contents are not identified on this exam. Impression: - Normal esophagus. - Small hiatal hernia. - Normal stomach. - Normal examined duodenum. - Normal examined jejunum. - No specimens collected. Recommendation: - Return patient to [facility] for ongoing care. - Advance diet as tolerated. - Continue present medications. MD Hector Regan MD 05/07/2017 5:50:31 PM This report has been signed electronically. Note Initiated On: 05/07/2017 4:25 PM I attest to the content of the Intraoperative Record and orders documented therein, exceptions below
--- NOTE | 2017-05-07 18:01 | GI REPORT ---
Procedure Date: 05/07/2017 4:24 PM Procedure: Colonoscopy Indications: Hematochezia, Melena Medicines: Propofol per Anesthesia Complications: No immediate complications. Estimated blood loss: None. Estimated Blood Loss: Estimated blood loss: none. Procedure: Pre-Anesthesia Assessment: - Prior to the procedure, a History and Physical was performed, and patient medications and allergies were reviewed. The patient's tolerance of previous anesthesia was also reviewed. The risks and benefits of the procedure and the sedation options and risks were discussed with the patient. All questions were answered, and informed consent was obtained. Prior Anticoagulants: The patient has taken no previous anticoagulant or antiplatelet agents. ASA Grade Assessment: III - A patient with severe systemic disease. After reviewing the risks and benefits, the patient was deemed in satisfactory condition to undergo the procedure. After I obtained informed consent, the scope was passed under direct vision. Throughout the procedure, the patient's blood pressure, pulse, and oxygen saturations were monitored continuously. The scope was introduced through the anus and advanced to the terminal ileum, with identification of the appendiceal orifice and IC valve. The colonoscopy was performed with moderate difficulty due to inadequate bowel prep. Successful completion of the procedure was aided by lavage. The patient tolerated the procedure well. The quality of the bowel preparation was unsatisfactory and 30 percent obscured. Findings: The perianal and digital rectal examinations were normal. Pertinent negatives include normal sphincter tone, no palpable rectal lesions and no anal lesion or abnormality was detected. Multiple small and large-mouthed diverticula were found in the sigmoid colon, descending colon and ascending colon. A moderate amount of semi-solid stool was found in the entire colon, interfering with visualization. Lavage of the area was performed using a moderate amount of sterile water, resulting in incomplete clearance with fair visualization. The terminal ileum appeared normal. The exam was otherwise without abnormality. No additional abnormalities were found on retroflexion. Abundant stool obscured several portions of the colon including the rectum. Impression: - Preparation of the colon was unsatisfactory. - Diverticulosis in the sigmoid colon, in the descending colon and in the ascending colon. - Stool in the entire examined colon. - The examined portion of the ileum was normal. - The examination was otherwise normal. - No specimens collected. Recommendation: - Return patient to [facility] for ongoing care. - Advance diet as tolerated. - Continue present medications. - Repeat colonoscopy PRN with 2 day prep if bleeding recurs. MD Hector Regan MD 05/07/2017 6:00:44 PM This report has been signed electronically. Note Initiated On: 05/07/2017 4:24 PM I attest to the content of the Intraoperative Record and orders documented therein, exceptions below
--- NOTE | 2017-05-07 18:15 | NUR ---
Pt received from gi lab via w/c. she is alert and oriented. denies pain or shortness of breath. lungs are clear. vital signs stable on 3 liters nasal o2. iv saline lock patent in right wrist. nsr 70s on cardiac exercise specialist. provided with renal diet and able to tolerate without nausea. family at bedside with pt. call marquis in reach. will continue to monitor.
--- NOTE | 2017-05-07 18:39 | Anesthesiology Progress Note ---
Anesthesia Post Op Note Date & Time May 07, 2017 at 18:39 Vital Signs Pain Intensity: 0.0 Vital Signs Past 12 Hours Date Time Temp Pulse Resp B/P (MAP) Pulse Ox O2 Delivery O2 Flow Rate FiO2 05/07/17 17:58 68 16 159/43 (81) 100 Nasal Cannula 3 05/07/17 17:43 68 16 124/40 (68) 96 Nasal Cannula 3 05/07/17 17:28 67 16 124/46 (72) 98 Nasal Cannula 3 05/07/17 15:23 36.9 69 16 154/59 (90) 100 Nasal Cannula 3 05/07/17 13:30 37.0 75 144/57 (86) 05/07/17 13:30 75 144/57 05/07/17 13:15 72 140/62 05/07/17 13:00 79 149/66 05/07/17 12:45 36.8 72 18 128/60 98 3.0 05/07/17 12:45 72 128/60 05/07/17 12:30 37.0 72 18 122/60 98 3.0 05/07/17 12:30 72 122/60 05/07/17 12:15 78 123/59 05/07/17 12:15 37.0 78 18 123/59 98 3.0 05/07/17 12:00 78 112/55 05/07/17 11:45 76 92/44 05/07/17 11:30 68 120/56 05/07/17 11:30 36.8 68 18 120/56 97 3.0 05/07/17 11:15 69 116/58 05/07/17 11:15 36.7 69 18 116/58 98 3.0 05/07/17 11:00 36.7 67 18 120/57 98 3.0 05/07/17 11:00 69 113/55 05/07/17 10:45 67 120/57 05/07/17 10:30 67 124/59 05/07/17 10:05 36.7 68 129/64 (85) 05/07/17 08:00 Nasal Cannula 2.0 05/07/17 07:31 36.7 70 18 125/42 (69) 98 2.0 Notes Mental Status: alert / awake / arousable, participated in evaluation Pt Amnestic to Procedure: Yes Nausea / Vomiting: adequately controlled Pain: adequately controlled Airway Patency, RR, SpO2: stable & adequate BP & HR: stable & adequate Hydration State: stable & adequate Anesthetic Complications: no major complications apparent
--- NOTE | 2017-05-07 19:48 | GASTROENTEROLOGY PROGRESS NOTE ---
DATE: 05/07/2017 GASTROINTESTINAL UPDATE NOTE SUBJECTIVE: The patient underwent upper endoscopy with push enteroscopy to the mid jejunum as well as colonoscopy to the terminal line. There was a small hiatal hernia on the upper GI examination, but no other sources of active or recent bleeding or mucosal defects. Colonoscopy was limited by the prep; however, with lavage and some manipulation, the majority of mucosa could be seen. There was no fresh or recent bleeding identified or specific bleeding sources. There is pancolonic diverticulosis that is quite dense on the left side. The terminal ileum was intubated and there was no evidence of blood in this region. The rectal vault did contain solid stool that was partly flushed and moved, although some remained that obscures mucosa, but no obvious bleeding sources were identified. LABORATORY STUDIES: The patient's laboratory studies today showed hemoglobin of 7.3. The patient was transfused 4 units of packed red blood cells on admission. IMPRESSION AND PLAN: At this point, there is no evidence for active gastrointestinal bleeding and endoscopic examining does not show a specific mucosal defect. Would observe the patient for ongoing events and if necessary, a capsule endoscopy as an outpatient may be helpful. Will sign off at this time. Please do not hesitate to contact our service, if the patient develops recurrent bleeding or if an outpatient video capsule is desired. The patient has had trouble with diarrhea in the past; however, with her retained stool, it may represent an overflow incontinence. It may be reasonable to consider a small dose of MiraLax, perhaps 3 times a weekly to encourage bowel movements, if this can be achieved without producing overt diarrhea. All questions answered. Thank you for allowing me to participate in this patient's care.
--- NOTE | 2017-05-07 20:00 | NUR ---
Pt assessed at this time. resting in the bed. denies pain or shortness of breath. lungs are clear. vital signs stable on 3 liters nasal o2. iv saline lock patent in right wrist. nsr 70s on cyanide pot hardener. tolerating diet and po fluids. 1 small liquid bowel movement without any noted bleeding. voids cloudy yellow urine. 1 assist out of the bed. call marquis in reach and needs addressed. will continue to monitor.
[2017-05-07 21:51] LABS: HEMATOCRIT 26.3 % (37-47); HEMOGLOBIN 8.8 g/dL (12.0-16.0)
[2017-05-08] VITALS (9 sets, daily range): BP systolic 125–176; BP diastolic 48–73; PULSE 69–86; TEMP 36.7–37.4; O2SAT 94–99
--- NOTE | 2017-05-08 | NUR ---
A:Nursing assessment completed. Pt resting in bed with eyes closed, wakes easily. Denies abdominal pain or nausea. Bowel sounds present x4 quadrants. Aaron hose applied to b/l le. Blood pressure elevated, pt asymptomatic. Plan to recheck. Nsr displaying on monitor. Call marquis placed within reach, verbalizes understanding to ring for assistance with needs.
--- NOTE | 2017-05-08 01:00 | NUR ---
Dr. Roche aware of elevated blood pressure. One time order received for iv Hydralazine.
[2017-05-08] MEDS ORDERED: HydrALAZINE HCL 20 MG/ML VIAL IV. STA (01:08)
[2017-05-08] MEDS ORDERED: NURSING VERBAL MED ORDER ONE (01:15)
--- NOTE | 2017-05-08 01:55 | NUR ---
Blood pressure recheck improved after Hydralazine administered.
--- NOTE | 2017-05-08 04:00 | NUR ---
A:Resting in bed with eyes closed. Vital signs stable. Denies needs.
[2017-05-08] MEDS: LEVOTHYROXINE 125 MCG TAB PO SCH (05:50)
[2017-05-08] MEDS: CITALOPRAM 20 MG TAB PO SCH (07:50)
[2017-05-08] MEDS: CALCIUM ACETATE 667MG GELCAP PO SCH ×3 (07:50→16:51)
[2017-05-08] MEDS: ISOSORBIDE MONONITRATE 60 MG TABCR PO SCH (07:51)
[2017-05-08] MEDS: ATORVASTATIN 20 MG TAB PO SCH (07:51)
[2017-05-08] MEDS: LABETALOL HCL 200 MG TAB PO SCH ×2 (07:52→21:11)
[2017-05-08] MEDS: ALLOPURINOL 100 MG TAB PO SCH (07:52)
--- NOTE | 2017-05-08 08:40 | NUR ---
A/ID: Patient assessed. A/O X4, SR on the monitor, vitals remain stable in room air. Crackles noted to bilateral lungs. IS given to patient; instruction provided. On contact for MRSA PT/OT ordered. SL right wrist. Continue to monitor.
--- NOTE | 2017-05-08 08:44 | Hospitalist Progress Note ---
Hospitalist Progress Note Date of Service May 08, 2017. (Blanca Patel PA-C) Subjective Pt evaluation today including: conversation w/ patient, physical exam, chart review, lab review, review of studies Pain: None PO Intake: Good Voiding: no voiding problems The patient was seen and examined this morning. Pt reports feeling tired today, but has no complaints of pain or discomfort. Scopes were completed yesterday without findings for any acute blood loss. She also had dialysis yesterday and received 2 U of PRBCs during it. Her session was shortened due to clotting in the lines for dialysis, but she is planned to continue on her normal schedule. She has been able to get up and use the bedside commode with assistance, had 1 BM early this morning. When he initially stands she does complain of slight lightheadedness, but that this only occurs when she first wakes up and stands up in the morning, it doesn't continue throughout the day. Additional Comments: Constitutional: No fever, sweats or chills Eyes: legally blind ENT: normal hearing, no trouble swallowing Respiratory: No cough, sputum, dyspnea at rest or on exertion Cardiovascular: No chest pain, tightness or palpitations Abdomen:+ Nausea, and bowel movements with dark red clot per nursing. Musculoskeletal: No joint pain, calf pain, swelling Neurologic: No weakness, numbness/tingling, or balance problems Psychiatric: No anxiety or depression Skin: No rash or itch (Blanca Patel PA-C) Objective Vital Signs Date Time Temp Pulse Resp B/P (MAP) Pulse Ox O2 Delivery O2 Flow Rate FiO2 05/08/17 07:35 36.7 71 16 139/63 (88) 97 2.0 05/08/17 04:00 Nasal Cannula 3.0 05/08/17 04:00 37.0 71 18 126/66 (86) 98 Nasal Cannula 2.0 05/08/17 01:54 143/48 (79) 05/08/17 00:38 176/67 (103) 05/08/17 00:00 Nasal Cannula 3.0 05/07/17 23:49 36.9 75 22 190/74 (112) 99 Nasal Cannula 2.0 05/07/17 20:00 Nasal Cannula 3.0 05/07/17 19:54 36.7 68 20 158/64 (95) 97 Nasal Cannula 2.0 05/07/17 18:15 36.4 70 19 162/84 (110) 99 Nasal Cannula 3.0 05/07/17 18:15 Nasal Cannula 3.0 05/07/17 17:58 68 16 159/43 (81) 100 Nasal Cannula 3 05/07/17 17:43 68 16 124/40 (68) 96 Nasal Cannula 3 05/07/17 17:28 67 16 124/46 (72) 98 Nasal Cannula 3 05/07/17 15:23 36.9 69 16 154/59 (90) 100 Nasal Cannula 3 05/07/17 13:30 37.0 75 144/57 (86) 05/07/17 13:30 75 144/57 05/07/17 13:15 72 140/62 05/07/17 13:00 79 149/66 05/07/17 12:45 36.8 72 18 128/60 98 3.0 05/07/17 12:45 72 128/60 05/07/17 12:30 37.0 72 18 122/60 98 3.0 05/07/17 12:30 72 122/60 05/07/17 12:15 78 123/59 05/07/17 12:15 37.0 78 18 123/59 98 3.0 05/07/17 12:00 78 112/55 05/07/17 11:45 76 92/44 05/07/17 11:30 68 120/56 05/07/17 11:30 36.8 68 18 120/56 97 3.0 05/07/17 11:15 69 116/58 05/07/17 11:15 36.7 69 18 116/58 98 3.0 05/07/17 11:00 36.7 67 18 120/57 98 3.0 05/07/17 11:00 69 113/55 05/07/17 10:45 67 120/57 05/07/17 10:30 67 124/59 05/07/17 10:05 36.7 68 129/64 (85) (Blanca Patel, CAMILO) Physical Exam Notes: Constitutional: WD/AT Eyes: PERRL, EOMI ENT: hearing grossly normal, pharynx normal, MMM Respiratory: On 3 L via NC, + crackles at bases bilaterally, no accessory muscle use or respiratory distress Cardiovascular: RRR, + systolic murmur, peripheral pulses intact Abdomen: NABS x 4, nondistended, nontender, no organomegaly Extremities: Non-tender, no pedal edema, no calf tenderness with palpation Neurologic: AAO x 3, CN II-XII intact, speech is clear Skin: normal color, warm/dry, no rash (Blanca Patel PA-C) Laboratory Results Last 24 Hours Test 05/07/17 20:00 05/07/17 21:40 05/08/17 08:29 Urine Color YELLOW Urine Appearance CLOUDY Urine pH 5.0 Urine Specific [place] 1.016 Urine Protein NEG Urine Glucose (UA) NEG Urine Ketones NEG Urine Occult Blood NEG Urine Nitrite NEG Urine Bilirubin NEG Urine Urobilinogen NEG Urine Leukocyte Esterase LARGE Urine WBC (Auto) >30 /hpf Urine RBC (Auto) 0-4 /hpf Urine Hyaline Casts (Auto) 1-5 /lpf Urine Epithelial Cells (Auto) >30 /lpf Urine Bacteria (Auto) 1+ Urine Yeast (Auto) Hemoglobin 8.8 g/dL Hematocrit 26.3 % (Blanca Patel PA-C) Assessment and Plan 82 y/o female with a history of CAD s/p stent Jun 2013, HTN, HLD, ESRD on HD, hypothyroidism, legally blind due to macular degeneration, anxiety/depression, and gout who presents with bloody diarrhea and melena x 6 days prior to arrival. GI bleed likely lower, acute blood loss anemia on anemia of chronic disease-- ongoing - No overnight events on tele, NSR in 60s-70s. - GI consulted, appreciate recs 05/07: endoscopy and colonoscopy completed: large mouth diverticula without active bleeding, and small hiatal hernia. GI plans to repeat colonoscopy prn with 2 day prep if bleeding recurs. - Continue Protonix 40 mg IV BID - s/p 2 U PRBC on 05/05, 05/07 2 U PRBC during HD - Hgb 8.8 last evening, follow serial H&Hs - Faint crackles on respiratory exam today - ordered incentive spirometry and asked her to sit up in chair more and also discussed with nursing. - PT/OT consulted for eval. HTN, HLD, CAD, angina--stable - ASA on hold due to GI bleed - Continue labetalol 200 mg PO BID, Lipitor 40 mg PO qd, Colestid 1 gm PO qd, Imdur 60 mg PO qd ESRD on HD--stable -Nephrology following -Dialysis //. Will receive epoetin during dialysis -Continue Phoslo TIDM Hypothyroidism -Continue Synthroid 125 mcg PO qd Anxiety/depression--stable -Continue Celexa 10 mg PO qd Gout -Continue allopurinol 100 mg PO qd DVT ppx: teds, scds, no chemical Code Status: Full Disposition: From home, lives with her but he is ill so possibly may need acute rehab, PT/OT ordered, CM to assist with d/c planning. (Blanca Patel, CAMILO) PA Physician Supervision Note: I interviewed and examined the patient. Discussed with Blanca Patel PAC and agree with findings and plan as documented in the note. Any exceptions or clarifications are listed here: None Patient feels slightly weak but overall is improved she had no significant change in her hemoglobin and no increase in any melena. She is scheduled for dialysis on 05/09 she'll participate in physical therapy although concerns would be that she may need some rehabilitation before returning home as she lives independently with her loss was of ill health Vital signs are stable with exception of some mild elevation of her blood pressure Cardiac exam is regular lungs are clear abdomen normoactive bowel sounds soft and nontender Likely diverticular bleed requiring transfusion status post endoscopy and colonoscopy with no clear source will follow hemoglobin in the morning perform dialysis in look to her evaluation by therapy to determine her disposition Documented By: Sourav Bishop (Sourav Bishop M.D.)
[2017-05-08 08:46] LABS: HEMATOCRIT 26.3 % (37-47); HEMOGLOBIN 8.6 g/dL (12.0-16.0)
[2017-05-08] MEDS: PANTOprazole INJ 40 MG in SYRINGE 0 ML IV SCH ×2 (09:13→21:11)
[2017-05-08 09:31] LABS: CREATININE 4.85 mg/dl (0.60-1.20); POTASSIUM 4.4 mmol/L (3.5-5.1)
--- NOTE | 2017-05-08 12:04 | Nephrology Progress Note ---
Nephrology Progress Note Date of Service May 08, 2017. Chief Complaint ESRD requiring HD Subjective Ms. Morgan was seen & examined in her hospital room this morning. She had upper and lower endoscopy yesterday. No active bleeding was identified. She reports melena overnight. Ms. Morgan denies abdominal pain. Review of Systems Constitutional: No fever Cardiovascular: No chest pain Respiratory: No dyspnea at rest Abdomen: + melena, No pain Extremities: No leg edema A complete review of systems was performed. Pertinent positives are noted above. All other systems are negative. Vital Signs Last 8 Hrs Date Time Temp Pulse Resp B/P (MAP) Pulse Ox O2 Delivery O2 Flow Rate FiO2 05/08/17 11:16 37.4 69 16 125/68 (87) 98 05/08/17 08:00 Nasal Cannula 2.0 05/08/17 07:35 36.7 71 16 139/63 (88) 97 2.0 05/08/17 04:00 Nasal Cannula 3.0 05/08/17 04:00 37.0 71 18 126/66 (86) 98 Nasal Cannula 2.0 Last Recorded Weight Weight (Kilograms): 72.000 Physical Exam General Appearance: no apparent distress Head: normocephalic, atraumatic Eyes: PERRL Neck: no adenopathy Respiratory/Chest: lungs clear Cardiovascular: regular rate, rhythm Abdomen/GI: normal bowel sounds, non tender, soft Extremities/Musculoskelatal: no calf tenderness, no pedal edema Neurologic/Psych: alert, oriented x 3 Family History Cancer Diabetes mellitus Gallbladder disease Heart disease Hypertension Lung disease Negative for CKD/ESRD Social History Smoking Status: Never smoker Marital Status: . Retired. Never a smoker Laboratory Results Past 24 Hours 05/07/17 21:40 05/08/17 08:29 05/08/17 08:29 Test 05/07/17 20:00 05/08/17 08:29 Urine Color YELLOW Urine Appearance CLOUDY (CLEAR) Urine pH 5.0 (4.5-7.5) Urine Specific [place] 1.016 (1.000-1.030) Urine Protein NEG (NEG) Urine Glucose (UA) NEG (NEG) Urine Ketones NEG (NEG) Urine Occult Blood NEG (NEG) Urine Nitrite NEG (NEG) Urine Bilirubin NEG (NEG) Urine Urobilinogen NEG (NEG) Urine Leukocyte Esterase LARGE (NEG) Urine WBC (Auto) >30 /hpf (0-5) Urine RBC (Auto) 0-4 /hpf (0-4) Urine Hyaline Casts (Auto) 1-5 /lpf (0-5) Urine Epithelial Cells (Auto) >30 /lpf (0-5) Urine Bacteria (Auto) 1+ (NEG) Urine Yeast (Auto) (NONE PRSENT) Anion Gap 7.0 mmol/L (3-11) Est Creatinine Clear Calc Drug Dose 7.6 ml/min Estimated GFR () 8.9 Estimated GFR (Non- 7.7 BUN/Creatinine Ratio 7.6 (10-20) Calcium Level 8.0 mg/dl (8.5-10.1) Allergies Coded Allergies: Bacitracin (Verified Allergy, Unknown, EYES SWELLING-OINTMENT PLACED AROUND EYE, 05/05/17) Polymyxin B (Verified Allergy, Unknown, EYES [id number] PLACED AROUND EYE, 05/05/17) Medications Current Inpatient Medications Medications (Trade) Dose Ordered Sig/Debora Route Start Time Stop Time Status Last Admin Dose Admin Pantoprazole Sodium 40 mg/ Syringe 10 ml @ 5 mls/min BID IV 05/05/17 21:00 05/10/17 20:59 05/08/17 09:13 5 MLS/MIN Allopurinol (Zyloprim Tab) 100 mg QAM PO 05/06/17 09:00 06/05/17 08:59 05/08/17 07:52 100 MG Atorvastatin Calcium (Lipitor Tab) 40 mg QAM PO 05/06/17 09:00 06/05/17 08:59 05/08/17 07:51 40 MG Calcium Acetate (Phoslo Cap) 1,334 mg TIDM PO 05/06/17 07:30 06/05/17 07:59 05/08/17 07:50 1,334 MG Isosorbide Mononitrate (Imdur Ext Rel Tab) 60 mg QAM PO 05/06/17 09:00 06/05/17 08:59 05/08/17 07:51 60 MG Labetalol HCl (Normodyne Tab) 200 mg BID PO 05/05/17 21:00 06/04/17 20:59 05/08/17 07:52 200 MG Levothyroxine Sodium (Synthroid Tab) 125 mcg DAILYBB PO 05/06/17 06:00 06/05/17 05:59 05/08/17 05:50 125 MCG Citalopram Hydrobromide (celeXA TAB) 10 mg QAM PO 05/06/17 09:00 06/05/17 08:59 05/08/17 07:50 10 MG Acetaminophen (Tylenol Tab) 650 mg Q4H PRN PO 05/05/17 21:00 06/04/17 20:59 Al Hydrox/Mg Hydrox/Simethicone (Maalox Max Susp) 15 ml Q4H PRN PO 05/05/17 21:00 06/04/17 20:59 Magnesium Hydroxide (Milk Of Magnesia Susp) 30 ml Q12H PRN PO 05/05/17 21:00 06/04/17 20:59 Zolpidem Tartrate (Ambien Tab) 5 mg HSZ PRN PO 05/05/17 21:00 06/04/17 20:59 Ondansetron HCl (Zofran Inj) 4 mg Q6H PRN IV 05/05/17 21:00 06/04/17 20:59 05/06/17 23:00 4 MG Polyethylene (Miralax Powder Packet) 17 gm DAILY PRN PO 05/05/17 21:00 06/04/17 20:59 Impression (1) GI bleed (2) Anemia (3) End-stage renal disease needing dialysis (4) Coronary artery disease Recommendations END STAGE RENAL DISEASE: -- Will provide heparin free HD tomorrow. Orders entered into EMR and HD RN notified -- Protect L arm AVF ANEMIA: -- Will provide SARAH w/ HD -- On Pantoprazole 40 mg IV BID as per primary service -- Endoscopy results reviewed. No active bleeding identified. Monitor H&H HYPERTENSION: -- Blood pressure is currently well controlled -- Continue Labetalol and Isosorbide CKD-BMD: -- Continue Phos-Lo 2 capsules w/ each meal
[2017-05-08 12:23] LABS: HEMATOCRIT 25.7 % (37-47); HEMOGLOBIN 8.6 g/dL (12.0-16.0); MEAN CELL VOLUME 96.3 fL (80-100); MEAN CORPUSCULAR HEMOGLOBIN 32.2 pg (25-34); MEAN CORPUSCULAR HGB CONC 33.5 g/dl (32-36); RED CELL DISTRIBUTION WIDTH CV 20.3 % (11.5-14.5); RED CELL DISTRIBUTION WIDTH SD 69.9 fL (36.4-46.3); WHITE BLOOD COUNT 8.94 K/uL (4.8-10.8)
[2017-05-08 12:54] LABS: MEAN PLATELET VOLUME 10.2 fL (7.4-10.4); PLATELET COUNT 94 K/uL (130-400)
--- NOTE | 2017-05-08 15:50 | NUR ---
A/ID NOTE: PT ASSESSED, RESTING IN BED. NO COMPLAINTS OF PAIN/SOB. SINUS ON THE MONITOR. 3LITERS NC ON. LUNGS CLEAR. TRACE EDEMA. +BS. TOLERATING DIET. LEFT UPPER ARM FISTULA INTACT. OOB W/ ASSIST. THERAPY IN TO SEE PATIENT. DC UNCERTAIN, CALL [facility] WITHIN REACH-WILL CONTINUE TO MONITOR.
--- NOTE | 2017-05-08 20:00 | NUR ---
A: Patient alert and oriented times four. Patient has no complaint of chest pain or shortness of breath Patient ambulates with supervision. Patient is on 2 liters of humidified O2. Patient is resting with call marquis in reach.
[2017-05-08 21:30] LABS: HEMATOCRIT 26.1 % (37-47); HEMOGLOBIN 8.6 g/dL (12.0-16.0)
--- NOTE | 2017-05-08 23:35 | NUR ---
A: Patient resting in bed with eyes closed - responds to verbal stimuli. Denies complaints upon assessment. Aware she is for dialysis tomorrow. SR 80s on tele. Removed TEDs per patient request - SCDs placed on patient at this time. Call marquis within reach. Will continue to monitor patient.
[2017-05-09] VITALS (22 sets, daily range): BP systolic 125–192; BP diastolic 37–81; PULSE 73–91; TEMP 37.1–37.5; O2SAT 91–96
--- NOTE | 2017-05-09 03:56 | NUR ---
A: Patient assisted to and from bathroom. Denies any complaints. SR 80s on tele. Call marquis within reach. SCDs on patient. Will monitor.
[2017-05-09] MEDS ORDERED: EPOETIN ALFA 10,000 UNITS/ML VIAL IV. ONE (06:00)
[2017-05-09] MEDS ORDERED: EPOETIN ALFA INJ 7,000 UNITS in SYRINGE 0 ML IV. SCH (06:00)
[2017-05-09] MEDS: LEVOTHYROXINE 125 MCG TAB PO SCH (06:17)
[2017-05-09 06:59] LABS: HEMATOCRIT 25.8 % (37-47); HEMOGLOBIN 8.6 g/dL (12.0-16.0); MEAN CELL VOLUME 96.3 fL (80-100); MEAN CORPUSCULAR HEMOGLOBIN 32.1 pg (25-34); MEAN CORPUSCULAR HGB CONC 33.3 g/dl (32-36); MEAN PLATELET VOLUME 9.8 fL (7.4-10.4); PLATELET COUNT 103 K/uL (130-400); RED CELL DISTRIBUTION WIDTH CV 18.9 % (11.5-14.5); WHITE BLOOD COUNT 9.76 K/uL (4.8-10.8)
[2017-05-09 07:29] LABS: CALCIUM 8.1 mg/dl (8.5-10.1); CREATININE 6.53 mg/dl (0.60-1.20); POTASSIUM 4.7 mmol/L (3.5-5.1)
[2017-05-09] MEDS: CALCIUM ACETATE 667MG GELCAP PO SCH ×4 (07:56→17:33)
--- NOTE | 2017-05-09 08:00 | NUR ---
Patient assessed. A/O X4, denies pain, c/o PHIPPS, crackles auscultated bilateral lung bases. 3L O2 NC. SR on the monitor. Patient scheduled for dialysis today. As per dialysis nurse, dialysis scheduled for 1400. Patient incontinent of urine. Complete linen and gown change; AM care provided. Patient assisted OOB to chair. OOB with min assist. Tolerating diet. Continue to monitor.
[2017-05-09] MEDS: PANTOprazole INJ 40 MG in SYRINGE 0 ML IV SCH (09:00)
[2017-05-09] MEDS: ALLOPURINOL 100 MG TAB PO SCH (09:07)
[2017-05-09] MEDS: LABETALOL HCL 200 MG TAB PO SCH ×2 (09:07→21:34)
[2017-05-09] MEDS ORDERED: EPOETIN ALFA 10,000 UNITS/ML VIAL IV SCH (09:15)
[2017-05-09] MEDS ORDERED: EPOETIN ALFA INJ 8,000 UNITS in SYRINGE 0 ML IV. SCH (10:00)
[2017-05-09] MEDS ORDERED: NURSING VERBAL MED ORDER ONE (11:00)
--- NOTE | 2017-05-09 11:02 | NUR ---
AM medications held for after dialysis
--- NOTE | 2017-05-09 11:03 | NUR ---
Patient off the floor to dialysis. Plan will be to transfer to 259-1 after dialysis. Report called to MEGA Leonardo All patient belongings sent to room 259-1
--- NOTE | 2017-05-09 11:51 | Progress Note ---
Subjective Date of Service: May 09, 2017. Subjective pt feels well, did participate with PT and has good performance, for dialysis today and will arrange transport to home 05/10. Has had no further melena and hgb has been acceptable Problem List Medical Problems: (1) Syncope Status: Acute Review of Systems Constitutional: No fever, No chills, No weakness Respiratory: No cough, No shortness of breath Cardiac: No chest pain, No edema Abdomen: No pain, No nausea, No diarrhea Female : No dysuria, No urinary frequency Psychiatric: No depression symptoms, No anhedonism, No anxiety Objective Vital Signs Date Time Temp Pulse Resp B/P (MAP) Pulse Ox O2 Delivery O2 Flow Rate FiO2 05/09/17 11:24 37.2 86 16 96 2.0 05/09/17 08:00 Nasal Cannula 2.0 05/09/17 07:52 37.2 86 16 174/77 (109) 96 2.0 05/09/17 03:56 Nasal Cannula 3.0 05/09/17 03:53 37.1 89 22 151/69 (96) 91 Nasal Cannula 2.0 05/08/17 23:35 37.1 83 18 169/62 (97) 94 Nasal Cannula 3.0 05/08/17 23:35 Nasal Cannula 3.0 05/08/17 21:00 37.3 86 18 154/56 (88) 94 Nasal Cannula 2.0 05/08/17 20:00 Nasal Cannula 2.0 05/08/17 16:00 Nasal Cannula 2.0 05/08/17 15:43 37.3 70 20 156/72 (100) 97 Nasal Cannula 2.0 05/08/17 15:34 70 99 05/08/17 12:00 Nasal Cannula 2.0 Physical Exam General Appearance: WD/WN, no apparent distress Eyes: normal inspection, sclerae normal Respiratory/Chest: chest non-tender, lungs clear, normal breath sounds Cardiovascular: regular rate, rhythm, no murmur Abdomen: normal bowel sounds, non tender, soft Extremities: no pedal edema, no calf tenderness Neurologic/Psychiatric: alert, oriented x 3 Laboratory Results Last 24 Hours Test 05/08/17 12:05 05/08/17 21:07 05/09/17 06:06 White Blood Count 8.94 K/uL 9.76 K/uL Red Blood Count 2.67 M/uL 2.68 M/uL Hemoglobin 8.6 g/dL 8.6 g/dL 8.6 g/dL Hematocrit 25.7 % 26.1 % 25.8 % Mean Corpuscular Volume 96.3 fL 96.3 fL Mean Corpuscular Hemoglobin 32.2 pg 32.1 pg Mean Corpuscular Hemoglobin Concent 33.5 g/dl 33.3 g/dl RDW Standard Deviation 69.9 fL 66.0 fL RDW Coefficient of Variation 20.3 % 18.9 % Platelet Count 94 K/uL 103 K/uL Mean Platelet Volume 10.2 fL 9.8 fL Platelet Estimate DECREASED Sodium Level 133 mmol/L Potassium Level 4.7 mmol/L Chloride Level 100 mmol/L Carbon Dioxide Level 27 mmol/L Anion Gap 6.0 mmol/L Blood Urea Nitrogen 50 mg/dl Creatinine 6.53 mg/dl Est Creatinine Clear Calc Drug Dose 5.6 ml/min Estimated GFR () 6.2 Estimated GFR (Non- 5.4 BUN/Creatinine Ratio 7.7 Random Glucose 84 mg/dl Calcium Level 8.1 mg/dl Assessment and Plan 82 y/o female who presents with bloody diarrhea and melena. Past history of CAD s/p stent Jun 2013, HTN, HLD, ESRD on HD, hypothyroidism, legally blind due to macular degeneration, anxiety/depression, and gout GI has been stable after transfusion, diana with acute blood loss anemia superimposed on anemia of chronic disease 05/07: endoscopy and colonoscopy completed: large mouth diverticula without active bleeding, and small hiatal hernia. bleeding felt secondary to diverticular bleed s/p 2 U PRBC on 05/05, 05/07 2 U PRBC during HD HTN, HLD, CAD, angina--clinically stable, fluid management via dialysis - ASA on hold due to GI bleed, will resume on discharge labetalol 200 mg PO BID, Lipitor 40 mg PO qd, Colestid 1 gm PO qd, Imdur 60 mg PO qd ESRD on HD Dialysis //. does receive epoetin during dialysis renal osteodystrophy treated with Phoslo TID Hypothyroidism stable Synthroid 125 mcg PO qd Anxiety/depression--seems well controlled with Celexa 10 mg PO qd Gout no symptoms while taking allopurinol 100 mg PO qd DVT ppx: teds, scds, no chemical Code Status: Full Disposition: From home, lives with her , did well in PT planning on returning home 05/10
--- NOTE | 2017-05-09 12:07 | Nephrology Progress Note ---
Nephrology Progress Note Date of Service May 09, 2017. Chief Complaint ESRD requiring HD Subjective Ms. Morgan was seen and examined in her hospital room this morning. She denies overt blood loss, abdominal pain or dyspnea. She voices no new medical concerns. Review of Systems Constitutional: No fever Cardiovascular: No chest pain Respiratory: No dyspnea at rest Abdomen: No pain, No nausea, No vomiting Extremities: No leg edema A complete review of systems was performed. Pertinent positives are noted above. All other systems are negative. Vital Signs Last 8 Hrs Date Time Temp Pulse Resp B/P (MAP) Pulse Ox O2 Delivery O2 Flow Rate FiO2 05/09/17 11:24 37.2 86 16 96 2.0 05/09/17 08:00 Nasal Cannula 2.0 05/09/17 07:52 37.2 86 16 174/77 (109) 96 2.0 Last Recorded Weight Weight (Kilograms): 71.800 Physical Exam General Appearance: no apparent distress Head: normocephalic, atraumatic Eyes: PERRL, EOMI Neck: no adenopathy Respiratory/Chest: lungs clear, no respiratory distress Cardiovascular: regular rate, rhythm Abdomen/GI: normal bowel sounds, non tender, soft Extremities/Musculoskelatal: no calf tenderness, no pedal edema Neurologic/Psych: alert, oriented x 3 Family History Cancer Diabetes mellitus Gallbladder disease Heart disease Hypertension Lung disease Negative for CKD/ESRD Social History Smoking Status: Never smoker Marital Status: . Retired. Never a smoker Laboratory Results Past 24 Hours 05/08/17 12:05 05/08/17 21:07 05/09/17 06:06 05/09/17 06:06 Test 05/08/17 12:05 05/09/17 06:06 Red Blood Count 2.67 M/uL (4.2-5.4) 2.68 M/uL (4.2-5.4) Mean Corpuscular Volume 96.3 fL (80-100) 96.3 fL (80-100) Mean Corpuscular Hemoglobin 32.2 pg (25-34) 32.1 pg (25-34) Mean Corpuscular Hemoglobin Concent 33.5 g/dl (32-36) 33.3 g/dl (32-36) RDW Standard Deviation 69.9 fL (36.4-46.3) 66.0 fL (36.4-46.3) RDW Coefficient of Variation 20.3 % (11.5-14.5) 18.9 % (11.5-14.5) Mean Platelet Volume 10.2 fL (7.4-10.4) 9.8 fL (7.4-10.4) Platelet Estimate DECREASED Anion Gap 6.0 mmol/L (3-11) Est Creatinine Clear Calc Drug Dose 5.6 ml/min Estimated GFR () 6.2 Estimated GFR (Non- 5.4 BUN/Creatinine Ratio 7.7 (10-20) Calcium Level 8.1 mg/dl (8.5-10.1) Allergies Coded Allergies: Bacitracin (Verified Allergy, Unknown, EYES SWELLING-OINTMENT PLACED AROUND EYE, 05/05/17) Polymyxin B (Verified Allergy, Unknown, EYES [id number] PLACED AROUND EYE, 05/05/17) Medications Current Inpatient Medications Medications (Trade) Dose Ordered Sig/Debora Route Start Time Stop Time Status Last Admin Dose Admin Allopurinol (Zyloprim Tab) 100 mg QAM PO 05/06/17 09:00 06/05/17 08:59 05/09/17 09:07 100 MG Atorvastatin Calcium (Lipitor Tab) 40 mg QAM PO 05/06/17 09:00 06/05/17 08:59 05/08/17 07:51 40 MG Calcium Acetate (Phoslo Cap) 1,334 mg TIDM PO 05/06/17 07:30 06/05/17 07:59 05/09/17 07:56 1,334 MG Isosorbide Mononitrate (Imdur Ext Rel Tab) 60 mg QAM PO 05/06/17 09:00 06/05/17 08:59 05/08/17 07:51 60 MG Labetalol HCl (Normodyne Tab) 200 mg BID PO 05/05/17 21:00 06/04/17 20:59 05/09/17 09:07 200 MG Levothyroxine Sodium (Synthroid Tab) 125 mcg DAILYBB PO 05/06/17 06:00 06/05/17 05:59 05/09/17 06:17 125 MCG Citalopram Hydrobromide (celeXA TAB) 10 mg QAM PO 05/06/17 09:00 06/05/17 08:59 05/08/17 07:50 10 MG Acetaminophen (Tylenol Tab) 650 mg Q4H PRN PO 05/05/17 21:00 06/04/17 20:59 Al Hydrox/Mg Hydrox/Simethicone (Maalox Max Susp) 15 ml Q4H PRN PO 05/05/17 21:00 06/04/17 20:59 Magnesium Hydroxide (Milk Of Magnesia Susp) 30 ml Q12H PRN PO 05/05/17 21:00 06/04/17 20:59 Zolpidem Tartrate (Ambien Tab) 5 mg HSZ PRN PO 05/05/17 21:00 06/04/17 20:59 Ondansetron HCl (Zofran Inj) 4 mg Q6H PRN IV 05/05/17 21:00 06/04/17 20:59 05/06/17 23:00 4 MG Polyethylene (Miralax Powder Packet) 17 gm DAILY PRN PO 05/05/17 21:00 06/04/17 20:59 Epoetin Magdy 8000 units/Syringe 0.4 ml @ 1 mls/min TODAY@1000 IV. 05/09/17 10:00 05/09/17 13:59 Pantoprazole Sodium (Protonix Tab) 40 mg QAM PO 05/09/17 14:00 05/12/17 09:01 Impression (1) GI bleed (2) Anemia (3) End-stage renal disease needing dialysis (4) Coronary artery disease Recommendations END STAGE RENAL DISEASE: -- Will provide heparin free HD today. Orders entered into EMR and HD RN notified -- Protect L arm AVF ANEMIA: -- Will provide SARAH w/ HD -- On Pantoprazole 40 mg IV BID as per primary service -- Endoscopy results reviewed. No active bleeding identified. Monitor H&H HYPERTENSION: -- Blood pressure is currently well controlled -- Continue Labetalol and Isosorbide CKD-BMD: -- Continue Phos-Lo 2 capsules w/ each meal OTHER: -- Recommend physical therapy for strengthening
--- NOTE | 2017-05-09 14:17 | NUR ---
a;pt remains in dialysis at this time.
--- NOTE | 2017-05-09 15:24 | NUR ---
A: Patient arrived to room 259 from dialysis at this time via bed with claudia. Dialysis nurse did not call report prior to transferring patient to room. Addendum: 05/09/17 at 1553 by Liz Bernnan RN A: Patient is A/Ox4. Breath sounds clear on room air. Denies pain. Daily medications given with water. Patient legally blind. Let patient know where call marquis and bedside table are, within reach. Kitchen called for late lunch tray. Will continue to monitor.
[2017-05-09] MEDS: PANTOprazole SOD 40 MG TAB PO SCH (15:42)
[2017-05-09] MEDS: ISOSORBIDE MONONITRATE 60 MG TABCR PO SCH (15:43)
[2017-05-09] MEDS: ATORVASTATIN 20 MG TAB PO SCH (15:43)
[2017-05-09] MEDS: CITALOPRAM 20 MG TAB PO SCH (15:43)
[2017-05-10] MEDS: LEVOTHYROXINE 125 MCG TAB PO SCH (06:10)
[2017-05-10 06:17] LABS: HEMATOCRIT 25.6 % (37-47); HEMOGLOBIN 8.4 g/dL (12.0-16.0); MEAN CELL VOLUME 98.1 fL (80-100); MEAN CORPUSCULAR HEMOGLOBIN 32.2 pg (25-34); MEAN CORPUSCULAR HGB CONC 32.8 g/dl (32-36); MEAN PLATELET VOLUME 9.8 fL (7.4-10.4); PLATELET COUNT 103 K/uL (130-400); RED CELL DISTRIBUTION WIDTH CV 18.6 % (11.5-14.5); WHITE BLOOD COUNT 7.73 K/uL (4.8-10.8)
[2017-05-10 07:01] LABS: CREATININE 4.15 mg/dl (0.60-1.20)
[2017-05-10 07:41] VITALS: BP 181/70; PULSE 82; TEMP 36.9; O2SAT 97
[2017-05-10] MEDS: CITALOPRAM 20 MG TAB PO SCH (08:23)
[2017-05-10] MEDS: ISOSORBIDE MONONITRATE 60 MG TABCR PO SCH (08:23)
[2017-05-10] MEDS: PANTOprazole SOD 40 MG TAB PO SCH (08:24)
[2017-05-10] MEDS: CALCIUM ACETATE 667MG GELCAP PO SCH ×2 (08:24→12:00)
[2017-05-10] MEDS: ALLOPURINOL 100 MG TAB PO SCH (08:24)
[2017-05-10] MEDS: ATORVASTATIN 20 MG TAB PO SCH (08:24)
[2017-05-10] MEDS: LABETALOL HCL 200 MG TAB PO SCH (08:25)
--- NOTE | 2017-05-10 11:19 | NUR ---
a:pt has ambulated with O2 at 3l/min via nc and supervision with wheelchair behind her. she had ambulated 100 feet. gait was steady.
[2017-05-10 11:21] VITALS: BP 128/55; PULSE 82
--- NOTE | 2017-05-10 11:22 | DIAGNOSTIC IMAGING REPORT ---
CHEST 2 VIEWS ROUTINE CLINICAL HISTORY: low grade fever, eval for any developing pneumonia COMPARISON STUDY: 05/05/2017 FINDINGS: Findings consistent with developing basilar parenchymal infiltrates. Stable chronic atelectatic atelectasis left midlung. Minimal right perihilar atelectasis. Trace pleural fluid lateral costophrenic angles. Mild stable cardiomegaly. IMPRESSION: Bibasilar parenchymal infiltrates. Mild stable cardiomegaly. The above report was generated using voice recognition software. It may contain grammatical, syntax or spelling errors. Electronically signed by: Bari Fu M.D. 05/10/2017 11:21 AM Dictated Date/Time: 05/10/2017 11:20 AM
--- NOTE | 2017-05-10 11:44 | Nephrology Progress Note ---
Nephrology Progress Note Date of Service May 10, 2017. Chief Complaint ESRD requiring HD Subjective Ms. Morgan was seen & examined in her hospital room this morning. She was visiting w/ her younger sister who is currently hospitalized due to DVT/PE. Ms. Morgan denies any overt blood loss overnight. She voices no new medical concerns this am. Review of Systems Constitutional: No fever Cardiovascular: No chest pain Respiratory: No dyspnea at rest Abdomen: No pain, No nausea, No vomiting, No hematochezia, No melena Extremities: No leg edema A complete review of systems was performed. Pertinent positives are noted above. All other systems are negative. Vital Signs Last 8 Hrs Date Time Temp Pulse Resp B/P (MAP) Pulse Ox O2 Delivery O2 Flow Rate FiO2 05/10/17 11:21 82 128/55 (79) 05/10/17 10:17 Nasal Cannula 3.0 05/10/17 07:41 36.9 82 22 181/70 (107) 97 Nasal Cannula 3.0 Last Recorded Weight Weight (Kilograms): 68.200 Physical Exam General Appearance: no apparent distress Head: normocephalic, atraumatic Eyes: PERRL, EOMI Neck: no adenopathy Respiratory/Chest: lungs clear, no respiratory distress Cardiovascular: regular rate, rhythm Abdomen/GI: normal bowel sounds, non tender, soft Extremities/Musculoskelatal: no calf tenderness, no pedal edema, + pertinent finding (AVf + bruit) Neurologic/Psych: alert, oriented x 3 Family History Cancer Diabetes mellitus Gallbladder disease Heart disease Hypertension Lung disease Negative for CKD/ESRD Social History Smoking Status: Never smoker Marital Status: . Retired. Never a smoker Laboratory Results Past 24 Hours 05/10/17 05:47 05/10/17 05:47 Test 05/10/17 05:47 Red Blood Count 2.61 M/uL (4.2-5.4) Mean Corpuscular Volume 98.1 fL (80-100) Mean Corpuscular Hemoglobin 32.2 pg (25-34) Mean Corpuscular Hemoglobin Concent 32.8 g/dl (32-36) RDW Standard Deviation 66.0 fL (36.4-46.3) RDW Coefficient of Variation 18.6 % (11.5-14.5) Mean Platelet Volume 9.8 fL (7.4-10.4) Anion Gap 5.0 mmol/L (3-11) Est Creatinine Clear Calc Drug Dose 8.6 ml/min Estimated GFR () 10.8 Estimated GFR (Non- 9.3 BUN/Creatinine Ratio 6.5 (10-20) Calcium Level 8.0 mg/dl (8.5-10.1) Allergies Coded Allergies: Bacitracin (Verified Allergy, Unknown, EYES SWELLING-OINTMENT PLACED AROUND EYE, 05/05/17) Polymyxin B (Verified Allergy, Unknown, EYES [id number] PLACED AROUND EYE, 05/05/17) Medications Current Inpatient Medications Medications (Trade) Dose Ordered Sig/Debora Route Start Time Stop Time Status Last Admin Dose Admin Allopurinol (Zyloprim Tab) 100 mg QAM PO 05/06/17 09:00 06/05/17 08:59 05/10/17 08:24 100 MG Atorvastatin Calcium (Lipitor Tab) 40 mg QAM PO 05/06/17 09:00 06/05/17 08:59 05/10/17 08:24 40 MG Calcium Acetate (Phoslo Cap) 1,334 mg TIDM PO 05/06/17 07:30 06/05/17 07:59 05/10/17 08:24 1,334 MG Isosorbide Mononitrate (Imdur Ext Rel Tab) 60 mg QAM PO 05/06/17 09:00 06/05/17 08:59 05/10/17 08:23 60 MG Labetalol HCl (Normodyne Tab) 200 mg BID PO 05/05/17 21:00 06/04/17 20:59 05/10/17 08:25 200 MG Levothyroxine Sodium (Synthroid Tab) 125 mcg DAILYBB PO 05/06/17 06:00 06/05/17 05:59 05/10/17 06:10 125 MCG Citalopram Hydrobromide (celeXA TAB) 10 mg QAM PO 05/06/17 09:00 06/05/17 08:59 05/10/17 08:23 10 MG Acetaminophen (Tylenol Tab) 650 mg Q4H PRN PO 05/05/17 21:00 06/04/17 20:59 Al Hydrox/Mg Hydrox/Simethicone (Maalox Max Susp) 15 ml Q4H PRN PO 05/05/17 21:00 06/04/17 20:59 Magnesium Hydroxide (Milk Of Magnesia Susp) 30 ml Q12H PRN PO 05/05/17 21:00 06/04/17 20:59 Zolpidem Tartrate (Ambien Tab) 5 mg HSZ PRN PO 05/05/17 21:00 06/04/17 20:59 Ondansetron HCl (Zofran Inj) 4 mg Q6H PRN IV 05/05/17 21:00 06/04/17 20:59 05/06/17 23:00 4 MG Polyethylene (Miralax Powder Packet) 17 gm DAILY PRN PO 05/05/17 21:00 06/04/17 20:59 Pantoprazole Sodium (Protonix Tab) 40 mg QAM PO 05/09/17 14:00 05/12/17 09:01 05/10/17 08:24 40 MG Impression (1) GI bleed (2) Anemia (3) End-stage renal disease needing dialysis (4) Coronary artery disease Recommendations END STAGE RENAL DISEASE: -- Ms. Morgan was dialyzed yesterday for 3.5 hours without complication. Volume status & electrolyte balance are acceptable. No acute indication for HD today -- Protect L arm AVF -- If discharge is anticipated patient will need to return to her regular [facility] HD schedule at [facility] ([phone]) ANEMIA: -- Will provide SARAH w/ HD -- On Pantoprazole 40 mg IV BID as per primary service -- Endoscopy results reviewed. No active bleeding identified. Monitor H&H HYPERTENSION: -- Blood pressure is currently well controlled -- Continue Labetalol and Isosorbide CKD-BMD: -- Continue Phos-Lo 2 capsules w/ each meal OTHER: -- Recommend physical therapy for strengthening
[2017-05-10 13:58] VITALS: BP 128/55; PULSE 82; TEMP 36.9; O2SAT 97
[2017-05-10] MEDS ORDERED: MRLP17X PO (14:16)
[2017-05-10] MEDS ORDERED: AMOX1TAB42 PO (14:16)
[2017-05-10] MEDS ORDERED: AMOXICILLIN/CLAVULANATE TAB 500 MG TAB PO SCH (14:30)
--- NOTE | 2017-05-10 14:33 | Discharge Instructions ---
Discharge Instructions Date of Service May 10, 2017. Admission Reason for Admission: GI Bleeding Discharge Discharge Diagnosis / Problem: GI bleeding of uncertain cause Discharge Goals Goal(s): Learn about illness, Diagnostic testing, Therapeutic intervention Activity Recommendations Activity Limitations: resume your previous activity (as tolerated) . Instructions / Follow-Up Instructions / Follow-Up From Dr. Giraldo - 1. For possible pneumonia as seen on your chest x-ray - * take augmentin (amoxicillin-clavulanate) 500mg once daily for 9 days * start this TOMORROW on 05/11/17 * on your dialysis days be sure to take this AFTER your dialysis treatment * you will need a repeat chest x-ray in about 1 month to ensure the pneumonia has cleared 2. For your anemia - * stop your aspirin for now * at your next dialysis session or at the time of your follow-up appointment with Dr. Tran Valdez you will need a repeat blood count ("CBC") * if the CBC is ok your doctors will likely allow you to resume your aspirin 3. Follow-up appointments - * report to the [facility] on Thursday of this week for dialysis as usual * see Dr. Tran Valdez within 5 days * see your glass carrier (kidney specialist) within 5 days * see Dr. Hector Erickson [facility] - within 1-2 weeks 4. Return to [facility] if - * you develop fever over 100.5 degrees * you have worsening shortness of breath * you see bright red blood in the stools or black/tarry stools * you are requiring more oxygen than your usual 3 liters * any other concerns 5. For constipation - * please continue on your metamucil * you may also want to add [id number] miralax one serving daily 6. Diverticulosis - * this is a condition often associated with low fiber in the diet * the best supplement to take to prevent any worsening of the disease is to continue your metamucil every day as previous Current Hospital Diet Patient's current hospital diet: Renal Diet Discharge Diet Recommended Diet: Renal Diet Procedures Procedures Performed: EGD, Colonoscopy - both without active bleeding. Colonoscopy showed a fair amount of diverticulosis and retained stool. Pending Studies Studies pending at discharge: no Medical Emergencies . Who to Call and When: Medical Emergencies: If at any time you feel your situation is an emergency, please call 911 immediately. . Non-Emergent Contact Non-Emergency issues call your: Secretary Of Police Call Non-Emergent contact if: temperature is above 100.5, you have any medication questions . . "Provider Documentation" section prepared by Cory Giraldo. . VTE Core Measure Inpt VTE Proph given/why not?: SCD's, Contraindicated
--- NOTE | 2017-05-10 15:29 | NUR ---
A: Patient discharged. Discharge information given to patient and daughter. SL removed intact from right forearm. Dressed patient. Portable oxygen put on 3L. All belongings and paperwork sent with patient. Patient left the floor at this time with daughter and volunteer via wheelchair.
--- NOTE | 2017-05-10 20:56 | Discharge Summary ---
Discharge Summary Date of Service May 10, 2017. Discharge Summary Admission Date: May 05, 2017 at 20:53 Discharge Date: May 10, 2017 Discharge Disposition: Home Principal Diagnosis: acute blood loss anemia 2nd to GI bleeding, undetermined source Problems/Secondary Diagnoses: 1. ESRD on HD, //Thursday 2. HTN 3. CAD 4. hypothyroidism 5. hyperlipidemia 6. diverticulosis 7. chronic hypoxic respiratory failure on home O2 3 liters via NC 8. abnormal chest CT and chest x-rays with bibasilar infiltrates - etiology? follow-up advised Immunizations: Have You Had Influenza Vaccine: Yes Influenza Vaccine Date: Feb 10, 2012 History of Tetanus Vaccine?: No History of Pneumococcal: No History of Hepatitis B Vaccine: No Procedures: 1. PRBCs x 4 units 2. EGD - normal - Hector Jones MD 3. colonoscopy - Hector Jones MD Impression: - Preparation of the colon was unsatisfactory. - Diverticulosis in the sigmoid colon, in the descending colon and in the ascending colon. - Stool in the entire examined colon. - The examined portion of the ileum was normal. - The examination was otherwise normal. 4. CT abd/pelvis - IMPRESSION: 1. Diverticulosis including a large sigmoid colon diverticula. No evidence of diverticulitis. No acute intra-abdominal pathology. 2. Ventral incisional hernia in the infraumbilical midline abdominal wall containing a limited loop of small bowel. No bowel obstruction or evidence of strangulation. 3. Extensive bibasilar atelectasis. 4. Small left pleural effusion with suggestion of left pleural thickening. This could suggest a chronic effusion, acute or chronic inflammatory change, or infection. Correlate clinically. 5. Marked bilateral renal atrophy. Consultations: 1. gastroenterology - Hector Jones MD 2. nephrology - Alfa Llanes MD 3. PT, OT Medication Reconciliation New Medications: Amoxicillin & Pot Clavulanate (Amoxicillin/Clavulanate P) 1 Tab Tab 500 MG PO DIRECTED for 9 Days, #9 TAB 0 Refills take daily; on dialysis days be sure to take AFTER your dialysis session Polyethylene (Miralax) 17 Gm Pow 17 GM PO DAILY, #1 BTL 2 Refills Continued Medications: Allopurinol (Zyloprim) 100 Mg Tab 100 MG PO QAM, TAB Atorvastatin (Lipitor) 40 Mg Tab 40 MG PO QAM, TAB B-Complex W/ C & Folic Acid (Porter Caps) 1 Cap Cap 1 CAP PO DAILY AT LUNCH Calcium Acetate (Phoslo 667 Mg) 667 Mg Cap 2 CAP PO TIDM Citalopram Hydrobromide (Citalopram Hydrobromide) 10 Mg Tab 10 MG PO QAM Colestipol Hcl (Colestid) 1 Gm Tab 1 GM PO DAILY Isosorbide Mononitrate (Imdur Ext Rel) 60 Mg Tab 60 MG PO QAM ON DIALYSIS DAYS, ONLY 1/2 TABLET EVERY MORNING. Labetalol HCl (Labetalol HCl) 300 Mg Tab 300 MG PO AMPM ON DIALYSIS DAYS, ONLY 1 TABLET QPM. NO MORNING DOSE. Levothyroxine Sodium (Levothyroxine Sodium) 125 Mcg Tab 1 TAB PO QAM for 90 Days, #90 TAB 3 Refills Methylcellulose (Laxative) (Citrucel) Unknown Strength Tab 1 TAB PO DAILY Discontinued Medications: Aspirin (Aspirin Ec) 81 Mg Tab 81 MG PO QAM Referrals At Discharge Follow up Referrals: Manager Of Administration Referral - Within 1-2 Weeks with Hector Jones M.D. Discharge Exam Physical Exam: General Appearance: no apparent distress ENT: pharynx normal Neck: no JVD Respiratory/Chest: no respiratory distress, no accessory muscle use, + crackles (b/l bases, worse on right) Cardiovascular: regular rate, rhythm, no gallop, normal peripheral pulses Abdomen / GI: normal bowel sounds, non tender, soft, no organomegaly Extremities: no pedal edema, + pertinent finding (left arm AV fistula with + bruit) Neurologic/Psychiatric: alert, oriented x 3 Hospital Course HISTORY OF PRESENT ILLNESS: 82 years old female with PMHx of hypertension, hyperlipidemia, hypothyroidism, degenerative disc disease of the lumbar spine with spinal stenosis, macular degeneration with legally blind status, gout, anxiety, depression and end-stage renal disease on hemodialysis every Thursday// Thursday - last dialysis was today - who presented to the ED with one-week history of lower GI bleed. Patient has been having multiple episodes of bloody diarrhea mixed with black stools for the past 6 days. Denies any vomiting or abdominal pain or fever. Patient did not want to tell her family because she did not one-on-one the [employer]. Daughter is at her bedside and angry because of that. Patient does have generalized weakness and fatigue but denies any other associated symptoms like chest pain or palpitation. Admit to chronic shortness of breath she is on home oxygen but other than that no active bleeding in her urine. HOSPITAL COURSE: Despite the acute blood loss anemia and GI bleeding the patient remained hemodynamically stable throughout her hospitalization. She received in total 4 units of PRBCs. Hemodialysis needs were managed by [facility] nephrology. She was seen in consult by Dr. Hector Jones, [facility], who performed both EGD and colonoscopy. EGD was entirely normal. Colonoscopy showed fairly extensive diverticular disease in the setting of a poor prep. No areas of active bleeding were seen. Following her scopes and her PRBC infusions her H/H remained stable in the 8- 8.5 range for several days prior to discharge. The exact cause of her GI bleeding was uncertain and she may ultimately undergo capsule endoscopy by Dr. Jones in the outpatient setting. At discharge her ASPIRIN HAS BEEN HELD. A repeat CBC within a few days of discharge is recommended to ensure stability of her hemoglobin. During this stay the patient had low-grade fevers (37.5-37.9) along with bibasilar rales. CT abd/pelvis showed extensive bibasilar infiltrates and chest x-rays showed similar findings. The cause of these infiltrates is uncertain. The patient denied any significant dysphagia or recent aspiration event. It is plausible she had pneumonia concurrently with the GI bleeding but she never had anorexia, cough, or other typical pneumonia symptoms. To cover for possible pneumonia she was given a 10-day course of augmentin at discharge. In light of her chronic hypoxic respiratory failure and these infiltrates it is recommended she see pulmonary as an outpatient. Total Time Spent: Greater than 30 minutes This includes examination of the patient, discharge planning, medication reconciliation, and communication with other providers. Discharge Instructions Please refer to the electronic Patient Visit Report (Discharge Instructions) for additional information. Follow-Up see Dr. Anant Valdez, PCP - 05/15/17 [facility], [facility] - 05/12/[address] Hector Jones, [facility], within 2 weeks Additional Copies To Anant Brown M.D.; Alfa Llanes M.D.; Hector Jones M.D.
[2017-09-25] MEDS ORDERED: [UNRECOGNIZED DRUG - REMARK] (13:50)
[2017-09-25] MEDS ORDERED: ACET-1311 PO (13:50)
[2017-09-25] MEDS ORDERED: CITRACAL (13:51)
[2017-10-02] MEDS ORDERED: OXYC-57 PO (17:11)
== END 2017-05-10 15:32 | disposition home or self-care (01) | DRG 377 ==
LOC: C.EDB 13:50 → C.2T 20:53 → ENRESERV 21:11 → C.MS2W 05-09 11:23
PROVIDERS: ADMIT Internal Medicine; ATTEND Internal Medicine
PROC: 0DJ08ZZ Inspection of Upper Intestinal Tract, Via Natural or Artificial Opening Endoscopic (ICD-10-PCS; principal; 2017-05-07 15:19)
PROC: 0DJD8ZZ Inspection of Lower Intestinal Tract, Via Natural or Artificial Opening Endoscopic (ICD-10-PCS; principal; 2017-05-07 15:19)
DX: K92.1 Melena (principal); N18.6 End stage renal disease; D62 Acute posthemorrhagic anemia; J96.11 Chronic respiratory failure with hypoxia; I50.9 Heart failure, unspecified; I25.10 Atherosclerotic heart disease of native coronary artery without angina pectoris; Z99.2 Dependence on renal dialysis; I11.0 Hypertensive heart disease with heart failure; E03.9 Hypothyroidism, unspecified; M1A.9XX0 Chronic gout, unspecified, without tophus (tophi); F41.9 Anxiety disorder, unspecified; M47.896 Other spondylosis, lumbar region; H35.30 Unspecified macular degeneration; H54.8 Legal blindness, as defined in USA; M48.061 Spinal stenosis, lumbar region without neurogenic claudication; Z95.5 Presence of coronary angioplasty implant and graft; K57.30 Diverticulosis of large intestine without perforation or abscess without bleeding; R91.8 Other nonspecific abnormal finding of lung field

== ENCOUNTER 2017-06-04 21:37 | Observation (INO) | payer OTHER, MEDICARE ==
[~2017-06-04] VITALS: Ht 149.9 cm; Wt 69.6 kg
[~2017-06-04 21:37] MED LIST changes: -ASPI81TA28 PO; +COLE1TAB PO; +METH500T3 PO; +MRLP17X PO
[2017-06-04] MEDS ORDERED: ACETAMINOPHEN 500 MG TAB PO STA (22:36)
[2017-06-04] MEDS ORDERED: OXYCODONE HCL IR 5 MG TAB (IMMEDIATE RELEASE) PO STA (22:36)
[2017-06-05] VITALS (7 sets, daily range): BP systolic 126–180; BP diastolic 70–108; PULSE 63–84; TEMP 36.7–37.4; O2SAT 94–100; Ht 149.9 cm; Wt 69.6 kg
[2017-06-05 01:16] LABS: BASO % 0.3 %; BASO ABS # 0.03 K/uL (0-0.2); EOS % 1.2 %; EOS ABS # 0.12 K/uL (0-0.5); HEMATOCRIT 39.5 % (37-47); HEMOGLOBIN 12.5 g/dL (12.0-16.0); IG# 0.02 K/uL (0.00-0.02); LYMPH % 6.7 %; LYMPH ABS # 0.66 K/uL (1.2-3.4); MEAN CELL VOLUME 105.9 fL (80-100); MEAN CORPUSCULAR HEMOGLOBIN 33.5 pg (25-34); MEAN CORPUSCULAR HGB CONC 31.6 g/dl (32-36); MEAN PLATELET VOLUME 9.6 fL (7.4-10.4); MONO % 9.1 %; NEUT % 82.5 %; NEUT ABS # 8.14 K/uL (1.4-6.5); PLATELET COUNT 143 K/uL (130-400); RED CELL DISTRIBUTION WIDTH CV 17.4 % (11.5-14.5); RED CELL DISTRIBUTION WIDTH SD 67.1 fL (36.4-46.3); WHITE BLOOD COUNT 9.87 K/uL (4.8-10.8)
[2017-06-05] MEDS ORDERED: ACETAMINOPHEN 325 MG TAB PO PRN (01:30)
[2017-06-05] MEDS ORDERED: ONDANSETRON INJ 2 MG/ML 2 ML VIAL IV PRN (01:30)
[2017-06-05] MEDS ORDERED: ALUMINUM/MAGNESIUM/SIMETH (MAALOX MAX) 30 ML UDC PO PRN (01:30)
[2017-06-05] MEDS ORDERED: POLYETHYLENE (MIRALAX) 17 GM PACK PO PRN (01:30)
[2017-06-05] MEDS ORDERED: MAGNESIUM HYDROXIDE SUSP 30 ML UDC PO PRN (01:30)
[2017-06-05 01:34] LABS: ALBUMIN 3.4 gm/dl (3.4-5.0); CALCIUM 8.8 mg/dl (8.5-10.1); CREATININE 4.35 mg/dl (0.60-1.20); POTASSIUM 4.5 mmol/L (3.5-5.1)
[2017-06-05 01:37] LABS: TOTAL PROTEIN 7.9 gm/dl (6.4-8.2)
--- NOTE | 2017-06-05 01:39 | EMERGENCY ROOM VISIT NOTE ---
History Report prepared by Valarie: Azucena Rao Under the Supervision of: Dr. Navi Palencia M.D. 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 The patient was walking with an empty glass back to the kitchen when she fell to the ground. She thinks that she might have turned too fast, but is not sure how she fell. She fell onto her face and hit her nose. She did have a nosebleed. She did not feel dizzy. She reports left shoulder pain. She denies any abdominal pain or leg pain. She is not on any blood thinners. She is on oxygen at home. She is on dialysis which she had today. Source of History: patient Onset: BANQUET DIRECTOR Position: other (global) Quality: other (fall) Timing: other (episodic) Associated Symptoms: No abdominal pain Note: Pt reports left shoulder pain, nose bleed. Pt denies leg pain. Review of Systems See HPI for pertinent positives & negatives. A total of 10 systems reviewed and were otherwise negative. Past Medical & Surgical Medical Problems: (1) Acute kidney injury (2) Anemia (3) CAD (coronary artery disease) (4) CHEST PAIN,CAD,ESRD (5) chf exac /ESRD/uremic (6) DEHYD.,UTI, MSC, CAD (7) DEHYDRATION, MSC, UTI (8) ESRD (end stage renal disease) on dialysis (9) GI bleed (10) Gout (11) HLD (hyperlipidemia) (12) HTN (hypertension) (13) Hypothyroidism (14) Impaired ambulation (15) Metabolic acidosis (16) Pleural effusion on right (17) Proteinuria (18) Secondary hyperparathyroidism of renal origin (19) SYNCOPE,ESRD,CAD (20) Volume overload Family History Cancer Diabetes mellitus Gallbladder disease Heart disease Hypertension Lung disease Social History Smoking Status: Never Smoker Marital Status: Housing Status: lives with family Current/Historical Medications Scheduled Allopurinol (Zyloprim), 100 MG PO QAM Atorvastatin (Lipitor), 40 MG PO QAM B-Complex W/ C & Folic Acid (Labolt Caps), 1 CAP PO DAILY AT LUNCH Calcium Acetate (Phoslo 667 Mg), 2 CAP PO TIDM Citalopram Hydrobromide (Citalopram Hydrobromide), 10 MG PO QAM Colestipol Hcl (Colestid), 1 GM PO DAILY Isosorbide Mononitrate (Imdur Ext Rel), 60 MG PO QAM Labetalol HCl (Labetalol HCl), 300 MG PO AMPM Levothyroxine Sodium (Levothyroxine Sodium), 1 TAB PO QAM Scheduled PRN Acetaminophen (Mapap), 650 MG PO Q4H PRN for Pain or Fever Polyethylene (Miralax), 17 GM PO DAILY PRN for Constipation Allergies Coded Allergies: Bacitracin (Verified Allergy, Unknown, EYES SWELLING-OINTMENT PLACED AROUND EYE, 06/05/17) Polymyxin B (Verified Allergy, Unknown, EYES [id number] PLACED AROUND EYE, 06/05/17) Physical Exam Vital Signs Date Time Temp Pulse Resp B/P (MAP) Pulse Ox O2 Delivery O2 Flow Rate FiO2 06/05/17 00:54 84 16 206/92 99 Nasal Cannula 3.0 06/04/17 23:20 83 16 215/84 99 Nasal Cannula 3.0 06/04/17 21:39 36.9 81 18 220/102 99 Nasal Cannula 3.0 Physical Exam GENERAL: Patient is a healthy-appearing well-nourished female HEAD: Normocephalic atraumatic EYES: Ocular movements intact pupils equal and react to light NOSE: Dried blood in the right nares. OROPHARYNX mucous membranes are moist no exudates present no erythema or edema present no blood running down the back of the throat NECK: Supple no nuchal rigidity CHEST: Good equal expansion LUNGS: Clear and equal to auscultation CARDIAC: Normal S1 and S2 ABDOMEN: Soft nontender no guarding BACK: No CVA tenderness EXTREMITIES: Right shoulder is swollen otherwise no pain upon palpation normal muscle strength in all groups no clubbing cyanosis or edema NEURO: Patient is following commands and answering questions appropriately. Alert and oriented x3 Cranial Nerves 2-12 grossly intact Medical Decision & Procedures ER Provider Diagnostic Interpretation: 1 view chest X-ray as interpreted by me shows enlarged heart, chronic congestive changes, right humeral head fracture. 2 view right humerus X-ray as interpreted by me shows humeral head fracture, no dislocation, no subluxation 2 view right shoulder X-ray as interpreted by me shows humeral head fracture, no dislocation, no subluxation. Radiology results as stated below per my review and [facility] radiologist interpretation: CT Facial: No evidence of acute facial fracture. Paranasal sinuses well-aerated. Partial opacification right mastoid air cells. CT Head: No ICH, mass effect, or edema. No skull fracture. Atrophy/white matter changes. 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 Partial opacification right mastoid air cells. Hyperostosis frontalis internus. Comparison study dated 10/19/2014 Laboratory Results 06/05/17 01:00 Red Blood Count 3.73, Mean Corpuscular Volume 105.9, Mean Corpuscular Hemoglobin 33.5, Mean Corpuscular Hemoglobin Concent 31.6, Mean Platelet Volume 9.6, Neutrophils (%) (Auto) 82.5, Lymphocytes (%) (Auto) 6.7, Monocytes (%) ( Auto) 9.1, Eosinophils (%) (Auto) 1.2, Basophils (%) (Auto) 0.3, Neutrophils # ( Auto) 8.14, Lymphocytes # (Auto) 0.66, Monocytes # (Auto) 0.90, Eosinophils # ( Auto) 0.12, Basophils # (Auto) 0.03 06/05/17 01:00 Test 06/05/17 00:00 06/05/17 01:00 Urine Color DK YELLOW Urine Appearance CLOUDY (CLEAR) Urine pH 5.0 (4.5-7.5) Urine Specific [place] 1.022 (1.000-1.030) Urine Protein 2+ (NEG) Urine Glucose (UA) NEG (NEG) Urine Ketones TRACE (NEG) Urine Occult Blood NEG (NEG) Urine Nitrite NEG (NEG) Urine Bilirubin NEG (NEG) Urine Urobilinogen NEG (NEG) Urine Leukocyte Esterase MODERATE (NEG) Urine WBC (Auto) >30 /hpf (0-5) Urine RBC (Auto) 0-4 /hpf (0-4) Urine Hyaline Casts (Auto) 1-5 /lpf (0-5) Urine Epithelial Cells (Auto) >30 /lpf (0-5) Urine Bacteria (Auto) 1+ (NEG) Urine Pathogenic Casts /lpf (0) Urine Yeast (Auto) (NONE PRSENT) White Blood Count 9.87 K/uL (4.8-10.8) Red Blood Count 3.73 M/uL (4.2-5.4) Hemoglobin 12.5 g/dL (12.0-16.0) Hematocrit 39.5 % (37-47) Mean Corpuscular Volume 105.9 fL (80-100) Mean Corpuscular Hemoglobin 33.5 pg (25-34) Mean Corpuscular Hemoglobin Concent 31.6 g/dl (32-36) Platelet Count 143 K/uL (130-400) Mean Platelet Volume 9.6 fL (7.4-10.4) Neutrophils (%) (Auto) 82.5 % Lymphocytes (%) (Auto) 6.7 % Monocytes (%) (Auto) 9.1 % Eosinophils (%) (Auto) 1.2 % Basophils (%) (Auto) 0.3 % Neutrophils # (Auto) 8.14 K/uL (1.4-6.5) Lymphocytes # (Auto) 0.66 K/uL (1.2-3.4) Monocytes # (Auto) 0.90 K/uL (0.11-0.59) Eosinophils # (Auto) 0.12 K/uL (0-0.5) Basophils # (Auto) 0.03 K/uL (0-0.2) RDW Standard Deviation 67.1 fL (36.4-46.3) RDW Coefficient of Variation 17.4 % (11.5-14.5) Immature Granulocyte % (Auto) 0.2 % Immature Granulocyte # (Auto) 0.02 K/uL (0.00-0.02) Anion Gap 4.0 mmol/L (3-11) Est Creatinine Clear Calc Drug Dose 8.1 ml/min Estimated GFR () 10.2 Estimated GFR (Non- 8.8 BUN/Creatinine Ratio 8.5 (10-20) Calcium Level 8.8 mg/dl (8.5-10.1) Total Bilirubin 0.6 mg/dl (0.2-1) Direct Bilirubin 0.1 mg/dl (0-0.2) Aspartate Amino Transf (AST/SGOT) 25 U/L (15-37) Alanine Aminotransferase (ALT/SGPT) 26 U/L (12-78) Alkaline Phosphatase 142 U/L (45-117) Total Protein 7.9 gm/dl (6.4-8.2) Albumin 3.4 gm/dl (3.4-5.0) Lipase 365 U/L (73-393) Labs reviewed by ED physician. Medications Administered Medications (Trade) Dose Ordered Sig/Debora Route Start Time Stop Time Status Last Admin Dose Admin Oxycodone HCl (Roxicodone Immediate Rel Tab) 5 mg NOW STAT PO 06/04/17 22:36 06/04/17 22:39 DC 06/04/17 22:46 5 MG Acetaminophen (Tylenol Tab) 1,000 mg NOW STAT PO 06/04/17 22:36 06/04/17 22:39 DC 06/04/17 22:45 1,000 MG ED Course 2229: Past medical records reviewed. The patient was evaluated in room A10. A complete history and physical examination was performed. 2236: Acetaminophen 1000 mg PO, Oxycodone HCl 5 mg PO. 2349: I reevaluated the patient. She is resting comfortably. I discussed the results with her and her family. They would like to speak with the lining caser for options on further care. 0030: The patient and her family would like the patient to be admitted to the hospital. She will be evaluated for further management. 0046: I discussed the patient's case with MYLES Marrufo hospitalist. He has agreed to evaluate the patient for further management and care. Medical Decision Differential diagnosis: Etiologies such as fracture, dislocation, intra-abdominal, pneumothorax, intrathoracic , intracranial, neurologic, as well as other traumatic pathologies were entertained. This is a 82-year-old female who presents emergency department after a fall. The patient is complaining of right shoulder pain. The patient does have a humeral head fracture. CAT scan of the head and face are negative. Based on the findings I am concerned that the patient we'll not be able to use her walker therefore I did discuss the case with the hospitalist service who agreed to admit the patient. Patient was in agreement with the treatment plan. Head Trauma GCS Score: 15 Medication Reconcilliation Current Medication List: was personally reviewed by me Blood Pressure Screening Patient's blood pressure: Elevated blood pressure Referred to hospitalist. Consults Time Called: 39 Consulting Physician: MYLES Marrufo hospitalist Returned Call: 45 I discussed the patient's case with him. He has agreed to evaluate the patient for further management and care. Impression Primary Impression: Fall Additional Impression: Humeral head fracture Scribe Attestation The scribe's documentation has been prepared under my direction and personally reviewed by me in its entirety. I confirm that the note above accurately reflects all work, treatment, procedures, and medical decision making performed by me. Departure Information Dispostion Being Evaluated By Hospitalist Prescriptions Polyethylene (Miralax) 17 Gm Pow 17 GM PO DAILY Y for Constipation for 30 Days, #30 DOSE Prov: Blanca Patel PA-C 06/05/17 Acetaminophen (MAPAP) 325 Mg Tab 650 MG PO Q4H Y for Pain or Fever for 30 Days, #240 TAB Prov: Blanca Patel PA-C 06/05/17 Referrals Anant Brown M.D. (PCP) Patient Instructions My [facility] Health Problem Qualifiers Primary Impression: Fall Encounter type: initial encounter Qualified Codes: W19.XXXA - Unspecified fall, initial encounter Additional Impression: Humeral head fracture Encounter type: initial encounter Fracture type: closed Laterality: right Qualified Codes: S42.291A - Other displaced fracture of upper end of right humerus, initial encounter for closed fracture
--- NOTE | 2017-06-05 05:06 | History and Physical ---
History & Physical Date & Time of Service: Jun 05, 2017 at 04:52 Chief Complaint: Humeral Head Fracture, Impaired Ambulation Primary Care Physician: Anant Brown M.D. History of Present Illness Source: patient, clinic records, hospital records This is an 82 yo f with a h/o ESRD (HD on T/R/S), PCI, CAD, HLD, HTN that is presenting to us after a fall which occurred earlier in the day. The patient was reaching for a glass near the sink and when she turned around she tripped on her feet and fell forward. The patient fell onto her right shoulder and face. She did not lose consciousness nor was she presyncopal, had chest pain or SOB. She denies N&V or headache at this time. She was evaluated in the ED and found to have a right humeral head fracture. Patient is now unable to ambulate as she is very restricted without the use of her walker and it is now unsafe for d/c home. Patient states pain is currently a 5/10 ache however manageable if she were to not move it. Past Medical/Surgical History ESRD HTN HLD Hypothyroidism DDD with spinal stenosis Macular degeneration with legally blind Gout CAD s/p LAD stent 2013 Family History Cancer Diabetes mellitus Gallbladder disease Heart disease Hypertension Lung disease Social History Smoking Status: Never Smoker Smokeless Tobacco Use: No Alcohol Use: none Drug Use: none Marital Status: Housing status: senior living Immunizations History of Influenza Vaccine: Yes Influenza Vaccine Date: Feb 10, 2012 History of Tetanus Vaccine?: No History of Pneumococcal: No History of Hepatitis B Vaccine: No Multi-Drug Resistant Organisms History of MDRO: Yes Type of MDRO: MRSA Allergies Coded Allergies: Bacitracin (Verified Allergy, Unknown, EYES SWELLING-OINTMENT PLACED AROUND EYE, 06/05/17) Polymyxin B (Verified Allergy, Unknown, EYES [id number] PLACED AROUND EYE, 06/05/17) Home Medications Scheduled Allopurinol (Zyloprim), 100 MG PO QAM Atorvastatin (Lipitor), 40 MG PO QAM B-Complex W/ C & Folic Acid ([place] Caps), 1 CAP PO DAILY AT LUNCH Calcium Acetate (Phoslo 667 Mg), 2 CAP PO TIDM Citalopram Hydrobromide (Citalopram Hydrobromide), 10 MG PO QAM Colestipol Hcl (Colestid), 1 GM PO DAILY Isosorbide Mononitrate (Imdur Ext Rel), 60 MG PO QAM Labetalol HCl (Labetalol HCl), 300 MG PO AMPM Levothyroxine Sodium (Levothyroxine Sodium), 1 TAB PO QAM Review of Systems Constitutional: No fever, No chills, No sweats Eyes: + problem reported (legally blind), No worsening of vision ENT: No hearing loss Respiratory: No cough, No sputum, No wheezing, No shortness of breath, No dyspnea on exertion, No dyspnea at rest Cardiovascular: No chest pain, No palpitations Abdomen: + problem reported (fecal incontinence), No pain, No nausea, No vomiting, No diarrhea, No constipation Musculoskeletal: + joint pain (shoulder) Genitourinary - Female: + problem reported (urinates once daily), No dysuria Neurologic: + weakness, + balance problems, No numbness/tingling Psychiatric: No depression symptoms, No anxiety Endocrine: No fatigue Hematologic / Lymphatic: No abnormal bleeding/bruising Integumentary: No rash Physical Exam Vital Signs Date Time Temp Pulse Resp B/P (MAP) Pulse Ox O2 Delivery O2 Flow Rate FiO2 06/05/17 02:15 36.8 84 18 180/75 (110) 100 Nasal Cannula 4.0 06/05/17 01:54 82 18 162/102 98 06/05/17 00:54 84 16 206/92 99 Nasal Cannula 3.0 06/04/17 23:20 83 16 215/84 99 Nasal Cannula 3.0 06/04/17 21:39 36.9 81 18 220/102 99 Nasal Cannula 3.0 General Appearance: no apparent distress Head: normocephalic, atraumatic Eyes: normal inspection ENT: normal ENT inspection Neck: supple Respiratory/Chest: normal breath sounds, no respiratory distress, no accessory muscle use Cardiovascular: regular rate, rhythm, normal peripheral pulses, + systolic murmur (3/6) Abdomen/GI: normal bowel sounds, non tender, soft Back: normal inspection, no CVA tenderness, normal range of motion Extremities/Musculoskelatal: normal inspection, no calf tenderness, no pedal edema, normal range of motion, + pertinent finding (right shoulder is wraped in ice pack, no obvious deformity and no dimpling appreciated, limited ROM of right shoulder secondary to pain but is neurovascularly intact) Neurologic/Psych: alert, normal mood/affect, oriented x 3 Skin: normal color, warm/dry, no rash Lymphatic: no adenopathy Diagnostics Laboratory Results Results Past 24 Hours Test 06/05/17 01:00 Range/Units White Blood Count 9.87 4.8-10.8 K/uL Red Blood Count 3.73 4.2-5.4 M/uL Hemoglobin 12.5 12.0-16.0 g/dL Hematocrit 39.5 37-47 % Mean Corpuscular Volume 105.9 80-100 fL Mean Corpuscular Hemoglobin 33.5 25-34 pg Mean Corpuscular Hemoglobin Concent 31.6 32-36 g/dl Platelet Count 143 130-400 K/uL Mean Platelet Volume 9.6 7.4-10.4 fL Neutrophils (%) (Auto) 82.5 % Lymphocytes (%) (Auto) 6.7 % Monocytes (%) (Auto) 9.1 % Eosinophils (%) (Auto) 1.2 % Basophils (%) (Auto) 0.3 % Neutrophils # (Auto) 8.14 1.4-6.5 K/uL Lymphocytes # (Auto) 0.66 1.2-3.4 K/uL Monocytes # (Auto) 0.90 0.11-0.59 K/uL Eosinophils # (Auto) 0.12 0-0.5 K/uL Basophils # (Auto) 0.03 0-0.2 K/uL RDW Standard Deviation 67.1 36.4-46.3 fL RDW Coefficient of Variation 17.4 11.5-14.5 % Immature Granulocyte % (Auto) 0.2 % Immature Granulocyte # (Auto) 0.02 0.00-0.02 K/uL Sodium Level 135 136-145 mmol/L Potassium Level 4.5 3.5-5.1 mmol/L Chloride Level 98 98-107 mmol/L Carbon Dioxide Level 33 21-32 mmol/L Anion Gap 4.0 3-11 mmol/L Blood Urea Nitrogen 37 7-18 mg/dl Creatinine 4.35 0.60-1.20 mg/dl Est Creatinine Clear Calc Drug Dose 8.1 ml/min Estimated GFR () 10.2 Estimated GFR (Non- 8.8 BUN/Creatinine Ratio 8.5 10-20 Random Glucose 121 70-99 mg/dl Calcium Level 8.8 8.5-10.1 mg/dl Total Bilirubin 0.6 0.2-1 mg/dl Direct Bilirubin 0.1 0-0.2 mg/dl Aspartate Amino Transf (AST/SGOT) 25 15-37 U/L Alanine Aminotransferase (ALT/SGPT) 26 12-78 U/L Alkaline Phosphatase 142 45-117 U/L Total Protein 7.9 6.4-8.2 gm/dl Albumin 3.4 3.4-5.0 gm/dl Lipase 365 73-393 U/L Diagnostic Radiology humeral xray- fracture of humeral head appreciated CT head- no occult bleed Impression Assessment and Plan This is an 82 yo f with ESRD that is suffering from a right humeral head fracture from a mechanical fall resulting in ambulatory dysfunction/ unsafe environment at home Humeral head fracture resulting in ambulatory dysfunction - med surg - ortho consult - pain control with ultram/ tylenol - PT/ OT for placement ESRD with HD T/R/S - consult nephro - cont phoslo CAd/ HLD- stable - continue lipitor 40 mg , colestipol 1 Gm - continue Imdur 60 mg and Labetalol 300 mg bid HTN - elevated here but unable to obtain appropriate pressures as patient does not tolerate a leg cuff and available arm for pressure has fracture - continue regimen above and work on pain control Depression/ Anxiety - continue citalopram 10 mg Gout - continue allopurinol 100 mg Hypothyroidism - continue levothyroxine 125 mcg Attending addendum: I have physically seen this patient, have supervised the medical residents activities, and agree with the H&P unless as otherwise noted. Assessment and Plan: Humeral head fracture-- Admit to medical surgical floor. Tylenol when necessary mild pain or temperature Tramadol when necessary moderate pain Consult orthopedics Consult PT/OT/social professionals End-stage renal disease on HD-- Consult nephrology CAD/hypertension-- Continue labetalol 300 mg by mouth twice a day and Imdur 60 mg daily Hyperlipidemia-- Continue Lipitor 40 mg by mouth daily colestipol 1 g daily Hypothyroidism-- Continue levothyroxine sodium 125 g by mouth daily Depression/anxiety-- Continue citalopram 10 mg by mouth daily Gout-- Continue allopurinol 100 mg by mouth daily Level of Care Med/Surg Advanced Directives Existing Advance Directive: No Existing Living Will: No Existing Power of Content Development Specialist: No Resuscitation Status FULL RESUSCITATION VTE Prophylaxis VTE Risk Assessment Done? Y/N: Yes Risk Level: Moderate Given or contraindicated: Unfractionated heparin SQ, SCD's Social Service Consult Lives in Personal Care Additional Copies To Anant Brown M.D.
[2017-06-05] MEDS ORDERED: IV FLUIDS COMPLETED PRN (05:30)
[2017-06-05] MEDS: TRAMADOL HCL 50 MG TAB PO PRN ×2 (05:59→16:11)
[2017-06-05] MEDS ORDERED: LEVOTHYROXINE 125 MCG TAB PO SCH (06:00)
--- NOTE | 2017-06-05 06:30 | DIAGNOSTIC IMAGING REPORT ---
CT OF THE HEAD WITHOUT CONTRAST CLINICAL HISTORY: Fall with head injury. COMPARISON STUDY: Head CT October 19, 2014. CT DOSE: 731.86 mGy.cm TECHNIQUE: Helical axial images of the head were obtained without IV contrast. Automated exposure control was utilized for the study. A dose lowering technique was utilized adhering to the principles of ALARA. FINDINGS: No acute intracranial hemorrhage, midline shift or mass effect is present. Ventricular dilatation is unchanged. Basilar cisterns are patent. There are no extra-axial collections. Calcification overlying the left aspect of the tentorium is unchanged. 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 White matter hypodensity suggests small vessel disease. No calvarial fracture is identified. Facial bones will be reported separately. IMPRESSION: 1. No acute intracranial findings. No change in appearance of the brain. 2. No calvarial fracture. Electronically signed by: Alexy Pierre M.D. 06/05/2017 6:29 AM Dictated Date/Time: 06/05/2017 6:26 AM
--- NOTE | 2017-06-05 06:33 | DIAGNOSTIC IMAGING REPORT ---
CHEST ONE VIEW PORTABLE CLINICAL HISTORY: Pt c/o Rt shoulder pain pain COMPARISON STUDY: 05/10/2017 FINDINGS: Prominent pulmonary vasculature. Small bilateral pleural effusions. Moderate cardiomegaly. IMPRESSION: Mild congestive heart failure The above report was generated using voice recognition software. It may contain grammatical, syntax or spelling errors. Electronically signed by: Bari Fu M.D. 06/05/2017 6:31 AM Dictated Date/Time: 06/05/2017 6:31 AM
--- NOTE | 2017-06-05 06:56 | DIAGNOSTIC IMAGING REPORT ---
FACIAL BONES-MXILLOFAC WITHOUT CT DOSE: HISTORY: Trauma Pt c/o fall, hit head TECHNIQUE: Multiaxial CT images of the maxillofacial region were performed and reformatted in the coronal plane without the use of contrast. A dose lowering technique was utilized adhering to the principles of ALARA. COMPARISON: None. FINDINGS: The visualized cervical spine, skull base, pterygoid plates, nasal bones, lamina papyracea, orbital floors, mandible, and zygomatic arches are intact. No fractures. The orbits are unremarkable. IMPRESSION: No fractures within the maxillofacial region. The above report was generated using voice recognition software. It may contain grammatical, syntax or spelling errors. Electronically signed by: Bari Fu M.D. 06/05/2017 6:55 AM Dictated Date/Time: 06/05/2017 6:45 AM
--- NOTE | 2017-06-05 07:35 | DIAGNOSTIC IMAGING REPORT ---
RIGHT SHOULDER 2 VIEWS; RIGHT HUMERUS 2 VIEWS CLINICAL HISTORY: Right arm injury. FINDINGS: 2 views of the right shoulder with AP and lateral views of the right humerus are obtained. No prior studies are available for comparison at the time of dictation. The skeletal structures are osteopenic. There is an impacted fracture through the right humeral neck. There is medial distraction of the humeral shaft by at least 5 mm with mild angulation. No additional fracture is seen. The distal humeral shaft is maintained. The elbow joint is grossly preserved. There is no evidence of shoulder dislocation. Productive degenerative change is seen at the acromioclavicular joint. Mild soft tissue edema overlies the fracture site. There is right basilar atelectasis and a probable small right pleural effusion. IMPRESSION: 1. Osteopenia with an impacted and mildly distracted fracture through the right humeral neck. 2. No additional fracture is seen. No shoulder dislocation is identified. Electronically signed by: Meir Mooney M.D. 06/05/2017 7:34 AM Dictated Date/Time: 06/05/2017 7:32 AM
[2017-06-05] MEDS: NEPHROCAPS PO SCH ×2 (08:37→13:58)
[2017-06-05] MEDS: CALCIUM ACETATE 667MG GELCAP PO SCH ×2 (08:38→12:06)
--- NOTE | 2017-06-05 08:44 | ORTHOPEDIC CONSULTATION REPORT ---
DATE OF CONSULTATION: 06/05/2017 CHIEF COMPLAINT: Right shoulder pain. HISTORY OF PRESENT ILLNESS: This 82-year-old white female is seen in room 323. The patient injured herself yesterday while in her kitchen. She was walking into her kitchen and was placing a glass on her counter. She thinks she twisted and lost her balance. She denies any chest pain, shortness of breath, nausea or vomiting at the time of the fall. She states she did not lose consciousness. The patient fell on her right side. She had immediate onset of pain in her shoulder. She was seen in the ED in the early hours this morning and was found to have a right humeral neck fracture. She does require use of a walker to ambulate. Due to her injury and inability to ambulate without her walker, she was admitted for further management. PAST MEDICAL HISTORY: Significant for end-stage renal disease, dialysis, hypertension, hypothyroidism, degenerative disk disease, spinal stenosis, macular degeneration, gout, coronary artery disease, history of diverticulitis. PREVIOUS SURGERIES: Tonsillectomy, abdominal hysterectomy, cataract surgery, ureteroscopy, history of appendectomy, and a history of stent placement in her LAD in 2013. FAMILY HISTORY: Significant for cancer, diabetes, gallbladder disease, heart disease, hypertension, and lung disease. SOCIAL HISTORY: The patient is . No tobacco use. No ETOH use. She is . Lives at a personal custodial. ALLERGIES: KNOWN ALLERGY TO BACITRACIN AND POLYMYXIN B. CURRENT MEDICATIONS: Allopurinol 100 mg p.o. q.a.m., atorvastatin 40 mg p.o. q.a.m., vitamin B complex with C and folic acid ([place] caps) 1 p.o. daily, PhosLo 667 mg 2 capsules p.o. t.i.d., citalopram 10 mg p.o. daily, Colestid 1 gram p.o. daily, Imdur extended release 60 mg p.o. q.a.m., labetalol 300 mg p.o. q.a.m., and Synthroid p.o. q.a.m. REVIEW OF SYSTEMS: Significant for above stated conditions. Otherwise unremarkable. PHYSICAL EXAMINATION: VITAL SIGNS: Temperature 36.8, pulse 84, BP 180/75, respirations 18, and O2 sat 100% on 4 liters by nasal cannula. SKIN: Warm and dry with fair turgor. No rashes or lesions. No ecchymosis. She does have some edema present at her right shoulder. HEENT: Normocephalic and atraumatic. Eyes: PERRLA, EOMI. Low vision. She states it is very difficult to see me which is her baseline. Oropharynx is without erythema or exudate. No lesions noted. HEART: RRR. 3/6 systolic ejection murmur noted. LUNGS: Clear to auscultation bilaterally. No crackles, rhonchi or wheezing. Good air movement. ABDOMEN: Obese. Bowel sounds present x4. Soft and nontender. No organomegaly. MUSCULOSKELETAL: The patient has intact motor function to her lower extremities. Upper extremities reveal edema present at her right shoulder. She has pain with palpation over the shoulder and proximal humerus. No pain with palpation over her elbow or wrist. Intact motor function to her wrist and digits. Arthritic changes are present in her fingers. 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 Strength is 5/5 for resisted wrist flexion and extension. No shoulder motion was attempted given her fracture. NEUROLOGIC: Gross sensation is intact across the right arm via soft touch. Radial, median, and ulnar nerve functions are clearly intact. Peripheral pulses are 2+. DATA: Radiographic imaging obtained earlier today was reviewed. CT scan of her face and head were unremarkable. No evidence for fractures. Radiographic imaging of her humerus and right shoulder shows a surgical neck fracture that is impacted and mildly displaced. IMPRESSION: Right shoulder surgical neck fracture of the humerus with impaction and mild displacement. PLAN: The patient was educated regarding today's findings. Conservative care measures were discussed. We will use the shoulder immobilizer to hopefully allow this to heal. If it does not shift, she can be managed nonoperatively. PT will be very limited for mostly hand, wrist and elbow initially. Pain management per the hospitalist team. She will not be able to use this arm for handling her walker for a quite some time. She will likely require further assistance than what her personal custodial can provide. We will be happy to follow her while she is an inpatient. SAWYER
--- NOTE | 2017-06-05 08:46 | Hospitalist Progress Note ---
Hospitalist Progress Note Date of Service Jun 05, 2017. Subjective Pt evaluation today including: conversation w/ patient, physical exam, chart review, lab review, review of studies Pain: R shoulder PO Intake: Good Voiding: no voiding problems The patient was seen and examined this morning. Pt reports doing well today, she has some pain in the R shoulder but feels her pain is currently well controlled with tylenol. She reports using tramadol in the past but doesn't feel any more pain relief with this, so doesn't feel the need to take it. PT is in the room working with her. She typically uses a walker when she is outside of her home, but not while she is inside. Pt is in agreement with nonsurgical management, and anticipates going to short-term rehabilitation after her stay here. Additional Comments: Constitutional: No fever, sweats or chills Eyes: + glaucoma both eyes ENT: normal hearing, no trouble swallowing Respiratory: No cough, sputum, dyspnea at rest or on exertion Cardiovascular: No chest pain, tightness or palpitations Abdomen: No pain, nausea, vomiting, diarrhea or constipation Musculoskeletal: + Mild R shoulder pain, No joint pain, calf pain, swelling Neurologic: No weakness, numbness/tingling, or balance problems Psychiatric: No anxiety or depression Skin: No rash or itch Objective Vital Signs Date Time Temp Pulse Resp B/P (MAP) Pulse Ox O2 Delivery O2 Flow Rate FiO2 06/05/17 02:15 36.8 84 18 180/75 (110) 100 Nasal Cannula 4.0 06/05/17 02:00 36.8 18 180/75 Nasal Cannula 4.0 06/05/17 01:54 82 18 162/102 98 06/05/17 00:54 84 16 206/92 99 Nasal Cannula 3.0 06/04/17 23:20 83 16 215/84 99 Nasal Cannula 3.0 06/04/17 21:39 36.9 81 18 220/102 99 Nasal Cannula 3.0 Physical Exam Notes: General: awake, alert, no apparent distress, obese Head: Normocephalic, atraumatic ENT: PERRL, EOMI, no pharyngeal exudate, mucous membranes moist Chest: Clear to auscultation, on 3 L via NC, no adventitious breath sounds Cardiac: Regular rate and rhythm, + systolic murmur, no JVD, normal peripheral pulses, good capillary refill Abdominal: NABS x 4 quadrants, soft, nontender to palpation, no rebound, guarding or tenderness Extremities: Normal inspection, mild peripheral LE edema, no erythema, calfs nontender to palpation Psych: Normal mood and affect Neuro: AAO x 3, + Sensation intact in RUE throughout, skid strapper intact, speech is clear, no peripheral sensory deficits Laboratory Results Last 24 Hours Test 06/05/17 00:00 06/05/17 01:00 06/05/17 05:44 Urine Color DK YELLOW Urine Appearance CLOUDY Urine pH 5.0 Urine Specific [place] 1.022 Urine Protein 2+ Urine Glucose (UA) NEG Urine Ketones TRACE Urine Occult Blood NEG Urine Nitrite NEG Urine Bilirubin NEG Urine Urobilinogen NEG Urine Leukocyte Esterase MODERATE Urine WBC (Auto) >30 /hpf Urine RBC (Auto) 0-4 /hpf Urine Hyaline Casts (Auto) 1-5 /lpf Urine Epithelial Cells (Auto) >30 /lpf Urine Bacteria (Auto) 1+ Urine Pathogenic Casts /lpf Urine Yeast (Auto) White Blood Count 9.87 K/uL Red Blood Count 3.73 M/uL Hemoglobin 12.5 g/dL Hematocrit 39.5 % Mean Corpuscular Volume 105.9 fL Mean Corpuscular Hemoglobin 33.5 pg Mean Corpuscular Hemoglobin Concent 31.6 g/dl Platelet Count 143 K/uL Mean Platelet Volume 9.6 fL Neutrophils (%) (Auto) 82.5 % Lymphocytes (%) (Auto) 6.7 % Monocytes (%) (Auto) 9.1 % Eosinophils (%) (Auto) 1.2 % Basophils (%) (Auto) 0.3 % Neutrophils # (Auto) 8.14 K/uL Lymphocytes # (Auto) 0.66 K/uL Monocytes # (Auto) 0.90 K/uL Eosinophils # (Auto) 0.12 K/uL Basophils # (Auto) 0.03 K/uL RDW Standard Deviation 67.1 fL RDW Coefficient of Variation 17.4 % Immature Granulocyte % (Auto) 0.2 % Immature Granulocyte # (Auto) 0.02 K/uL Sodium Level 135 mmol/L Potassium Level 4.5 mmol/L Chloride Level 98 mmol/L Carbon Dioxide Level 33 mmol/L Anion Gap 4.0 mmol/L Blood Urea Nitrogen 37 mg/dl Creatinine 4.35 mg/dl Est Creatinine Clear Calc Drug Dose 8.1 ml/min Estimated GFR () 10.2 Estimated GFR (Non- 8.8 BUN/Creatinine Ratio 8.5 Random Glucose 121 mg/dl Calcium Level 8.8 mg/dl Total Bilirubin 0.6 mg/dl Direct Bilirubin 0.1 mg/dl Aspartate Amino Transf (AST/SGOT) 25 U/L Alanine Aminotransferase (ALT/SGPT) 26 U/L Alkaline Phosphatase 142 U/L Total Protein 7.9 gm/dl Albumin 3.4 gm/dl Lipase 365 U/L Prothrombin Time 10.9 SECONDS Prothromb Time International Ratio 1.0 Assessment and Plan This is an 82 yo f with ESRD that is suffering from a right humeral head fracture from a mechanical fall resulting in ambulatory dysfunction/ unsafe environment at home Humeral head fracture resulting in ambulatory dysfunction - ortho consulted - planning for nonsurgical management - pain control with tylenol - Will allow tramadol on EMR if patient requires another agent for severe pain, however patient notes she has not relieved pain when used in the past. - PT/OT for placement ESRD with HD T/R/S - consult nephro, next session will be tomorrow, Cr. >4 - cont phoslo CAD/ HLD- stable - continue lipitor 40 mg , colestipol 1 Gm - continue Imdur 60 mg and Labetalol 300 mg bid HTN - Appears improved today, somewhat unreliable as patient does not tolerate a leg cuff and available arm for pressure has fracture - Pain much improved today. Depression/ Anxiety - continue citalopram 10 mg Gout - continue allopurinol 100 mg Hypothyroidism - continue levothyroxine 125 mcg DVT PPx: teds, scds, ambulatory with assistance, no chemical anticoagulation CODE STATUS: Full code Dispostion: PT/OT evals, placement pending [facility] acceptance/insurance auth. DC likely Thursday or Thursday.
[2017-06-05] MEDS ORDERED: ATORVASTATIN 20 MG TAB PO SCH (09:00)
[2017-06-05] MEDS ORDERED: HEPARIN SOD 5000 UNIT/0.5 ML CARP SQ SCH (09:00)
[2017-06-05] MEDS ORDERED: ALLOPURINOL 100 MG TAB PO SCH (09:00)
[2017-06-05] MEDS ORDERED: LABETALOL HCL 300 MG TAB PO SCH (09:00)
[2017-06-05] MEDS ORDERED: ISOSORBIDE MONONITRATE 60 MG TABCR PO SCH (09:00)
[2017-06-05] MEDS ORDERED: CITALOPRAM 20 MG TAB PO SCH (09:00)
[2017-06-05] MEDS ORDERED: COLESTIPOL HCL 1 GM TAB PO SCH (10:00)
[2017-06-05] MEDS: PROSOURCE NOCARB 30ML/PKT PO SCH ×2 (12:06→16:00)
--- NOTE | 2017-06-05 14:03 | Nephrology Consultation ---
Nephrology Consultation Date & Providers Date of Consultation: Jun 05, 2017. Primary Care Provider: Anant Brown M.D. Referring Provider: Reason for Consultation Management of end-stage renal disease on hemodialysis while admitted to the hospital for rt humeral fracture. History of Present Illness Beth is a 80-year-old female with past medical history significant for end- stage renal disease, hypertension, coronary artery disease and prior history of CVA, admitted to the hospital with right humeral fracture after a fall at home. Her primary care physician is Dr. Tran Valdez. Nephrologic consult was requested for management of hemodialysis for end-stage renal disease Beth was otherwise in her usual state of health, had her regular dialysis yesterday. Later in the day at home she had a fall while she was walking to the kitchen, denied any episode of dizziness, lightheadedness or loss of consciousness associated with a fall. She fell on her face and had injury to her nose and had nosebleed. She also had pain and swelling in her right shoulder On arrival to ED imaging study including CT head and facial CT was unremarkable for any fracture. X-ray of the shoulder showed right humeral fracture. Currently her pain is manageable. She has end-stage renal disease secondary to hypertensive nephropathy, has been on dialysis Thursday, , Thursday at [facility] via left brachiocephalic AV fistula. She had a regular dialysis treatment yesterday. Currently her volume status stable although her blood pressure has been running high. She uses nasal cannula oxygen at home and currently saturation normal with nasal cannula oxygen. Electrolyte acceptable. Has history of hypertension, well controlled. History of coronary artery disease. Previously had stent. Previously had history of pleural effusion which eventually improved after pleural tap no reaccumulation recently. Uses nasal cannula oxygen at home. Allergies Coded Allergies: Bacitracin (Verified Allergy, Unknown, EYES SWELLING-OINTMENT PLACED AROUND EYE, 06/05/17) Polymyxin B (Verified Allergy, Unknown, EYES [id number] PLACED AROUND EYE, 06/05/17) Inpatient Medications Current Inpatient Medications Medications (Trade) Dose Ordered Sig/Debora Route Start Time Stop Time Status Last Admin Dose Admin Acetaminophen (Tylenol Tab) 650 mg Q4H PRN PO 06/05/17 01:30 07/05/17 01:29 Al Hydrox/Mg Hydrox/Simethicone (Maalox Max Susp) 15 ml Q4H PRN PO 06/05/17 01:30 07/05/17 01:29 Magnesium Hydroxide (Milk Of Magnesia Susp) 30 ml Q6H PRN PO 06/05/17 01:30 07/05/17 01:29 Polyethylene (Miralax Powder Packet) 17 gm DAILY PRN PO 06/05/17 01:30 07/05/17 01:29 Ondansetron HCl (Zofran Inj) 4 mg Q6H PRN IV 06/05/17 01:30 07/05/17 01:29 Tramadol HCl (Ultram Tab) 50 mg Q4H PRN PO 06/05/17 01:30 07/05/17 01:29 06/05/17 05:59 50 MG Allopurinol (Zyloprim Tab) 100 mg QAM PO 06/05/17 09:00 07/05/17 08:59 Atorvastatin Calcium (Lipitor Tab) 40 mg QAM PO 06/05/17 09:00 07/05/17 08:59 Vitamin B Complex/ Vit C/Folic Acid (Nephrocaps) 1 cap TID PO 06/05/17 09:00 07/05/17 08:59 Calcium Acetate (Phoslo Cap) 1,334 mg TIDM PO 06/05/17 08:00 07/05/17 07:59 Colestipol HCl (Colestid Tab) 1 gm DAILY@1000 PO 06/05/17 10:00 07/05/17 09:59 Isosorbide Mononitrate (Imdur Ext Rel Tab) 60 mg QAM PO 06/05/17 09:00 07/05/17 08:59 Labetalol HCl (Normodyne Tab) 300 mg BID PO 06/05/17 09:00 07/05/17 08:59 Levothyroxine Sodium (Synthroid Tab) 125 mcg DAILYBB PO 06/05/17 06:00 07/05/17 05:59 06/05/17 05:59 125 MCG Citalopram Hydrobromide (celeXA TAB) 10 mg QAM PO 06/05/17 09:00 07/05/17 08:59 Heparin Sodium (Porcine) (Heparin Sq 5000 Unit/0.5ml) 5,000 unit Q12 SQ 06/05/17 09:00 07/05/17 08:59 Miscellaneous (Iv Fluids Completed) 1 ea PRN PRN N/A 06/05/17 05:30 06/05/18 05:29 Enteral Nutritional Formula (Prosource No Carb) 30 ml [id number] PO 06/05/17 12:00 07/05/17 11:59 UNV Family History Cancer Diabetes mellitus Gallbladder disease Heart disease Hypertension Lung disease Social History Smoking Status: Never Smoker Smokeless Tobacco Use: No Alcohol Use: none Drug Use: none Marital Status: Housing Status: fdc Review of Systems A complete review of systems was performed. Pertinent positives are noted above. All other systems are negative. Physical Exam Date Time Temp Pulse Resp B/P (MAP) Pulse Ox O2 Delivery O2 Flow Rate FiO2 06/05/17 02:15 36.8 84 18 180/75 (110) 100 Nasal Cannula 4.0 06/05/17 02:00 36.8 18 180/75 Nasal Cannula 4.0 06/05/17 01:54 82 18 162/102 98 06/05/17 00:54 84 16 206/92 99 Nasal Cannula 3.0 06/04/17 23:20 83 16 215/84 99 Nasal Cannula 3.0 06/04/17 21:39 36.9 81 18 220/102 99 Nasal Cannula 3.0 GENERAL: Elderly female the AAA x 3, pleasant, healthy-appearing, not in any distress. HEENT: Atraumatic, normocephalic. NECK: Supple, no JVD, no carotid bruit appreciated. ENT: No sinus tenderness MOUTH and THROAT: Moist oral mucosa, no oral ulcer or pharyngeal erythema RESPIRATORY: Normal breathing efforts, no accessory muscle use, has bibasilar rales. CARDIOVASCULAR: S1, S2 normal, rate rhythm regular. ABDOMEN: Soft, nontender, positive bowel sound. MUSCULOSKELETAL: Right shoulder kept immobilized SKIN: No skin rash EXTREMITY: No lower extremity edema NEURO: No gross focal neurological deficit, speech fluent. PSYCHIATRY: Normal mood and judgment Laboratory Results Last 24 Hours Test 06/05/17 00:00 06/05/17 01:00 06/05/17 05:44 Urine Color DK YELLOW Urine Appearance CLOUDY Urine pH 5.0 Urine Specific [place] 1.022 Urine Protein 2+ Urine Glucose (UA) NEG Urine Ketones TRACE Urine Occult Blood NEG Urine Nitrite NEG Urine Bilirubin NEG Urine Urobilinogen NEG Urine Leukocyte Esterase MODERATE Urine WBC (Auto) >30 /hpf Urine RBC (Auto) 0-4 /hpf Urine Hyaline Casts (Auto) 1-5 /lpf Urine Epithelial Cells (Auto) >30 /lpf Urine Bacteria (Auto) 1+ Urine Pathogenic Casts /lpf Urine Yeast (Auto) White Blood Count 9.87 K/uL Red Blood Count 3.73 M/uL Hemoglobin 12.5 g/dL Hematocrit 39.5 % Mean Corpuscular Volume 105.9 fL Mean Corpuscular Hemoglobin 33.5 pg Mean Corpuscular Hemoglobin Concent 31.6 g/dl Platelet Count 143 K/uL Mean Platelet Volume 9.6 fL Neutrophils (%) (Auto) 82.5 % Lymphocytes (%) (Auto) 6.7 % Monocytes (%) (Auto) 9.1 % Eosinophils (%) (Auto) 1.2 % Basophils (%) (Auto) 0.3 % Neutrophils # (Auto) 8.14 K/uL Lymphocytes # (Auto) 0.66 K/uL Monocytes # (Auto) 0.90 K/uL Eosinophils # (Auto) 0.12 K/uL Basophils # (Auto) 0.03 K/uL RDW Standard Deviation 67.1 fL RDW Coefficient of Variation 17.4 % Immature Granulocyte % (Auto) 0.2 % Immature Granulocyte # (Auto) 0.02 K/uL Sodium Level 135 mmol/L Potassium Level 4.5 mmol/L Chloride Level 98 mmol/L Carbon Dioxide Level 33 mmol/L Anion Gap 4.0 mmol/L Blood Urea Nitrogen 37 mg/dl Creatinine 4.35 mg/dl Est Creatinine Clear Calc Drug Dose 8.1 ml/min Estimated GFR () 10.2 Estimated GFR (Non- 8.8 BUN/Creatinine Ratio 8.5 Random Glucose 121 mg/dl Calcium Level 8.8 mg/dl Total Bilirubin 0.6 mg/dl Direct Bilirubin 0.1 mg/dl Aspartate Amino Transf (AST/SGOT) 25 U/L Alanine Aminotransferase (ALT/SGPT) 26 U/L Alkaline Phosphatase 142 U/L Total Protein 7.9 gm/dl Albumin 3.4 gm/dl Lipase 365 U/L Prothrombin Time 10.9 SECONDS Prothromb Time International Ratio 1.0 Marsha Campos is a 82-year-old female with end-stage renal disease, hypertension, history of coronary artery disease admitted to the hospital after a fall at home with right humeral head fracture. No reported history of dizziness lightheadedness prior to the fall, no arrhythmia on EKG. Imaging study including CT head and facial CT was negative. X-ray confirmed right humeral head fracture. She had her regular dialysis yesterday, currently electrolyte and volume status acceptable. Blood pressure has been running high. Recommendations --no indication for dialysis at this point, currently electrolyte and volume status acceptable although blood pressure running high --avoid IV fluid --hopefully blood pressure will improve with better pain control, if not, will start on amlodipine 5 milligrams daily --start on ProSource 3 times a day --continue on phosphate binder and Nephrocaps --dose medications for GFR less than 10 --avoid morphine consider Dilaudid if needed for pain control --will give SARAH with dialysis Thank you for allowing me to participate in your patient's care. It was a pleasure to see Beth
--- NOTE | 2017-06-05 14:48 | CONSULTATION REPORT ---
DATE OF CONSULTATION: 06/05/2017 ADDENDUM see consult Performed by Daniel Manjarrez PA-C. this is the Orthopedic attending consultation. The patient is 82 years old with endstage renal disease, severe hypertension, coronary artery disease. She is admitted following a fall at home, nonsyncopal. IMAGING: Reveals a mildly displaced surgical neck fracture of the proximal humerus and osteopenia. Please see Daniel Manjarrez's note for all the details of pertinent history and medications. At this point in time, recommendation orthopedically is to treat nonsurgically with a sling and swat AKA shoulder immobilizer. She will need to be nonweightbearing on that arm for approximately 5-6 weeks. She would keep immobile for approximately 18-21 days and then physical therapy can start after that. Obviously this is a difficult social scenario, she lives alone and will not be able to protect herself from falling. Will need placement. Will follow up as an outpatient in roughly a week to 10 days with repeat x-ray. SAWYER
[2017-06-05] MEDS ORDERED: ACET-1047 PO (15:21)
[2017-06-05] MEDS ORDERED: MRLP17X PO (15:21)
--- NOTE | 2017-06-05 15:28 | Discharge Instructions ---
Discharge Instructions Date of Service Jun 05, 2017. Admission Reason for Admission: Humeral Head Fracture, Impaired Ambulation Discharge Discharge Diagnosis / Problem: Humeral head fx Discharge Goals Goal(s): Decrease discomfort, Improve function, Increase independence, Improve disease control Activity Recommendations Activity Level: Up Ad [employer], Assistance Required Therapies: Physical Therapy, Occupational Therapy Lifting Limitations: none Exercise/Sports Limitations: none Shower/Bathe: no limitations . Additional Information Patient informed of condition: Yes Advance Directives: No DNR: No Level of Care: Acute Rehab Communicable Disease: No Prognosis: Stable Souza Catheter: No Instructions / Follow-Up Instructions / Follow-Up You were admitted to [facility] with R humeral head fracture and diagnosed with the same. During your stay here you were treated with pain medications including tylenol as this alone controlled your pain. Imaging studies which were completed include Xray R humerus, and were abnormal showing the fracture. Maintain immobility of the R arm with the sling in place, continue PT/OT for ADL and ambulation assistance without placing pressure on your right arm. You will need to have a CMP (blood work) completed tomorrow morning prior to your regularly scheduled hemodialysis on /Thu. Medications: Continue taking your medications as above. Appointments: Follow up with your Primary Care Provider within 1-2 weeks. Current Hospital Diet Patient's current hospital diet: Renal Diet Discharge Diet Recommended Diet: Renal Diet Pending Studies Studies pending at discharge: no Medical Emergencies . Who to Call and When: Medical Emergencies: If at any time you feel your situation is an emergency, please call 911 immediately. . Non-Emergent Contact Non-Emergency issues call your: Primary Care Provider Call Non-Emergent contact if: you have a fever, temperature is above 100.5, your pain is not controlled, your pain is worsening, wound has increased drainage, wound has increased redness, wound has increased pain, you have any medication questions other concerns with your health. Call 911 or go directly to the Emergency Department if you experience any of the following: Chest pain, chest tightness, shortness of breath, abdominal pain , lightheadedness, dizziness, gastrointestinal bleeding, or have any other concerns regarding your health. . Past History Medical & Surgical History: (1) Humeral head fracture (2) Fall (3) ESRD (end stage renal disease) on dialysis (4) Anemia (5) CAD (coronary artery disease) (6) HLD (hyperlipidemia) (7) HTN (hypertension) (8) Hypothyroidism (9) Gout . "Provider Documentation" section prepared by La Patel. . Core Measure Problem Core Measures: None [place] Drug Monitoring Program Search Results: no issues identified
--- NOTE | 2017-06-05 15:39 | Discharge Summary ---
Discharge Summary Date of Service Jun 05, 2017. Discharge Summary Admission Date: Jun 05, 2017 at 01:25 Discharge Date: Jun 05, 2017 Discharge Disposition: Rehab Principal Diagnosis: right humeral head fracture Problems/Secondary Diagnoses: Medical Problems: (1) Acute kidney injury (2) Anemia (3) CAD (coronary artery disease) (4) CHEST PAIN,CAD,ESRD (5) chf exac /ESRD/uremic (6) DEHYD.,UTI, MSC, CAD (7) DEHYDRATION, MSC, UTI (8) ESRD (end stage renal disease) on dialysis (9) GI bleed (10) Gout (11) HLD (hyperlipidemia) (12) HTN (hypertension) (13) Hypothyroidism (14) Impaired ambulation (15) Metabolic acidosis (16) Pleural effusion on right (17) Proteinuria (18) Secondary hyperparathyroidism of renal origin (19) SYNCOPE,ESRD,CAD (20) Volume overload Immunizations: Have You Had Influenza Vaccine: Yes Influenza Vaccine Date: Feb 10, 2012 History of Tetanus Vaccine?: No History of Pneumococcal: No History of Hepatitis B Vaccine: No Procedures: RIGHT SHOULDER 2 VIEWS; RIGHT HUMERUS 2 VIEWS 06/05/17 IMPRESSION: 1. Osteopenia with an impacted and mildly distracted fracture through the right humeral neck. 2. No additional fracture is seen. No shoulder dislocation is identified. FACIAL BONES-MXILLOFAC WITHOUT 06/05/17 IMPRESSION: No fractures within the maxillofacial region. RIGHT SHOULDER 2 VIEWS; RIGHT HUMERUS 2 VIEWS 06/05/17 IMPRESSION: 1. Osteopenia with an impacted and mildly distracted fracture through the right humeral neck. 2. No additional fracture is seen. No shoulder dislocation is identified. CT OF THE HEAD WITHOUT CONTRAST 06/05/17 IMPRESSION: 1. No acute intracranial findings. No change in appearance of the brain. 2. No calvarial fracture. CHEST ONE VIEW PORTABLE 06/05/17 IMPRESSION: Mild congestive heart failure Consultations: Orthopedics Medication Reconciliation New Medications: Acetaminophen (Mapap) 325 Mg Tab 650 MG PO Q4H PRN for Pain or Fever for 30 Days, #240 TAB Polyethylene (Miralax) 17 Gm Pow 17 GM PO DAILY PRN for Constipation for 30 Days, #30 DOSE Continued Medications: Allopurinol (Zyloprim) 100 Mg Tab 100 MG PO QAM, TAB Atorvastatin (Lipitor) 40 Mg Tab 40 MG PO QAM, TAB B-Complex W/ C & Folic Acid (Kevin Caps) 1 Cap Cap 1 CAP PO DAILY AT LUNCH Calcium Acetate (Phoslo 667 Mg) 667 Mg Cap 2 CAP PO TIDM Citalopram Hydrobromide (Citalopram Hydrobromide) 10 Mg Tab 10 MG PO QAM Colestipol Hcl (Colestid) 1 Gm Tab 1 GM PO DAILY Isosorbide Mononitrate (Imdur Ext Rel) 60 Mg Tab 60 MG PO QAM ON DIALYSIS DAYS, ONLY 1/2 TABLET EVERY MORNING. DIALYSIS ON AND SATURDAYS Labetalol HCl (Labetalol HCl) 300 Mg Tab 300 MG PO AMPM ON DIALYSIS DAYS, ONLY 1 TABLET QPM. NO MORNING DOSE. DIALYSIS ON AND THURSDAY Levothyroxine Sodium (Levothyroxine Sodium) 125 Mcg Tab 1 TAB PO QAM for 90 Days, #90 TAB 3 Refills Discharge Exam Subjective Pt evaluation today including: conversation w/ patient, physical exam, chart review, lab review, review of studies Pain: R shoulder PO Intake: Good Voiding: no voiding problems The patient was seen and examined this morning. Pt reports doing well today, she has some pain in the R shoulder but feels her pain is currently well controlled with tylenol. She reports using tramadol in the past but doesn't feel any more pain relief with this, so doesn't feel the need to take it. PT is in the room working with her. She typically uses a walker when she is outside of her home, but not while she is inside. Pt is in agreement with nonsurgical management, and anticipates going to short-term rehabilitation after her stay here. ROS: Constitutional: No fever, sweats or chills Eyes: + glaucoma both eyes ENT: normal hearing, no trouble swallowing Respiratory: No cough, sputum, dyspnea at rest or on exertion Cardiovascular: No chest pain, tightness or palpitations Abdomen: No pain, nausea, vomiting, diarrhea or constipation Musculoskeletal: + Mild R shoulder pain, No joint pain, calf pain, swelling Neurologic: No weakness, numbness/tingling, or balance problems Psychiatric: No anxiety or depression Skin: No rash or itch Objective Vital Signs Date Time Temp Pulse Resp B/P (MAP) Pulse Ox O2 Delivery O2 Flow Rate FiO2 06/05/17 02:15 36.8 84 18 180/75 (110) 100 Nasal Cannula 4.0 06/05/17 02:00 36.8 18 180/75 Nasal Cannula 4.0 06/05/17 01:54 82 18 162/102 98 06/05/17 00:54 84 16 206/92 99 Nasal Cannula 3.0 06/04/17 23:20 83 16 215/84 99 Nasal Cannula 3.0 06/04/17 21:39 36.9 81 18 220/102 99 Nasal Cannula 3.0 Physical Exam Notes: General: awake, alert, no apparent distress, obese Head: Normocephalic, atraumatic ENT: PERRL, EOMI, no pharyngeal exudate, mucous membranes moist Chest: Clear to auscultation, on 3 L via NC, no adventitious breath sounds Cardiac: Regular rate and rhythm, + systolic murmur, no JVD, normal peripheral pulses, good capillary refill Abdominal: NABS x 4 quadrants, soft, nontender to palpation, no rebound, guarding or tenderness Extremities: Normal inspection, mild peripheral LE edema, no erythema, calfs nontender to palpation Psych: Normal mood and affect Neuro: AAO x 3, + Sensation intact in RUE throughout, program production specialist intact, speech is clear, no peripheral sensory deficits Hospital Course This is an 82 yo f with ESRD that is suffering from a right humeral head fracture from a mechanical fall resulting in ambulatory dysfunction/ unsafe environment at home Humeral head fracture resulting in ambulatory dysfunction - ortho consulted - planning for nonsurgical management - pain control with tylenol - Will allow tramadol on EMR while inpt f patient requires another agent for severe pain, however patient notes she has not relieved pain when used in the past. - PT/OT for placement ESRD with HD T/R/S - consult nephro, next session will be tomorrow, Cr. >4 - cont phoslo CAD/ HLD- stable - continue lipitor 40 mg , colestipol 1 Gm - continue Imdur 60 mg and Labetalol 300 mg bid HTN - Appears improved today, somewhat unreliable as patient does not tolerate a leg cuff and available arm for pressure has fracture - Pain much improved today. Depression/ Anxiety - continue citalopram 10 mg Gout - continue allopurinol 100 mg Hypothyroidism - continue levothyroxine 125 mcg DVT PPx: teds, scds, ambulatory with assistance, no chemical anticoagulation CODE STATUS: Full code Dispostion: PT/OT chadd, accepted to [facility], LEIGHA today Total Time Spent: Greater than 30 minutes This includes examination of the patient, discharge planning, medication reconciliation, and communication with other providers. Discharge Instructions Please refer to the electronic Patient Visit Report (Discharge Instructions) for additional information. Follow-Up Follow up with your Primary Care Provider within 1-2 weeks. Additional Copies To Anant Brown M.D.
== END 2017-06-05 17:00 ==
LOC: EDBD 21:37 → C.EDA 21:38 → C.3E 06-05 01:25 → ENRESERV 06-05 01:42
PROVIDERS: ADMIT Hospitalist; ATTEND Internal Medicine
DX: S72.051A Unspecified fracture of head of right femur, initial encounter for closed fracture (principal); W19.XXXA Unspecified fall, initial encounter; I25.10 Atherosclerotic heart disease of native coronary artery without angina pectoris; N18.6 End stage renal disease; M10.9 Gout, unspecified; I12.0 Hypertensive chronic kidney disease with stage 5 chronic kidney disease or end stage renal disease; E03.9 Hypothyroidism, unspecified; E78.5 Hyperlipidemia, unspecified; Z79.899 Other long term (current) drug therapy; Z98.890 Other specified postprocedural states; Z90.89 Acquired absence of other organs; Z88.1 Allergy status to other antibiotic agents; Z80.9 Family history of malignant neoplasm, unspecified; Z83.3 Family history of diabetes mellitus; Z82.49 Family history of ischemic heart disease and other diseases of the circulatory system

== ENCOUNTER 2017-06-10 15:26 | Inpatient (IN) | payer OTHER, MEDICARE ==
[~2017-06-10] VITALS: Ht 149.9 cm; Wt 64.1 kg
[~2017-06-10 15:26] MED LIST changes: +ACET-1047 PO; -METH500T3 PO
--- NOTE | 2017-06-10 16:34 | DIAGNOSTIC IMAGING REPORT ---
SINGLE VIEW CHEST CLINICAL HISTORY: Change in mental status. FINDINGS: An AP, portable, upright chest radiograph is compared to study dated 06/04/2017. The examination is degraded by portable technique and patient rotation. The heart is enlarged and there is atherosclerotic calcification of the thoracic aorta. The pulmonary vasculature is noncongested. Chronic interstitial thickening is similar to previous. Linear atelectasis versus scarring is again seen in the left midlung. There is chronic elevation of the right hemidiaphragm. Bibasilar airspace opacities are noted. Trace pleural effusions are suspected. No pneumothorax is seen. The skeletal structures are osteopenic. There is an impacted fracture of the right humeral head and neck, similar appearance to 06/04/2017. IMPRESSION: 1. Cardiomegaly without radiographic evidence of congestive failure. 2. There are bibasilar airspace opacities, likely representing atelectasis. Correlate clinically for evidence of superimposed pneumonia. 3. Suspect small pleural effusions. 4. An impacted fracture of the right humeral head and neck is again noted. Electronically signed by: Meir Mooney M.D. 06/10/2017 4:33 PM Dictated Date/Time: 06/10/2017 4:32 PM
[2017-06-10 17:05] LABS: ISTAT CREATININE 7.8 mg/dl (0.6-1.3); ISTAT IONIZED CALCIUM 1.18 mmol/l (1.12-1.32); ISTAT POTASSIUM 5.8 mEq/L (3.3-5.0)
[2017-06-10 17:09] LABS: BASO % 0.3 %; BASO ABS # 0.02 K/uL (0-0.2); EOS % 1.7 %; EOS ABS # 0.13 K/uL (0-0.5); HEMATOCRIT 27.1 % (37-47); HEMOGLOBIN 8.9 g/dL (12.0-16.0); IG# 0.02 K/uL (0.00-0.02); LYMPH % 8.5 %; LYMPH ABS # 0.66 K/uL (1.2-3.4); MEAN CORPUSCULAR HEMOGLOBIN 32.8 pg (25-34); MEAN CORPUSCULAR HGB CONC 32.8 g/dl (32-36); MEAN PLATELET VOLUME 9.3 fL (7.4-10.4); MONO % 7.6 %; MONO ABS # 0.59 K/uL (0.11-0.59); NEUT % 81.6 %; NEUT ABS # 6.37 K/uL (1.4-6.5); PLATELET COUNT 257 K/uL (130-400); RED CELL DISTRIBUTION WIDTH CV 16.2 % (11.5-14.5); RED CELL DISTRIBUTION WIDTH SD 59.8 fL (36.4-46.3); WHITE BLOOD COUNT 7.79 K/uL (4.8-10.8)
[2017-06-10 17:21] LABS: PTT PATIENT 26.5 SECONDS (21.0-31.0)
--- NOTE | 2017-06-10 17:21 | DIAGNOSTIC IMAGING REPORT ---
HEAD CT NONCONTRAST CT DOSE: 537.48 mGy.cm HISTORY: Altered mental status. TECHNIQUE: Multiaxial CT images of the head were performed without the use of intravenous contrast. Automated exposure control was utilized for this study. A dose lowering technique was utilized adhering to the principles of ALARA. Comparison: Head CT 06/04/2017. Findings: The paranasal sinuses and mastoid air cells are clear. The calvarium and skull base are intact. There is no mass, hematoma, midline shift, acute infarct. White matter hypodensity is nonspecific but suggestive of microvascular ischemic change. The ventricles and sulci demonstrate mild age-related involutional changes. Stable dense calcification overlying the left tentorium. 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 Impression: No significant change compared to the prior study. No acute intracranial abnormality. Electronically signed by: Cleve Hill M.D. 06/10/2017 5:20 PM Dictated Date/Time: 06/10/2017 4:57 PM
[2017-06-10 17:40] LABS: ALBUMIN 2.9 gm/dl (3.4-5.0); ALKALINE PHOSPHATASE 99 U/L (45-117); ALT/SGPT 23 U/L (12-78); AST/SGOT 19 U/L (15-37); BLOOD UREA NITROGEN 88 mg/dl (7-18); CALCIUM 8.9 mg/dl (8.5-10.1); CARBON DIOXIDE 26 mmol/L (21-32); CREATININE 7.38 mg/dl (0.60-1.20); GLUCOSE 101 mg/dl (70-99); POTASSIUM 5.6 mmol/L (3.5-5.1); SODIUM 127 mmol/L (136-145); TOTAL PROTEIN 7.1 gm/dl (6.4-8.2)
--- NOTE | 2017-06-10 18:32 | DIAGNOSTIC IMAGING REPORT ---
DOPPLER ULTRASOUND HEMODIALYSIS ACCESS CLINICAL HISTORY: Unable to access the left upper extremity fistula for dialysis. COMPARISON STUDY: No priors. TECHNIQUE: Real-time, grayscale, and color Doppler sonography of the patient's left upper extremity fistula is performed. The examination is degraded by lack of patient cooperation. FINDINGS: The dialysis fistula is identified in the left upper extremity. The fistula appears patient. Maximum velocities in the fistula measure up to 356 cm/s, and are greatest near the arterial anastomosis. The brachial artery at the anastomosis is patent. The left subclavian vein is patent. There is arterialization of the subclavian venous waveforms. IMPRESSION: The dialysis fistula is patent with velocities measuring up to 356 cm/s. Electronically signed by: Meir Mooney M.D. 06/10/2017 6:30 PM Dictated Date/Time: 06/10/2017 6:28 PM
[2017-06-10] MEDS ORDERED: ONDANSETRON INJ 2 MG/ML 2 ML VIAL IV PRN (19:15)
[2017-06-10] MEDS ORDERED: ALUMINUM/MAGNESIUM/SIMETH (MAALOX MAX) 30 ML UDC PO PRN (19:15)
[2017-06-10] MEDS ORDERED: MAGNESIUM HYDROXIDE SUSP 30 ML UDC PO PRN (19:15)
[2017-06-10] MEDS ORDERED: NITROGLYCERIN 0.4 MG SL PER TAB CHARGE SL PRN (19:15)
[2017-06-10] MEDS ORDERED: POLYETHYLENE (MIRALAX) 17 GM PACK PO PRN (19:15)
[2017-06-10] MEDS ORDERED: MoRPHine SULFATE 2 MG/ML CARP IV PRN (19:15)
--- NOTE | 2017-06-10 19:39 | History and Physical ---
History & Physical Date & Time of Service: Jun 10, 2017 at 19:18 Chief Complaint: Referred By Doctor Primary Care Physician: Anant Brown M.D. History of Present Illness Source: patient, family, clinic records, hospital records Patient is an 82 y/o female, with PMHx of h/o ESRD (HD on T/R/S), CAD s/p cardiac stenting, HLD, HTN, chronic anemia, hypothyroidism, gout, and secondary hyperparathyroidism, who presented to the ED from [facility] due to failed AV fistula. History came from daughter at bedside due to patient's altered mental status. According to the daughter, patient was admitted to [facility] last due to a fall resulting R shoulder fracture. She was discharged to [facility]. She did receive dialysis on Thursday. However, [facility] was not able to complete Thursday scheduled dialysis due to issues with fistula. Per daughter , she started to become confused 2 days ago. She is not at her baseline- normally alert/oriented x3. ROS cannot completed due to AMS. Past Medical/Surgical History Medical Problems: h/o ESRD (HD on T/R/S) CAD s/p cardiac stenting HLD HTN chronic anemia hypothyroidism gout secondary hyperparathyroidism DDD with spinal stenosis Macular degeneration with legally blind depression anxiety Family History Cancer Diabetes mellitus Gallbladder disease Heart disease Hypertension Lung disease Social History Smoking Status: Never Smoker Drug Use: none Marital Status: Housing status: group home Immunizations History of Influenza Vaccine: Yes Influenza Vaccine Date: Feb 10, 2012 History of Tetanus Vaccine?: No History of Pneumococcal: No History of Hepatitis B Vaccine: No Multi-Drug Resistant Organisms History of MDRO: Yes Type of MDRO: MRSA Allergies Coded Allergies: Bacitracin (Verified Allergy, Unknown, EYES SWELLING-OINTMENT PLACED AROUND EYE, 06/05/17) Polymyxin B (Verified Allergy, Unknown, EYES [id number] PLACED AROUND EYE, 06/05/17) Home Medications Scheduled Allopurinol (Zyloprim), 100 MG PO QAM Atorvastatin (Lipitor), 40 MG PO QAM B-Complex W/ C & Folic Acid (Edison Caps), 1 CAP PO DAILY AT LUNCH Calcium Acetate (Phoslo 667 Mg), 2 CAP PO TIDM Citalopram Hydrobromide (Citalopram Hydrobromide), 10 MG PO QAM Colestipol Hcl (Colestid), 1 GM PO DAILY Isosorbide Mononitrate (Imdur Ext Rel), 60 MG PO QAM Labetalol HCl (Labetalol HCl), 300 MG PO AMPM Levothyroxine Sodium (Levothyroxine Sodium), 1 TAB PO QAM Scheduled PRN Acetaminophen (Mapap), 650 MG PO Q4H PRN for Pain or Fever Polyethylene (Miralax), 17 GM PO DAILY PRN for Constipation Physical Exam Vital Signs Date Time Temp Pulse Resp B/P (MAP) Pulse Ox O2 Delivery O2 Flow Rate FiO2 06/10/17 18:32 37.3 73 18 160/66 100 Nasal Cannula 06/10/17 17:12 68 20 152/95 100 Room Air 06/10/17 16:10 71 06/10/17 15:36 36.7 66 18 132/58 Nasal Cannula 2.0 General Appearance: no apparent distress, + obese, + pertinent finding (O2 NC) Eyes: PERRL ENT: hearing grossly normal Neck: supple Respiratory/Chest: lungs clear, no respiratory distress, no accessory muscle use Cardiovascular: regular rate, rhythm, + systolic murmur Abdomen/GI: normal bowel sounds, non tender, soft Back: normal inspection Extremities/Musculoskelatal: no calf tenderness, no pedal edema Neurologic/Psych: alert, normal mood/affect, + disoriented Skin: normal color, warm/dry, no rash Diagnostics Laboratory Results Results Past 24 Hours Test 06/10/17 16:49 06/10/17 16:50 06/10/17 18:43 Range/Units White Blood Count 7.79 4.8-10.8 K/uL Red Blood Count 2.71 4.2-5.4 M/uL Hemoglobin 8.9 12.0-16.0 g/dL Hematocrit 27.1 37-47 % Mean Corpuscular Volume 100.0 80-100 fL Mean Corpuscular Hemoglobin 32.8 25-34 pg Mean Corpuscular Hemoglobin Concent 32.8 32-36 g/dl Platelet Count 257 130-400 K/uL Mean Platelet Volume 9.3 7.4-10.4 fL Neutrophils (%) (Auto) 81.6 % Lymphocytes (%) (Auto) 8.5 % Monocytes (%) (Auto) 7.6 % Eosinophils (%) (Auto) 1.7 % Basophils (%) (Auto) 0.3 % Neutrophils # (Auto) 6.37 1.4-6.5 K/uL Lymphocytes # (Auto) 0.66 1.2-3.4 K/uL Monocytes # (Auto) 0.59 0.11-0.59 K/uL Eosinophils # (Auto) 0.13 0-0.5 K/uL Basophils # (Auto) 0.02 0-0.2 K/uL RDW Standard Deviation 59.8 36.4-46.3 fL RDW Coefficient of Variation 16.2 11.5-14.5 % Immature Granulocyte % (Auto) 0.3 % Immature Granulocyte # (Auto) 0.02 0.00-0.02 K/uL Anisocytosis PRESENT Prothrombin Time 10.8 9.0-12.0 SECONDS Prothromb Time International Ratio 1.0 0.9-1.1 Activated Partial Thromboplast Time 26.5 21.0-31.0 SECONDS Partial Thromboplastin Ratio 1.0 Venous Blood pH 7.34 7.36-7.41 Venous Blood Partial Pressure CO2 50 38.0-50.0 mmHg Venous Blood Partial Pressure O2 31 mmHg Venous Blood HCO3 26 mmol/L Venous Blood Oxygen Saturation < 60.0 % Venous Blood Base Excess -0.1 mEq/L Sodium Level 127 136-145 mmol/L Potassium Level 5.6 3.5-5.1 mmol/L Chloride Level 94 98-107 mmol/L Carbon Dioxide Level 26 21-32 mmol/L Anion Gap 7.0 17.0 16-25 mmol/L Blood Urea Nitrogen 88 7-18 mg/dl Creatinine 7.38 0.60-1.20 mg/dl Est Creatinine Clear Calc Drug Dose 5.0 ml/min Estimated GFR () 5.4 Estimated GFR (Non- 4.6 BUN/Creatinine Ratio 12.0 10-20 Random Glucose 101 70-99 mg/dl Calcium Level 8.9 8.5-10.1 mg/dl Total Bilirubin 0.8 0.2-1 mg/dl Direct Bilirubin 0.2 0-0.2 mg/dl Aspartate Amino Transf (AST/SGOT) 19 15-37 U/L Alanine Aminotransferase (ALT/SGPT) 23 12-78 U/L Alkaline Phosphatase 99 45-117 U/L Ammonia 15.2 11-32 umol/L Troponin I < 0.015 0-0.045 ng/ml Total Protein 7.1 6.4-8.2 gm/dl Albumin 2.9 3.4-5.0 gm/dl Bedside Hemoglobin 9.2 12.0-16.0 g/dl Bedside Hematocrit 27 37-47 % Bedside Sodium 129 135-144 mEq/L Bedside Potassium 5.8 3.3-5.0 mEq/L Bedside Chloride 94 101-112 mEq/L Bedside Total CO2 26 24-31 mEq/l Bedside Blood Urea Nitrogen 93 7-18 mg/dl Bedside Creatinine 7.8 0.6-1.3 mg/dl Bedside Glucose (other) 105 70-99 mg/dl Bedside Ionized Calcium (Christy) 1.18 1.12-1.32 mmol/l Diagnostic Radiology HEAD CT NONCONTRAST CT DOSE: 537.48 mGy.cm HISTORY: Altered mental status. TECHNIQUE: Multiaxial CT images of the head were performed without the use of intravenous contrast. Automated exposure control was utilized for this study. A dose lowering technique was utilized adhering to the principles of ALARA. Comparison: Head CT 06/04/2017. Findings: The paranasal sinuses and mastoid air cells are clear. The calvarium and skull base are intact. There is no mass, hematoma, midline shift, acute infarct. White matter hypodensity is nonspecific but suggestive of microvascular ischemic change. The ventricles and sulci demonstrate mild age-related involutional changes. Stable dense calcification overlying the left tentorium. 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 Impression: No significant change compared to the prior study. No acute intracranial abnormality. Electronically signed by: Cleve Hill M.D. 06/10/2017 5:20 PM Dictated Date/Time: 06/10/2017 4:57 PM The status of this report is Signed. Draft = Not yet reviewed or approved by Radiologist. Signed = Reviewed and approved by Radiologist. SINGLE VIEW CHEST CLINICAL HISTORY: Change in mental status. FINDINGS: An AP, portable, upright chest radiograph is compared to study dated 06/04/2017. The examination is degraded by portable technique and patient rotation. The heart is enlarged and there is atherosclerotic calcification of the thoracic aorta. The pulmonary vasculature is noncongested. Chronic interstitial thickening is similar to previous. Linear atelectasis versus scarring is again seen in the left midlung. There is chronic elevation of the right hemidiaphragm. Bibasilar airspace opacities are noted. Trace pleural effusions are suspected. No pneumothorax is seen. The skeletal structures are osteopenic. There is an impacted fracture of the right humeral head and neck, similar appearance to 06/04/2017. IMPRESSION: 1. Cardiomegaly without radiographic evidence of congestive failure. 2. There are bibasilar airspace opacities, likely representing atelectasis. Correlate clinically for evidence of superimposed pneumonia. 3. Suspect small pleural effusions. 4. An impacted fracture of the right humeral head and neck is again noted. Electronically signed by: Meir Mooney M.D. 06/10/2017 4:33 PM Dictated Date/Time: 06/10/2017 4:32 PM The status of this report is Signed. Draft = Not yet reviewed or approved by Radiologist. Signed = Reviewed and approved by Radiologist. DOPPLER ULTRASOUND HEMODIALYSIS ACCESS CLINICAL HISTORY: Unable to access the left upper extremity fistula for dialysis. COMPARISON STUDY: No priors. TECHNIQUE: Real-time, grayscale, and color Doppler sonography of the patient's left upper extremity fistula is performed. The examination is degraded by lack of patient cooperation. FINDINGS: The dialysis fistula is identified in the left upper extremity. The fistula appears patient. Maximum velocities in the fistula measure up to 356 cm/s, and are greatest near the arterial anastomosis. The brachial artery at the anastomosis is patent. The left subclavian vein is patent. There is arterialization of the subclavian venous waveforms. IMPRESSION: The dialysis fistula is patent with velocities measuring up to 356 cm/s. Electronically signed by: Meir Mooney M.D. 06/10/2017 6:30 PM Dictated Date/Time: 06/10/2017 6:28 PM The status of this report is Signed. Draft = Not yet reviewed or approved by Radiologist. Signed = Reviewed and approved by Radiologist. EKG ALEKSANDR GREGORIO ID:[id number] 10-JUN-2017 16:33:11 [facility] Poor data quality, interpretation may be adversely affected Normal sinus rhythm Right bundle branch block Left posterior fascicular block Bifascicular block Abnormal ECG When compared with ECG of 05-MAY-2017 15:54, Nonspecific T wave abnormality has replaced inverted T waves in Inferior leads 25mm/s 10mm/mV 150Hz 8.0 SP2 12SL 241 MOISE: 3 Referred by: UNKNOWN Unconfirmed Vent. rate 68 BPM MO interval 176 ms QRS duration 144 ms QT/QTc 452/480 ms P-R-T axes 50 132 39 1934 (82 yr) Female 69in 1lb Room:[facility] Loc:15 [employer] Senior Officer:Sam Esquivel Test ind: Impression Assessment and Plan Patient is an 82 y/o female, with PMHx of h/o ESRD (HD on T/R/S), CAD s/p cardiac stenting, HLD, HTN, chronic anemia, hypothyroidism, gout, and secondary hyperparathyroidism, who presented to the ED from [facility] due to failed AV fistula. Failed AV fistula, AMS likely secondary to not receiving dialysis, ESRD on HD T, ,S: - Admit to tele for cardiac monitoring - Trend cardiac enzymes - EKG QAM and PRN for chest pain - UA pending - Continue Phoslo and Kevin capsules - Head CT and CXR unremarkable for acute findings - Consult Dr. Palomares- planning for [facility] tomorrow- made NPO after midnight - Consult Nephrology, appreciate recommendations CAD s/p cardiac stenting, HLD, HTN- STABLE: Continue Lipitor 40 mg, Colestipol 1 gm, Imdur 60 mg, Labetalol 300 mg BID Depression, anxiety: Continue Citalopram 10 mg Gout: Continue Allopurinol 100 mg Hypothyroidism: Continue Levothyroxine 125 mcg Recent R shoulder fracture: Tylenol PRN for pain management DVT prophylaxis: TEDs, SCDs; no chemical anticoagulation due to ?procedure by Dr. Palomares tomorrow Code status: LEVEL V, DNR Dispo: From [facility]- PT/OT and CM consulted Level of Care Telemetry Resuscitation Status DO NOT RESUSCITATE VTE Prophylaxis VTE Risk Assessment Done? Y/N: Yes Risk Level: Moderate Given or contraindicated: Contraindicated Reviewed: Pt Seen/Exam by Me History Pt was unable to have HD yesterday. Last session was Thursday. She has been a bit confused the last two days. Family states she does make urine but not large amounts. She has been taking PO. Daughter states that she had a recent fall and has a fractured humerus. She was put on oxy for pain control for this, but has not had this since Thursday. Agree with HPI/ROS as noted. General Appearance: WD/WN, no apparent distress Respiratory: normal breath sounds, no respiratory distress Cardiovascular: normal peripheral pulses, regular rate, rhythm Gastrointestinal: non tender, soft Extremities: non-tender, no pedal edema Neurologic/Psychiatric: alert (to person only), other (pleasantly confused, knows it is May but not the year, does not know her location) Skin Characteristics: normal color, warm/dry Assessment/Plan Agree with plan as outlined above Planning for perma cath insertion tomorrow with Dr. Palomares AMS: likely related to missing HD Baseline cr is 4.3, now at 7.3 Urine with trace leuk est only, neg nitrites Will await cx for possible abx given WBC WNL, afebrile Pt did have a dose of oxy on Thursday and no HD, but seems less likely to have started causing AMS No further oxy O2 use at baseline
--- NOTE | 2017-06-10 21:24 | Nephrology Consultation ---
Nephrology Consultation Date & Providers Date of Consultation: Jun 10, 2017. Primary Care Provider: Anant Brown M.D. Referring Provider: Reason for Consultation ESRD History of Present Illness Mrs. Morgan is an 82 year old female who is seen and evaluated early this evening. Plan of care was discussed with Dr. Llanes and the ER physician. Details of the plan of care were also discussed with Dr. Palomares. Mrs. Morgan has ESRD. She currently dialyzes TTS at [facility] (3 hr 45 min, 2K 2Ca, F-160NR, Qb 330, EDW 68.5 kg). Her dialysis treatments have been complicated by relative hypotension which has limited her UF. Recent medical history also includes melena and anemia as well as recent mechanical fall and humeral fracture. She was admitted to [facility] at the end of last week. Mrs. Morgan was admitted with a right humeral head fracture from a mechanical fall resulting in ambulatory dysfunction/ unsafe environment at home. Hemodialysis was completed on June 06 without complications. The patient was then discharged to [facility]. Unfortunately, there was infiltration of the venous needle during dialysis on Thursday. A surrounding hematoma formed and dialysis was not able to be completed. The fistula was unable to be accessed for hemodialysis today. Area of infiltration preclusive. Potassium at that time was checked and found to be 6 mmol/L. The patient was transferred to [facility]. Dr. Llanes provided evaluation at [facility] and alerted me to the patient's transfer. I spoke with Dr. Palomares who confirmed that a tunneled dialysis catheter could be placed tomorrow AM. Potassium was repeated and found to be 5.8 mmol/L. There were no EKG changes. The patient's mental status has been slightly altered. She has been confused and experiencing hallucinations. This history was provided to her by her daughter. Symptoms are similar to prior UTI. Mrs. Morgan did not endorse any shortness of breath. She does not have fevers or chills. She denies chest pains or palpitations. She continues to make a fair amount of urine. She has not experienced dysuria. Past Medical/Surgical History Medical: # ESRD following hospitalization for urosepsis w/ ATN. Patient dialyzes TTS at [facility] # HTN # Anemia with recent history of occult GI bleed # ASCVD s/p PTCA w/ stent 2003 # Aortic stenosis # Hyperlipidemia # Secondary hyperparathyroidism # Dementia # Macular degeneration - legally blind # Humeral head fracture resulting in ambulatory dysfunction Surgical: # Coronary LAD stent 2003 # Left upper arm AVF by Dr. Palomares 09/23 Allergies Coded Allergies: Bacitracin (Verified Allergy, Unknown, EYES SWELLING-OINTMENT PLACED AROUND EYE, 06/05/17) Polymyxin B (Verified Allergy, Unknown, EYES [id number] PLACED AROUND EYE, 06/05/17) Inpatient Medications Current Inpatient Medications Medications (Trade) Dose Ordered Sig/Debora Route Start Time Stop Time Status Last Admin Dose Admin Acetaminophen (Tylenol Tab) 650 mg Q4H PRN PO 06/10/17 19:15 07/10/17 19:14 Al Hydrox/Mg Hydrox/Simethicone (Maalox Max Susp) 15 ml Q4H PRN PO 06/10/17 19:15 07/10/17 19:14 Magnesium Hydroxide (Milk Of Magnesia Susp) 30 ml Q12H PRN PO 06/10/17 19:15 07/10/17 19:14 Ondansetron HCl (Zofran Inj) 4 mg Q6H PRN IV 06/10/17 19:15 07/10/17 19:14 Nitroglycerin (Nitrostat Tab) 0.4 mg UD PRN SL 06/10/17 19:15 07/10/17 19:14 Morphine Sulfate (MoRPHine SULFATE INJ) 2 mg Q30M PRN IV 06/10/17 19:15 06/24/17 19:14 Polyethylene (Miralax Powder Packet) 17 gm DAILY PRN PO 06/10/17 19:15 07/10/17 19:14 Allopurinol (Zyloprim Tab) 100 mg QAM PO 06/11/17 09:00 07/11/17 08:59 Atorvastatin Calcium (Lipitor Tab) 40 mg QAM PO 06/11/17 09:00 07/11/17 08:59 Vitamin B Complex/ Vit C/Folic Acid (Nephrocaps) 1 cap DAILY@1200 PO 06/11/17 12:00 07/11/17 11:59 Calcium Acetate (Phoslo Cap) 1,334 mg TIDM PO 06/11/17 08:00 07/11/17 07:59 Colestipol HCl (Colestid Tab) 1 gm DAILY@1000 PO 06/11/17 10:00 07/11/17 09:59 Isosorbide Mononitrate (Imdur Ext Rel Tab) 60 mg QAM PO 06/11/17 09:00 07/11/17 08:59 Labetalol HCl (Normodyne Tab) 300 mg BID PO 06/10/17 21:00 07/10/17 20:59 Levothyroxine Sodium (Synthroid Tab) 125 mcg DAILYBB PO 06/11/17 07:00 07/11/17 06:59 Citalopram Hydrobromide (celeXA TAB) 10 mg QAM PO 06/11/17 09:00 07/11/17 08:59 Family History Cancer Diabetes mellitus Gallbladder disease Heart disease Hypertension Lung disease Social History Smoking Status: Never Smoker Drug Use: none Marital Status: Housing Status: alf Review of Systems A complete review of systems was performed. Pertinent positives are noted above. All other systems are negative. Physical Exam Date Time Temp Pulse Resp B/P (MAP) Pulse Ox O2 Delivery O2 Flow Rate FiO2 06/10/17 20:11 74 06/10/17 20:01 36.6 77 18 144/62 91 Room Air 06/10/17 18:32 37.3 73 18 160/66 100 Nasal Cannula 06/10/17 17:12 68 20 152/95 100 Room Air 06/10/17 16:10 71 06/10/17 15:36 36.7 66 18 132/58 Nasal Cannula 2.0 General Appearance: no apparent distress, + pertinent finding (elderly) Head: normocephalic, atraumatic Eyes: normal inspection, sclerae normal ENT: normal ENT inspection, pharynx normal Neck: supple Respiratory/Chest: lungs clear, no respiratory distress, no accessory muscle use Cardiovascular: regular rate, rhythm, no gallop Abdomen/GI: non tender, soft Extremities/Musculoskelatal: normal inspection, + pedal edema, + pertinent finding (AVF with ecchymosis and palpable hematoma, thrill can be appreciated as well as bruit) Neurologic/Psych: alert, normal mood/affect Skin: normal color Laboratory Results Last 24 Hours Test 06/10/17 16:49 06/10/17 16:50 06/10/17 18:43 White Blood Count 7.79 K/uL Red Blood Count 2.71 M/uL Hemoglobin 8.9 g/dL Hematocrit 27.1 % Mean Corpuscular Volume 100.0 fL Mean Corpuscular Hemoglobin 32.8 pg Mean Corpuscular Hemoglobin Concent 32.8 g/dl Platelet Count 257 K/uL Mean Platelet Volume 9.3 fL Neutrophils (%) (Auto) 81.6 % Lymphocytes (%) (Auto) 8.5 % Monocytes (%) (Auto) 7.6 % Eosinophils (%) (Auto) 1.7 % Basophils (%) (Auto) 0.3 % Neutrophils # (Auto) 6.37 K/uL Lymphocytes # (Auto) 0.66 K/uL Monocytes # (Auto) 0.59 K/uL Eosinophils # (Auto) 0.13 K/uL Basophils # (Auto) 0.02 K/uL RDW Standard Deviation 59.8 fL RDW Coefficient of Variation 16.2 % Immature Granulocyte % (Auto) 0.3 % Immature Granulocyte # (Auto) 0.02 K/uL Anisocytosis PRESENT Prothrombin Time 10.8 SECONDS Prothromb Time International Ratio 1.0 Activated Partial Thromboplast Time 26.5 SECONDS Partial Thromboplastin Ratio 1.0 Venous Blood pH 7.34 Venous Blood Partial Pressure CO2 50 mmHg Venous Blood Partial Pressure O2 31 mmHg Venous Blood HCO3 26 mmol/L Venous Blood Oxygen Saturation < 60.0 % Venous Blood Base Excess -0.1 mEq/L Sodium Level 127 mmol/L Potassium Level 5.6 mmol/L Chloride Level 94 mmol/L Carbon Dioxide Level 26 mmol/L Anion Gap 7.0 mmol/L 17.0 mmol/L Blood Urea Nitrogen 88 mg/dl Creatinine 7.38 mg/dl Est Creatinine Clear Calc Drug Dose 5.0 ml/min Estimated GFR () 5.4 Estimated GFR (Non- 4.6 BUN/Creatinine Ratio 12.0 Random Glucose 101 mg/dl Calcium Level 8.9 mg/dl Total Bilirubin 0.8 mg/dl Direct Bilirubin 0.2 mg/dl Aspartate Amino Transf (AST/SGOT) 19 U/L Alanine Aminotransferase (ALT/SGPT) 23 U/L Alkaline Phosphatase 99 U/L Ammonia 15.2 umol/L Troponin I < 0.015 ng/ml Total Protein 7.1 gm/dl Albumin 2.9 gm/dl Bedside Hemoglobin 9.2 g/dl Bedside Hematocrit 27 % Bedside Sodium 129 mEq/L Bedside Potassium 5.8 mEq/L Bedside Chloride 94 mEq/L Bedside Total CO2 26 mEq/l Bedside Blood Urea Nitrogen 93 mg/dl Bedside Creatinine 7.8 mg/dl Bedside Glucose (other) 105 mg/dl Bedside Ionized Calcium (Christy) 1.18 mmol/l Urine Color DK YELLOW Urine Appearance CLEAR Urine pH 5.0 Urine Specific [place] 1.020 Urine Protein TRACE Urine Glucose (UA) NEG Urine Ketones NEG Urine Occult Blood NEG Urine Nitrite NEG Urine Bilirubin NEG Urine Urobilinogen NEG Urine Leukocyte Esterase MODERATE Urine WBC (Auto) >30 /hpf Urine RBC (Auto) 0-4 /hpf Urine Hyaline Casts (Auto) 1-5 /lpf Urine Epithelial Cells (Auto) >30 /lpf Urine Bacteria (Auto) 1+ Urine Renal Epithelial Cells 0-5 /lpf Urine Yeast (Auto) Impression (1) ESRD (end stage renal disease) on dialysis (2) Failing arteriovenous fistula (3) Secondary hyperparathyroidism of renal origin (4) Anemia (5) Altered mental status (6) Impaired ambulation Recommendations END STAGE RENAL DISEASE: -- AVF patent per ultrasound, adequate thrill and bruit but surrounding hematoma from infiltration -- Plan TDC placement tomorrow per Dr. Palomares -- Hemodialysis to be completed once catheter placed -- Renal diet and NPO p MN ANEMIA: -- Will provide SARAH w/ HD -- On Pantoprazole 40 mg IV BID as per primary service -- GI evaluation including small bowel follow through planned as outpatient HYPERTENSION: -- Blood pressure is currently acceptable CKD-BMD: -- Continue Phos-Lo 2 capsules w/ each meal
[2017-06-10 21:30] VITALS: BP 178/79; PULSE 78; TEMP 37.1; O2SAT 100; Ht 149.9 cm; Wt 64.1 kg
[2017-06-10] MEDS ORDERED: FUROSEMIDE INJ 100 MG in SYRINGE 0 ML IV ONE (22:00)
--- NOTE | 2017-06-10 22:35 | EMERGENCY ROOM VISIT NOTE ---
History Report prepared by Valarie: Michelle Ortega Under the Supervision of: Dr. Zenon Rosas D.O. First contact with patient: 15:50 Chief Complaint: OTHER COMPLAINT Stated Complaint: REFERRED BY DOCTOR History of Present Illness The patient is an 82 year old female who presents to the Emergency Room with complaints of a malfunctioning dialysis fistula. Per staff at [facility] the patient last received dialysis 4 days ago on 06/08/17. Since then they have attempted dialysis twice and her fistula was infiltrated each time. The patient denies any pain at this time including headache, chest pain, and abdominal pain. The HPI is limited secondary to the patient's AMS. She was referred in by her underwriting technician at [facility] who evaluated her both today and yesterday. Nursing staff from [facility] did note that the patient has been confused but this has been unchanged since the patient was admitted there. Source of History: patient, [facility] notes History Limited By: AMS Onset: [employer] WORK[employer] Position: arm Timing: constant Associated Symptoms: No headache, No chest pain, No abdominal pain Review of Systems ROS is limited secondary to the patient's AMS. Past Medical & Surgical Medical Problems: (1) Acute kidney injury (2) Altered mental status (3) Anemia (4) CAD (coronary artery disease) (5) CHEST PAIN,CAD,ESRD (6) chf exac /ESRD/uremic (7) DEHYD.,UTI, MSC, CAD (8) DEHYDRATION, MSC, UTI (9) ESRD (end stage renal disease) on dialysis (10) Failing arteriovenous fistula (11) GI bleed (12) Gout (13) HLD (hyperlipidemia) (14) HTN (hypertension) (15) Hypothyroidism (16) Impaired ambulation (17) Metabolic acidosis (18) Pleural effusion on right (19) Proteinuria (20) Secondary hyperparathyroidism of renal origin (21) SYNCOPE,ESRD,CAD (22) Volume overload Family History Cancer Diabetes mellitus Gallbladder disease Heart disease Hypertension Lung disease Social History Smoking Status: Never Smoker Drug Use: none Marital Status: Housing Status: lives with family Current/Historical Medications Scheduled Allopurinol (Zyloprim), 100 MG PO QAM Atorvastatin (Lipitor), 40 MG PO QAM B-Complex W/ C & Folic Acid (Kevin Caps), 1 CAP PO DAILY AT LUNCH Calcium Acetate (Phoslo 667 Mg), 2 CAP PO TIDM Citalopram Hydrobromide (Citalopram Hydrobromide), 10 MG PO QAM Colestipol Hcl (Colestid), 1 GM PO DAILY Isosorbide Mononitrate (Imdur Ext Rel), 60 MG PO QAM Labetalol HCl (Labetalol HCl), 300 MG PO AMPM Levothyroxine Sodium (Levothyroxine Sodium), 1 TAB PO QAM Scheduled PRN Acetaminophen (Mapap), 650 MG PO Q4H PRN for Pain or Fever Polyethylene (Miralax), 17 GM PO DAILY PRN for Constipation Allergies Coded Allergies: Bacitracin (Verified Allergy, Unknown, EYES SWELLING-OINTMENT PLACED AROUND EYE, 06/05/17) Polymyxin B (Verified Allergy, Unknown, EYES [id number] PLACED AROUND EYE, 06/05/17) Physical Exam Vital Signs Date Time Temp Pulse Resp B/P (MAP) Pulse Ox O2 Delivery O2 Flow Rate FiO2 06/10/17 18:32 37.3 73 18 160/66 100 Nasal Cannula 06/10/17 17:12 68 20 152/95 100 Room Air 06/10/17 16:10 71 06/10/17 15:36 36.7 66 18 132/58 Nasal Cannula 2.0 Physical Exam GENERAL: Sitting up in bed, confused, well nourished, no distress, non-toxic EYE EXAM: normal conjunctiva. OROPHARYNX: no exudate, no erythema, lips, buccal mucosa, and tongue normal and mucous membranes are moist NECK: supple, no nuchal rigidity, no adenopathy, non-tender LUNGS: Clear to auscultation. Breath sounds diminished at bases. Normal chest wall mechanics HEART: no murmurs, S1 normal and S2 normal ABDOMEN: abdomen soft, non-tender, normo-active bowel sounds, no masses, no rebound or guarding. BACK: Back is symmetrical on inspection and there is no deformity, no midline tenderness, no CVA tenderness. SKIN: no rashes and no bruising UPPER EXTREMITIES: upper extremities are grossly normal. Fistula in LUE, positive thrill. LOWER EXTREMITIES: No pitting edema. NEURO EXAM: Awake, alert, following commands but falls asleep quickly, oriented to person but not place or year. cranial nerves II-XII intact, normal speech, no weakness of arms, no weakness of legs. Medical Decision & Procedures ER Provider Diagnostic Interpretation: Radiology results as stated below per my review and the radiologist's interpretation: HEAD CT NONCONTRAST CT DOSE: 537.48 mGy.cm HISTORY: Altered mental status. TECHNIQUE: Multiaxial CT images of the head were performed without the use of intravenous contrast. Automated exposure control was utilized for this study. A dose lowering technique was utilized adhering to the principles of ALARA. Comparison: Head CT 06/04/2017. Findings: The paranasal sinuses and mastoid air cells are clear. The calvarium and skull base are intact. There is no mass, hematoma, midline shift, acute infarct. White matter hypodensity is nonspecific but suggestive of microvascular ischemic change. The ventricles and sulci demonstrate mild age-related involutional changes. Stable dense calcification overlying the left tentorium. 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 Impression: No significant change compared to the prior study. No acute intracranial abnormality. Electronically signed by: Cleve Hill M.D. 06/10/2017 5:20 PM Dictated Date/Time: 06/10/2017 4:57 PM SINGLE VIEW CHEST CLINICAL HISTORY: Change in mental status. FINDINGS: An AP, portable, upright chest radiograph is compared to study dated 06/04/2017. The examination is degraded by portable technique and patient rotation. The heart is enlarged and there is atherosclerotic calcification of the thoracic aorta. The pulmonary vasculature is noncongested. Chronic interstitial thickening is similar to previous. Linear atelectasis versus scarring is again seen in the left midlung. There is chronic elevation of the right hemidiaphragm. Bibasilar airspace opacities are noted. Trace pleural effusions are suspected. No pneumothorax is seen. The skeletal structures are osteopenic. There is an impacted fracture of the right humeral head and neck, similar appearance to 06/04/2017. IMPRESSION: 1. Cardiomegaly without radiographic evidence of congestive failure. 2. There are bibasilar airspace opacities, likely representing atelectasis. Correlate clinically for evidence of superimposed pneumonia. 3. Suspect small pleural effusions. 4. An impacted fracture of the right humeral head and neck is again noted. Electronically signed by: Meir Mooney M.D. 06/10/2017 4:33 PM Dictated Date/Time: 06/10/2017 4:32 PM DOPPLER ULTRASOUND HEMODIALYSIS ACCESS CLINICAL HISTORY: Unable to access the left upper extremity fistula for dialysis. COMPARISON STUDY: No priors. TECHNIQUE: Real-time, grayscale, and color Doppler sonography of the patient's left upper extremity fistula is performed. The examination is degraded by lack of patient cooperation. FINDINGS: The dialysis fistula is identified in the left upper extremity. The fistula appears patient. Maximum velocities in the fistula measure up to 356 cm/s, and are greatest near the arterial anastomosis. The brachial artery at the anastomosis is patent. The left subclavian vein is patent. There is arterialization of the subclavian venous waveforms. IMPRESSION: The dialysis fistula is patent with velocities measuring up to 356 cm/s. Electronically signed by: Meir Mooney M.D. 06/10/2017 6:30 PM Dictated Date/Time: 06/10/2017 6:28 PM Laboratory Results 06/10/17 16:49 Red Blood Count 2.71, Mean Corpuscular Volume 100.0, Mean Corpuscular Hemoglobin 32.8, Mean Corpuscular Hemoglobin Concent 32.8, Mean Platelet Volume 9.3, Neutrophils (%) (Auto) 81.6, Lymphocytes (%) (Auto) 8.5, Monocytes (%) ( Auto) 7.6, Eosinophils (%) (Auto) 1.7, Basophils (%) (Auto) 0.3, Neutrophils # ( Auto) 6.37, Lymphocytes # (Auto) 0.66, Monocytes # (Auto) 0.59, Eosinophils # ( Auto) 0.13, Basophils # (Auto) 0.02 06/10/17 16:49 Test 06/10/17 16:49 06/10/17 16:50 06/10/17 18:43 White Blood Count 7.79 K/uL (4.8-10.8) Red Blood Count 2.71 M/uL (4.2-5.4) Hemoglobin 8.9 g/dL (12.0-16.0) Hematocrit 27.1 % (37-47) Mean Corpuscular Volume 100.0 fL (80-100) Mean Corpuscular Hemoglobin 32.8 pg (25-34) Mean Corpuscular Hemoglobin Concent 32.8 g/dl (32-36) Platelet Count 257 K/uL (130-400) Mean Platelet Volume 9.3 fL (7.4-10.4) Neutrophils (%) (Auto) 81.6 % Lymphocytes (%) (Auto) 8.5 % Monocytes (%) (Auto) 7.6 % Eosinophils (%) (Auto) 1.7 % Basophils (%) (Auto) 0.3 % Neutrophils # (Auto) 6.37 K/uL (1.4-6.5) Lymphocytes # (Auto) 0.66 K/uL (1.2-3.4) Monocytes # (Auto) 0.59 K/uL (0.11-0.59) Eosinophils # (Auto) 0.13 K/uL (0-0.5) Basophils # (Auto) 0.02 K/uL (0-0.2) RDW Standard Deviation 59.8 fL (36.4-46.3) RDW Coefficient of Variation 16.2 % (11.5-14.5) Immature Granulocyte % (Auto) 0.3 % Immature Granulocyte # (Auto) 0.02 K/uL (0.00-0.02) Anisocytosis PRESENT Prothrombin Time 10.8 SECONDS (9.0-12.0) Prothromb Time International Ratio 1.0 (0.9-1.1) Activated Partial Thromboplast Time 26.5 SECONDS (21.0-31.0) Partial Thromboplastin Ratio 1.0 Venous Blood pH 7.34 (7.36-7.41) Venous Blood Partial Pressure CO2 50 mmHg (38.0-50.0) Venous Blood Partial Pressure O2 31 mmHg Venous Blood HCO3 26 mmol/L Venous Blood Oxygen Saturation < 60.0 % Venous Blood Base Excess -0.1 mEq/L Est Creatinine Clear Calc Drug Dose 5.0 ml/min Estimated GFR () 5.4 Estimated GFR (Non- 4.6 BUN/Creatinine Ratio 12.0 (10-20) Calcium Level 8.9 mg/dl (8.5-10.1) Total Bilirubin 0.8 mg/dl (0.2-1) Direct Bilirubin 0.2 mg/dl (0-0.2) Aspartate Amino Transf (AST/SGOT) 19 U/L (15-37) Alanine Aminotransferase (ALT/SGPT) 23 U/L (12-78) Alkaline Phosphatase 99 U/L (45-117) Ammonia 15.2 umol/L (11-32) Troponin I < 0.015 ng/ml (0-0.045) Total Protein 7.1 gm/dl (6.4-8.2) Albumin 2.9 gm/dl (3.4-5.0) Bedside Hemoglobin 9.2 g/dl (12.0-16.0) Bedside Hematocrit 27 % (37-47) Bedside Sodium 129 mEq/L (135-144) Bedside Potassium 5.8 mEq/L (3.3-5.0) Bedside Chloride 94 mEq/L (101-112) Bedside Total CO2 26 mEq/l (24-31) Anion Gap 17.0 mmol/L (16-25) Bedside Blood Urea Nitrogen 93 mg/dl (7-18) Bedside Creatinine 7.8 mg/dl (0.6-1.3) Bedside Glucose (other) 105 mg/dl (70-99) Bedside Ionized Calcium (Christy) 1.18 mmol/l (1.12-1.32) Urine Color DK YELLOW Urine Appearance CLEAR (CLEAR) Urine pH 5.0 (4.5-7.5) Urine Specific Bigelow 1.020 (1.000-1.030) Urine Protein TRACE (NEG) Urine Glucose (UA) NEG (NEG) Urine Ketones NEG (NEG) Urine Occult Blood NEG (NEG) Urine Nitrite NEG (NEG) Urine Bilirubin NEG (NEG) Urine Urobilinogen NEG (NEG) Urine Leukocyte Esterase MODERATE (NEG) Urine WBC (Auto) >30 /hpf (0-5) Urine RBC (Auto) 0-4 /hpf (0-4) Urine Hyaline Casts (Auto) 1-5 /lpf (0-5) Urine Epithelial Cells (Auto) >30 /lpf (0-5) Urine Bacteria (Auto) 1+ (NEG) Urine Renal Epithelial Cells 0-5 /lpf (0-5) Urine Yeast (Auto) (NONE PRSENT) Laboratory results per my review. ECG Indication: altered mental status Rate (beats per minute): 68 Rhythm: normal sinus Findings: RBBB, other (right axis deviation; poor baseline) Change: Patient's electrocardiogram interpreted by me. ED Course ED COURSE: Vital signs were reviewed and showed hypertensive. The patients medical record was reviewed The above diagnostic studies were performed and reviewed. ED treatments and interventions as stated above. 1550: The patient was evaluated in room A9B. A complete history and physical examination was performed. 1603: I spoke with [facility] regarding the patient's case. They state that the patient is a full code. 1738: I went to reassess the patient but she was in CT. 175: I discussed the case with Dr. Singh of nephrology. He will evaluate the patient. He has spoken with Dr. Palomares of vascular surgery who may place a Permacath tomorrow. 184: I discussed the case with Dr. Singh again at this time. He still feels that the patient should stay in the hospital. 1844: I spoke with Dr. Schmitt. We discussed the patient's case. The patient will be evaluated by the [facility] for further management. 185: Upon reevaluation, the patient is resting comfortably. I discussed my findings with the patient's family and they understand and agree with the treatment plan. Based on the patients age, coexisting illnesses, exam and lab findings the decision to treat as an inpatient was made. The patient remained stable while under my care. The patient will be evaluated for further management. Medical Decision Differential diagnoses includes but is not limited to toxic, metabolic, infectious, traumatic, cardiac, neurologic, hematologic, psychiatric and inflammatory etiologies. Patient is an 82-year-old female who presents to ER for unsuccessful attempts at dialysis with infiltration on 2 separate days. She is referred in by her underwriting technician. Patient is slightly confused and this has been present since she got to [facility]. CBC shows a hemoglobin of 8. BMP with a mild hyponatremia and potassium of 5.6. Creatinine was 7. Bilirubin LFTs were normal. Troponin was normal. Patient was valuated by Dr. Lopez from nephrology who agreed with and recommended admission as he discussed patient with Dr. Palomares for possible permacath placement tomorrow. Ultrasound of the fistula was normal. Patient family were updated bedside. Her chest x-ray did show possible focal infiltrates and with her intermittent confusion and did treat with Levaquin. Medication Reconcilliation Current Medication List: was personally reviewed by me Blood Pressure Screening Patient's blood pressure: Elevated blood pressure Blood pressure disposition: Elevated BP felt to be situational Consults Time Called: 1601 Consulting Physician: [facility] Returned Call: 1603 I spoke with [facility] regarding the patient's case. They state that the patient is a full code. Additional Consults: Time Called: 175 Consulted Physician: Dr. Singh Returned Call: 1751 Additional Comments: I discussed the case with Dr. Singh of nephrology. He will evaluate the patient. He has spoken with Dr. Palomares of vascular surgery who may place a Permacath tomorrow. Time Called: 1838 Consulted Physician: Dr. Singh Returned Call: 1840 Additional Comments: I discussed the case with Dr. Singh again at this time. He still feels that the patient should stay in the hospital. Impression Primary Impression: Dialysis AV fistula malfunction Additional Impressions: Confusion Anemia Hyperkalemia Scribe Attestation The scribe's documentation has been prepared under my direction and personally reviewed by me in its entirety. I confirm that the note above accurately reflects all work, treatment, procedures, and medical decision making performed by me. Departure Information Dispostion Being Evaluated By Hospitalist Referrals Anant Brown M.D. (PCP) Patient Instructions My [facility] Problem Qualifiers Primary Impression: Dialysis AV fistula malfunction Encounter type: initial encounter Qualified Codes: T82.590A - Other mechanical complication of surgically created arteriovenous fistula, initial encounter Additional Impressions: Anemia Anemia type: unspecified type Qualified Codes: D64.9 - Anemia, unspecified
[2017-06-10] MEDS: LABETALOL HCL 300 MG TAB PO SCH (23:49)
[2017-06-11] VITALS (26 sets, daily range): BP systolic 88–164; BP diastolic 39–80; PULSE 63–76; TEMP 36.4–36.9; O2SAT 98–100
[2017-06-11] MEDS: LEVOTHYROXINE 125 MCG TAB PO SCH (05:51)
--- NOTE | 2017-06-11 05:58 | History and Physical ---
History & Physical Date of Service Jun 11, 2017. History & Physical Chief Complaint: ESRD, functioning fistula with hematoma History of Present Illness The patient is a 80 year old female wtih hx of CKD, HTN, CAD, had a permanent access placed which has been working well. Yesterday at dialysis the fistula infiltrated and can not be used. Denies PULIDO, fever, chills, chest pain, SOB at rest, abd pain, N/V, rest pain, claudication, other complaints. Allergies Coded Allergies: Bacitracin (Verified Allergy, Unknown, 08/24/15) Polymyxin B (Verified Allergy, Unknown, 08/24/15) Surgical / Medical History Hx Cardiac Surgery: No Hx Abdominal Surgery: Yes (GALL BLADDER 1957, HYSTERECTOMY 2002) Hx Cancer Surgery: No Hx Thoracic Surgery: No Hx Orthopedic: No Hx Urinary Tract Surgery: No Past Medical/Surgical History: Heart Disease, Hypertension, Kidney Disease Family History Noncontributory d/t age Social History Smoking Status: Never Smoker Hx Tobacco Use In Past Year?: No Hx Alcohol Use - Type & Amnt: No Hx Substance Use -Type & Amnt: No Review of Systems Constitutional: + malaise, No chills, No fever Skin: No change in color Eyes: + 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), No visual changes ENMT: No sore throat Respiratory: + PHIPPS, No cough, No hemoptysis, No short of breath Cardiovascular: + edema, No chest pain, No intermittent claudication, No palpitations Gastrointestinal: No abdominal pain, No nausea, No vomiting Neurologic: + weakness, No dizziness, No numbness, No tingling Physical Exam: Constitutional: General Apperance: well-nourished, well-developed, obese Level of Distress: NAD, chronically ill Psychiatric: Mental Status: active & alert, normal mood, normal affect Orientation: oriented except where noted, to time, to place, to person Memory: recent memory normal, remote memory normal Head: normocephalic, atraumatic Eyes: EOM: EOMI, pertinent finding (clinically blind) ENMT: normal ENT inspection, hearing grossly normal Neck: supple, trachea midline Lungs: Respiratory effort: no dyspnea Auscultation: no wheezing, no rhonchi, decreased breath sounds, wet rales/ crackles Cardiovascular: Apical Impulse: not displaced Heart Auscultation: RRR, no murmurs, no rubs, no gallops Peripheral Pulses: Pulses: full and equal, in all extremities except if noted Bruits: none appreciated Carotid Pulse: normal on the left, normal on the right Brachial Pulses: normal on the left, normal on the right Radial Pulse: normal on the left, normal on the right Femoral Pulse: normal on the left, normal on the right Posterior Tibialis Pulse: decreased on the left, decreased on the right Dorsalis Pedis Pulse: decreased on the left, decreased on the right Abdomen: Bowel Sounds: normal Inspection & Palpation: soft, non-distended, no tenderness, guarding & rebound Musculoskeletal: normal strength (5/5 throughout), normal tone Extremities: Upper Right: no cyanosis, no varicosities, edema Upper Left: no cyanosis, no varicosities, edema, good thrill and bruit, large hematoma left arm Lower Right: no cyanosis, no varicosities, no palpable cord, edema Lower Left: no cyanosis, no varicosities, no palpable cord, edema Neurologic: Cranial Nerves: grossly intact Sensation: grossly intact ASSESSMENT and PLAN: Imp: ESRD Functioning fistula Infiltration left arm and hematoma Plan: Permcath insertion is recommended to rest the fistula. I have discussed the risks options and benefits of the procedure with the patient and her daughter. The patient and daughter understand the risks options and benefits and agrees to the procedure.
[2017-06-11] MEDS ORDERED: CEFAZOLIN 1000MG IV PUSH 7.5 ML IV SCH (06:00)
[2017-06-11] MEDS ORDERED: CEFAZOLIN IV 1,000 MG in DEXTROSE 5% 50ML 50 ML IV SCH (06:00)
[2017-06-11 06:01] LABS: HEMATOCRIT 27.4 % (37-47); MEAN CELL VOLUME 100.7 fL (80-100); MEAN CORPUSCULAR HEMOGLOBIN 33.1 pg (25-34); MEAN CORPUSCULAR HGB CONC 32.8 g/dl (32-36); MEAN PLATELET VOLUME 9.2 fL (7.4-10.4); PLATELET COUNT 257 K/uL (130-400); RED CELL DISTRIBUTION WIDTH CV 16.2 % (11.5-14.5); RED CELL DISTRIBUTION WIDTH SD 59.8 fL (36.4-46.3); WHITE BLOOD COUNT 8.01 K/uL (4.8-10.8)
[2017-06-11 06:42] LABS: CALCIUM 8.6 mg/dl (8.5-10.1); CREATININE 7.91 mg/dl (0.60-1.20); POTASSIUM 5.8 mmol/L (3.5-5.1)
[2017-06-11] MEDS ORDERED: HEPARIN SOD (PORCINE) 5000 UNIT/ML 1 ML VIAL ONE (07:48)
--- NOTE | 2017-06-11 08:32 | Pre Sedation Assessment ---
Pre Sedation Assessment General Date of Sedation: Jun 11, 2017. Vital Signs Past 12 Hours Date Time Temp Pulse Resp B/P (MAP) Pulse Ox O2 Delivery O2 Flow Rate FiO2 06/11/17 04:07 Nasal Cannula 3.0 06/11/17 03:59 36.9 76 21 142/80 (100) 98 Nasal Cannula 3.0 06/11/17 00:40 Nasal Cannula 3.0 06/11/17 00:28 36.9 73 29 142/52 (82) 98 Nasal Cannula 3.0 06/10/17 21:30 37.1 78 18 178/79 100 Nasal Cannula 3.0 Review Cardiovascular: regular rate, rhythm Lungs: lungs clear Pre-Sedation Airway Assessment Smoking Status: Never Smoker Hx of Sleep Apnea: No Hx of difficult intubation: No Short Thick Neck: No Thyro-mental Distance: > 3 Finger Breadths Oral Cavity: Dentures Mallampati Classification: Class I ASA Classification: Class III NPO Status Date of Last Intake of Fluids: Jun 10, 2017 Time of Last Intake of Fluids: 00:00 Date of Last Intake of Solids: Jun 10, 2017 Time of Last Intake of Solids: 00:00 Procedure Planning Contraindications for Sedation: None Current Medications Reviewed: Yes Notes The planned sedation has been discussed with the patient. Informed Consent was obtained. I have identified the patient, determined the appropriateness of sedation and have assessed the patient immediately prior to the procedure. All medicine(s) and interventions are by my order.
[2017-06-11] MEDS ORDERED: EPOETIN ALFA 10,000 UNITS/ML VIAL IV SCH (09:00)
[2017-06-11] MEDS ORDERED: FENTANYL CITRATE INJ 50 MCG/1 ML 2 ML VIAL ONE (09:01)
[2017-06-11] MEDS ORDERED: MIDAZOLAM HCL 1 MG/ML 2ML VIAL ONE (09:01)
--- NOTE | 2017-06-11 09:25 | [facility] Operative Report ---
Operative Report Operative Date Jun 11, 2017. Pre-Operative Diagnosis Nonuseable av fistula Post-Operative Diagnosis Non useable av fistula Procedure(s) Performed Insertion of right internal jugular vein permcath, 19cm USN localization of right internal jugular vein Fluoro for positioning Moderate conscious sedation ([id number]) Surgeon Jelani Bag Shaker Surgeon(s) none Estimated Blood Loss 5cc Findings Tip in distal SVC Specimens none Drains None Anesthesia Type IV Sedat Cons RN Only Complication(s) none Disposition no Indications This patient's an 82-year-old female with a left upper arm fistula. It infiltrated at dialysis yesterday and developed a large hematoma and is non- usable for dialysis. I have discussed the risks options and benefits of the procedure with the patient and her daughter. The patient and her daughter understand the risks options and benefits and agrees to the procedure. Description of Procedure Patient was takent to the angio suite and placed in the supine position. The right side of the neck and chest wall were prepped and draped in a sterile manner. Local anesthesia was then administered to the appropriate areas of the neck and chest wall. Ultrasound was then used to locate the right internal jugular vein. The vein compressed easily, had no filing defects, and was patent. The vein was then punctured under direct ultrasound imaging. A guidewire was then passed centrally under fluoroscopic imaging. A stab wound was then made in the anterior chest wall and a 19cm permcath was passed from the stab wound on the chest wall to the puncture site on the neck. The puncture site was then dilated till the 14Fr peel away sheath was inserted. The permcath was then inserted through the sheath to a central position in the distal superior vena cava. The peel away sheath was then removed. The catheter was then sutured in place using nylon sutures. The puncture was then closed using a 4-0 Vicryl subcuticular suture. Dermabond was used for a dressing on the puncture site. Both ports aspirated and flushed easily and were then packed with heparin. A sterile dressing was applied to the catheter. The patient left the angio suite in good condition and tolerated the procedure well. I attest to the content of the Intraoperative Record and any orders documented therein. Any exceptions are noted below.
--- NOTE | 2017-06-11 09:31 | Post Sedation Assessment ---
Post Sedation Assessment General Date of Sedation Jun 11, 2017. Vital Signs: Vital Signs Past 12 Hours Date Time Temp Pulse Resp B/P (MAP) Pulse Ox O2 Delivery O2 Flow Rate FiO2 06/11/17 09:26 72 18 145/66 100 Oxymask 4 06/11/17 09:21 Oxymask 4 06/11/17 09:16 Oxymask 4 06/11/17 09:11 Oxymask 4 06/11/17 09:06 Oxymask 4 06/11/17 09:00 71 20 162/65 100 Oxymask 4 06/11/17 08:00 98 Nasal Cannula 2.0 06/11/17 07:06 36.9 74 20 164/59 (94) 98 Nasal Cannula 3.0 06/11/17 04:07 Nasal Cannula 3.0 06/11/17 03:59 36.9 76 21 142/80 (100) 98 Nasal Cannula 3.0 06/11/17 00:40 Nasal Cannula 3.0 06/11/17 00:28 36.9 73 29 142/52 (82) 98 Nasal Cannula 3.0 Post Procedure Recovery Score Activity: (2) Moves 4 extremities * Respiration: (2) Deep breath/cough Circulation: (2) +/-20% PreAnes Value Consciousness: (1) Arouseable (by name) Oxygen Saturation: (1) O2 needed for >90% Post Anesthesia Score: 8 Discharge Sedation Level of Care: Fast Track Phase II Post Sedation Plan On clinical assessment, the patient appears to have tolerated the sedation without complications. Patient is recovering as anticipated. Patient will continue to be monitored by nursing and may be discharged when sedation discharge criteria are met per below protocol. Upon Completions of procedure and additional 15 minutes continue every 5 minute vital signs and the P.A.R. score; then discharge to a Phase I or Fast Track to Phase II per the following guidelines: * Discharge Patient to appropriate Phase II area if PAR is 8 or greater or return to pre- procedure baseline. The post - procedure orders will be as directed. * If PAR score is less than 8 or not return to pre-procedure baseline then patient will follow Phase I monitoring till PAR is reached for Phase II. The Phase I may be done in procedure room or may call to secure a Phase I area. * If naloxone or flumazenil are used for reversal, hold in Phase I for an additional 60 -120 minutes before discharge to Phase II. Please call the Sedation Physician to re-evaluate and complete post-note for discharge to Phase II area. Do NOT discharge from procedure sedation or Phase 1 until post- sedation evaluation note is complete by procedure /sedation MD Sedation Discharge Instructions to be given to the patient at discharge to home.
[2017-06-11] MEDS ORDERED: LIDOCAINE HCL 1% MPF 5 ML VIAL INJ ONE (09:40)
[2017-06-11] MEDS: LABETALOL HCL 300 MG TAB PO SCH ×2 (09:53→21:22)
[2017-06-11] MEDS: ALLOPURINOL 100 MG TAB PO SCH (09:54)
[2017-06-11] MEDS: ISOSORBIDE MONONITRATE 60 MG TABCR PO SCH (09:54)
[2017-06-11] MEDS: CITALOPRAM 20 MG TAB PO SCH (09:55)
[2017-06-11] MEDS: ATORVASTATIN 40 MG TAB PO SCH (09:55)
[2017-06-11] MEDS: COLESTIPOL HCL 1 GM TAB PO SCH (09:57)
--- NOTE | 2017-06-11 10:44 | Nephrology Progress Note ---
Nephrology Progress Note Date of Service Jun 11, 2017. Chief Complaint ESRD Subjective No acute events overnight. TDC placed without complications. Beth is tired this morning. She answered questions appropriately. Denies shortness of breath or pain. Remains on quality assurance monitor. No fevers or chills. Review of Systems A complete review of systems was performed. Pertinent positives are noted above. All other systems are negative. Vital Signs Last 8 Hrs Date Time Temp Pulse Resp B/P (MAP) Pulse Ox O2 Delivery O2 Flow Rate FiO2 06/11/17 09:36 Oxymask 4 06/11/17 09:31 Oxymask 4 06/11/17 09:26 72 18 145/66 100 Oxymask 4 06/11/17 09:21 Oxymask 4 06/11/17 09:16 Oxymask 4 06/11/17 09:11 Oxymask 4 06/11/17 09:06 Oxymask 4 06/11/17 09:00 71 20 162/65 100 Oxymask 4 06/11/17 08:00 98 Nasal Cannula 2.0 06/11/17 07:06 36.9 74 20 164/59 (94) 98 Nasal Cannula 3.0 06/11/17 04:07 Nasal Cannula 3.0 06/11/17 03:59 36.9 76 21 142/80 (100) 98 Nasal Cannula 3.0 Last Recorded Weight Weight (Kilograms): 70.900 Physical Exam General Appearance: WD/WN, no apparent distress Head: normocephalic, atraumatic Eyes: normal inspection, sclerae normal ENT: normal ENT inspection, pharynx normal Neck: supple, no JVD, + pertinent finding (RIJ TDC intact) Respiratory/Chest: lungs clear, no respiratory distress, no accessory muscle use Cardiovascular: regular rate, rhythm Abdomen/GI: non tender, soft Extremities/Musculoskelatal: normal inspection, no pedal edema, + pertinent finding (LUE AVF with thrill and bruit, surrounding ecchymosis and hematoma) Neurologic/Psych: alert Family History Cancer Diabetes mellitus Gallbladder disease Heart disease Hypertension Lung disease Social History Smoking Status: Never smoker Drug Use: none Marital Status: Housing Status: custodial Laboratory Results Past 24 Hours 06/10/17 16:49 Red Blood Count 2.71, Mean Corpuscular Volume 100.0, Mean Corpuscular Hemoglobin 32.8, Mean Corpuscular Hemoglobin Concent 32.8, Mean Platelet Volume 9.3, Neutrophils (%) (Auto) 81.6, Lymphocytes (%) (Auto) 8.5, Monocytes (%) ( Auto) 7.6, Eosinophils (%) (Auto) 1.7, Basophils (%) (Auto) 0.3, Neutrophils # ( Auto) 6.37, Lymphocytes # (Auto) 0.66, Monocytes # (Auto) 0.59, Eosinophils # ( Auto) 0.13, Basophils # (Auto) 0.02 06/11/17 05:31 06/10/17 16:49 06/11/17 05:31 Test 06/10/17 16:49 06/10/17 16:50 06/10/17 18:43 06/10/17 22:50 White Blood Count 7.79 K/uL (4.8-10.8) Red Blood Count 2.71 M/uL (4.2-5.4) Hemoglobin 8.9 g/dL (12.0-16.0) Hematocrit 27.1 % (37-47) Mean Corpuscular Volume 100.0 fL (80-100) Mean Corpuscular Hemoglobin 32.8 pg (25-34) Mean Corpuscular Hemoglobin Concent 32.8 g/dl (32-36) Platelet Count 257 K/uL (130-400) Mean Platelet Volume 9.3 fL (7.4-10.4) Neutrophils (%) (Auto) 81.6 % Lymphocytes (%) (Auto) 8.5 % Monocytes (%) (Auto) 7.6 % Eosinophils (%) (Auto) 1.7 % Basophils (%) (Auto) 0.3 % Neutrophils # (Auto) 6.37 K/uL (1.4-6.5) Lymphocytes # (Auto) 0.66 K/uL (1.2-3.4) Monocytes # (Auto) 0.59 K/uL (0.11-0.59) Eosinophils # (Auto) 0.13 K/uL (0-0.5) Basophils # (Auto) 0.02 K/uL (0-0.2) RDW Standard Deviation 59.8 fL (36.4-46.3) RDW Coefficient of Variation 16.2 % (11.5-14.5) Immature Granulocyte % (Auto) 0.3 % Immature Granulocyte # (Auto) 0.02 K/uL (0.00-0.02) Anisocytosis PRESENT Prothrombin Time 10.8 SECONDS (9.0-12.0) Prothromb Time International Ratio 1.0 (0.9-1.1) Activated Partial Thromboplast Time 26.5 SECONDS (21.0-31.0) Partial Thromboplastin Ratio 1.0 Venous Blood pH 7.34 (7.36-7.41) Venous Blood Partial Pressure CO2 50 mmHg (38.0-50.0) Venous Blood Partial Pressure O2 31 mmHg Venous Blood HCO3 26 mmol/L Venous Blood Oxygen Saturation < 60.0 % Venous Blood Base Excess -0.1 mEq/L Anion Gap 7.0 mmol/L (3-11) 17.0 mmol/L (16-25) Est Creatinine Clear Calc Drug Dose 5.0 ml/min Estimated GFR () 5.4 Estimated GFR (Non- 4.6 BUN/Creatinine Ratio 12.0 (10-20) Calcium Level 8.9 mg/dl (8.5-10.1) Total Bilirubin 0.8 mg/dl (0.2-1) Direct Bilirubin 0.2 mg/dl (0-0.2) Aspartate Amino Transf (AST/SGOT) 19 U/L (15-37) Alanine Aminotransferase (ALT/SGPT) 23 U/L (12-78) Alkaline Phosphatase 99 U/L (45-117) Ammonia 15.2 umol/L (11-32) Troponin I < 0.015 ng/ml (0-0.045) Total Protein 7.1 gm/dl (6.4-8.2) Albumin 2.9 gm/dl (3.4-5.0) Bedside Hemoglobin 9.2 g/dl (12.0-16.0) Bedside Hematocrit 27 % (37-47) Bedside Sodium 129 mEq/L (135-144) Bedside Potassium 5.8 mEq/L (3.3-5.0) Bedside Chloride 94 mEq/L (101-112) Bedside Total CO2 26 mEq/l (24-31) Bedside Blood Urea Nitrogen 93 mg/dl (7-18) Bedside Creatinine 7.8 mg/dl (0.6-1.3) Bedside Glucose (other) 105 mg/dl (70-99) Bedside Ionized Calcium (Christy) 1.18 mmol/l (1.12-1.32) Urine Color DK YELLOW Urine Appearance CLEAR (CLEAR) Urine pH 5.0 (4.5-7.5) Urine Specific [place] 1.020 (1.000-1.030) Urine Protein TRACE (NEG) Urine Glucose (UA) NEG (NEG) Urine Ketones NEG (NEG) Urine Occult Blood NEG (NEG) Urine Nitrite NEG (NEG) Urine Bilirubin NEG (NEG) Urine Urobilinogen NEG (NEG) Urine Leukocyte Esterase MODERATE (NEG) Urine WBC (Auto) >30 /hpf (0-5) Urine RBC (Auto) 0-4 /hpf (0-4) Urine Hyaline Casts (Auto) 1-5 /lpf (0-5) Urine Epithelial Cells (Auto) >30 /lpf (0-5) Urine Bacteria (Auto) 1+ (NEG) Urine Renal Epithelial Cells 0-5 /lpf (0-5) Urine Yeast (Auto) (NONE PRSENT) Bedside Glucose 94 mg/dl (70-90) Test 06/11/17 00:26 06/11/17 05:31 06/11/17 10:01 Troponin I < 0.015 ng/ml (0-0.045) Red Blood Count 2.72 M/uL (4.2-5.4) Mean Corpuscular Volume 100.7 fL (80-100) Mean Corpuscular Hemoglobin 33.1 pg (25-34) Mean Corpuscular Hemoglobin Concent 32.8 g/dl (32-36) RDW Standard Deviation 59.8 fL (36.4-46.3) RDW Coefficient of Variation 16.2 % (11.5-14.5) Mean Platelet Volume 9.2 fL (7.4-10.4) Anion Gap 10.0 mmol/L (3-11) Est Creatinine Clear Calc Drug Dose 4.6 ml/min Estimated GFR () 5.0 Estimated GFR (Non- 4.3 BUN/Creatinine Ratio 12.2 (10-20) Calcium Level 8.6 mg/dl (8.5-10.1) Magnesium Level 2.1 mg/dl (1.8-2.4) Allergies Coded Allergies: Bacitracin (Verified Allergy, Unknown, EYES SWELLING-OINTMENT PLACED AROUND EYE, 06/05/17) Polymyxin B (Verified Allergy, Unknown, EYES [id number] PLACED AROUND EYE, 06/05/17) Medications Current Inpatient Medications Medications (Trade) Dose Ordered Sig/Debora Route Start Time Stop Time Status Last Admin Dose Admin Acetaminophen (Tylenol Tab) 650 mg Q4H PRN PO 06/10/17 19:15 07/10/17 19:14 Al Hydrox/Mg Hydrox/Simethicone (Maalox Max Susp) 15 ml Q4H PRN PO 06/10/17 19:15 07/10/17 19:14 Magnesium Hydroxide (Milk Of Magnesia Susp) 30 ml Q12H PRN PO 06/10/17 19:15 07/10/17 19:14 Ondansetron HCl (Zofran Inj) 4 mg Q6H PRN IV 06/10/17 19:15 07/10/17 19:14 Nitroglycerin (Nitrostat Tab) 0.4 mg UD PRN SL 06/10/17 19:15 07/10/17 19:14 Morphine Sulfate (MoRPHine SULFATE INJ) 2 mg Q30M PRN IV 06/10/17 19:15 06/24/17 19:14 Polyethylene (Miralax Powder Packet) 17 gm DAILY PRN PO 06/10/17 19:15 07/10/17 19:14 Allopurinol (Zyloprim Tab) 100 mg QAM PO 06/11/17 09:00 07/11/17 08:59 06/11/17 09:54 100 MG Atorvastatin Calcium (Lipitor Tab) 40 mg QAM PO 06/11/17 09:00 07/11/17 08:59 06/11/17 09:55 40 MG Vitamin B Complex/ Vit C/Folic Acid (Nephrocaps) 1 cap DAILY@1200 PO 06/11/17 12:00 07/11/17 11:59 Calcium Acetate (Phoslo Cap) 1,334 mg TIDM PO 06/11/17 07:30 07/11/17 07:59 Colestipol HCl (Colestid Tab) 1 gm DAILY@1000 PO 06/11/17 10:00 07/11/17 09:59 06/11/17 09:57 1 GM Isosorbide Mononitrate (Imdur Ext Rel Tab) 60 mg QAM PO 06/11/17 09:00 07/11/17 08:59 06/11/17 09:54 60 MG Labetalol HCl (Normodyne Tab) 300 mg BID PO 06/10/17 21:00 07/10/17 20:59 06/11/17 09:53 300 MG Levothyroxine Sodium (Synthroid Tab) 125 mcg DAILYBB PO 06/11/17 06:00 07/11/17 06:59 06/11/17 05:51 125 MCG Citalopram Hydrobromide (celeXA TAB) 10 mg QAM PO 06/11/17 09:00 07/11/17 08:59 06/11/17 09:55 10 MG Cefazolin Sodium 7.5 ml @ 1.667 mls/ min PREOP IV 06/11/17 06:00 06/11/17 18:00 06/11/17 08:49 1.667 MLS/MIN Epoetin Magdy (Procrit Inj) 10,000 units 0900 IV 06/11/17 09:00 06/11/17 14:00 Impression (1) ESRD (end stage renal disease) on dialysis (2) Failing arteriovenous fistula (3) Secondary hyperparathyroidism of renal origin (4) Anemia (5) Altered mental status (6) Impaired ambulation Recommendations END STAGE RENAL DISEASE: -- TDC placed this morning without complications -- Patient scheduled for bedside hemodialysis -- Dialysis orders have been entered into the EMR and discussed with dialysis nurse -- Renal diet ANEMIA: -- Will provide SARAH w/ HD HYPERTENSION: -- Blood pressure is currently acceptable CKD-BMD: -- Continue Phos-Lo 2 capsules w/ each meal
[2017-06-11] MEDS: CALCIUM ACETATE 667MG GELCAP PO SCH ×2 (11:30→16:45)
--- NOTE | 2017-06-11 11:46 | Clinical Documentation Query ---
ALIDA Pond : CLINICAL DOCUMENTATION QUERY Patient is an 82 year old female admitted for evaluation and treatment of her failed AV fistula and "AMS likely secondary to not receiving dialysis". She is for PermaCath placement by Dr. Palomares. As appropriate, consider documentation as suggested below in order to capture the SOI and associated ROM. Thank you. In your clinical opinion is this patient being managed for: ( x ) Metabolic/uremic encephalopathy associated with delayed ( ) Not Agree ( ) Other explanation of clinical findings (Please Explain) ( ) Unable to determine (Please Define) ( ) Need to Discuss The medical record reflects the following clinical findings, treatment, and risk factors. Clinical Indicators: As above Treatment: CT scan of the head, labs/CXR to r/o infection/other source Risk Factors: Missed hemodialysis, hyponatremia Please clarify and document your clinical opinion in the progress notes and discharge summary. Terms such as "probable", "suspected", "likely", "questionable", "possible", or "still to be ruled out" are acceptable. IF IN AGREEMENT, YOU MUST DOCUMENT ABOVE DIAGNOSTIC STATEMENT IN DAILY PROGRESS NOTES AND DISCHARGE SUMMARY. This document is not part of the patient's record. Thank You, Daniel Jaramillo, MEGA [phone]
--- NOTE | 2017-06-11 11:54 | Progress Note ---
Subjective Date of Service: Jun 11, 2017. Subjective Pt evaluation today including: conversation w/ patient Pt is s/p perma cath placement and feels she tolerated it well. She is awaiting HD for today. Pt denies fever, SOB, chest pain, abd pain, n/v/c/d, LE pain or swelling. Problem List Medical Problems: (1) Anemia Status: Chronic (2) Confusion Status: Acute (3) Dialysis AV fistula malfunction Status: Acute (4) Fall Status: Acute (5) Hyperkalemia Status: Acute (6) Syncope Status: Acute (7) Unstable angina Status: Acute Review of Systems All Other Systems: Reviewed and Negative Objective Vital Signs Date Time Temp Pulse Resp B/P (MAP) Pulse Ox O2 Delivery O2 Flow Rate FiO2 06/11/17 09:36 Oxymask 4 06/11/17 09:31 Oxymask 4 06/11/17 09:26 72 18 145/66 100 Oxymask 4 06/11/17 09:21 Oxymask 4 06/11/17 09:16 Oxymask 4 06/11/17 09:11 Oxymask 4 06/11/17 09:06 Oxymask 4 06/11/17 09:00 71 20 162/65 100 Oxymask 4 06/11/17 08:00 98 Nasal Cannula 2.0 06/11/17 07:06 36.9 74 20 164/59 (94) 98 Nasal Cannula 3.0 06/11/17 04:07 Nasal Cannula 3.0 06/11/17 03:59 36.9 76 21 142/80 (100) 98 Nasal Cannula 3.0 06/11/17 00:40 Nasal Cannula 3.0 06/11/17 00:28 36.9 73 29 142/52 (82) 98 Nasal Cannula 3.0 06/10/17 21:30 37.1 78 18 178/79 100 Nasal Cannula 3.0 06/10/17 20:11 74 06/10/17 20:01 36.6 77 18 144/62 91 Room Air 06/10/17 18:32 37.3 73 18 160/66 100 Nasal Cannula 06/10/17 17:12 68 20 152/95 100 Room Air 06/10/17 16:10 71 06/10/17 15:36 36.7 66 18 132/58 Nasal Cannula 2.0 Physical Exam Comments: General Appearance: WD/WN, no apparent distress Respiratory: normal breath sounds, no respiratory distress Cardiovascular: normal peripheral pulses, regular rate, rhythm Gastrointestinal: non tender, soft Extremities: non-tender, no pedal edema Neurologic/Psychiatric: alert (to person only), other (pleasantly confused, answered ER when asked about location, no answer to year), slightly groggy post- op Skin Characteristics: normal color, warm/dry Laboratory Results Last 24 Hours Test 06/10/17 16:49 06/10/17 16:50 06/10/17 18:43 06/10/17 22:50 White Blood Count 7.79 K/uL Red Blood Count 2.71 M/uL Hemoglobin 8.9 g/dL Hematocrit 27.1 % Mean Corpuscular Volume 100.0 fL Mean Corpuscular Hemoglobin 32.8 pg Mean Corpuscular Hemoglobin Concent 32.8 g/dl Platelet Count 257 K/uL Mean Platelet Volume 9.3 fL Neutrophils (%) (Auto) 81.6 % Lymphocytes (%) (Auto) 8.5 % Monocytes (%) (Auto) 7.6 % Eosinophils (%) (Auto) 1.7 % Basophils (%) (Auto) 0.3 % Neutrophils # (Auto) 6.37 K/uL Lymphocytes # (Auto) 0.66 K/uL Monocytes # (Auto) 0.59 K/uL Eosinophils # (Auto) 0.13 K/uL Basophils # (Auto) 0.02 K/uL RDW Standard Deviation 59.8 fL RDW Coefficient of Variation 16.2 % Immature Granulocyte % (Auto) 0.3 % Immature Granulocyte # (Auto) 0.02 K/uL Anisocytosis PRESENT Prothrombin Time 10.8 SECONDS Prothromb Time International Ratio 1.0 Activated Partial Thromboplast Time 26.5 SECONDS Partial Thromboplastin Ratio 1.0 Venous Blood pH 7.34 Venous Blood Partial Pressure CO2 50 mmHg Venous Blood Partial Pressure O2 31 mmHg Venous Blood HCO3 26 mmol/L Venous Blood Oxygen Saturation < 60.0 % Venous Blood Base Excess -0.1 mEq/L Sodium Level 127 mmol/L Potassium Level 5.6 mmol/L Chloride Level 94 mmol/L Carbon Dioxide Level 26 mmol/L Anion Gap 7.0 mmol/L 17.0 mmol/L Blood Urea Nitrogen 88 mg/dl Creatinine 7.38 mg/dl Est Creatinine Clear Calc Drug Dose 5.0 ml/min Estimated GFR () 5.4 Estimated GFR (Non- 4.6 BUN/Creatinine Ratio 12.0 Random Glucose 101 mg/dl Calcium Level 8.9 mg/dl Total Bilirubin 0.8 mg/dl Direct Bilirubin 0.2 mg/dl Aspartate Amino Transf (AST/SGOT) 19 U/L Alanine Aminotransferase (ALT/SGPT) 23 U/L Alkaline Phosphatase 99 U/L Ammonia 15.2 umol/L Troponin I < 0.015 ng/ml Total Protein 7.1 gm/dl Albumin 2.9 gm/dl Bedside Hemoglobin 9.2 g/dl Bedside Hematocrit 27 % Bedside Sodium 129 mEq/L Bedside Potassium 5.8 mEq/L Bedside Chloride 94 mEq/L Bedside Total CO2 26 mEq/l Bedside Blood Urea Nitrogen 93 mg/dl Bedside Creatinine 7.8 mg/dl Bedside Glucose (other) 105 mg/dl Bedside Ionized Calcium (Christy) 1.18 mmol/l Urine Color DK YELLOW Urine Appearance CLEAR Urine pH 5.0 Urine Specific [place] 1.020 Urine Protein TRACE Urine Glucose (UA) NEG Urine Ketones NEG Urine Occult Blood NEG Urine Nitrite NEG Urine Bilirubin NEG Urine Urobilinogen NEG Urine Leukocyte Esterase MODERATE Urine WBC (Auto) >30 /hpf Urine RBC (Auto) 0-4 /hpf Urine Hyaline Casts (Auto) 1-5 /lpf Urine Epithelial Cells (Auto) >30 /lpf Urine Bacteria (Auto) 1+ Urine Renal Epithelial Cells 0-5 /lpf Urine Yeast (Auto) Bedside Glucose 94 mg/dl Test 06/11/17 00:26 06/11/17 05:31 06/11/17 10:01 Troponin I < 0.015 ng/ml < 0.015 ng/ml White Blood Count 8.01 K/uL Red Blood Count 2.72 M/uL Hemoglobin 9.0 g/dL Hematocrit 27.4 % Mean Corpuscular Volume 100.7 fL Mean Corpuscular Hemoglobin 33.1 pg Mean Corpuscular Hemoglobin Concent 32.8 g/dl RDW Standard Deviation 59.8 fL RDW Coefficient of Variation 16.2 % Platelet Count 257 K/uL Mean Platelet Volume 9.2 fL Sodium Level 128 mmol/L Potassium Level 5.8 mmol/L Chloride Level 96 mmol/L Carbon Dioxide Level 22 mmol/L Anion Gap 10.0 mmol/L Blood Urea Nitrogen 97 mg/dl Creatinine 7.91 mg/dl Est Creatinine Clear Calc Drug Dose 4.6 ml/min Estimated GFR () 5.0 Estimated GFR (Non- 4.3 BUN/Creatinine Ratio 12.2 Random Glucose 87 mg/dl Calcium Level 8.6 mg/dl Magnesium Level 2.1 mg/dl Assessment and Plan Patient is an 82 y/o female, with PMHx of h/o ESRD (HD on T/R/S), CAD s/p cardiac stenting, HLD, HTN, chronic anemia, hypothyroidism, gout, and secondary hyperparathyroidism, who presented to the ED from [facility] due to failed AV fistula. Failed AV fistula, AMS likely secondary to not receiving dialysis, ESRD on HD T, ,S: - UA noted with leuk est +, neg nitrites. Await cx results to determine if true infection WBC WNL, afebrile, no urinary sx - Continue Phoslo and [place] capsules - Head CT and CXR unremarkable for acute findings - Consult Dr. Palomares- [facility] 06/11 - Consult Nephrology, appreciate recommendations Pt did have a dose of oxy on Thursday and no HD Thursday, but seems less likely to have started causing AMS No further oxy CAD s/p cardiac stenting, HLD, HTN- STABLE: Continue Lipitor 40 mg, Colestipol 1 gm, Imdur 60 mg, Labetalol 300 mg BID Trops neg Depression, anxiety: Continue Citalopram 10 mg Gout: Continue Allopurinol 100 mg Hypothyroidism: Continue Levothyroxine 125 mcg Recent R shoulder fracture: Tylenol PRN for pain management DVT prophylaxis: TEDs, SCDs; no chemical anticoagulation due to ?procedure by Dr. Palomares tomorrow Code status: LEVEL V, DNR Dispo: From [facility]- PT/OT and CM consulted O2 use at baseline
[2017-06-11] MEDS: NEPHROCAPS PO SCH (12:57)
[2017-06-11 23:10] LABS: CKMB 3.3 ng/ml (0.5-3.6)
[2017-06-12] VITALS (25 sets, daily range): BP systolic 89–176; BP diastolic 37–75; PULSE 63–81; TEMP 36.7–37.4; O2SAT 92–100
[2017-06-12] MEDS: LEVOTHYROXINE 125 MCG TAB PO SCH (06:25)
[2017-06-12 06:30] LABS: HEMATOCRIT 30.6 % (37-47); MEAN CELL VOLUME 102.3 fL (80-100); MEAN CORPUSCULAR HEMOGLOBIN 33.4 pg (25-34); MEAN CORPUSCULAR HGB CONC 32.7 g/dl (32-36); MEAN PLATELET VOLUME 9.4 fL (7.4-10.4); PLATELET COUNT 221 K/uL (130-400); RED CELL DISTRIBUTION WIDTH CV 16.3 % (11.5-14.5); RED CELL DISTRIBUTION WIDTH SD 61.6 fL (36.4-46.3); WHITE BLOOD COUNT 7.64 K/uL (4.8-10.8)
[2017-06-12 07:10] LABS: CKMB 2.6 ng/ml (0.5-3.6)
[2017-06-12 07:21] LABS: CALCIUM 8.8 mg/dl (8.5-10.1); CREATININE 4.7 mg/dl (0.60-1.20); POTASSIUM 4.8 mmol/L (3.5-5.1)
[2017-06-12] MEDS: CALCIUM ACETATE 667MG GELCAP PO SCH ×3 (08:19→16:39)
[2017-06-12] MEDS: LABETALOL HCL 300 MG TAB PO SCH ×2 (08:19→21:08)
[2017-06-12] MEDS: ALLOPURINOL 100 MG TAB PO SCH (08:19)
[2017-06-12] MEDS: ATORVASTATIN 40 MG TAB PO SCH (08:19)
[2017-06-12] MEDS: CITALOPRAM 20 MG TAB PO SCH (08:20)
[2017-06-12] MEDS: ISOSORBIDE MONONITRATE 60 MG TABCR PO SCH (08:20)
--- NOTE | 2017-06-12 09:44 | Nephrology Progress Note ---
Nephrology Progress Note Date of Service Jun 12, 2017. Chief Complaint ESRD Subjective No acute events overnight. Beth feels well this morning. She tolerated HD yesterday without complications. Denies shortness of breath. Appetite is fair. Continues to have discomfort in left arm at AVF site. Review of Systems A complete review of systems was performed. Pertinent positives are noted above. All other systems are negative. Vital Signs Last 8 Hrs Date Time Temp Pulse Resp B/P (MAP) Pulse Ox O2 Delivery O2 Flow Rate FiO2 06/12/17 04:09 36.7 71 24 133/41 (71) 100 Nasal Cannula 3.0 06/12/17 04:00 Nasal Cannula 2.0 Last Recorded Weight Weight (Kilograms): 65.000 Physical Exam General Appearance: WD/WN, no apparent distress Head: normocephalic, atraumatic Eyes: normal inspection, sclerae normal ENT: normal ENT inspection, pharynx normal Neck: supple, + JVD Respiratory/Chest: lungs clear, no respiratory distress, no accessory muscle use Cardiovascular: regular rate, rhythm, no gallop Abdomen/GI: non tender, soft Extremities/Musculoskelatal: normal inspection, no pedal edema, + pertinent finding (L AVF with thrill and bruit, improving hematoma and ecchymosis) Neurologic/Psych: alert, normal mood/affect Family History Cancer Diabetes mellitus Gallbladder disease Heart disease Hypertension Lung disease Social History Smoking Status: Never smoker Drug Use: none Marital Status: Housing Status: alf Laboratory Results Past 24 Hours 06/12/17 06:08 06/12/17 06:08 Test 06/11/17 10:01 06/11/17 22:00 06/11/17 22:34 06/12/17 06:00 Troponin I < 0.015 ng/ml (0-0.045) Creatine Kinase MB Ratio (0-3.0) (0-3.0) Creatine Kinase MB 3.3 ng/ml (0.5-3.6) Test 06/12/17 06:08 Red Blood Count 2.99 M/uL (4.2-5.4) Mean Corpuscular Volume 102.3 fL (80-100) Mean Corpuscular Hemoglobin 33.4 pg (25-34) Mean Corpuscular Hemoglobin Concent 32.7 g/dl (32-36) RDW Standard Deviation 61.6 fL (36.4-46.3) RDW Coefficient of Variation 16.3 % (11.5-14.5) Mean Platelet Volume 9.4 fL (7.4-10.4) Anion Gap 9.0 mmol/L (3-11) Est Creatinine Clear Calc Drug Dose 7.4 ml/min Estimated GFR () 9.3 Estimated GFR (Non- 8.0 BUN/Creatinine Ratio 9.3 (10-20) Calcium Level 8.8 mg/dl (8.5-10.1) Magnesium Level 2.3 mg/dl (1.8-2.4) Creatine Kinase MB 2.6 ng/ml (0.5-3.6) Allergies Coded Allergies: Bacitracin (Verified Allergy, Unknown, EYES SWELLING-OINTMENT PLACED AROUND EYE, 06/05/17) Polymyxin B (Verified Allergy, Unknown, EYES [id number] PLACED AROUND EYE, 06/05/17) Medications Current Inpatient Medications Medications (Trade) Dose Ordered Sig/Debora Route Start Time Stop Time Status Last Admin Dose Admin Acetaminophen (Tylenol Tab) 650 mg Q4H PRN PO 06/10/17 19:15 07/10/17 19:14 Al Hydrox/Mg Hydrox/Simethicone (Maalox Max Susp) 15 ml Q4H PRN PO 06/10/17 19:15 07/10/17 19:14 Magnesium Hydroxide (Milk Of Magnesia Susp) 30 ml Q12H PRN PO 06/10/17 19:15 07/10/17 19:14 Ondansetron HCl (Zofran Inj) 4 mg Q6H PRN IV 06/10/17 19:15 07/10/17 19:14 Nitroglycerin (Nitrostat Tab) 0.4 mg UD PRN SL 06/10/17 19:15 07/10/17 19:14 Morphine Sulfate (MoRPHine SULFATE INJ) 2 mg Q30M PRN IV 06/10/17 19:15 06/24/17 19:14 Polyethylene (Miralax Powder Packet) 17 gm DAILY PRN PO 06/10/17 19:15 07/10/17 19:14 Allopurinol (Zyloprim Tab) 100 mg QAM PO 06/11/17 09:00 07/11/17 08:59 06/12/17 08:19 100 MG Atorvastatin Calcium (Lipitor Tab) 40 mg QAM PO 06/11/17 09:00 07/11/17 08:59 06/12/17 08:19 40 MG Vitamin B Complex/ Vit C/Folic Acid (Nephrocaps) 1 cap DAILY@1200 PO 06/11/17 12:00 07/11/17 11:59 06/11/17 12:57 1 CAP Calcium Acetate (Phoslo Cap) 1,334 mg TIDM PO 06/11/17 07:30 07/11/17 07:59 06/12/17 08:19 1,334 MG Colestipol HCl (Colestid Tab) 1 gm DAILY@1000 PO 06/11/17 10:00 07/11/17 09:59 06/11/17 09:57 1 GM Isosorbide Mononitrate (Imdur Ext Rel Tab) 60 mg QAM PO 06/11/17 09:00 07/11/17 08:59 06/12/17 08:20 60 MG Labetalol HCl (Normodyne Tab) 300 mg BID PO 06/10/17 21:00 07/10/17 20:59 06/12/17 08:19 300 MG Levothyroxine Sodium (Synthroid Tab) 125 mcg DAILYBB PO 06/11/17 06:00 07/11/17 06:59 06/12/17 06:25 125 MCG Citalopram Hydrobromide (celeXA TAB) 10 mg QAM PO 06/11/17 09:00 07/11/17 08:59 06/12/17 08:20 10 MG Impression (1) ESRD (end stage renal disease) on dialysis (2) Failing arteriovenous fistula (3) Secondary hyperparathyroidism of renal origin (4) Anemia (5) Altered mental status (6) Impaired ambulation Recommendations END STAGE RENAL DISEASE: -- Plan HD today for additional clearance and UF (500-1000) -- Dialysis orders have been entered into the EMR and discussed with dialysis nurse -- TDC for HD today as we continue to rest AVF -- Renal diet ANEMIA: -- Epogen [id number] units provided yesterday HYPERTENSION: -- Blood pressure is currently acceptable CKD-BMD: -- Continue Phos-Lo 2 capsules w/ each meal
[2017-06-12] MEDS: NEPHROCAPS PO SCH (12:47)
[2017-06-12] MEDS: COLESTIPOL HCL 1 GM TAB PO SCH (12:48)
--- NOTE | 2017-06-12 12:57 | Progress Note ---
Subjective Date of Service: Jun 12, 2017. Subjective Pt evaluation today including: conversation w/ patient, conversation w/ family Pt is very tired. Nursing states she was OOB to the chair for a while this AM. She ate breakfast without issue. Pt is currently getting HD and is very cold. Pt denies fever, SOB, chest pain, abd pain, n/v/c/d, LE pain or swelling. Problem List Medical Problems: (1) Anemia Status: Chronic (2) Confusion Status: Acute (3) Dialysis AV fistula malfunction Status: Acute (4) Fall Status: Acute (5) Hyperkalemia Status: Acute (6) Syncope Status: Acute (7) Unstable angina Status: Acute Review of Systems All Other Systems: Reviewed and Negative Objective Vital Signs Date Time Temp Pulse Resp B/P (MAP) Pulse Ox O2 Delivery O2 Flow Rate FiO2 06/12/17 12:15 72 21 109/45 (66) 98 Nasal Cannula 2.0 06/12/17 12:01 97 Nasal Cannula 2.0 06/12/17 12:00 72 109/45 06/12/17 11:45 75 106/44 06/12/17 11:30 75 95/57 06/12/17 11:15 36.9 78 20 107/40 (62) 98 Nasal Cannula 4.0 06/12/17 11:15 79 107/40 06/12/17 11:00 75 102/46 06/12/17 10:45 69 106/37 06/12/17 10:39 72 117/57 06/12/17 10:30 63 89/38 06/12/17 10:15 66 95/41 06/12/17 10:00 66 92/40 06/12/17 09:45 68 90/41 06/12/17 09:30 69 98/40 06/12/17 09:28 36.7 68 23 132/75 (94) 100 Nasal Cannula 2.0 06/12/17 09:23 68 100/48 06/12/17 09:15 37.0 69 101/50 (67) 06/12/17 08:04 96 Nasal Cannula 2.0 06/12/17 07:43 36.9 71 20 132/75 (94) 100 Nasal Cannula 3.0 06/12/17 04:09 36.7 71 24 133/41 (71) 100 Nasal Cannula 3.0 06/12/17 04:00 Nasal Cannula 2.0 06/12/17 00:58 36.9 75 14 176/71 (106) 100 Nasal Cannula 3.0 06/12/17 00:00 Nasal Cannula 2.0 06/11/17 20:00 Nasal Cannula 2.0 06/11/17 19:59 36.4 71 22 128/47 (74) 100 Nasal Cannula 3.0 06/11/17 18:00 36.4 66 140/55 (83) 06/11/17 18:00 64 94/45 06/11/17 17:45 65 88/44 06/11/17 17:30 67 92/39 06/11/17 17:15 65 115/71 06/11/17 17:00 63 89/48 06/11/17 16:45 66 95/48 06/11/17 16:30 65 112/44 06/11/17 16:15 65 108/41 06/11/17 16:00 67 93/49 06/11/17 16:00 98 Nasal Cannula 2.0 06/11/17 15:45 66 125/49 06/11/17 15:44 Nasal Cannula 3.0 06/11/17 15:30 66 118/42 06/11/17 15:25 36.9 69 23 112/56 (74) 99 Nasal Cannula 3.0 06/11/17 15:15 65 112/56 06/11/17 15:00 66 113/46 06/11/17 14:45 65 103/49 06/11/17 14:30 64 110/51 06/11/17 14:15 65 113/50 06/11/17 14:00 65 122/61 06/11/17 14:00 36.8 66 125/53 (77) Physical Exam Comments: General Appearance: WD/WN, no apparent distress Eyes: normal inspection, sclerae normal Respiratory: normal breath sounds, no respiratory distress Cardiovascular: normal peripheral pulses, regular rate, rhythm Gastrointestinal: non tender, soft Extremities: non-tender, no pedal edema Neurologic/Psychiatric: alert (to person, place, and time only), other ( appears tired on dialysis) Skin Characteristics: normal color, warm/dry Laboratory Results Last 24 Hours Test 06/11/17 22:00 06/11/17 22:34 06/12/17 06:00 06/12/17 06:08 Creatine Kinase MB Ratio Creatine Kinase MB 3.3 ng/ml 2.6 ng/ml White Blood Count 7.64 K/uL Red Blood Count 2.99 M/uL Hemoglobin 10.0 g/dL Hematocrit 30.6 % Mean Corpuscular Volume 102.3 fL Mean Corpuscular Hemoglobin 33.4 pg Mean Corpuscular Hemoglobin Concent 32.7 g/dl RDW Standard Deviation 61.6 fL RDW Coefficient of Variation 16.3 % Platelet Count 221 K/uL Mean Platelet Volume 9.4 fL Sodium Level 132 mmol/L Potassium Level 4.8 mmol/L Chloride Level 97 mmol/L Carbon Dioxide Level 26 mmol/L Anion Gap 9.0 mmol/L Blood Urea Nitrogen 44 mg/dl Creatinine 4.70 mg/dl Est Creatinine Clear Calc Drug Dose 7.4 ml/min Estimated GFR () 9.3 Estimated GFR (Non- 8.0 BUN/Creatinine Ratio 9.3 Random Glucose 74 mg/dl Calcium Level 8.8 mg/dl Magnesium Level 2.3 mg/dl Test 06/12/17 10:43 Bedside Glucose 101 mg/dl Assessment and Plan Patient is an 82 y/o female, with PMHx of h/o ESRD (HD on T/R/S), CAD s/p cardiac stenting, HLD, HTN, chronic anemia, hypothyroidism, gout, and secondary hyperparathyroidism, who presented to the ED from [facility] due to failed AV fistula. Failed AV fistula, AMS likely secondary to not receiving dialysis, ESRD on HD T, ,S: - UA noted with leuk est +, neg nitrites. Cx is neg WBC WNL, afebrile, no urinary sx - Continue Phoslo and [place] capsules - Head CT and CXR unremarkable for acute findings - Consult Dr. Jade Jackson placed 06/11 - Consult Nephrology, appreciate recommendations Pt did have a dose of oxy on Thursday and no HD Thursday, but seems less likely to have started causing AMS No further oxy CAD s/p cardiac stenting, HLD, HTN- STABLE: Continue Lipitor 40 mg, Colestipol 1 gm, Imdur 60 mg, Labetalol 300 mg BID Trops neg Depression, anxiety: Continue Citalopram 10 mg Gout: Continue Allopurinol 100 mg Hypothyroidism: Continue Levothyroxine 125 mcg Recent R shoulder fracture: Tylenol PRN for pain management DVT prophylaxis: TEDs, SCDs; no chemical anticoagulation due to ?procedure by Dr. Palomares tomorrow Code status: LEVEL V, DNR Dispo: From [facility]- PT/OT and CM consulted O2 use at baseline I spoke with pt's daughter Hilary today. She agrees that her mother is "wiped out" s/p multiple interventions over the last few days. Awaiting PT/OT recs and they are not planning for return to [facility], but either home with or a different facility as PT/OT recs. She will be up later today.
[2017-06-13] VITALS (19 sets, daily range): BP systolic 101–154; BP diastolic 34–58; PULSE 63–77; TEMP 36.8–37.6; O2SAT 96–100
[2017-06-13] MEDS: LEVOTHYROXINE 125 MCG TAB PO SCH (05:52)
[2017-06-13 06:10] LABS: HEMATOCRIT 30.8 % (37-47); HEMOGLOBIN 9.9 g/dL (12.0-16.0); MEAN CELL VOLUME 103.7 fL (80-100); MEAN CORPUSCULAR HEMOGLOBIN 33.3 pg (25-34); MEAN CORPUSCULAR HGB CONC 32.1 g/dl (32-36); MEAN PLATELET VOLUME 9.4 fL (7.4-10.4); PLATELET COUNT 236 K/uL (130-400); RED CELL DISTRIBUTION WIDTH SD 60.5 fL (36.4-46.3); WHITE BLOOD COUNT 9.59 K/uL (4.8-10.8)
[2017-06-13 06:41] LABS: CALCIUM 8.8 mg/dl (8.5-10.1); CREATININE 3.76 mg/dl (0.60-1.20); POTASSIUM 4.1 mmol/L (3.5-5.1)
[2017-06-13] MEDS: ISOSORBIDE MONONITRATE 60 MG TABCR PO SCH (09:00)
[2017-06-13] MEDS: LABETALOL HCL 300 MG TAB PO SCH ×2 (09:00→21:10)
--- NOTE | 2017-06-13 10:12 | Nephrology Progress Note ---
Nephrology Progress Note Date of Service Jun 13, 2017. Chief Complaint ESRD Subjective Beth completed 3 hours of HD yesterday for clearance. She tolerated the treatment well. Her mental status continues to wax and wane. She was hallucinating this morning per nursing reports. She continues to insist on discharge home. Appetite is appropriate. No nausea. No fevers or chills. Review of Systems A complete review of systems was performed. Pertinent positives are noted above. All other systems are negative. Vital Signs Last 8 Hrs Date Time Temp Pulse Resp B/P (MAP) Pulse Ox O2 Delivery O2 Flow Rate FiO2 06/13/17 08:05 Nasal Cannula 3.0 06/13/17 07:34 37.6 75 20 142/44 (76) 96 Nasal Cannula 2.0 06/13/17 04:00 Nasal Cannula 2.0 06/13/17 03:18 36.8 77 17 129/56 (80) 98 Nasal Cannula 2.0 Last Recorded Weight Weight (Kilograms): 65.000 Physical Exam General Appearance: WD/WN, no apparent distress Head: normocephalic, atraumatic Eyes: normal inspection, sclerae normal ENT: normal ENT inspection, pharynx normal Neck: supple, no JVD Respiratory/Chest: lungs clear, no respiratory distress, no accessory muscle use Cardiovascular: regular rate, rhythm, no gallop Abdomen/GI: non tender, soft Extremities/Musculoskelatal: normal inspection, no pedal edema Neurologic/Psych: alert, oriented x 3 Family History Cancer Diabetes mellitus Gallbladder disease Heart disease Hypertension Lung disease Social History Smoking Status: Never smoker Drug Use: none Marital Status: Housing Status: long-term Laboratory Results Past 24 Hours 06/13/17 05:52 06/13/17 05:52 Test 06/12/17 10:43 06/13/17 05:52 Bedside Glucose 101 mg/dl (70-90) Red Blood Count 2.97 M/uL (4.2-5.4) Mean Corpuscular Volume 103.7 fL (80-100) Mean Corpuscular Hemoglobin 33.3 pg (25-34) Mean Corpuscular Hemoglobin Concent 32.1 g/dl (32-36) RDW Standard Deviation 60.5 fL (36.4-46.3) RDW Coefficient of Variation 16.0 % (11.5-14.5) Mean Platelet Volume 9.4 fL (7.4-10.4) Anion Gap 6.0 mmol/L (3-11) Est Creatinine Clear Calc Drug Dose 9.3 ml/min Estimated GFR () 12.2 Estimated GFR (Non- 10.5 BUN/Creatinine Ratio 8.9 (10-20) Calcium Level 8.8 mg/dl (8.5-10.1) Magnesium Level 2.1 mg/dl (1.8-2.4) Allergies Coded Allergies: Bacitracin (Verified Allergy, Unknown, EYES SWELLING-OINTMENT PLACED AROUND EYE, 06/05/17) Polymyxin B (Verified Allergy, Unknown, EYES [id number] PLACED AROUND EYE, 06/05/17) Medications Current Inpatient Medications Medications (Trade) Dose Ordered Sig/Debora Route Start Time Stop Time Status Last Admin Dose Admin Acetaminophen (Tylenol Tab) 650 mg Q4H PRN PO 06/10/17 19:15 07/10/17 19:14 Al Hydrox/Mg Hydrox/Simethicone (Maalox Max Susp) 15 ml Q4H PRN PO 06/10/17 19:15 07/10/17 19:14 Magnesium Hydroxide (Milk Of Magnesia Susp) 30 ml Q12H PRN PO 06/10/17 19:15 07/10/17 19:14 Ondansetron HCl (Zofran Inj) 4 mg Q6H PRN IV 06/10/17 19:15 07/10/17 19:14 Nitroglycerin (Nitrostat Tab) 0.4 mg UD PRN SL 06/10/17 19:15 07/10/17 19:14 Morphine Sulfate (MoRPHine SULFATE INJ) 2 mg Q30M PRN IV 06/10/17 19:15 06/24/17 19:14 Polyethylene (Miralax Powder Packet) 17 gm DAILY PRN PO 06/10/17 19:15 07/10/17 19:14 Allopurinol (Zyloprim Tab) 100 mg QAM PO 06/11/17 09:00 07/11/17 08:59 06/12/17 08:19 100 MG Atorvastatin Calcium (Lipitor Tab) 40 mg QAM PO 06/11/17 09:00 07/11/17 08:59 06/12/17 08:19 40 MG Vitamin B Complex/ Vit C/Folic Acid (Nephrocaps) 1 cap DAILY@1200 PO 06/11/17 12:00 07/11/17 11:59 06/12/17 12:47 1 CAP Calcium Acetate (Phoslo Cap) 1,334 mg TIDM PO 06/11/17 07:30 07/11/17 07:59 06/12/17 16:39 1,334 MG Colestipol HCl (Colestid Tab) 1 gm DAILY@1000 PO 06/11/17 10:00 07/11/17 09:59 06/12/17 12:48 1 GM Isosorbide Mononitrate (Imdur Ext Rel Tab) 60 mg QAM PO 06/11/17 09:00 07/11/17 08:59 06/12/17 08:20 60 MG Labetalol HCl (Normodyne Tab) 300 mg BID PO 06/10/17 21:00 07/10/17 20:59 06/12/17 21:08 300 MG Levothyroxine Sodium (Synthroid Tab) 125 mcg DAILYBB PO 06/11/17 06:00 07/11/17 06:59 06/13/17 05:52 125 MCG Citalopram Hydrobromide (celeXA TAB) 10 mg QAM PO 06/11/17 09:00 07/11/17 08:59 06/12/17 08:20 10 MG Impression (1) ESRD (end stage renal disease) on dialysis (2) Failing arteriovenous fistula (3) Secondary hyperparathyroidism of renal origin (4) Anemia (5) Altered mental status (6) Impaired ambulation Recommendations END STAGE RENAL DISEASE: -- Plan HD today for additional clearance and UF (500-1000) -- Dialysis orders have been entered into the EMR and discussed with dialysis nurse -- TDC for HD today as we continue to rest AVF -- Renal diet ANEMIA: -- Epogen 61418 units QHD HYPERTENSION: -- Blood pressure is currently acceptable CKD-BMD: -- Continue Phos-Lo 2 capsules w/ each meal
[2017-06-13] MEDS: COLESTIPOL HCL 1 GM TAB PO SCH (10:57)
[2017-06-13] MEDS: ALLOPURINOL 100 MG TAB PO SCH (10:57)
[2017-06-13] MEDS: ATORVASTATIN 40 MG TAB PO SCH (10:57)
[2017-06-13] MEDS: CALCIUM ACETATE 667MG GELCAP PO SCH ×3 (10:58→16:57)
[2017-06-13] MEDS: CITALOPRAM 20 MG TAB PO SCH (10:58)
[2017-06-13] MEDS: NEPHROCAPS PO SCH (10:58)
[2017-06-13] MEDS: ACETAMINOPHEN 325 MG TAB PO PRN (19:34)
[2017-06-14] VITALS (7 sets, daily range): BP systolic 106–147; BP diastolic 40–66; PULSE 63–73; TEMP 36.6–37.2; O2SAT 91–100
[2017-06-14] MEDS: LEVOTHYROXINE 125 MCG TAB PO SCH (05:47)
--- NOTE | 2017-06-14 06:10 | Progress Note ---
Subjective Date of Service: Jun 13, 2017. Subjective Pt evaluation today including: conversation w/ patient, conversation w/ family Pain: no pain reported PO Intake: good oral intake Voiding: no voiding problems Pt is very tired. Nursing states she was OOB to the chair for a while this AM. She ate breakfast without issue. Pt denies fever, SOB, chest pain, abd pain, n /v/c/d, LE pain or swelling. no acute event last night Problem List Medical Problems: (1) Anemia Status: Chronic (2) Confusion Status: Acute (3) Dialysis AV fistula malfunction Status: Acute (4) Fall Status: Acute (5) Hyperkalemia Status: Acute (6) Syncope Status: Acute (7) Unstable angina Status: Acute Review of Systems All Other Systems: Reviewed and Negative Medications Last Resulted CBC 06/13/17 05:52 Last Resulted BMP 06/13/17 05:52 Objective Vital Signs Date Time Temp Pulse Resp B/P (MAP) Pulse Ox O2 Delivery O2 Flow Rate FiO2 06/13/17 19:06 37.3 71 20 154/58 (90) 100 Nasal Cannula 3.0 06/13/17 16:43 36.8 76 133/55 (81) 06/13/17 16:31 72 122/50 06/13/17 16:15 73 125/46 06/13/17 16:02 Nasal Cannula 3.0 06/13/17 16:00 64 113/54 06/13/17 15:45 63 113/40 06/13/17 15:30 68 111/47 06/13/17 15:15 69 101/34 06/13/17 15:00 67 106/45 06/13/17 14:45 70 102/47 18 14:30 71 115/49 18 14:15 68 119/48 18 14:00 66 116/45 18 13:57 70 123/53 18 13:45 36.9 70 126/53 (77) 06/13/17 12:01 Nasal Cannula 3.0 06/13/17 11:00 37.0 70 20 148/47 (80) 99 Nasal Cannula 2.0 06/13/17 08:05 Nasal Cannula 3.0 06/13/17 07:34 37.6 75 20 142/44 (76) 96 Nasal Cannula 2.0 06/13/17 04:00 Nasal Cannula 2.0 06/13/17 03:18 36.8 77 17 129/56 (80) 98 Nasal Cannula 2.0 06/13/17 00:00 Nasal Cannula 2.0 06/12/17 23:14 37.4 76 18 141/42 (75) 99 Nasal Cannula 2.0 Physical Exam Comments: General Appearance: WD/WN, no apparent distress Eyes: normal inspection, sclerae normal Respiratory: normal breath sounds, no respiratory distress Cardiovascular: normal peripheral pulses, regular rate, rhythm Gastrointestinal: non tender, soft Extremities: non-tender, no pedal edema Neurologic/Psychiatric: alert (to person, place, and time only), other ( appears tired on dialysis) Skin Characteristics: normal color, warm/dry Laboratory Results Last 24 Hours Test 06/13/17 05:52 White Blood Count 9.59 K/uL Red Blood Count 2.97 M/uL Hemoglobin 9.9 g/dL Hematocrit 30.8 % Mean Corpuscular Volume 103.7 fL Mean Corpuscular Hemoglobin 33.3 pg Mean Corpuscular Hemoglobin Concent 32.1 g/dl RDW Standard Deviation 60.5 fL RDW Coefficient of Variation 16.0 % Platelet Count 236 K/uL Mean Platelet Volume 9.4 fL Sodium Level 134 mmol/L Potassium Level 4.1 mmol/L Chloride Level 100 mmol/L Carbon Dioxide Level 28 mmol/L Anion Gap 6.0 mmol/L Blood Urea Nitrogen 33 mg/dl Creatinine 3.76 mg/dl Est Creatinine Clear Calc Drug Dose 9.3 ml/min Estimated GFR () 12.2 Estimated GFR (Non- 10.5 BUN/Creatinine Ratio 8.9 Random Glucose 94 mg/dl Calcium Level 8.8 mg/dl Magnesium Level 2.1 mg/dl Assessment and Plan Patient is an 82 y/o female, with PMHx of h/o ESRD (HD on T/R/S), CAD s/p cardiac stenting, HLD, HTN, chronic anemia, hypothyroidism, gout, and secondary hyperparathyroidism, who presented to the ED from [facility] due to failed AV fistula. END STAGE RENAL DISEASE with Failed AV fistula, AMS likely secondary to not receiving dialysis, ESRD on HD T,,S: AMS resolved - UA noted with leuk est +, neg nitrites. Cx is neg WBC WNL, afebrile, no urinary sx - Continue Phoslo and [place] capsules - Head CT and CXR unremarkable for acute findings - Consult Dr. Palomares- [facility] 06/11 - Consult Nephrology, appreciate recommendations Pt did have a dose of oxy on Thursday and no HD Thursday, but seems less likely to have started causing AMS No further oxy - Plan HD today for additional clearance and UF (500-1000) - Renal diet CAD s/p cardiac stenting, HLD, HTN- STABLE: Continue Lipitor 40 mg, Colestipol 1 gm, Imdur 60 mg, Labetalol 300 mg BID Trops neg Depression, anxiety: Continue Citalopram 10 mg Gout: Continue Allopurinol 100 mg Hypothyroidism: Continue Levothyroxine 125 mcg Recent R shoulder fracture: Tylenol PRN for pain management DVT prophylaxis: TEDs, SCDs; no chemical anticoagulation due to ?procedure by Dr. Palomares tomorrow Code status: LEVEL V, DNR Dispo: From [facility]- PT/OT and CM consulted O2 use at baseline Awaiting PT/OT recs and they are not planning for return to [facility], but either home with or a different facility as PT/OT recs. She will be up later today. Continued [facility] stay due to: other Discharge planning: home with home health, uncertain
[2017-06-14] MEDS: COLESTIPOL HCL 1 GM TAB PO SCH (09:30)
[2017-06-14] MEDS: ISOSORBIDE MONONITRATE 60 MG TABCR PO SCH (09:30)
[2017-06-14] MEDS: CITALOPRAM 20 MG TAB PO SCH (09:30)
[2017-06-14] MEDS: CALCIUM ACETATE 667MG GELCAP PO SCH ×3 (09:30→16:20)
[2017-06-14] MEDS: ALLOPURINOL 100 MG TAB PO SCH (09:30)
[2017-06-14] MEDS: ATORVASTATIN 40 MG TAB PO SCH (09:30)
[2017-06-14] MEDS: LABETALOL HCL 300 MG TAB PO SCH ×2 (09:30→21:44)
--- NOTE | 2017-06-14 10:10 | Nephrology Progress Note ---
Nephrology Progress Note Date of Service Jun 14, 2017. Chief Complaint ESRD Subjective Beth feels well this morning. She is experiencing some persistent right shoulder pain. She continues to require frequent reorientation. Mental status waxing and waning. Dialysis was completed yesterday without complications. Net UF 900 ml. Beth denies shortness of breath. No fevers or chills. Review of Systems A complete review of systems was performed. Pertinent positives are noted above. All other systems are negative. Vital Signs Last 8 Hrs Date Time Temp Pulse Resp B/P (MAP) Pulse Ox O2 Delivery O2 Flow Rate FiO2 06/14/17 08:05 97 Nasal Cannula 2.0 06/14/17 07:08 37.2 71 20 147/52 (83) 93 Nasal Cannula 2.0 06/14/17 04:00 Nasal Cannula 3.0 06/14/17 03:19 36.6 73 17 124/66 (85) 91 Nasal Cannula 3.0 Last Recorded Weight Weight (Kilograms): 62.600 Physical Exam General Appearance: no apparent distress, + pertinent finding (well developed, elderly) Head: normocephalic, atraumatic Eyes: normal inspection, sclerae normal ENT: normal ENT inspection, pharynx normal Neck: supple, no JVD Respiratory/Chest: lungs clear, no respiratory distress, no accessory muscle use Cardiovascular: regular rate, rhythm, no gallop Abdomen/GI: non tender, soft Extremities/Musculoskelatal: normal inspection, no pedal edema, + pertinent finding (R shoulder sling, LUE AVF with improving hematoma and bruising +thrill and +bruit) Neurologic/Psych: alert, normal mood/affect Family History Cancer Diabetes mellitus Gallbladder disease Heart disease Hypertension Lung disease Social History Smoking Status: Never smoker Drug Use: none Marital Status: Housing Status: alf Allergies Coded Allergies: Bacitracin (Verified Allergy, Unknown, EYES SWELLING-OINTMENT PLACED AROUND EYE, 06/05/17) Polymyxin B (Verified Allergy, Unknown, EYES [id number] PLACED AROUND EYE, 06/05/17) Medications Current Inpatient Medications Medications (Trade) Dose Ordered Sig/Debora Route Start Time Stop Time Status Last Admin Dose Admin Acetaminophen (Tylenol Tab) 650 mg Q4H PRN PO 06/10/17 19:15 07/10/17 19:14 06/13/17 19:34 650 MG Al Hydrox/Mg Hydrox/Simethicone (Maalox Max Susp) 15 ml Q4H PRN PO 06/10/17 19:15 07/10/17 19:14 Magnesium Hydroxide (Milk Of Magnesia Susp) 30 ml Q12H PRN PO 06/10/17 19:15 07/10/17 19:14 Ondansetron HCl (Zofran Inj) 4 mg Q6H PRN IV 06/10/17 19:15 07/10/17 19:14 Nitroglycerin (Nitrostat Tab) 0.4 mg UD PRN SL 06/10/17 19:15 07/10/17 19:14 Morphine Sulfate (MoRPHine SULFATE INJ) 2 mg Q30M PRN IV 06/10/17 19:15 06/24/17 19:14 06/13/17 22:56 2 MG Polyethylene (Miralax Powder Packet) 17 gm DAILY PRN PO 06/10/17 19:15 07/10/17 19:14 Allopurinol (Zyloprim Tab) 100 mg QAM PO 06/11/17 09:00 07/11/17 08:59 06/14/17 09:30 100 MG Atorvastatin Calcium (Lipitor Tab) 40 mg QAM PO 06/11/17 09:00 07/11/17 08:59 06/14/17 09:30 40 MG Vitamin B Complex/ Vit C/Folic Acid (Nephrocaps) 1 cap DAILY@1200 PO 06/11/17 12:00 07/11/17 11:59 06/13/17 10:58 1 CAP Calcium Acetate (Phoslo Cap) 1,334 mg TIDM PO 06/11/17 07:30 07/11/17 07:59 06/14/17 09:30 1,334 MG Colestipol HCl (Colestid Tab) 1 gm DAILY@1000 PO 06/11/17 10:00 07/11/17 09:59 06/14/17 09:30 1 GM Isosorbide Mononitrate (Imdur Ext Rel Tab) 60 mg QAM PO 06/11/17 09:00 07/11/17 08:59 06/14/17 09:30 60 MG Labetalol HCl (Normodyne Tab) 300 mg BID PO 06/10/17 21:00 3/2/18 20:59 06/14/17 09:30 300 MG Levothyroxine Sodium (Synthroid Tab) 125 mcg DAILYBB PO 06/11/17 06:00 07/11/17 06:59 06/14/17 05:47 125 MCG Citalopram Hydrobromide (celeXA TAB) 10 mg QAM PO 06/11/17 09:00 07/11/17 08:59 06/14/17 09:30 10 MG Impression (1) ESRD (end stage renal disease) on dialysis (2) Failing arteriovenous fistula (3) Secondary hyperparathyroidism of renal origin (4) Anemia (5) Altered mental status (6) Impaired ambulation Beth Morgan is an 82-year-old female with ESRD due to hypertensive nephrosclerosis and ATN. She is on hemodialysis with a TTS outpatient scheduled. Beth was recently admitted to [facility] with a right humeral head fracture. She was discharged to [facility]. Unfortunately, AVF infiltrated during hemodialysis resulting in a hematoma and need to rest the fistula. Beth missed several dialysis treatments and developed hyperkalemia. She presented to [facility] with mental status changes, hyperkalemia and failure of her AVF. A well functioning RIJ TDC was placed by Dr. Palomares. The patient completed consecutive days of hemodialysis. Blood pressure, volume status and metabolic profile are now acceptable. Unfortunately, mental status remains a concern. Mental status changes related to underlying dementia. UTI may also be contributing, urine now growing >100,000 colonies of strep. Additional medical history includes hypertension, coronary artery disease, hypothyroidism, anemia, gout, secondary hyperparathyroidism. Recommendations END STAGE RENAL DISEASE: -- No need for HD today -- Plan next dialysis Thursday per TTS schedule -- May consider starting to use AVF on Thursday -- Renal diet ANEMIA: -- Epogen 39564 units provided with HD yesterday HYPERTENSION: -- Blood pressure is currently acceptable CKD-BMD: -- Continue Phos-Lo 2 capsules w/ each meal UTI: -- Cefdinir 300 mg now and continue post-HD
[2017-06-14] MEDS ORDERED: CEFDINIR 300 MG CAP PO STA (10:20)
[2017-06-14] MEDS ORDERED: CEFDINIR 300 MG CAP PO ONE (10:45)
--- NOTE | 2017-06-14 11:04 | Progress Note ---
Subjective Date of Service: Jun 14, 2017. Subjective Pt evaluation today including: conversation w/ patient, physical exam, chart review, lab review, review of studies, review of inpatient medication list Voiding: no voiding problems pt is experiencing some persistent right shoulder pain. She continues to require frequent reorientation. Mental status waxing and waning. patient denies shortness of breath. No fevers or chills.pt denies cp,sob,dizziness, palpitation and loc. pt mental status rapidly change need a formal outpatient dementia evaluation Problem List Medical Problems: (1) Anemia Status: Chronic (2) Confusion Status: Acute (3) Dialysis AV fistula malfunction Status: Acute (4) Fall Status: Acute (5) Hyperkalemia Status: Acute (6) Syncope Status: Acute (7) Unstable angina Status: Acute Review of Systems All Other Systems: Reviewed and Negative Objective Vital Signs Date Time Temp Pulse Resp B/P (MAP) Pulse Ox O2 Delivery O2 Flow Rate FiO2 06/14/17 08:05 97 Nasal Cannula 2.0 06/14/17 07:08 37.2 71 20 147/52 (83) 93 Nasal Cannula 2.0 06/14/17 04:00 Nasal Cannula 3.0 06/14/17 03:19 36.6 73 17 124/66 (85) 91 Nasal Cannula 3.0 06/14/17 00:00 Nasal Cannula 3.0 06/13/17 23:17 36.8 68 16 134/57 (82) 100 Nasal Cannula 3.0 06/13/17 20:00 Nasal Cannula 3.0 06/13/17 19:06 37.3 71 20 154/58 (90) 100 Nasal Cannula 3.0 06/13/17 16:43 36.8 76 133/55 (81) 06/13/17 16:31 72 122/50 06/13/17 16:15 73 125/46 06/13/17 16:02 Nasal Cannula 3.0 06/13/17 16:00 64 113/54 18 15:45 63 113/40 18 15:30 68 111/47 18 15:15 69 101/34 18 15:00 67 106/45 18 14:45 70 102/47 18 14:30 71 115/49 18 14:15 68 119/48 2/3/18 14:00 66 116/45 06/13/17 13:57 70 123/53 06/13/17 13:45 36.9 70 126/53 (77) 06/13/17 12:01 Nasal Cannula 3.0 Physical Exam Comments: General Appearance: no apparent distress, + pertinent finding (well developed, elderly) Head: normocephalic, atraumatic Eyes: normal inspection, sclerae normal ENT: normal ENT inspection, pharynx normal Neck: supple, no JVD Respiratory/Chest: lungs clear, no respiratory distress, no accessory muscle use Cardiovascular: regular rate, rhythm, no gallop Abdomen/GI: non tender, soft Extremities/Musculoskelatal: normal inspection, no pedal edema, + pertinent finding (R shoulder sling, LUE AVF with improving hematoma and bruising +thrill and +bruit) Neurologic/Psych: alert, normal mood/affect Assessment and Plan Patient is an 82 y/o female, with PMHx of h/o ESRD (HD on T/R/S), CAD s/p cardiac stenting, HLD, HTN, chronic anemia, hypothyroidism, gout, and secondary hyperparathyroidism, who presented to the ED from [facility] due to failed AV fistula. END STAGE RENAL DISEASE with Failed AV fistula, AMS likely secondary to not receiving dialysis, ESRD on HD T,,S: AMS resolved - UA noted with leuk est +, neg nitrites. Cx is neg WBC WNL, afebrile, no urinary sx - Continue Phoslo and [place] capsules - Head CT and CXR unremarkable for acute findings - Consult Dr. Jade Jackson placed 06/11 - Consult Nephrology, appreciate recommendations Pt did have a dose of oxy on Thursday and no HD Thursday, but seems less likely to have started causing AMS No further oxy - Plan HD today for additional clearance and UF (500-1000) - Renal diet CAD s/p cardiac stenting, HLD, HTN- STABLE: Continue Lipitor 40 mg, Colestipol 1 gm, Imdur 60 mg, Labetalol 300 mg BID Trops neg Depression, anxiety: Continue Citalopram 10 mg Gout: Continue Allopurinol 100 mg Hypothyroidism: Continue Levothyroxine 125 mcg Recent R shoulder fracture: Tylenol PRN for pain management DVT prophylaxis: TEDs, SCDs; no chemical anticoagulation due to ?procedure by Dr. Palomares tomorrow UTI: -- Cefdinir 300 mg now and continue post-HD as per nephro Code status: LEVEL V, DNR Dispo: From [facility]- PT/OT and CM consulted O2 use at baseline Awaiting PT/OT recs and they are not planning for return to [facility], but either home with or a different facility as PT/OT recs. She will be up later today. Continued [facility] stay due to: other Discharge planning: home with home health, uncertain
[2017-06-14] MEDS: NEPHROCAPS PO SCH (11:27)
[2017-06-14] MEDS: ACETAMINOPHEN 325 MG TAB PO PRN (16:20)
[2017-06-15 03:19] VITALS: BP 144/55; PULSE 63; TEMP 36.4; O2SAT 100
[2017-06-15] MEDS: LEVOTHYROXINE 125 MCG TAB PO SCH (05:58)
[2017-06-15 08:00] VITALS: BP 143/59; PULSE 66; TEMP 36.4; O2SAT 100
[2017-06-15 08:01] VITALS: O2SAT 100
[2017-06-15] MEDS: ALLOPURINOL 100 MG TAB PO SCH (08:18)
[2017-06-15] MEDS: LABETALOL HCL 300 MG TAB PO SCH (08:18)
[2017-06-15] MEDS: ISOSORBIDE MONONITRATE 60 MG TABCR PO SCH (08:18)
[2017-06-15] MEDS: ATORVASTATIN 40 MG TAB PO SCH (08:18)
[2017-06-15] MEDS: CITALOPRAM 20 MG TAB PO SCH (08:18)
[2017-06-15] MEDS: CALCIUM ACETATE 667MG GELCAP PO SCH ×2 (08:18→10:32)
--- NOTE | 2017-06-15 09:57 | Nephrology Progress Note ---
Nephrology Progress Note Date of Service Jun 15, 2017. Chief Complaint ESRD on HD Subjective Ms. Morgan was seen & examined in the PCU this morning. She was awake and alert. Her only complaint is weakness. She hopes to resume physical therapy soon. Review of Systems Constitutional: No fever Cardiovascular: No chest pain Respiratory: No dyspnea at rest Abdomen: No pain, No nausea, No vomiting Extremities: No leg edema A complete review of systems was performed. Pertinent positives are noted above. All other systems are negative. Vital Signs Last 8 Hrs Date Time Temp Pulse Resp B/P (MAP) Pulse Ox O2 Delivery O2 Flow Rate FiO2 06/15/17 08:01 100 Nasal Cannula 2.0 06/15/17 08:00 36.4 66 16 143/59 (87) 100 Nasal Cannula 06/15/17 04:00 Nasal Cannula 2.0 06/15/17 03:19 36.4 63 16 144/55 (84) 100 Nasal Cannula 3.0 Last Recorded Weight Weight (Kilograms): 64.100 Physical Exam General Appearance: no apparent distress Head: normocephalic, atraumatic Eyes: PERRL, EOMI Neck: no adenopathy, + pertinent finding (R IJ THC w/ clean dry dressing in place) Respiratory/Chest: lungs clear, no respiratory distress Cardiovascular: regular rate, rhythm Back: no CVA tenderness, no muscle spasm Abdomen/GI: normal bowel sounds, non tender, soft Extremities/Musculoskelatal: + pertinent finding (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, short venous limb and surrounding ecchymosis) Neurologic/Psych: alert, oriented x 3 Family History Cancer Diabetes mellitus Gallbladder disease Heart disease Hypertension Lung disease Social History Smoking Status: Never smoker Drug Use: none Marital Status: Housing Status: fci Allergies Coded Allergies: Bacitracin (Verified Allergy, Unknown, EYES SWELLING-OINTMENT PLACED AROUND EYE, 06/05/17) Polymyxin B (Verified Allergy, Unknown, EYES [id number] PLACED AROUND EYE, 06/05/17) Medications Current Inpatient Medications Medications (Trade) Dose Ordered Sig/Debora Route Start Time Stop Time Status Last Admin Dose Admin Acetaminophen (Tylenol Tab) 650 mg Q4H PRN PO 06/10/17 19:15 07/10/17 19:14 06/14/17 16:20 650 MG Al Hydrox/Mg Hydrox/Simethicone (Maalox Max Susp) 15 ml Q4H PRN PO 06/10/17 19:15 07/10/17 19:14 Magnesium Hydroxide (Milk Of Magnesia Susp) 30 ml Q12H PRN PO 06/10/17 19:15 07/10/17 19:14 Ondansetron HCl (Zofran Inj) 4 mg Q6H PRN IV 06/10/17 19:15 07/10/17 19:14 Nitroglycerin (Nitrostat Tab) 0.4 mg UD PRN SL 06/10/17 19:15 07/10/17 19:14 Morphine Sulfate (MoRPHine SULFATE INJ) 2 mg Q30M PRN IV 06/10/17 19:15 06/24/17 19:14 06/13/17 22:56 2 MG Polyethylene (Miralax Powder Packet) 17 gm DAILY PRN PO 06/10/17 19:15 07/10/17 19:14 Allopurinol (Zyloprim Tab) 100 mg QAM PO 06/11/17 09:00 07/11/17 08:59 06/15/17 08:18 100 MG Atorvastatin Calcium (Lipitor Tab) 40 mg QAM PO 06/11/17 09:00 07/11/17 08:59 06/15/17 08:18 40 MG Vitamin B Complex/ Vit C/Folic Acid (Nephrocaps) 1 cap DAILY@1200 PO 06/11/17 12:00 07/11/17 11:59 06/14/17 11:27 1 CAP Calcium Acetate (Phoslo Cap) 1,334 mg TIDM PO 06/11/17 07:30 07/11/17 07:59 06/15/17 08:18 1,334 MG Colestipol HCl (Colestid Tab) 1 gm DAILY@1000 PO 06/11/17 10:00 07/11/17 09:59 06/14/17 09:30 1 GM Isosorbide Mononitrate (Imdur Ext Rel Tab) 60 mg QAM PO 06/11/17 09:00 07/11/17 08:59 06/15/17 08:18 60 MG Labetalol HCl (Normodyne Tab) 300 mg BID PO 06/10/17 21:00 07/10/17 20:59 06/15/17 08:18 300 MG Levothyroxine Sodium (Synthroid Tab) 125 mcg DAILYBB PO 06/11/17 06:00 07/11/17 06:59 06/15/17 05:58 125 MCG Citalopram Hydrobromide (celeXA TAB) 10 mg QAM PO 06/11/17 09:00 07/11/17 08:59 06/15/17 08:18 10 MG Cefdinir (Omnicef Cap) 300 mg TuThSa@1800 PO 06/16/17 18:00 06/22/17 23:59 Heparin Sodium (Porcine) (Heparin Iv Bolus) 2,000 unit TODAY@0600 IV 06/16/17 06:00 06/16/17 06:01 Heparin Sodium (Porcine) (Heparin Iv Bolus) 1,000 unit Q1H IV 06/16/17 06:00 06/16/17 07:01 Epoetin Magdy (Procrit Inj) 7,000 units TODAY@0600 IV. 06/16/17 06:00 06/16/17 14:00 Impression (1) ESRD (end stage renal disease) on dialysis (2) Failing arteriovenous fistula (3) Secondary hyperparathyroidism of renal origin (4) Anemia (5) Altered mental status (6) Impaired ambulation Beth Morgan is an 82-year-old female with ESRD due to hypertensive nephrosclerosis and ATN. She is on hemodialysis with a TTS outpatient scheduled. Beth was recently admitted to [facility] with a right humeral head fracture. She was discharged to [facility]. Unfortunately, AVF infiltrated during hemodialysis resulting in a hematoma and need to rest the fistula. Beth missed several dialysis treatments and developed hyperkalemia. She presented to [facility] with mental status changes, hyperkalemia and failure of her AVF. A well functioning RIJ TDC was placed by Dr. Palomares. The patient completed consecutive days of hemodialysis. Blood pressure, volume status and metabolic profile are now acceptable. Unfortunately, mental status remains a concern. Mental status changes related to underlying dementia. UTI may also be contributing, urine now growing >100,000 colonies of strep. Additional medical history includes hypertension, coronary artery disease, hypothyroidism, anemia, gout, secondary hyperparathyroidism. Recommendations END STAGE RENAL DISEASE: -- Volume status and electrolyte balance are acceptable at this time. No acute indication for HD today. Will schedule next HD for am -- AVF has ecchymosis and hematoma surrounding venous limb. 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 Will ask Vascular Surgery to assess whether AVF should be revised while IJ THC in place. ANEMIA: -- Hgb < 11. Will provide SARAH w/ HD tomorrow HYPERTENSION: -- Blood pressure is currently acceptable CKD-BMD: -- Continue Phos-Lo 2 capsules w/ each meal UTI: -- Cefdinir 300 mg now and continue post-HD
--- NOTE | 2017-06-15 10:08 | Progress Note ---
Progress Note Date of Service: Jun 15, 2017. Subjective 82 yo f with multiple medical problems, including ESRD on HD, seen in f/u today. Pt's AVF was infiltrated and pt developed large hematoma which made access difficult, so permcath was placed. Pt denies any complaints today. Problem List Medical Problems: (1) Anemia Status: Chronic (2) Confusion Status: Acute (3) Dialysis AV fistula malfunction Status: Acute (4) Fall Status: Acute (5) Hyperkalemia Status: Acute (6) Syncope Status: Acute (7) Unstable angina Status: Acute Objective Vital Signs Vital Signs Past 12 Hours Date Time Temp Pulse Resp B/P (MAP) Pulse Ox O2 Delivery O2 Flow Rate FiO2 06/15/17 08:01 100 Nasal Cannula 2.0 06/15/17 08:00 36.4 66 16 143/59 (87) 100 Nasal Cannula 06/15/17 04:00 Nasal Cannula 2.0 06/15/17 03:19 36.4 63 16 144/55 (84) 100 Nasal Cannula 3.0 06/15/17 00:00 Nasal Cannula 2.0 06/14/17 23:27 36.6 63 18 106/40 (62) 97 Nasal Cannula 3.0 Exam CONST: A&O x2, NAD, chronically ill appearing female EXT: LUE AVF with rather significant hematoma mid-distal portion, thrill difficult to palpate in firm section. Also noted large venous aneurysm at proximal end, immediately after anastomosis. ASSESSMENT and PLAN: LUE hematoma d/t infiltration ESRD on HD Venous aneurysm Pt discussed with Dr Palomares, recommends reeval pt in office next week to allow for at least partial resolution of her hematoma before considering for venorrhaphy of her venous aneurysm. Pt aware. Pt may continue using permcath for HD until resolution of her hematoma. Please call if needed.
[2017-06-15] MEDS ORDERED: CEFD300C3 PO (10:26)
--- NOTE | 2017-06-15 10:31 | Discharge Instructions ---
Discharge Instructions Date of Service Jun 15, 2017. Admission Reason for Admission: Altered Mental Status Discharge Discharge Diagnosis / Problem: delirium - related to UTI and dialysis graft malfunction Discharge Goals Goal(s): Diagnostic testing, Therapeutic intervention Activity Recommendations Activity Limitations: resume your previous activity delirium - probably multifactorial - related to a urinary tract infection and dialysis graft malfunction -improved -finish out three more doses of antibiotics (to be taken only on dialysis days, after dialysis -- it "hangs around" until the next dialysis treatment) -follow up with Dr Palomares in a week or so in regards to the dialysis graft - they felt that things mostly just needed time to heal for now, and that dialysis can be done through the tunneled catheter for a few weeks until the graft heals (they may need to do a procedure to help open it as well, but this isn't clearly going to be needed yet - so follow up with them for ongoing direction) -have your next dialysis as an outpatient tomorrow as scheduled (and then take your next dose of antibiotic tomorrow after dialysis) . Current Hospital Diet Patient's current hospital diet: Renal Diet Discharge Diet Recommended Diet: Renal Diet Procedures Procedures Performed: Insertion right internal jugular vein permcath, ultrasound localization of right internal jugular vein, fluroscopy for positioning. Pending Studies Studies pending at discharge: no Medical Emergencies . Who to Call and When: Medical Emergencies: If at any time you feel your situation is an emergency, please call 911 immediately. . Non-Emergent Contact Non-Emergency issues call your: Primary Care Provider (follow up with Dr Karen Valdez later this week), [employer] . . "Provider Documentation" section prepared by Zenon Galarza. . VTE Core Measure Inpt VTE Proph given/why not?: Contraindicated
[2017-06-15] MEDS: NEPHROCAPS PO SCH (10:32)
[2017-06-15] MEDS: COLESTIPOL HCL 1 GM TAB PO SCH (10:32)
[2017-06-15 11:47] VITALS: BP 97/30; PULSE 61; TEMP 36.6; O2SAT 99
[2017-06-15 12:06] VITALS: O2SAT 100
[2017-06-15 12:38] VITALS: BP 97/30; PULSE 61; TEMP 36.6; O2SAT 100
--- NOTE | 2017-06-15 17:25 | Discharge Summary ---
Discharge Summary Date of Service Jun 15, 2017. Discharge Summary Admission Date: Jun 10, 2017 at 19:18 Discharge Date: Jun 15, 2017 Discharge Disposition: Home Principal Diagnosis: altered mental status - ESRD related vs UTI Problems/Secondary Diagnoses: (1) Anemia Status: Chronic Immunizations: Have You Had Influenza Vaccine: Yes Influenza Vaccine Date: Feb 10, 2012 History of Tetanus Vaccine?: No History of Pneumococcal: No History of Hepatitis B Vaccine: No Procedures: tunneled dialysis cath insertion Consultations: nephrology vascular surgery Medication Reconciliation New Medications: Cefdinir (Cefdinir) 300 Mg Cap 300 MG PO TuThSa@1800, #3 CAP Continued Medications: Acetaminophen (Mapap) 325 Mg Tab 650 MG PO Q4H PRN for Pain or Fever for 30 Days, #240 TAB Allopurinol (Zyloprim) 100 Mg Tab 100 MG PO QAM, TAB Atorvastatin (Lipitor) 40 Mg Tab 40 MG PO QAM, TAB B-Complex W/ C & Folic Acid ([place] Caps) 1 Cap Cap 1 CAP PO DAILY AT LUNCH Calcium Acetate (Phoslo 667 Mg) 667 Mg Cap 2 CAP PO TIDM Citalopram Hydrobromide (Citalopram Hydrobromide) 10 Mg Tab 10 MG PO QAM Colestipol Hcl (Colestid) 1 Gm Tab 1 GM PO DAILY Isosorbide Mononitrate (Imdur Ext Rel) 60 Mg Tab 60 MG PO QAM ON DIALYSIS DAYS, ONLY 1/2 TABLET EVERY MORNING. DIALYSIS ON THURSDAY/THURSDAY AND SATURDAYS Labetalol HCl (Labetalol HCl) 300 Mg Tab 300 MG PO AMPM ON DIALYSIS DAYS, ONLY 1 TABLET QPM. NO MORNING DOSE. 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 END STAGE RENAL DISEASE with Failed AV fistula, AMS likely secondary to not receiving dialysis, vs less likely due to UTI or both, ESRD on HD T,Th,S: AMS resolved - UA noted with leuk est +, neg nitrites. Cx showing strep - will finish course of abx WBC WNL, afebrile, no urinary sx - Head CT and CXR unremarkable for acute findings - Consult Dr. Palomares- [facility] placed 06/11 - had HD inpt and did well CAD s/p cardiac stenting, HLD, HTN- STABLE: Continue Lipitor 40 mg, Colestipol 1 gm, Imdur 60 mg, Labetalol 300 mg BID Trops neg Depression, anxiety: Continue Citalopram 10 mg Gout: Continue Allopurinol 100 mg Hypothyroidism: Continue Levothyroxine 125 mcg Recent R shoulder fracture: Tylenol PRN for pain management DVT prophylaxis: TEDs, SCDs; no chemical anticoagulation due to ?procedure by Dr. Palomares tomorrow UTI: -- Cefdinir 300 mg now and continue post-HD as per nephro Code status: LEVEL V, DNR Dispo: after discussions with pt and dtr - plan for return home -- pt and dtr both most comfortable with this plan and seems quite reasonable given her progress. Total Time Spent: Less than 30 minutes This includes examination of the patient, discharge planning, medication reconciliation, and communication with other providers. Discharge Instructions Please refer to the electronic Patient Visit Report (Discharge Instructions) for additional information. Additional Copies To Anant Brown M.D.; Savita Do MD
[2017-06-16] MEDS ORDERED: EPOETIN ALFA 10,000 UNITS/ML VIAL IV. SCH (06:00)
[2017-06-16] MEDS ORDERED: HEPARIN SOD (PORCINE) 1000 UNIT/ML 10 ML VIAL IV SCH ×2 (06:00)
[2017-06-16] MEDS ORDERED: CEFDINIR 300 MG CAP PO SCH (18:00)
== END 2017-06-15 13:15 | disposition home or self-care (01) | DRG 314 ==
LOC: EDBD 15:26 → C.EDA 15:28 → C.2E 19:18 → ENRESERV 20:45
PROVIDERS: ADMIT Family Medicine; ATTEND Family Medicine
PROC: 05HM33Z Insertion of Infusion Device into Right Internal Jugular Vein, Percutaneous Approach (ICD-10-PCS; principal; 2017-06-11 08:30)
DX: T82.898A Other specified complication of vascular prosthetic devices, implants and grafts, initial encounter (principal); N18.6 End stage renal disease; N25.81 Secondary hyperparathyroidism of renal origin; N39.0 Urinary tract infection, site not specified; I12.0 Hypertensive chronic kidney disease with stage 5 chronic kidney disease or end stage renal disease; I25.10 Atherosclerotic heart disease of native coronary artery without angina pectoris; M10.9 Gout, unspecified; E78.5 Hyperlipidemia, unspecified; E03.9 Hypothyroidism, unspecified; E87.5 Hyperkalemia; D64.9 Anemia, unspecified; H35.30 Unspecified macular degeneration; H54.8 Legal blindness, as defined in USA; Z66 Do not resuscitate; Z99.2 Dependence on renal dialysis; Z80.9 Family history of malignant neoplasm, unspecified; Z83.3 Family history of diabetes mellitus; Z82.49 Family history of ischemic heart disease and other diseases of the circulatory system; Y84.8 Other medical procedures as the cause of abnormal reaction of the patient, or of later complication, without mention of misadventure at the time of the procedure

== ENCOUNTER → 2017-07-03 | Outpatient (CLI) | payer OTHER, MEDICARE ==
[~2017-07-03] MED LIST changes: +CEFD300C3 PO
--- NOTE | 2017-07-03 13:56 | DIAGNOSTIC IMAGING REPORT ---
R SHOULDER MIN 2 VIEWS CLINICAL HISTORY: Right shoulder pain. Follow-up fracture. COMPARISON: Right shoulder radiographs June 04, 2017. FINDINGS: Osteopenia is noted. A dual lumen right internal jugular catheter is partially imaged. 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 Note is made of a displaced impacted healing right humeral neck fracture. Fracture alignment is similar to exam of June 04, 2017. Interval callus formation is noted. IMPRESSION: No change in alignment of a healing impacted mildly displaced right humeral neck fracture. Electronically signed by: Alexy Pierre M.D. 07/03/2017 1:55 PM Dictated Date/Time: 07/03/2017 1:54 PM
== END | disposition home or self-care (01) ==
LOC: C.RDSM 18:55
PROVIDERS: ATTEND Physician Assistant
DX: Z09 Encounter for follow-up examination after completed treatment for conditions other than malignant neoplasm (principal); S42.291D Other displaced fracture of upper end of right humerus, subsequent encounter for fracture with routine healing; X58.XXXD Exposure to other specified factors, subsequent encounter

== ENCOUNTER → 2017-07-17 | Outpatient (CLI) | payer OTHER, MEDICARE | END | disposition home or self-care (01) | LOC: C.LABSPEC 15:53 | PROVIDERS: ATTEND Internal Medicine | DX: D39.0 Neoplasm of uncertain behavior of uterus (principal) ==

== ENCOUNTER → 2017-07-21 | Outpatient (CLI) | payer OTHER, MEDICARE ==
--- NOTE | 2017-07-21 14:57 | DIAGNOSTIC IMAGING REPORT ---
KUB CLINICAL HISTORY: 30 hours post patency capsule ingestion. FINDINGS: 2 AP supine abdominal radiographs are obtained. No prior studies are available for comparison at the time of dictation. There is a nonobstructed abdominal bowel gas pattern. No patency capsule is identified. Moderate colonic fecal retention is observed. There are no abnormal abdominal calcifications. The skeletal structures are osteopenic. Moderate lumbosacral spondylosis is identified. IMPRESSION: 1. Nonobstructed abdominal bowel gas pattern noting moderate colonic fecal retention. 2. No foreign body/patency capsule is identified. Electronically signed by: Meir Mooney M.D. 07/21/2017 2:56 PM Dictated Date/Time: 07/21/2017 2:54 PM
== END | disposition home or self-care (01) ==
LOC: C.RAD 14:25
PROVIDERS: ATTEND Internal Medicine Gastroenterology
DX: D50.9 Iron deficiency anemia, unspecified (principal)

== ENCOUNTER → 2017-08-04 | Outpatient (CLI) | payer OTHER, MEDICARE ==
--- NOTE | 2017-08-04 16:28 | DIAGNOSTIC IMAGING REPORT ---
R SHOULDER MIN 2 VIEWS CLINICAL HISTORY: RIGHT SHOULDER FRACTURE COMPARISON: July 03, 2017 DISCUSSION: There is a healing displaced humeral neck fracture. There is no change in alignment. Amorphus callus formation is again visualized. Incidental note is made of a dual-lumen right internal jugular central venous catheter. There are nonspecific right lung airspace opacities. IMPRESSION: No change in the alignment of the healing humeral neck fracture Electronically signed by: Star Christensen M.D. 08/04/2017 4:27 PM Dictated Date/Time: 08/04/2017 4:26 PM
== END | disposition home or self-care (01) ==
LOC: C.RDSM 13:08
PROVIDERS: ATTEND Physician Assistant
DX: T14.8XXA Other injury of unspecified body region, initial encounter (principal); S42.201D Unspecified fracture of upper end of right humerus, subsequent encounter for fracture with routine healing; X58.XXXA Exposure to other specified factors, initial encounter

== ENCOUNTER → 2017-08-14 | Outpatient (CLI) | payer OTHER, MEDICARE ==
[2017-08-14 18:08] LABS: BASO % 0.7 %; BASO ABS # 0.06 K/uL (0-0.2); EOS % 4.2 %; EOS ABS # 0.34 K/uL (0-0.5); HEMATOCRIT 38.1 % (37-47); HEMOGLOBIN 11.8 g/dL (12.0-16.0); IG# 0.01 K/uL (0.00-0.02); LYMPH % 11.9 %; LYMPH ABS # 0.96 K/uL (1.2-3.4); MEAN CELL VOLUME 102.7 fL (80-100); MEAN CORPUSCULAR HEMOGLOBIN 31.8 pg (25-34); MEAN PLATELET VOLUME 10.2 fL (7.4-10.4); MONO % 7.2 %; MONO ABS # 0.58 K/uL (0.11-0.59); NEUT % 75.9 %; NEUT ABS # 6.15 K/uL (1.4-6.5); PLATELET COUNT 214 K/uL (130-400); RED CELL DISTRIBUTION WIDTH CV 15.2 % (11.5-14.5)
[2017-08-14 18:21] LABS: ALBUMIN 3.4 gm/dl (3.4-5.0); ALT/SGPT 28 U/L (12-78); AST/SGOT 24 U/L (15-37); BLOOD UREA NITROGEN 33 mg/dl (7-18); CALCIUM 9.1 mg/dl (8.5-10.1); CARBON DIOXIDE 30 mmol/L (21-32); CREATININE 4.09 mg/dl (0.60-1.20); GLUCOSE 95 mg/dl (70-99); SODIUM 134 mmol/L (136-145)
[2017-08-14 18:31] LABS: ALKALINE PHOSPHATASE 125 U/L (45-117); TOTAL PROTEIN 7.8 gm/dl (6.4-8.2)
== END | disposition home or self-care (01) ==
LOC: C.LABSPEC 17:09
PROVIDERS: ATTEND Internal Medicine
DX: R53.83 Other fatigue (principal); I25.10 Atherosclerotic heart disease of native coronary artery without angina pectoris; E03.9 Hypothyroidism, unspecified; N18.6 End stage renal disease

== ENCOUNTER 2020-02-24 10:37 | Inpatient (IN) ==
[2020-02-24 11:26] LABS: Eosinophils % (auto) 1.5 %; Hematocrit (blood only) 35.2 % (37-47); Hemoglobin 11.3 g/dL (12.0-16.0); Immature Granulocytes # (auto) 0.02 K/uL (0.00-0.02); Immature Granulocytes % (auto) 0.2 %; Lymphocytes # (auto) 0.68 K/uL (1.2-3.4); Lymphocytes % (auto) 5.2 %; Mean Corpuscular Hgb Conc 32.1 g/dL (32-36); Mean Platelet Volume 9.8 fL (7.4-10.4); Monocytes # (auto) 0.59 K/uL (0.11-0.59); Monocytes % (auto) 4.5 %; Neutrophils # (auto) 11.68 K/uL (1.4-6.5); Neutrophils % (auto) 88.6 %; Platelet Count 269 K/uL (130-400); RDW Coefficient of Variation 14.2 % (11.5-14.5); RDW Standard Deviation 56.8 fL (36.4-46.3); Red Blood Count 3.23 M/uL (4.2-5.4); White Blood Count 13.17 K/uL (4.8-10.8)
[2020-02-24] MEDS ORDERED: CHOLESTYRAMINE LIGHT 4 GM PKT PO STA (11:30)
[2020-02-24] MEDS ORDERED: ACETAMINOPHEN 1,000 MG/100 ML VIAL IV STA (11:32)
[2020-02-24] MEDS ORDERED: ONDANSETRON INJ 2 MG/ML 2 ML VIAL IV STA (11:32)
--- NOTE | 2020-02-24 12:24 | XRay Report ---
XR chest 1V portable HISTORY: 85 years-old Female Pt c/o illness acute generalized abdominal pain with nausea and vomitin g COMPARISON: Chest radiograph 06/08/2018 TECHNIQUE: Portable AP view of the chest FINDINGS: Moderate cardiomegaly. Calcified plaque of the thoracic aortic arch. Chronic interstitial coarsening. Pulmonary vascular congestion. No pneumothorax. Chronic right hemidiaphragm elevation. Trace pleural effusions with mild bibasilar and lateral left midlung densities. Degenerative changes of the should ers and spine. Healed remote fracture deformity of the proximal right humerus. IMPRESSION: 1. Cardiomegaly with pulmonary vascular congestion. 2. Unchanged right hemidiaphragmatic elevation. 3. Small pleural effusions with mild bibasilar densities suggestive of atelectasis. ACT 112: Negative or not required by law. The above report was generated using voice recognition software. It may contain grammatical, syntax o r spelling errors. Electronically signed by: Ernesto Faulkner M.D. 02/24/2020 12:22 PM
[2020-02-24 12:46] LABS: Albumin Globulin Ratio 0.6 (0.9-2); Albumin Level 2.5 gm/dl (3.4-5.0); BUN Creatinine Ratio 6.3 (10-20); Bilirubin,Total 0.4 mg/dl (0.2-1); Calcium 9.2 mg/dl (8.5-10.1); Creatinine Clr Calc Pharmacy 5.4 ml/min; Est GFR (African American) 6.6; Est GFR (Non-African American) 5.7; Globulin 4.2 gm/dl (2.5-4.0); Potassium 4.2 mmol/L (3.5-5.1); Total Protein 6.7 gm/dl (6.4-8.2)
--- NOTE | 2020-02-24 13:24 | CT Scan Report ---
CT SCAN OF THE ABDOMEN AND PELVIS WITHOUT IV CONTRAST CLINICAL HISTORY: Generalized abdominal pain. COMPARISON STUDY: Abdominal CT dated 06/08/2018. TECHNIQUE: CT scan of the abdomen and pelvis is performed from the lung bases to the proximal femora. Images are reviewed in the axial, sagittal, and coronal planes. IV contrast was not administered for this examination. A dose lowering technique was utilized adhering to the principles of ALARA. The ex amination is degraded by motion artifact. CT DOSE: 882.13 mGycm FINDINGS: Lung bases: The heart is enlarged and without pericardial effusion. The coronary arteries are densely calcified. There is a small hiatal hernia. A calcified granuloma seen in the right lung base. There is a small left pleural effusion with associated pleural thickening. Atelectasis is noted at both mercedes g bases. A 5 mm left lower lobe pulmonary nodule is seen on image #52, and a 4 mm pulmonary nodule se en in the right middle lobe on image #1. These are pathologically indeterminant and unchanged from pr evious. Liver: The unenhanced liver is normal in size, contour, and attenuation. There is mild intrahepatic b iliary ductal dilatation. Gallbladder: Surgically absent. Spleen: Normal in size and attenuation. Pancreas: The unenhanced pancreas is mildly atrophic and grossly unremarkable. Adrenal glands: Unremarkable. Kidneys: The unenhanced kidneys are atrophic and without hydronephrosis. There are 7 mm and 5 mm calc carline at the left ureteropelvic junction/left proximal ureter seen on axial images #175 and #185. A 4 m m calculus at the right ureteropelvic junction is seen on image #174. Additional nonobstructing calcu li and renal vascular calcifications are present in both kidneys. A 1.6 cm cyst arises from the poste rior right kidney. A 5 mm hyperdense cyst is seen in the anterior left kidney. Abdominal vasculature: The abdominal aorta is normal in course and caliber noting moderate to advance d atherosclerotic calcification. Bowel: There is moderate colonic diverticulosis without CT evidence of acute diverticulitis. There wagner s likely been sigmoid colon resection with colocolonic anastomosis. No bowel obstruction is identifie d. A ventral hernia in the pelvis contains a nonobstructed segment of small bowel is seen on image #3 50. The appendix is not clearly visualized. Peritoneum: There is no intraperitoneal free air or abdominal ascites. A fat-containing hernia is not ed in the right lower quadrant. A midline surgical scar is noted. A fat-containing supraumbilical her rock is seen on image #170. Lymphadenopathy: None. Pelvic viscera: The the bladder is decompressed and not well evaluated. The uterus is surgically abse nt. No adnexal lesion is seen. Skeletal structures: The skeletal structures are osteopenic. There is advanced lumbosacral spondylosi s. A mild an age indeterminant superior endplate compression deformity is noted in L2. No lytic or bl astic lesions are seen. There are healed left pubic ring fractures. IMPRESSION: 1. There are 7 mm and 5 mm calculi identified at the left ureteropelvic junction and in the left prox imal ureter. There is no associated hydronephrosis. 2. There is a 4 mm calculus identified at the right ureteropelvic junction. There is no associated hy dronephrosis. 3. Additional nonobstructing calculi are present in both kidneys. 4. Cardiomegaly and chronic left pleural effusion. 5. Moderate colonic diverticulosis without CT evidence of acute diverticulitis. 6. A ventral hernia in the pelvis contains a nonobstructed segment of small bowel. 7. Large fat-containing hernia is present in the right lower quadrant. 8. There is a mild and age indeterminant superior endplate compression deformity of L2. This is new f rom 06/08/2018. Correlate for point tenderness. 9. Additional findings as above. ACT 112: Negative or not required by law. Electronically signed by: Meir Mooney M.D. 02/24/2020 1:23 PM
[2020-02-24] MEDS ORDERED: DAPTOMYCIN IV ONE (13:52)
[2020-02-24] MEDS ORDERED: PIPERACILLIN/TAZOBACTAM 4.5 GM/120 ML BAG IV ONE (13:52)
[2020-02-24] MEDS ORDERED: PIPERACILL/TAZOBAC CONSULT ACTIVE PRN (13:52)
[2020-02-24] MEDS ORDERED: DAPTOmycin 275 MG in SYRINGE 0 ML IV ONE (14:15)
--- NOTE | 2020-02-24 14:52 | Electrocardiogram Report ---
Test Reason : Blood Pressure : / mmHG Vent. Rate : 101 BPM Atrial Rate : 105 BPM P-R Int : 000 ms QRS Dur : 136 ms QT Int : 378 ms P-R-T Axes : 000 140 -06 degrees QTc Int : 490 ms Atrial fibrillation with rapid ventricular response Right bundle branch block Abnormal ECG When compared with ECG of 08-JUN-2018 11:23, Atrial fibrillation has replaced Sinus rhythm Vent. rate has increased BY 33 BPM T wave inversion now evident in Inferior leads T wave inversion now evident in Anterior leads Confirmed by Maxim Gonzalez ([id number]) on 02/24/2020 2:52:11 PM Referred By: REFERRED SELF Confirmed By:Maxim Gonzalez
--- NOTE | 2020-02-24 15:16 | Emergency Department Note ---
History of Present Illness General Chief complaint: Abdominal Pain Stated complaint: Abd pain Source: patient, EMS, RN notes reviewed and old records reviewed Mode of arrival: EMS Limitations: no limitations History of Present Illness Provider complaint: Abdominal pain Onset (ago): hour(s) 2 Location: abdomen Radiation: back Severity: moderate Pain Consistency: + intermittent Maximum Pain Intensity: 4 Current Pain Intensity: 4 Quality: + aching Relieved By: + immobilization Exacerbated By: + movement Associated symptoms: + nausea/vomiting; no chest pain, no fever/chills and no shortness of breath Treatments prior to arrival: none This is an 85-year-old female who is on dialysis who presents the emergency department after missing dialysis today. The patient reports she was not feeling well and was having abdominal pain along with nausea and vomiting. For this reason she skipped dialysis. The symptoms persisted and she requested to come to the emergency department. Upon arrival to the emergency department the patient is complaining of abdominal pain that radiates into the back. She reports movement makes the pain worse and nothing has made the pain better. She has not taken anything prior to arrival. Home Medications Home Medications Medication Instructions Recorded Confirmed Type allopurinol 100 mg PO QAM 02/04/18 02/24/20 History calcium acetate(phosphat bind) 1,334 mg PO UD 02/04/18 02/24/20 History aspirin [Ecotrin Low Strength] 81 mg PO QAM #30 tab 02/05/18 02/24/20 Rx atorvastatin 40 mg PO HS 03/23/18 02/24/20 History nitroglycerin [Nitrostat] 0.4 mg SUBLINGUAL DIRECTED PRN 06/08/18 02/24/20 History calcium carbonate 500 mg calcium 1,000 mg PO DAILY PRN tab 12/22/19 02/24/20 History (1,250 mg) chewable tablet famotidine 20 mg tablet 20 mg PO BID 12/22/19 02/24/20 History metoprolol tartrate 50 mg tablet 75 mg PO BIDM tab 12/22/19 02/24/20 History B complex with C 20-folic acid 1 cap PO DAILY@1630 02/24/20 02/24/20 History [[place] Caps] calcium acetate(phosphat bind) 1,334 mg PO UD 02/24/20 02/24/20 History diltiazem HCl 180 mg PO QAM 02/24/20 02/24/20 History levothyroxine 200 mcg PO QAM 02/24/20 02/24/20 History omeprazole 20 mg PO QAM 02/24/20 02/24/20 History Allergies Allergy/AdvReac Type Severity Reaction Status Date / Time bacitracin Allergy Intermediate EYES Verified 02/24/20 13:50 SWELLING-OINTMENT PLACED AROUND EYE polymyxin B Allergy Intermediate EYES Verified 02/24/20 13:50 [id number] PLACED AROUND EYE bee venom protein (honey bee) AdvReac Unknown Unknown Unverified 02/24/20 13:50 Past Med/Surg History Medical History Anemia Anxiety CAD (coronary artery disease) Depression Diastolic dysfunction ESRD (end stage renal disease) on dialysis ESRD on hemodialysis Fistula LEFT ARM Gout Hemodialysis patient History of pericarditis viral vs uremic, resolved HLD (hyperlipidemia) HTN (hypertension) Humeral head fracture 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 Hypothyroidism Impaired ambulation Lumbar spinal stenosis Myocardial Infarction Neurologic gait dysfunction [facility] [place] [place] H&P does not indicate if gait dysfunction is neurologic or not On home oxygen therapy Osteoarthritis Osteopenia Pericardial effusion Secondary hyperparathyroidism of renal origin Stroke Trace tricuspid valve regurgitation Surgical History History of cholecystectomy History of colon surgery History of heart artery stent History of hemodialysis History of Hemodialysis Access Type Arteriovenous Fistula History of thoracentesis History of Thoracentesis Fluid Volume (Cc.) History of tonsillectomy History of total abdominal hysterectomy and bilateral salpingo-oophorectomy Family History Unknown Hypertension Mother Diabetes Heart disease Sister Cancer Grandmother Cancer Other Coronary heart disease Social History Smoking Status: Never smoker Second Hand Exposure: No; Do You Dip or Chew Tobacco: No; Tobacco Cessation Education Requested by Patient: No Hx Alcohol Use: No Hx Substance Use: No Preferred Language: Venezuelan Communication Ability: Effective Lath Hand Required: No Beliefs That Will Affect Care: None marital status: Current Living Situation: Detention Current Living Situation Comment: [facility] current occupational status: retired Other Information That Helps Us Care for You: No Feels Safe at Home: Yes Safety Concerns: Feels Safe At This Time Assistive Devices: Oxygen - Continuous Review of Systems A total of 10 systems reviewed and were otherwise negative Physical Exam Vital Signs Vital Signs - 24 hr 02/24/20 14:00 02/24/20 14:30 02/24/20 15:00 Pulse Rate 106 H 102 H 76 Pulse Rate from SpO2 Sensor 109 H 96 H 91 H Respiratory Rate 20 22 25 H Blood Pressure 136/72 126/73 117/79 Blood Pressure Mean 80 102 96 Pulse Oximetry 100 92 100 Oxygen Delivery Method Nasal Cannula Nasal Cannula Nasal Cannula Oxygen Flow Rate 3 3 3 02/24/20 15:30 02/24/20 15:31 02/24/20 16:00 Pulse Rate 100 H 107 H 88 Pulse Rate from SpO2 Sensor 97 H 104 H 99 H Respiratory Rate 28 H 22 21 Blood Pressure 139/74 132/90 Blood Pressure Mean 92 98 Pulse Oximetry 93 98 100 Oxygen Delivery Method Nasal Cannula Nasal Cannula Nasal Cannula Oxygen Flow Rate 3 3 3 VITAL SIGNS - Vital signs and nursing notes were reviewed. GENERAL - 85-year-old female appearing stated age who is in no acute distress. Communicates well with provider and answers questions appropriately. SKIN - Without rashes. HEAD - NC/AT. EYES - PERRL with EOMI bilaterally. Sclera anicteric. Palpebral conjunctiva pin k and moist with no injection noted. EARS - No deformities of external structures noted on gross examination bilaterally. No pain elicited with palpation of the tragus bilaterally. External auditory canals without discharge or otorrhea. Tympanic membranes pearly escalante without retraction or bulging. No fluid or purulent material visualized behind the TM. Handle of malleus, umbo, cone of light, pars tensa/flaccid all easily visualized. NOSE - Midline and without cyanosis. No epistaxis or purulent drainage noted. Septum midline without deviation or septal hematoma noted. MOUTH/OROPHARYNX - Without perioral cyanosis. Buccal mucosa pink and moist and without leukoplakia. Tongue midline with equal elevation of palate bilaterally. No tonsillar hypertrophy, erythema, or exudates noted. dentition noted. NECK - Neck with FROM. Supple to palpation. lymphadenopathy noted. No nuchal rigidity. LUNGS - Chest wall symmetric without accessory muscle use, intercostals retractions, or central cyanosis. Normal vesicular breath sounds CTA B/L. No wheezes, rales, or rhonchi appreciated. CARDIAC - RRR with S1/S2. No murmur, rubs, or gallops appreciated. ABDOMEN - Abdominal contour without pulsations or visible masses. BS normoactive all four quadrants. No tenderness, palpable masses, hepatosp lenomegaly, or ascites noted. EXTREMITIES - No clubbing or peripheral cyanosis. No pretibial edema present. +3/5 radial, posterior tibial, and dorsalis pedis pulses palpated throughout. +5/5 strength noted in UE/LE bilaterally. NEUROLOGIC - Cranial nerves II through XII grossly intact. Sensory intact to light touch throughout. Patellar reflexes +2/4. PSYCH - A&Ox3 and cooperates fully with examiner. Pt is very pleasant and interacts well with examiner. Course Administered Medications Allopurinol (Allopurinol 100 Mg Tab) 100 mg PO QAM [facility] Stop: 03/26/20 08:59 Last Admin: 02/25/20 12:11 Dose: 100 mg Documented by: [id number] Aspirin (Aspirin 81 Mg Ectab) 81 mg PO QAM [facility] Stop: 03/26/20 08:59 Last Admin: 02/25/20 07:39 Dose: 81 mg Documented by: [id number] Atorvastatin Calcium (Atorvastatin 40 Mg Tab) 40 mg PO HS [facility] Stop: 03/25/20 20:59 Last Admin: 02/24/20 21:21 Dose: 40 mg Documented by: [id number] Calcium Acetate (Calcium Acetate 667 Mg Cap/Tab) 1,334 mg PO [email or web address] [facility] Stop: 03/25/20 19:59 Last Admin: 02/24/20 21:21 Dose: 1,334 mg Documented by: [id number] Cholestyramine Resin (Cholestyramine Light 4 Gm Pkt) 4 gm PO BID@1000,2200 [facility] Stop: 03/26/20 09:59 Last Admin: 02/25/20 12:11 Dose: Not Given Documented by: [id number] Diltiazem HCl (Diltiazem Hcl 180 Mg Capcr) 180 mg PO QAM [facility] Stop: 03/26/20 08:59 Last Admin: 02/25/20 12:10 Dose: Not Given Documented by: [id number] Famotidine (Famotidine 20 Mg Tab) 20 mg PO BID [facility] Stop: 03/25/20 20:59 Last Admin: 02/25/20 12:10 Dose: 20 mg Documented by: [id number] Admin: 02/24/20 21:21 Dose: 20 mg Documented by: [id number] Heparin Sodium (Porcine) (Heparin Sod 5,000 Unit/0.5 Ml Vial) 5,000 units SQ Q12 [facility] Stop: 03/25/20 20:59 Last Admin: 02/25/20 08:30 Dose: Not Given Documented by: [id number] Admin: 02/24/20 21:20 Dose: 5,000 units Documented by: [id number] Cosigned by: [id number] Piperacillin Sod/Tazobactam (Sod 3.375 gm/ Dextrose) 115 mls @ 28.75 mls/hr IV Q12H [facility]; Protocol Stop: 03/05/20 21:59 Last Admin: 02/25/20 12:14 Dose: 28.8 mls/hr Documented by: [id number] Infusion: 02/25/20 01:41 Dose: 0 mls/hr Documented by: [id number] Admin: 02/24/20 21:27 Dose: 28.8 mls/hr Documented by: [id number] Levothyroxine Sodium (Levothyroxine Sodium 200 Mcg Tablet) 200 mcg PO DAILYBB [facility] Stop: 03/26/20 06:29 Last Admin: 02/25/20 05:52 Dose: 200 mcg Documented by: [id number] Metoprolol Tartrate (Metoprolol Tartrate 25 Mg Tab) 75 mg PO BIDM [facility] Stop: 03/25/20 19:59 Last Admin: 02/25/20 12:10 Dose: Not Given Documented by: [id number] Admin: 02/24/20 21:20 Dose: 75 mg Documented by: [id number] Miscellaneous (No Heparin In Dialysis) 1 ea N/A TODAY@0900 [facility] Stop: 02/25/20 14:00 Last Admin: 02/25/20 11:12 Dose: Not Given Documented by: [id number] Pantoprazole Sodium (Pantoprazole 40 Mg Tab) 40 mg PO QAM [facility]; Protocol Stop: 03/26/20 08:59 Last Admin: 02/25/20 12:11 Dose: 40 mg Documented by: [id number] Discontinued Medications Cholestyramine Resin (Cholestyramine Light 4 Gm Pkt) 4 gm PO NOW STA Stop: 02/24/20 11:31 Last Admin: 02/24/20 13:03 Dose: 4 gm Documented by: [id number] Acetaminophen (Ofirmev) 1,000 mg in 100 mls @ 400 mls/hr IV NOW STA Stop: 02/24/20 11:46 Last Infusion: 02/24/20 14:14 Dose: 0 mls/hr Documented by: [id number] Admin: 02/24/20 13:00 Dose: 400 mls/hr Documented by: [id number] Piperacillin Sod/Tazobactam Sod (Zosyn) 4.5 gm in 120 mls @ 240 mls/hr IV NOW ONE Stop: 02/24/20 14:21 Last Infusion: 02/24/20 15:00 Dose: 0 mls/hr Documented by: [id number] Admin: 02/24/20 14:26 Dose: 240 mls/hr Documented by: [id number] Daptomycin 275 mg/ Syringe 5.5 mls @ 3.86 mls/min IV NOW ONE; Protocol Stop: 02/24/20 14:16 Last Admin: 02/24/20 14:25 Dose: 3.86 mls/min Documented by: [id number] Ondansetron HCl (Ondansetron Inj 2 Mg/Ml 2 Ml Vial) 4 mg IV NOW STA Stop: 02/24/20 11:33 Last Admin: 02/24/20 13:00 Dose: 4 mg Documented by: [id number] Medical Decision Making Differential Diagnosis Appendicitis, ovarian cyst, ovarian torsion, ectopic , TOA, PID, infections, diverticulitis, UTI, obstruction, mesenteric ischemia, aortic path ology, inflammatory bowel disease, renal colic, PUD, pancreatitis, biliary pathology, hernia, volvulus, constipation, as well as other pathologies. Medical Records Attestation: I reviewed the patient's medical records. Home Medications Current Medication List: was personally reviewed by me Laboratory Data Attestation: I reviewed the patient's lab results. Result diagrams: 02/25/20 06:23 02/25/20 06:23 Lab Results 02/24/20 02/24/20 02/24/20 Range/Units 11:05 11:05 11:05 WBC 13.17 H (4.8-10.8) K/uL RBC 3.23 L (4.2-5.4) M/uL Hgb 11.3 L (12.0-16.0) g/dL Hct 35.2 L (37-47) % MCV 109.0 H (80-100) fL MCH 35.0 H (25-34) pg MCHC 32.1 (32-36) g/dL RDW Std Deviation 56.8 H (36.4-46.3) fL RDW Coeff of Alejandro 14.2 (11.5-14.5) % Plt Count 269 (130-400) K/uL MPV 9.8 (7.4-10.4) fL Immature Gran % (Auto) 0.2 % Neut % (Auto) 88.6 % Lymph % (Auto) 5.2 % Bollinger % (Auto) 4.5 % Eos % (Auto) 1.5 % Baso % (Auto) 0.0 % Neut # (Auto) 11.68 H (1.4-6.5) K/uL Lymph # (Auto) 0.68 L (1.2-3.4) K/uL Bollinger # (Auto) 0.59 (0.11-0.59) K/uL Eos # (Auto) 0.20 (0-0.5) K/uL Baso # (Auto) 0.00 (0-0.2) K/uL Immature Gran # (Auto) 0.02 (0.00-0.02) K/uL Sodium 135 L (136-145) mmol/L Potassium 4.2 (3.5-5.1) mmol/L Chloride 98 (98-107) mmol/L Carbon Dioxide 30 (21-32) mmol/L Anion Gap 7.0 (3-11) BUN 38 H (7-18) mg/dl Creatinine 6.10 H* (0.6-1.2) mg/dl Est Cr Clr Drug Dosing 5.4 ml/min Est GFR ( Amer) 6.6 Est GFR (Non-Af Amer) 5.7 BUN/Creatinine Ratio 6.3 L (10-20) Glucose 107 H (70-99) mg/dl Calcium 9.2 (8.5-10.1) mg/dl Total Bilirubin 0.4 (0.2-1) mg/dl AST 12 L (15-37) U/L ALT 13 (12-78) U/L Alkaline Phosphatase 97 (45-117) U/L Total Protein 6.7 (6.4-8.2) gm/dl Albumin 2.5 L (3.4-5.0) gm/dl Globulin 4.2 H (2.5-4.0) gm/dl Albumin/Globulin Ratio 0.6 L (0.9-2) Lipase 202 (73-393) U/L COVID-19 Eval Order COVID-19 PCR (Negative) Hep Bs Antigen Neg (Neg) Hep Bs Antibody Non-Immune Hep Bs Antibody, Quant < 3.10 L (>or=10mIU/mL Immune) mIU/mL 02/24/20 02/24/20 Range/Units 11:58 11:58 WBC (4.8-10.8) K/uL RBC (4.2-5.4) M/uL Hgb (12.0-16.0) g/dL Hct (37-47) % MCV (80-100) fL MCH (25-34) pg MCHC (32-36) g/dL RDW Std Deviation (36.4-46.3) fL RDW Coeff of Alejandro (11.5-14.5) % Plt Count (130-400) K/uL MPV (7.4-10.4) fL Immature Gran % (Auto) % Neut % (Auto) % Lymph % (Auto) % Bollinger % (Auto) % Eos % (Auto) % Baso % (Auto) % Neut # (Auto) (1.4-6.5) K/uL Lymph # (Auto) (1.2-3.4) K/uL Bollinger # (Auto) (0.11-0.59) K/uL Eos # (Auto) (0-0.5) K/uL Baso # (Auto) (0-0.2) K/uL Immature Gran # (Auto) (0.00-0.02) K/uL Sodium (136-145) mmol/L Potassium (3.5-5.1) mmol/L Chloride (98-107) mmol/L Carbon Dioxide (21-32) mmol/L Anion Gap (3-11) BUN (7-18) mg/dl Creatinine (0.6-1.2) mg/dl Est Cr Clr Drug Dosing ml/min Est GFR ( Amer) Est GFR (Non-Af Amer) BUN/Creatinine Ratio (10-20) Glucose (70-99) mg/dl Calcium (8.5-10.1) mg/dl Total Bilirubin (0.2-1) mg/dl AST (15-37) U/L ALT (12-78) U/L Alkaline Phosphatase (45-117) U/L Total Protein (6.4-8.2) gm/dl Albumin (3.4-5.0) gm/dl Globulin (2.5-4.0) gm/dl Albumin/Globulin Ratio (0.9-2) Lipase (73-393) U/L COVID-19 Eval Order Covid19 Done at [facility] COVID-19 PCR NEGATIVE (Negative) Hep Bs Antigen (Neg) Hep Bs Antibody Hep Bs Antibody, Quant (>or=10mIU/mL Immune) mIU/mL Imaging Data Radiologist's Impression: [facility], [place] [phone] XRay Report Patient: ALEKSANDR GREGORIO Admit Date: 02/24/20 MR#: [id number] Address1: [address] [place] [address] Acct ID:[id number] Address2: [facility] Date: 1935 [facility] Zip: [place] [address] Age: 85 Location: ED Sex: F Room/Bed: Att Phy: Diagnosis: Abd pain Swathi Phy: [place] Service Date: 02/24/20 Fam Phy: Interpreting Phy: Pb Faulkner Admit Phy: Ordering Phy: Navi Palencia MD cc: ~ XR chest 1V portable HISTORY: 85 years-old Female Pt c/o illness acute generalized abdominal pain with nausea and vomiting COMPARISON: Chest radiograph 06/08/2018 TECHNIQUE: Portable AP view of the chest FINDINGS: Moderate cardiomegaly. Calcified plaque of the thoracic aortic arch. Chronic interstitial coarsening. Pulmonary vascular congestion. No pneumothorax. Chronic right hemidiaphragm elevation. Trace pleural effusions with mild bibasilar and lateral left midlung densities. Degenerative changes of the shoulders and spine. Healed remote fracture deformity of the proximal right humerus. IMPRESSION: 1. Cardiomegaly with pulmonary vascular congestion. 2. Unchanged right hemidiaphragmatic elevation. 3. Small pleural effusions with mild bibasilar densities suggestive of atelectasis. ACT 112: Negative or not required by law. The above report was generated using voice recognition software. It may contain grammatical, syntax or spelling errors. Electronically signed by: Ernesto Faulkner M.D. 02/24/2020 12:22 PM Dictated: 02/24/20 1221 Transcribed: 02/24/20 1221 [place], [place] [phone] CT Scan Report Patient: ALEKSANDR GREGORIO Admit Date: 02/24/20 MR#: [id number] Address1: [place] [place] Acct ID:[id number] Address2: [facility] Date: 1935 [facility] Zip: [place] [address] Age: 85 Location: ED Sex: F Room/Bed: Att Phy: Diagnosis: Abd pain Swathi Phy: [place] Service Date: 02/24/20 Fam Phy: Interpreting Phy: Meir Mooney MD Admit Phy: Ordering Phy: Navi Palencia MD cc: ~ CT SCAN OF THE ABDOMEN AND PELVIS WITHOUT IV CONTRAST CLINICAL HISTORY: Generalized abdominal pain. COMPARISON STUDY: Abdominal CT dated 06/08/2018. TECHNIQUE: CT scan of the abdomen and pelvis is performed from the lung bases to the proximal femora. Images are reviewed in the axial, sagittal, and coronal planes. IV contrast was not administered for this examination. A dose lowering technique was utilized adhering to the principles of ALARA. The examination is degraded by motion artifact. CT DOSE: 882.13 mGycm FINDINGS: Lung bases: The heart is enlarged and without pericardial effusion. The coronary arteries are densely calcified. There is a small hiatal hernia. A calcified granuloma seen in the right lung base. There is a small left pleural effusion with associated pleural thickening. Atelectasis is noted at both lung bases. A 5 mm left lower lobe pulmonary nodule is seen on image #52, and a 4 mm pulmonary nodule seen in the right middle lobe on image #1. These are pathologically indeterminant and unchanged from previous. Liver: The unenhanced liver is normal in size, contour, and attenuation. There is mild intrahepatic biliary ductal dilatation. Gallbladder: Surgically absent. Spleen: Normal in size and attenuation. Pancreas: The unenhanced pancreas is mildly atrophic and grossly unremarkable. Adrenal glands: Unremarkable. Kidneys: The unenhanced kidneys are atrophic and without hydronephrosis. There are 7 mm and 5 mm calculi at the left ureteropelvic junction/left proximal ureter seen on axial images #175 and #185. A 4 mm calculus at the right ureteropelvic junction is seen on image #174. Additional nonobstructing calculi and renal vascular calcifications are present in both kidneys. A 1.6 cm cyst arises from the posterior right kidney. A 5 mm hyperdense cyst is seen in the anterior left kidney. Abdominal vasculature: The abdominal aorta is normal in course and caliber noting moderate to advanced atherosclerotic calcification. Bowel: There is moderate colonic diverticulosis without CT evidence of acute diverticulitis. There has likely been sigmoid colon resection with colocolonic anastomosis. No bowel obstruction is identified. A ventral hernia in the pelvis contains a nonobstructed segment of small bowel is seen on image #350. The appendix is not clearly visualized. Peritoneum: There is no intraperitoneal free air or abdominal ascites. A fat- containing hernia is noted in the right lower quadrant. A midline surgical scar is noted. A fat-containing supraumbilical hernia is seen on image #170. Lymphadenopathy: None. Pelvic viscera: The the bladder is decompressed and not well evaluated. The uterus is surgically absent. No adnexal lesion is seen. Skeletal structures: The skeletal structures are osteopenic. There is advanced lumbosacral spondylosis. A mild an age indeterminant superior endplate compression deformity is noted in L2. No lytic or blastic lesions are seen. There are healed left pubic ring fractures. IMPRESSION: 1. There are 7 mm and 5 mm calculi identified at the left ureteropelvic junction and in the left proximal ureter. There is no associated hydronephrosis. 2. There is a 4 mm calculus identified at the right ureteropelvic junction. There is no associated hydronephrosis. 3. Additional nonobstructing calculi are present in both kidneys. 4. Cardiomegaly and chronic left pleural effusion. 5. Moderate colonic diverticulosis without CT evidence of acute diverticulitis. 6. A ventral hernia in the pelvis contains a nonobstructed segment of small bowel. 7. Large fat-containing hernia is present in the right lower quadrant. 8. There is a mild and age indeterminant superior endplate compression deformity of L2. This is new from 06/08/2018. Correlate for point tenderness. 9. Additional findings as above. ACT 112: Negative or not required by law. Electronically signed by: Meir Mooney M.D. 02/24/2020 1:23 PM Dictated: 02/24/20 1303 Transcribed: 02/24/201302 ECG Data Attestation: I personally reviewed and interpreted this ECG as follows: Indication: abdominal pain Rate (beats per minute): 86 Rhythm: atrial fibrillation (with RVR) Findings: + RBBB and + prolonged QT (490); no ST depression and no ST elevation Comparison ECG Date: from (06/08/2018) Change: the following changes noted (afib has replaced NSR) MDM Narrative This is an 85-year-old female who presents emergency department complaining of abdominal pain as well as vomiting. Patient skipped dialysis today due to the pain. Using shared medical decision making she was sent for CAT scan of the abdomen pelvis. This is concerning for bilateral kidney stones. Patient does have an elevation in her white blood cell count therefore was started on broad-spectrum antibiotics. She was given Zofran for the vomiting. Because of the elevation of the white blood cell count the dialysis as well as a kidney stones I did discuss the case with the hospitalist service who did agree to admit the patient. Patient was seen and evaluated as above in room B7. Review was performed of nursing notes and vital signs. I did review pertinent previous visits and patient history. After obtaining a thorough history and physical examination the above work up was performed. While in the department, I personally reevaluated the patient several times and each time the patient was found to be resting comfortably. The patient was educated upon management, educated upon todays findings/results, educated upon importance of follow up from today's visit, educated upon symptoms in which to return, had questions answered prior to discharge, verbalized understanding, and was discharged home in good condition. An order was placed for continuous cardiac monitoring. The monitor shows a rate of 80 with Normal SInus rhythm. The patient was evaluated during the global COVID-19 pandemic, and that diagnosis was suspected/considered upon their initial presentation. Their evaluation, treatment and testing was consistent with current guidelines for patients who present with complaints or symptoms that may be related to COVID- 19. Impression & Plan Atrial fibrillation, rapid, ESRD (end stage renal disease), Kidney stone, Abdominal pain Discharge Plan Visit Data Chief Complaint: Abdominal Pain Stated Complaint: Abd pain ED Provider: Navi Palencia Discharge Problem: Atrial fibrillation, rapid, ESRD (end stage renal disease), Kidney stone, Abdominal pain Patient Disposition: Admitted As Inpatient Discharge Instructions Interventions: ED Discharge Assessment Last Done: 02/24/20 17:59 Discharge Problem: Abdominal pain Qualifiers: Abdominal location: unspecified location Qualified Code(s): R10.9 - Unspecified abdominal pain
--- NOTE | 2020-02-24 16:06 | History & Physical Report ---
Date of Service February 24, 2020 Assessment & Plan (1) Abdominal pain: unclear etiology, no acute findings on CT there are kidney stones but most of them except one are in the kidney, there is one stone in proximal left ureter she does not make much urine if any due to ESRD no obstruction, no diverticulitis, no pancreatitis abdomen tender, especially in upper quadrants will allow clear liquids, NPO after midnight ask urology for their opinion on renal stones, doubt they are the cause of pain check C diff and stool studies pain control WBC is 13k (2) Atrial fibrillation: rates well controlled on Diltiazem and metoprolol on aspirin 81mg, not on anticoagulation (3) Chronic respiratory failure with hypoxia: stable on 2L no distress at all (4) ESRD (end stage renal disease): consult Dr. Do for HD orders of note, she was supposed to have HD today, could not go she is euvolemic, K is stable, certainly no indication for emergent HD (5) Kidney stone: see above ask urology for their opinion (6) Secondary hyperparathyroidism of renal origin: continue phosphate binders (7) Anemia: macrocytic, likely a component of anemia from ESRD Hb is 11 (8) CAD (coronary artery disease): no chest pain or pressure continue aspirin (9) Hypothyroidism: continue Synthroid (10) HTN (hypertension): BP stable, continue home regimen History of Present Illness Chief Complaint: My belly hurts from top to bottom Primary Care Provider: Yudelka Vasquez 85 yo female with history of ESRD, atrial fibrillation, CAD who presents to the ED with the complaint of ongoing abdominal pain. Her daughter is at the bedside to help with the recent history. The pain is generalized, she says it is fairly constant, she has not had pain like this before. She says that eating makes the pain worse. She has not been eating very well the past few weeks. She has had some intermittent nausea and vomiting. She has experienced chills but never a fever, says she is always cold. She denies any chest pain. She was scheduled for HD today but she said she felt too sick, did not go to HD and ended up coming to the ED instead for evaluation. In the ED her vitals were stable. CT of the abdomen pelvis showed numerous kidney stones, most in the ureteropelvic junction, one was in the proximal left ureter. She denies making urine due to being on HD. She does not have any flank pain. The CT also showed a ventral and umbilical hernia, no bowel obstruction, evidence of diverticulosis but no convincing evidence of diverticulitis. WBC was 13k, Hb 11. Stool sample was collected due to diarrhea. Allergies Allergy/AdvReac Type Severity Reaction Status Date / Time bacitracin Allergy Intermediate EYES Verified 02/24/20 13:50 SWELLING-OINTMENT PLACED AROUND EYE polymyxin B Allergy Intermediate EYES Verified 02/24/20 13:50 [id number] PLACED AROUND EYE bee venom protein (honey bee) AdvReac Unknown Unknown Unverified 02/24/20 13:50 Home Medications Home Medications Medication Instructions Recorded Confirmed Type allopurinol 100 mg PO QAM 02/04/18 02/24/20 History calcium acetate(phosphat bind) 1,334 mg PO UD 02/04/18 02/24/20 History aspirin [Ecotrin Low Strength] 81 mg PO QAM #30 tab 02/05/18 02/24/20 Rx atorvastatin 40 mg PO HS 03/23/18 02/24/20 History nitroglycerin [Nitrostat] 0.4 mg SUBLINGUAL DIRECTED PRN 06/08/18 02/24/20 History calcium carbonate 500 mg calcium 1,000 mg PO DAILY PRN tab 12/22/19 02/24/20 History (1,250 mg) chewable tablet famotidine 20 mg tablet 20 mg PO BID 12/22/19 02/24/20 History metoprolol tartrate 50 mg tablet 75 mg PO BIDM tab 12/22/19 02/24/20 History B complex with C 20-folic acid 1 cap PO DAILY@1630 02/24/20 02/24/20 History [[place]igs Caps] calcium acetate(phosphat bind) 1,334 mg PO UD 02/24/20 02/24/20 History diltiazem HCl 180 mg PO QAM 02/24/20 02/24/20 History levothyroxine 200 mcg PO QAM 02/24/20 02/24/20 History omeprazole 20 mg PO QAM 02/24/20 02/24/20 History Past Med/Surg History Medical History Anemia Anxiety CAD (coronary artery disease) Depression Diastolic dysfunction ESRD (end stage renal disease) on dialysis ESRD on hemodialysis Fistula LEFT ARM Gout Hemodialysis patient History of pericarditis viral vs uremic, resolved HLD (hyperlipidemia) HTN (hypertension) Humeral head fracture 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 Hypothyroidism Impaired ambulation Lumbar spinal stenosis Myocardial Infarction Neurologic gait dysfunction [facility] H&P does not indicate if gait dysfunction is neurologic or not On home oxygen therapy Osteoarthritis Osteopenia Pericardial effusion Secondary hyperparathyroidism of renal origin Stroke Trace tricuspid valve regurgitation Surgical History History of cholecystectomy History of colon surgery History of heart artery stent History of hemodialysis History of Hemodialysis Access Type Arteriovenous Fistula History of thoracentesis History of Thoracentesis Fluid Volume (Cc.) History of tonsillectomy History of total abdominal hysterectomy and bilateral salpingo-oophorectomy Family History Unknown Hypertension Mother Diabetes Heart disease Sister Cancer Grandmother Cancer Other Coronary heart disease Social History Smoking Status: Never smoker Second Hand Exposure: No; Do You Dip or Chew Tobacco: No; Tobacco Cessation Education Requested by Patient: No Hx Alcohol Use: No Hx Substance Use: No Preferred Language: Upper Sorbian Communication Ability: Effective Lithograph Press Feeder Required: No Beliefs That Will Affect Care: None marital status: Current Living Situation: [facility] Current Living Situation Comment: [facility] current occupational status: retired Other Information That Helps Us Care for You: No Feels Safe at Home: Yes Safety Concerns: Feels Safe At This Time Assistive Devices: Glasses, Oxygen - Continuous and Walker Review of Systems Review of Systems: All systems reviewed & are unremarkable except as noted in HPI & below Constitutional: + chills, + fatigue and + weakness; no fever and no sweats Respiratory: no cough, no dyspnea and no wheezing Cardiovascular: no chest pain, no palpitations, no syncope and no edema Gastrointestinal: + abdominal pain, + nausea, + vomiting and + diarrhea/loose stools; no constipation, no blood in stools and no melena Genitourinary: no dysuria Musculoskeletal: + muscle weakness; no back pain, no joint pain and no myalgia Physical Exam Constitutional: well developed, + thin and + frail appearing; no acute distress Eyes: PERRL, conjunctivae normal, anicteric sclerae ENMT: external ear and nose normal, oropharynx normal Neck: trachea midline, no thyromegaly Respiratory: normal respiratory effort, lungs clear to auscultation Cardiovascular: Rate/Rhythm: regular rate and + irregularly irregular Heart Sounds: normal S1 and normal S2; no murmur Vessels: no JVD Extremities: normal capillary refill; no edema Gastrointestinal (Abdomen): Inspection/Auscultation: abdomen normal to inspection and normal bowel sounds; abdomen not distended Percussion/Palpation: + abdomen tender (upper abdomen more tender than lower), abdomen soft, + hernia (venral and umbilical, reducible) and + tympanic to percussion; no guarding and abdomen not rigid Musculoskeletal: no cyanosis or clubbing, extremities motor strength 5/5 Skin: no rashes, warm and dry Neurologic: patellar DTR's 2+ bilat, sensation intact and PERRL, EOMI, accommodation nl, no face palsy, no dysarthria Psychiatric: A+Ox3, euthymic affect Lymphatic: no cervical or axillary lymphadenopathy Results & Data Results & Data ([facility]) Vital Signs (Past 12 Hours) Vital Signs Temp Pulse Resp BP Pulse Ox 02/24/20 14:30 102 H 22 126/73 92 02/24/20 14:00 106 H 20 136/72 100 02/24/20 13:30 96 H 23 139/70 95 02/24/20 13:00 82 27 H 144/73 H 95 02/24/20 12:30 83 25 H 158/86 H 100 02/24/20 12:00 70 25 H 140/74 100 02/24/20 11:30 108 H 23 115/68 94 02/24/20 11:00 120 H 20 138/87 100 02/24/20 10:51 37 C 107 H 23 131/82 100 02/24/20 10:44 107 H 24 131/82 99 Laboratory Results Laboratory Results - last 24 hr 02/24/20 02/24/20 02/24/20 11:05 11:05 11:58 WBC 13.17 H RBC 3.23 L Hgb 11.3 L Hct 35.2 L MCV 109.0 H MCH 35.0 H MCHC 32.1 RDW Std Deviation 56.8 H RDW Coeff of Alejandro 14.2 Plt Count 269 MPV 9.8 Immature Gran % (Auto) 0.2 Neut % (Auto) 88.6 Lymph % (Auto) 5.2 Eddy % (Auto) 4.5 Eos % (Auto) 1.5 Baso % (Auto) 0.0 Neut # (Auto) 11.68 H Lymph # (Auto) 0.68 L Eddy # (Auto) 0.59 Eos # (Auto) 0.20 Baso # (Auto) 0.00 Immature Gran # (Auto) 0.02 Sodium 135 L Potassium 4.2 Chloride 98 Carbon Dioxide 30 Anion Gap 7.0 BUN 38 H Creatinine 6.10 H* Est Cr Clr Drug Dosing 5.4 Est GFR ( Amer) 6.6 Est GFR (Non-Af Amer) 5.7 BUN/Creatinine Ratio 6.3 L Glucose 107 H Calcium 9.2 Total Bilirubin 0.4 AST 12 L ALT 13 Alkaline Phosphatase 97 Total Protein 6.7 Albumin 2.5 L Globulin 4.2 H Albumin/Globulin Ratio 0.6 L Lipase 202 COVID-19 Eval Order Covid19 Done at [facility] COVID-19 PCR 02/24/20 11:58 WBC RBC Hgb Hct MCV MCH MCHC RDW Std Deviation RDW Coeff of Alejandro Plt Count MPV Immature Gran % (Auto) Neut % (Auto) Lymph % (Auto) Eddy % (Auto) Eos % (Auto) Baso % (Auto) Neut # (Auto) Lymph # (Auto) Eddy # (Auto) Eos # (Auto) Baso # (Auto) Immature Gran # (Auto) Sodium Potassium Chloride Carbon Dioxide Anion Gap BUN Creatinine Est Cr Clr Drug Dosing Est GFR ( Amer) Est GFR (Non-Af Amer) BUN/Creatinine Ratio Glucose Calcium Total Bilirubin AST ALT Alkaline Phosphatase Total Protein Albumin Globulin Albumin/Globulin Ratio Lipase COVID-19 Eval Order COVID-19 PCR NEGATIVE Diagnostic Findings CT abdomen/pelvis IMPRESSION: 1. There are 7 mm and 5 mm calculi identified at the left ureteropelvic junction and in the left proximal ureter. There is no associated hydronephrosis. 2. There is a 4 mm calculus identified at the right ureteropelvic junction. There is no associated hydronephrosis. 3. Additional nonobstructing calculi are present in both kidneys. 4. Cardiomegaly and chronic left pleural effusion. 5. Moderate colonic diverticulosis without CT evidence of acute diverticulitis. 6. A ventral hernia in the pelvis contains a nonobstructed segment of small bowel. 7. Large fat-containing hernia is present in the right lower quadrant. 8. There is a mild and age indeterminant superior endplate compression deformity of L2. This is new from 06/08/2018. Correlate for point tenderness. Code Status & VTE Plan VTE Prophylaxis Plan VTE Prophylaxis will be ordered: Yes PG Care Time/CCT Total # of Minutes Spent Total Time Spent with Patient: Total time spent is greater than 50% in coordination of care (as documented) at patient's floor/unit and/or counseling patient: Coding Level of Care Code 31535 Initial Inpt Care Lvl 3 Diagnoses Abdominal pain R10.9 Abdominal location: unspecified location Atrial fibrillation I48.91 Chronic respiratory failure with hypoxia J96.11 ESRD (end stage renal disease) N18.6 Kidney stone N20.0 Secondary hyperparathyroidism of renal origin N25.81 Anemia N18.6; D63.1; Z99.2 Anemia type: due to chronic kidney disease Chronic kidney disease stage: on chronic dialysis CAD (coronary artery disease) I25.10 Coronary Disease-Associated Artery/Lesion type: tribal artery [place] vs. transplanted heart: tribal heart Associated angina: angina presence unspecified Hypothyroidism E03.9 Hypothyroidism type: acquired HTN (hypertension) I10 Hypertension type: essential hypertension (1) Abdominal pain Abdominal location: unspecified location Qualified Code(s): R10.9 - Unspecified abdominal pain (2) Anemia Anemia type: due to chronic kidney disease Chronic kidney disease stage: on chronic dialysis Qualified Code(s): N18.6 - End stage renal disease; D63.1 - Anemia in chronic kidney disease; Z99.2 - Dependence on renal dialysis (3) CAD (coronary artery disease) Coronary Disease-Associated Artery/Lesion type: tribal artery [place] vs. transplanted heart: tribal heart Associated angina: angina presence unspecified Qualified Code(s): I25.10 - Atherosclerotic heart disease of tribal coronary artery without angina pectoris (4) Hypothyroidism Hypothyroidism type: acquired Qualified Code(s): E03.9 - Hypothyroidism, unspecified (5) HTN (hypertension) Hypertension type: essential hypertension Qualified Code(s): I10 - Essential (primary) hypertension
[2020-02-24] MEDS ORDERED: ONDANSETRON INJ 2 MG/ML 2 ML VIAL IV PRN (18:53)
[2020-02-24] MEDS ORDERED: ACETAMINOPHEN 325 MG TAB PO PRN (18:53)
[2020-02-24] MEDS: HEPARIN SOD 5,000 UNIT/0.5 ML VIAL SQ SCH (21:20)
[2020-02-24] MEDS: METOPROLOL TARTRATE 25 MG TAB PO SCH (21:20)
[2020-02-24] MEDS: CALCIUM ACETATE 667 MG CAP/TAB PO SCH (21:21)
[2020-02-24] MEDS: ATORVASTATIN 40 MG TAB PO SCH (21:21)
[2020-02-24] MEDS: FAMOTIDINE 20 MG TAB PO SCH (21:21)
[2020-02-24] MEDS: PIPERACILLIN/TAZOBACTAM 3.375 GM in DEXTROSE 5% 100 ML IV SCH (21:27)
[2020-02-25] MEDS: LEVOTHYROXINE SODIUM 200 MCG TABLET PO SCH (05:52)
[2020-02-25 06:44] LABS: Basophils # (auto) 0.01 K/uL (0-0.2); Basophils % (auto) 0.1 %; Eosinophils # (auto) 0.37 K/uL (0-0.5); Eosinophils % (auto) 4.2 %; Hematocrit (blood only) 33.4 % (37-47); Hemoglobin 10.6 g/dL (12.0-16.0); Immature Granulocytes # (auto) 0.02 K/uL (0.00-0.02); Immature Granulocytes % (auto) 0.2 %; Lymphocytes # (auto) 0.95 K/uL (1.2-3.4); Lymphocytes % (auto) 10.7 %; Mean Corpuscular Hemoglobin 34.8 pg (25-34); Mean Corpuscular Hgb Conc 31.7 g/dL (32-36); Mean Corpuscular Volume 109.5 fL (80-100); Monocytes # (auto) 0.49 K/uL (0.11-0.59); Monocytes % (auto) 5.5 %; Neutrophils % (auto) 79.3 %; Platelet Count 223 K/uL (130-400); RDW Coefficient of Variation 14.5 % (11.5-14.5); RDW Standard Deviation 57.2 fL (36.4-46.3); Red Blood Count 3.05 M/uL (4.2-5.4); White Blood Count 8.84 K/uL (4.8-10.8)
[2020-02-25 07:26] LABS: BUN Creatinine Ratio 6.4 (10-20); Calcium 9.4 mg/dl (8.5-10.1); Creatinine Clr Calc Pharmacy 4.7 ml/min; Est GFR (African American) 5.6; Est GFR (Non-African American) 4.9; Potassium 4.1 mmol/L (3.5-5.1)
[2020-02-25] MEDS: FAMOTIDINE 20 MG TAB PO SCH ×3 (07:38→20:26)
[2020-02-25] MEDS: allopurinoL 100 MG TAB PO SCH ×2 (07:39→12:11)
[2020-02-25] MEDS: ASPIRIN 81 MG ECTAB PO SCH (07:39)
[2020-02-25] MEDS: METOPROLOL TARTRATE 25 MG TAB PO SCH ×3 (07:39→16:30)
[2020-02-25] MEDS: PANTOprazole 40 MG TAB PO SCH ×2 (07:39→12:11)
[2020-02-25] MEDS: dilTIAZem HCL 180 MG CAPCR PO SCH ×2 (07:39→12:10)
[2020-02-25] MEDS: HEPARIN SOD 5,000 UNIT/0.5 ML VIAL SQ SCH ×2 (08:30→20:26)
[2020-02-25] MEDS ORDERED: SODIUM CHLORIDE 0.9% 1000ML 1,000 ML IV PRN (08:34)
[2020-02-25 10:33] LABS: Hepatitis B Surface Ab Quant < 3.10 mIU/mL (>or=10mIU/mL Immune); Hepatitis B Surface Antibody Non-Immune
[2020-02-25 10:44] LABS: Hepatitis B Surface Antigen Neg (Neg)
--- NOTE | 2020-02-25 11:45 | Nephrology Consultation ---
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 Patient dialyzes MWF at [facility] (3.5 hrs 2K 2Ca F-160NR EDW 61kg) * Patient did not attend dialysis Thursday due to abdominal discomfort. Will provide heparin free HD today for 2 hours and attempt 1 L UF * HD orders entered into EMR and HD RN notified (2) Anemia: * Will provide SARAH w/ dialysis to maintain target Hgb 10 - 11 (3) Abdominal pain: * Predominanatly RUQ * Etiology unclear: Normal LFT, s/p cholecystectomy * Await Urology input re: bilateral kidney stones at [facility] History of Present Illness Reason for Consultation: ESRD on HD Attending Physician: Noble Benjamin, History of Present Illness Mrs. Morgan is an 85 year old white female who is seen at the request of Dr. Benjamin to provide inpatient HD and assist w/ medical management. Medical records in the EMR were reviewed today and are summarized as follows: Mrs. 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 In July 2015 she suffered an episode of ATN and failed to recover. HD was initiated at that time. Mrs. Morgan dialyzes MWF at [facility] (3.5 hrs 2K 2Ca F-160NR EDW 61kg). Her medical history is also significant for HTN, diverticulitis s/p sigmoid resection, hyperlipidemia, atrial fibrillation, ASCVD s/p stent 2013, gout, depression and hypoxemia requiring chronic O2 therapy. Mrs. Morgan was brought to the hospital last night for evaluation of abdominal discomfort. Abdominal CT 02/24/20 revealed that the patient has undergone a cholecystectomy in the past but has bilateral kidney stones at the [facility]. Patient has undergone sigmoidectomy but there was no evidence of acute diverticulitis or bowel obstruction Allergies Allergy/AdvReac Type Severity Reaction Status Date / Time bacitracin Allergy Intermediate EYES Verified 02/24/20 13:50 SWELLING-OINTMENT PLACED AROUND EYE polymyxin B Allergy Intermediate EYES Verified 02/24/20 13:50 [id number] PLACED AROUND EYE bee venom protein (honey bee) AdvReac Unknown Unknown Unverified 02/24/20 13:50 Home Medications Home Medications Medication Instructions Recorded Confirmed Type allopurinol 100 mg PO QAM 02/04/18 02/24/20 History calcium acetate(phosphat bind) 1,334 mg PO UD 02/04/18 02/24/20 History aspirin [Ecotrin Low Strength] 81 mg PO QAM #30 tab 02/05/18 02/24/20 Rx atorvastatin 40 mg PO HS 03/23/18 02/24/20 History nitroglycerin [Nitrostat] 0.4 mg SUBLINGUAL DIRECTED PRN 06/08/18 02/24/20 History calcium carbonate 500 mg calcium 1,000 mg PO DAILY PRN tab 12/22/19 02/24/20 History (1,250 mg) chewable tablet famotidine 20 mg tablet 20 mg PO BID 12/22/19 02/24/20 History metoprolol tartrate 50 mg tablet 75 mg PO BIDM tab 12/22/19 02/24/20 History B complex with C 20-folic acid 1 cap PO DAILY@1630 02/24/20 02/24/20 History [[place] Caps] calcium acetate(phosphat bind) 1,334 mg PO UD 02/24/20 02/24/20 History diltiazem HCl 180 mg PO QAM 02/24/20 02/24/20 History levothyroxine 200 mcg PO QAM 02/24/20 02/24/20 History omeprazole 20 mg PO QAM 02/24/20 02/24/20 History Patient History Medical History Anemia Anxiety CAD (coronary artery disease) Depression Diastolic dysfunction ESRD (end stage renal disease) on dialysis ESRD on hemodialysis Fistula LEFT ARM Gout Hemodialysis patient History of pericarditis viral vs uremic, resolved HLD (hyperlipidemia) HTN (hypertension) Humeral head fracture 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 Hypothyroidism Impaired ambulation Lumbar spinal stenosis Myocardial Infarction Neurologic gait dysfunction [facility] H&P does not indicate if gait dysfunction is neurologic or not On home oxygen therapy Osteoarthritis Osteopenia Pericardial effusion Secondary hyperparathyroidism of renal origin Stroke Trace tricuspid valve regurgitation Surgical History History of cholecystectomy History of colon surgery History of heart artery stent History of hemodialysis History of Hemodialysis Access Type Arteriovenous Fistula History of thoracentesis History of Thoracentesis Fluid Volume (Cc.) History of tonsillectomy History of total abdominal hysterectomy and bilateral salpingo-oophorectomy Family History Unknown Hypertension Mother Diabetes Heart disease Sister Cancer Grandmother Cancer Other Coronary heart disease Social History Smoking Status: Never smoker Second Hand Exposure: No; Do You Dip or Chew Tobacco: No; Tobacco Cessation Education Requested by Patient: No Hx Alcohol Use: No Hx Substance Use: No Preferred Language: Telugu Communication Ability: Effective Manager Compensation Required: No Beliefs That Will Affect Care: None marital status: Current Living Situation: Long-Term Current Living Situation Comment: [facility] current occupational status: retired Other Information That Helps Us Care for You: No Feels Safe at Home: Yes Safety Concerns: Feels Safe At This Time Assistive Devices: Oxygen - Continuous Review of Systems Constitutional: + weakness; no fever Eyes: no problem reported Ear, Nose, Mouth, Throat: no problem reported Respiratory: no dyspnea Cardiovascular: no chest pain, no palpitations and no edema Gastrointestinal: + abdominal pain and + nausea; no vomiting and no diarrhea/loose stools Genitourinary: no dysuria and no hematuria Musculoskeletal: no back pain Integumentary: no rash Neurologic: no falls and no confusion Physical Exam Constitutional: + frail appearing; not in distress Eyes: PERRL, conjunctivae normal, anicteric sclerae ENMT: external ear and nose normal, oropharynx normal Neck: trachea midline, no thyromegaly Respiratory: normal respiratory effort, lungs clear to auscultation Cardiovascular: Rate/Rhythm: + tachycardic and + irregularly irregular Extremities: + AV fistula (+ bruit) Gastrointestinal (Abdomen): Inspection/Auscultation: + hypoactive bowel sounds Percussion/Palpation: + abdomen tender (RUQ); no guarding Musculoskeletal: Extremities: no cyanosis Skin: no rashes, warm and dry Neurologic: awake Results & Data ([facility]) Vital Signs (Past 12 Hours) Vital Signs Temp Pulse Pulse Pulse Resp BP BP 02/25/20 11:20 104 H 95/43 L 02/25/20 11:00 96 H 113/67 02/25/20 10:40 98 H 90/40 L 02/25/20 10:20 98 H 83/43 L 02/25/20 10:00 94 H 78/44 L 02/25/20 09:40 65 93/38 L 02/25/20 09:30 96 H 02/25/20 09:23 36.6 C 76 02/25/20 06:22 36.6 C 96 H 20 134/66 02/25/20 04:00 36.5 C 102 H 18 114/53 L 02/24/20 23:37 90 Pulse Ox 02/25/20 11:20 02/25/20 11:00 02/25/20 10:40 02/25/20 10:20 02/25/20 10:00 02/25/20 09:40 02/25/20 09:30 02/25/20 09:23 02/25/20 06:22 93 02/25/20 04:00 98 02/24/20 23:37 Laboratory Results Laboratory Tests 02/25/20 02/25/20 06:23 06:23 WBC 8.84 Hgb 10.6 L Hct 33.4 L Plt Count 223 Sodium 134 L Potassium 4.1 Chloride 99 Carbon Dioxide 28 BUN 45 H Creatinine 6.98 H* D Glucose 82 PG Care Time/CCT Total # of Minutes Spent Total Time Spent with Patient: Total time spent is greater than 50% in coordination of care (as documented) at patient's floor/unit and/or counseling patient: Coding Level of Care Code 29972 Inpt Consult Level 5 Diagnoses ESRD (end stage renal disease) on dialysis N18.6; Z99.2 Anemia N18.6; D63.1; Z99.2 Anemia type: due to chronic kidney disease Chronic kidney disease stage: on chronic dialysis Abdominal pain R10.9 Abdominal location: unspecified location (1) Anemia Anemia type: due to chronic kidney disease Chronic kidney disease stage: on chronic dialysis Qualified Code(s): N18.6 - End stage renal disease; D63.1 - Anemia in chronic kidney disease; Z99.2 - Dependence on renal dialysis (2) Abdominal pain Abdominal location: unspecified location Qualified Code(s): R10.9 - Unspecified abdominal pain
[2020-02-25] MEDS: CHOLESTYRAMINE LIGHT 4 GM PKT PO SCH ×2 (12:11→21:52)
[2020-02-25] MEDS: PIPERACILLIN/TAZOBACTAM 3.375 GM in DEXTROSE 5% 100 ML IV SCH ×2 (12:14→20:46)
--- NOTE | 2020-02-25 12:19 | Urology Consultation ---
Date of Consultation February 25, 2020 Assessment & Plan (1) Kidney stone: Pt has right sided kidney stones in the UPJ and left sided stone in the prox ureter. Neither side appears obstructed. No evidence of pyelonephritis. Given the lack of hydronephrosis, I do not think that the stones are the cause of the pain. The lack of urine production likely means there is very little pressure build up proximal to the stones. Given her age and other comorbids, she is not an good surgical candidate. I would hold on any urologic intervention at this time until other potential causes of the pain have been ruled out. (2) Abdominal pain: History of Present Illness Attending Physician: Noble Benjamin DO 85 y/o Female with a hx of CKD currently on HD was admitted last night with vague diffuse abdominal pain. This started recently. Worse with eating. The pain is more anterior and abdominal. No flank pain. After arrival to the ED a CT scan was performed which showed b/l kidney stones. 7 and 5mm in the right UPJ. 4mm in the left prox ureter. No hydronephrosis. Since the patient is on HD she does not make much urine so she denies any sig urinary complaints. No hematuria. No dysuria. Nephrology was consulted and will be ordering HD for the patient today. Her medical history is also significant for HTN, diverticulitis s/p sigmoid resection, hyperlipidemia, atrial fibrillation, ASCVD s/p stent 2013, gout, depression and hypoxemia requiring chronic O2 therapy. Allergies Allergy/AdvReac Type Severity Reaction Status Date / Time bacitracin Allergy Intermediate EYES Verified 02/24/20 13:50 SWELLING-OINTMENT PLACED AROUND EYE polymyxin B Allergy Intermediate EYES Verified 02/24/20 13:50 [id number] PLACED AROUND EYE bee venom protein (honey bee) AdvReac Unknown Unknown Unverified 02/24/20 13:50 Home Medications Home Medications Medication Instructions Recorded Confirmed Type allopurinol 100 mg PO QAM 02/04/18 02/24/20 History calcium acetate(phosphat bind) 1,334 mg PO UD 02/04/18 02/24/20 History aspirin [Ecotrin Low Strength] 81 mg PO QAM #30 tab 02/05/18 02/24/20 Rx atorvastatin 40 mg PO HS 03/23/18 02/24/20 History nitroglycerin [Nitrostat] 0.4 mg SUBLINGUAL DIRECTED PRN 06/08/18 02/24/20 History calcium carbonate 500 mg calcium 1,000 mg PO DAILY PRN tab 12/22/19 02/24/20 History (1,250 mg) chewable tablet famotidine 20 mg tablet 20 mg PO BID 12/22/19 02/24/20 History metoprolol tartrate 50 mg tablet 75 mg PO BIDM tab 12/22/19 02/24/20 History B complex with C 20-folic acid 1 cap PO DAILY@1630 02/24/20 02/24/20 History [Kevin Caps] calcium acetate(phosphat bind) 1,334 mg PO UD 02/24/20 02/24/20 History diltiazem HCl 180 mg PO QAM 02/24/20 02/24/20 History levothyroxine 200 mcg PO QAM 02/24/20 02/24/20 History omeprazole 20 mg PO QAM 02/24/20 02/24/20 History Patient History Medical History Anemia Anxiety CAD (coronary artery disease) Depression Diastolic dysfunction ESRD (end stage renal disease) on dialysis ESRD on hemodialysis Fistula LEFT ARM Gout Hemodialysis patient History of pericarditis viral vs uremic, resolved HLD (hyperlipidemia) HTN (hypertension) Humeral head fracture 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 Hypothyroidism Impaired ambulation Lumbar spinal stenosis Myocardial Infarction Neurologic gait dysfunction [facility] H&P does not indicate if gait dysfunction is neurologic or not On home oxygen therapy Osteoarthritis Osteopenia Pericardial effusion Secondary hyperparathyroidism of renal origin Stroke Trace tricuspid valve regurgitation Surgical History History of cholecystectomy History of colon surgery History of heart artery stent History of hemodialysis History of Hemodialysis Access Type Arteriovenous Fistula History of thoracentesis History of Thoracentesis Fluid Volume (Cc.) History of tonsillectomy History of total abdominal hysterectomy and bilateral salpingo-oophorectomy Family History Unknown Hypertension Mother Diabetes Heart disease Sister Cancer Grandmother Cancer Other Coronary heart disease Social History Smoking Status: Never smoker Second Hand Exposure: No; Do You Dip or Chew Tobacco: No; Tobacco Cessation Education Requested by Patient: No Hx Alcohol Use: No Hx Substance Use: No Preferred Language: Czech Communication Ability: Effective Litigation Support Analyst Required: No Beliefs That Will Affect Care: None marital status: Current Living Situation: Skilled Nursing Current Living Situation Comment: [facility] current occupational status: retired Other Information That Helps Us Care for You: No Feels Safe at Home: Yes Safety Concerns: Feels Safe At This Time Assistive Devices: Oxygen - Continuous Review of Systems Review of Systems: All systems reviewed & are unremarkable except as noted in HPI & below Physical Exam Constitutional: WD/WN, vitals as above + thin Eyes: PERRL, conjunctivae normal, anicteric sclerae ENMT: Ears: + hearing impairment Neck: trachea midline, no thyromegaly Respiratory: normal respiratory effort, lungs clear to auscultation Cardiovascular: RRR, no murmur, no edema Gastrointestinal (Abdomen): Inspection/Auscultation: normal bowel sounds Percussion/Palpation: + abdomen tender Skin: no rashes, warm and dry Psychiatric: Orientation: alert Results & Data ([facility]) Vital Signs (Past 12 Hours) Vital Signs Temp Pulse Pulse Pulse Resp BP BP 02/25/20 11:40 36.6 C 79 101/50 L 02/25/20 11:20 104 H 95/43 L 02/25/20 11:00 96 H 113/67 02/25/20 10:40 98 H 90/40 L 02/25/20 10:20 98 H 83/43 L 02/25/20 10:00 94 H 78/44 L 02/25/20 09:40 65 93/38 L 02/25/20 09:30 96 H 02/25/20 09:23 36.6 C 76 02/25/20 06:22 36.6 C 96 H 20 134/66 02/25/20 04:00 36.5 C 102 H 18 114/53 L Pulse Ox 02/25/20 11:40 02/25/20 11:20 02/25/20 11:00 02/25/20 10:40 02/25/20 10:20 02/25/20 10:00 02/25/20 09:40 02/25/20 09:30 02/25/20 09:23 02/25/20 06:22 93 02/25/20 04:00 98 PG Care Time/CCT Total # of Minutes Spent Total Time Spent with Patient: Total time spent is greater than 50% in coordination of care (as documented) at patient's floor/unit and/or counseling patient: 35 Coding Level of Care Code 94011 Initial Inpt Care Lvl 3 Diagnoses Kidney stone N20.0 Abdominal pain R10.9 Abdominal location: unspecified location (1) Abdominal pain Abdominal location: unspecified location Qualified Code(s): R10.9 - Unspecified abdominal pain
--- NOTE | 2020-02-25 18:54 | Hospitalist Progress Note ---
Date of Service February 25, 2020 Assessment & Plan (1) Abdominal pain: unclear etiology, no acute findings on CT there are kidney stones but most of them except one are in the kidney, there is one stone in proximal left ureter no role for intervention per urology, no hydronephrosis CT shows no obstruction, no diverticulitis, no pancreatitis abdomen tender, especially in upper quadrants C diff gene positive but toxin negative, no acute infection symptoms of pain and nausea and diarrhea improving slowly advance diet today continue antibiotics as WBC down to 8k and pain is better (2) Atrial fibrillation: rates well controlled on Diltiazem and metoprolol on aspirin 81mg, not on anticoagulation (3) Chronic respiratory failure with hypoxia: stable on 2L no distress at all (4) ESRD (end stage renal disease): consult Dr. Do for HD orders had HD morning of 02/24, tolerated well (5) Kidney stone: see above no need for intervention (6) Secondary hyperparathyroidism of renal origin: continue phosphate binders (7) Anemia: macrocytic, likely a component of anemia from ESRD Hb is stable (8) CAD (coronary artery disease): no chest pain or pressure continue aspirin (9) Hypothyroidism: continue Synthroid (10) HTN (hypertension): BP stable, continue home regimen Admission and Anticipated Discharge Date Admission Date: February 24, 2020 Subjective patient feeling better, for HD in the morning, tolerated well appreciate urology note, no need for intervention for ureteral stone as there is no hydronephrosis patient has a better appetite no fever, no chest pain, no dyspnea, less abdominal pain today reviewed labs, WBC coming down unclear what the source of infection would be that would be responding to antibiotics Review of Systems Review of Systems: All systems reviewed & are unremarkable except as noted in Subjective Constitutional: + fatigue and + weakness; no fever Respiratory: no cough and no dyspnea Cardiovascular: no chest pain and no edema Gastrointestinal: + abdominal pain (mild, better than the day prior); no nausea, no vomiting, no constipation and no diarrhea/loose stools Physical Exam Constitutional: well developed, + thin and + frail appearing; no acute distre ss Neck: trachea midline, no thyromegaly Respiratory: normal respiratory effort, lungs clear to auscultation Cardiovascular: Rate/Rhythm: regular rate and + irregularly irregular Heart Sounds: normal S1 and normal S2; no murmur Vessels: no JVD Extremities: normal capillary refill; no edema Gastrointestinal (Abdomen): Inspection/Auscultation: abdomen normal to inspection and normal bowel sounds; abdomen not distended Percussion/Palpation: + abdomen tender (upper abdomen more tender than lower), a bdomen soft, + hernia (venral and umbilical, reducible) and + tympanic to percussion; no guarding and abdomen not rigid Musculoskeletal: no cyanosis or clubbing, extremities motor strength 5/5 Skin: no rashes, warm and dry Neurologic: patellar DTR's 2+ bilat, sensation intact and PERRL, EOMI, accommodation nl, no face palsy, no dysarthria Psychiatric: A+Ox3, euthymic affect Lymphatic: no cervical or axillary lymphadenopathy Results & Data Results & Data ([facility]) Vital Signs (Past 12 Hours) Vital Signs Temp Pulse Pulse BP BP 02/25/20 16:00 123 H 98/58 L 02/25/20 11:40 36.6 C 79 101/50 L 02/25/20 11:20 104 H 95/43 L 02/25/20 11:00 96 H 113/67 02/25/20 10:40 98 H 90/40 L 02/25/20 10:20 98 H 83/43 L 02/25/20 10:00 94 H 78/44 L 02/25/20 09:40 65 93/38 L 02/25/20 09:30 96 H 02/25/20 09:23 36.6 C 76 Laboratory Results Laboratory Results - last 24 hr 02/24/20 02/25/20 02/25/20 11:05 06:23 06:23 WBC 8.84 RBC 3.05 L Hgb 10.6 L Hct 33.4 L MCV 109.5 H MCH 34.8 H MCHC 31.7 L RDW Std Deviation 57.2 H RDW Coeff of Alejandro 14.5 Plt Count 223 MPV 10.0 Immature Gran % (Auto) 0.2 Neut % (Auto) 79.3 Lymph % (Auto) 10.7 [place] % (Auto) 5.5 Eos % (Auto) 4.2 Baso % (Auto) 0.1 Neut # (Auto) 7.00 H Lymph # (Auto) 0.95 L [place] # (Auto) 0.49 Eos # (Auto) 0.37 Baso # (Auto) 0.01 Immature Gran # (Auto) 0.02 Sodium 134 L Potassium 4.1 Chloride 99 Carbon Dioxide 28 Anion Gap 7.0 BUN 45 H Creatinine 6.98 H* D Est Cr Clr Drug Dosing 4.7 Est GFR ( Amer) 5.6 Est GFR (Non-Af Amer) 4.9 BUN/Creatinine Ratio 6.4 L Glucose 82 Calcium 9.4 Hep Bs Antigen Neg Hep Bs Antibody Non-Immune Hep Bs Antibody, Quant < 3.10 L Medications Administered Current Inpatient Medications Acetaminophen (Acetaminophen 325 Mg Tab) 650 mg PO Q4H PRN PRN Reason: Pain or Fever Stop: 03/25/20 18:52 Allopurinol (Allopurinol 100 Mg Tab) 100 mg PO [facility] Stop: 03/26/20 08:59 Last Admin: 02/25/20 12:11 Dose: 100 mg Documented by: Aspirin (Aspirin 81 Mg Ectab) [facility] Stop: 03/26/20 08:59 Last Admin: 02/25/20 07:39 Dose: 81 mg Documented by: Atorvastatin Calcium (Atorvastatin 40 Mg Tab) 40 mg PO [facility] Stop: 03/25/20 20:59 Last Admin: 02/24/20 21:21 Dose: 40 mg Documented by: Calcium Acetate (Calcium Acetate 667 Mg Cap/Tab) 1,334 mg PO [email or web address] [facility] Stop: 03/25/20 19:59 Last Admin: 02/24/20 21:21 Dose: 1,334 mg Documented by: Cholestyramine Resin (Cholestyramine Light 4 Gm Pkt) 4 gm PO BID@1000,2200 [facility] Stop: 03/26/20 09:59 Last Admin: 02/25/20 12:11 Dose: Not Given Documented by: Diltiazem HCl (Diltiazem Hcl 180 Mg Capcr) [facility] Stop: 03/26/20 08:59 Last Admin: 02/25/20 12:10 Dose: Not Given Documented by: Famotidine (Famotidine 20 Mg Tab) 20 mg PO BID [facility] Stop: 03/25/20 20:59 Last Admin: 02/25/20 12:10 Dose: 20 mg Documented by: Heparin Sodium (Porcine) (Heparin Sod 5,000 Unit/0.5 Ml Vial) 5,000 units SQ Q12 [facility] Stop: 03/25/20 20:59 Last Admin: 10/17/20 08:30 Dose: Not Given Documented by: Piperacillin Sod/Tazobactam (Sod 3.375 gm/ Dextrose) 115 mls @ 28.75 mls/hr IV Q12H [facility]; Protocol Stop: 03/05/20 21:59 Last Infusion: 02/25/20 16:08 Dose: Infused Documented by: Levothyroxine Sodium (Levothyroxine Sodium 200 Mcg Tablet) 200 mcg PO DAILYBB [facility] Stop: 03/26/20 06:29 Last Admin: 02/25/20 05:52 Dose: 200 mcg Documented by: Metoprolol Tartrate (Metoprolol Tartrate 25 Mg Tab) 75 mg PO BIDM [facility] Stop: 03/25/20 19:59 Last Admin: 02/25/20 16:30 Dose: Not Given Documented by: Miscellaneous Information (Piperacill/Tazobac Consult Active) 1 ea N/A UD PRN PRN Reason: Consult Stop: 03/25/20 13:51 Ondansetron HCl (Ondansetron Inj 2 Mg/Ml 2 Ml Vial) 4 mg IV Q6H PRN PRN Reason: Nausea Stop: 03/25/20 18:52 Pantoprazole Sodium (Pantoprazole 40 Mg Tab) 40 mg PO QAM [facility]; Protocol Stop: 03/26/20 08:59 Last Admin: 02/25/20 12:11 Dose: 40 mg Documented by: PG Care Time/CCT Total # of Minutes Spent Total Time Spent with Patient: Total time spent is greater than 50% in coordination of care (as documented) at patient's floor/unit and/or counseling patient: Coding Level of Care Code 04976 Subseq Hosp Care Lvl 2 Diagnoses Abdominal pain R10.9 Abdominal location: unspecified location Atrial fibrillation I48.91 Chronic respiratory failure with hypoxia J96.11 ESRD (end stage renal disease) N18.6 Kidney stone N20.0 Secondary hyperparathyroidism of renal origin N25.81 Anemia N18.6; D63.1; Z99.2 Anemia type: due to chronic kidney disease Chronic kidney disease stage: on chronic dialysis CAD (coronary artery disease) I25.10 Associated angina: angina presence unspecified Coronary Disease-Associated Artery/Lesion type: [place] artery [place] vs. transplanted heart: [place] heart Hypothyroidism E03.9 Hypothyroidism type: acquired HTN (hypertension) I10 Hypertension type: essential hypertension (1) CAD (coronary artery disease) Associated angina: angina presence unspecified Coronary Disease-Associated Artery/Lesion type: [place] artery [place] vs. transplanted heart: [place] heart Qualified Code(s): I25.10 - Atherosclerotic heart disease of [place] coronary artery without angina pectoris (2) Anemia Anemia type: due to chronic kidney disease Chronic kidney disease stage: on chronic dialysis Qualified Code(s): N18.6 - End stage renal disease; D63.1 - Anemia in chronic kidney disease; Z99.2 - Dependence on renal dialysis (3) Hypothyroidism Hypothyroidism type: acquired Qualified Code(s): E03.9 - Hypothyroidism, unspecified (4) Abdominal pain Abdominal location: unspecified location Qualified Code(s): R10.9 - Unspecified abdominal pain (5) HTN (hypertension) Hypertension type: essential hypertension Qualified Code(s): I10 - Essential (primary) hypertension
[2020-02-25] MEDS: ATORVASTATIN 40 MG TAB PO SCH (20:27)
[2020-02-25 22:56] LABS: Cdiff Antigen Positive; Cdiff Toxin A+B Negative Cdiff Toxin (Negative)
[2020-02-26] MEDS: LEVOTHYROXINE SODIUM 200 MCG TABLET PO SCH (06:00)
[2020-02-26] MEDS: PANTOprazole 40 MG TAB PO SCH (08:13)
[2020-02-26] MEDS: allopurinoL 100 MG TAB PO SCH (08:13)
[2020-02-26] MEDS: FAMOTIDINE 20 MG TAB PO SCH ×2 (08:14→20:15)
[2020-02-26] MEDS: dilTIAZem HCL 180 MG CAPCR PO SCH (08:14)
[2020-02-26] MEDS: METOPROLOL TARTRATE 25 MG TAB PO SCH ×2 (08:14→17:37)
[2020-02-26] MEDS: ASPIRIN 81 MG ECTAB PO SCH (08:14)
--- NOTE | 2020-02-26 10:31 | Nephrology Progress Note ---
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 Patient dialyzes MWF at [facility] (3.5 hrs 2K 2Ca F-160NR EDW 61kg) * Volume status is acceptable. No acute indication for HD today. Will schedule next dialysis for am * HD orders entered into EMR and HD RN notified * Will order CMP w/ am labs (2) Anemia: * Will provide SARAH w/ dialysis to maintain target Hgb 10 - 11 (3) Abdominal pain: * Subjectively improved * Predominantly RUQ * Etiology unclear: Normal LFT, s/p cholecystectomy * Urology note reviewed: bilateral kidney stones at [facility] likely not obstructing. Recommended conservative management, monitoring Admission and Anticipated Discharge Date Admission Date: February 24, 2020 Subjective Ms. Morgan was seen & examined in her hospital room this morning. She was dialyzed yesterday without complication. She reports that she is now tolerating her diet and her abdominal discomfort is mildly improved. Review of Systems Constitutional: + weakness; no fever Eyes: no problem reported Ear, Nose, Mouth, Throat: no problem reported Respiratory: no dyspnea Cardiovascular: no chest pain, no palpitations and no edema Gastrointestinal: + abdominal pain; no nausea and no diarrhea/loose stools Genitourinary: no dysuria and no hematuria Musculoskeletal: no back pain Integumentary: no rash Neurologic: no falls and no confusion Physical Exam Constitutional: + frail appearing; not in distress Eyes: PERRL, conjunctivae normal, anicteric sclerae ENMT: external ear and nose normal, oropharynx normal Neck: trachea midline, no thyromegaly Respiratory: normal respiratory effort, lungs clear to auscultation Cardiovascular: Rate/Rhythm: + tachycardic and + irregularly irregular Extremities: + AV fistula (+ bruit) Gastrointestinal (Abdomen): Inspection/Auscultation: + hypoactive bowel sounds Percussion/Palpation: + abdomen tender (RUQ); no guarding Musculoskeletal: Extremities: no cyanosis Skin: no rashes, warm and dry Neurologic: awake Results & Data ([facility]) Vital Signs (Past 12 Hours) Vital Signs Temp Pulse Pulse Resp BP Pulse Ox 02/26/20 10:23 117 H 02/26/20 06:00 36.7 C 74 18 119/69 96 02/26/20 02:55 36.7 C 110 H 18 129/81 96 02/25/20 23:27 128 H PG Care Time/CCT Total # of Minutes Spent Total Time Spent with Patient: Total time spent is greater than 50% in coordination of care (as documented) at patient's floor/unit and/or counseling patient: Coding Level of Care Code 83693 Subseq Hosp Care Lvl 3 Diagnoses ESRD (end stage renal disease) on dialysis N18.6; Z99.2 Anemia N18.6; D63.1; Z99.2 Anemia type: due to chronic kidney disease Chronic kidney disease stage: on chronic dialysis Abdominal pain R10.9 Abdominal location: unspecified location (1) Anemia Anemia type: due to chronic kidney disease Chronic kidney disease stage: on chronic dialysis Qualified Code(s): N18.6 - End stage renal disease; D63.1 - Anemia in chronic kidney disease; Z99.2 - Dependence on renal dialysis (2) Abdominal pain Abdominal location: unspecified location Qualified Code(s): R10.9 - Unspecified abdominal pain
[2020-02-26] MEDS: HEPARIN SOD 5,000 UNIT/0.5 ML VIAL SQ SCH ×2 (10:46→20:13)
[2020-02-26] MEDS: PIPERACILLIN/TAZOBACTAM 3.375 GM in DEXTROSE 5% 100 ML IV SCH ×2 (10:46→21:45)
[2020-02-26] MEDS: CHOLESTYRAMINE LIGHT 4 GM PKT PO SCH ×2 (10:47→21:45)
[2020-02-26] MEDS: ATORVASTATIN 40 MG TAB PO SCH (20:15)
--- NOTE | 2020-02-26 22:55 | Hospitalist Progress Note ---
Date of Service February 26, 2020 Assessment & Plan (1) Abdominal pain: unclear etiology, no acute findings on CT there are kidney stones but most of them except one are in the kidney, there is one stone in proximal left ureter no role for intervention per urology, no hydronephrosis CT shows no obstruction, no diverticulitis, no pancreatitis abdomen tender, especially in upper quadrants C diff gene positive but toxin negative, no acute infection symptoms of pain and nausea and diarrhea improving slowly advance diet today will stop Zosyn as there is no clear infection that we are treating observe off antibiotics, plan for HD tomorrow if she continues to do well then discharge on Thursday back to [facility] (2) Atrial fibrillation: rates well controlled on Diltiazem and metoprolol on aspirin 81mg, not on anticoagulation (3) Chronic respiratory failure with hypoxia: stable on 2L no distress at all (4) ESRD (end stage renal disease): consult Dr. Do for HD orders had HD morning of 02/24, tolerated well, plan for HD on Monday 02/26 (5) Kidney stone: see above no need for intervention (6) Secondary hyperparathyroidism of renal origin: continue phosphate binders (7) Anemia: macrocytic, likely a component of anemia from ESRD Hb is stable (8) CAD (coronary artery disease): no chest pain or pressure continue aspirin (9) Hypothyroidism: continue Synthroid (10) HTN (hypertension): BP stable, continue home regimen Admission and Anticipated Discharge Date Admission Date: February 24, 2020 Subjective patient feels great today, sitting up in her chair minimal abdominal pain, no diarrhea, no vomiting, no fever tolerating her diet, eating better than when she presented no labs today unclear why she is better on antibiotics and getting HD discussed discharge plan with CM, can return to [facility] Thursday Review of Systems Review of Systems: All systems reviewed & are unremarkable except as noted in Subjective Constitutional: + weakness; no fever, no chills, no sweats and no fatigue Respiratory: no cough and no dyspnea Cardiovascular: no chest pain and no edema Gastrointestinal: no abdominal pain, no nausea, no vomiting, no constipation and no diarrhea/loose stools Physical Exam Constitutional: well developed, + thin and + frail appearing; no acute distress Neck: trachea midline, no thyromegaly Respiratory: normal respiratory effort, lungs clear to auscultation Cardiovascular: Rate/Rhythm: regular rate and + irregularly irregular Heart Sounds: normal S1 and normal S2; no murmur Vessels: no JVD Extremities: normal capillary refill; no edema Gastrointestinal (Abdomen): Inspection/Auscultation: abdomen normal to inspection and normal bowel sounds; abdomen not distended Percussion/Palpation: abdomen soft, + hernia (venral and umbilical, reducible) and + tympanic to percussion; abdomen nontender, no guarding and abdomen not rigid Musculoskeletal: no cyanosis or clubbing, extremities motor strength 5/5 Skin: no rashes, warm and dry Neurologic: patellar DTR's 2+ bilat, sensation intact and PERRL, EOMI, accommodation nl, no face palsy, no dysarthria Psychiatric: A+Ox3, euthymic affect Lymphatic: no cervical or axillary lymphadenopathy Results & Data Results & Data ([facility]) Vital Signs (Past 12 Hours) Vital Signs Temp Pulse Pulse Pulse Resp BP Pulse Ox 02/26/20 22:00 36.8 C 112 H 18 120/76 98 02/26/20 19:58 36.8 C 93 H 20 134/70 96 02/26/20 17:00 90 99/56 L 02/26/20 16:00 74 02/26/20 11:37 37.2 C 96 H 17 115/73 97 Laboratory Results Laboratory Results - last 24 hr 02/25/20 02/26/20 02/26/20 20:50 19:35 19:35 Stl C. diff Tox B Gene Positive Cdiff Gene H Stl C.difficile Tox A&B Negative Cdiff Toxin COVID-19 Eval Order Covid19 IDNow [facility] SARS-CoV-2, RNA, NAAT NEGATIVE Medications Administered Current Inpatient Medications Acetaminophen (Acetaminophen 325 Mg Tab) 650 mg PO Q4H PRN PRN Reason: Pain or Fever Stop: 03/25/20 18:52 Allopurinol (Allopurinol 100 Mg Tab) 100 mg PO [facility] Stop: 03/26/20 08:59 Last Admin: 02/26/20 08:13 Dose: 100 mg Documented by: Aspirin (Aspirin 81 Mg Ectab) [facility] Stop: 03/26/20 08:59 Last Admin: 02/26/20 08:14 Dose: 81 mg Documented by: Atorvastatin Calcium (Atorvastatin 40 Mg Tab) 40 mg PO [facility] Stop: 03/25/20 20:59 Last Admin: 02/26/20 20:15 Dose: 40 mg Documented by: Calcium Acetate (Calcium Acetate 667 Mg Cap/Tab) 1,334 mg PO [email or web address] [facility] Stop: 03/25/20 19:59 Last Admin: 02/24/20 21:21 Dose: 1,334 mg Documented by: Cholestyramine Resin (Cholestyramine Light 4 Gm Pkt) 4 gm PO BID@1000,2200 [facility] Stop: 03/26/20 09:59 Last Admin: 02/26/20 21:45 Dose: 4 gm Documented by: Diltiazem HCl (Diltiazem Hcl 180 Mg Capcr) 180 mg PO QAM [facility] Stop: 03/26/20 08:59 Last Admin: 02/26/20 08:14 Dose: 180 mg Documented by: Epoetin Magdy (Epoetin Magdy 4,000 Unit/Ml Vial) 4,000 units IV TODAY@0700 [facility] Stop: 02/27/20 14:00 Famotidine (Famotidine 20 Mg Tab) 20 mg PO BID [facility] Stop: 03/25/20 20:59 Last Admin: 02/26/20 20:15 Dose: 20 mg Documented by: Heparin Sodium (Porcine) (Heparin Sod 5,000 Unit/0.5 Ml Vial) 5,000 units SQ Q12 [facility] Stop: 03/25/20 20:59 Last Admin: 02/26/20 20:13 Dose: 5,000 units Documented by: Heparin Sodium (Porcine) (Heparin Sod (Porcine) 1000 Unit/Ml 10 Ml Vial) 2,000 units IV TODAY@0700 [facility] Stop: 02/27/20 14:00 Heparin Sodium (Porcine) (Heparin Sod (Porcine) 1000 Unit/Ml 10 Ml Vial) 500 units IV TODAY@0700,0800 [facility] Stop: 02/27/20 14:00 Piperacillin Sod/Tazobactam (Sod 3.375 gm/ Dextrose) 115 mls @ 28.75 mls/hr IV Q12H [facility]; Protocol Stop: 03/05/20 21:59 Last Admin: 02/26/20 21:45 Dose: 28.8 mls/hr Documented by: Sodium Chloride (Nss 1000ml) 1,000 mls @ 0 mls/hr IV .Q0M PRN PRN Reason: For Hemodialysis Use ONLY Stop: 02/27/20 12:59 Levothyroxine Sodium (Levothyroxine Sodium 200 Mcg Tablet) 200 mcg PO DAILYBB [facility] Stop: 03/26/20 06:29 Last Admin: 02/26/20 06:00 Dose: 200 mcg Documented by: Metoprolol Tartrate (Metoprolol Tartrate 25 Mg Tab) 75 mg PO BIDM [facility] Stop: 03/25/20 19:59 Last Admin: 02/26/20 17:37 Dose: Not Given Documented by: Miscellaneous Information (Piperacill/Tazobac Consult Active) 1 ea N/A UD PRN PRN Reason: Consult Stop: 03/25/20 13:51 Ondansetron HCl (Ondansetron Inj 2 Mg/Ml 2 Ml Vial) 4 mg IV Q6H PRN PRN Reason: Nausea Stop: 03/25/20 18:52 Pantoprazole Sodium (Pantoprazole 40 Mg Tab) [facility] [place]; Protocol Stop: 03/26/20 08:59 Last Admin: 02/26/20 08:13 Dose: 40 mg Documented by: PG Care Time/CCT Total # of Minutes Spent Total Time Spent with Patient: Total time spent is greater than 50% in coordination of care (as documented) at patient's floor/unit and/or counseling patient: Coding Level of Care Code 02153 Subseq Hosp Care Lvl 2 Diagnoses Abdominal pain R10.9 Abdominal location: unspecified location Atrial fibrillation I48.91 Chronic respiratory failure with hypoxia J96.11 ESRD (end stage renal disease) N18.6 Kidney stone N20.0 Secondary hyperparathyroidism of renal origin N25.81 Anemia N18.6; D63.1; Z99.2 Anemia type: due to chronic kidney disease Chronic kidney disease stage: on chronic dialysis CAD (coronary artery disease) I25.10 Coronary Disease-Associated Artery/Lesion type: [place] artery [place] vs. transplanted heart: [place] heart Associated angina: angina presence unspecified Hypothyroidism E03.9 Hypothyroidism type: acquired HTN (hypertension) I10 Hypertension type: essential hypertension (1) Abdominal pain Abdominal location: unspecified location Qualified Code(s): R10.9 - Unspecified abdominal pain (2) Anemia Anemia type: due to chronic kidney disease Chronic kidney disease stage: on chronic dialysis Qualified Code(s): N18.6 - End stage renal disease; D63.1 - Anemia in chronic kidney disease; Z99.2 - Dependence on renal dialysis (3) CAD (coronary artery disease) Coronary Disease-Associated Artery/Lesion type: [place] artery [place] vs. transplanted heart: [place] heart Associated angina: angina presence unspecified Qualified Code(s): I25.10 - Atherosclerotic heart disease of [place] coronary artery without angina pectoris (4) Hypothyroidism Hypothyroidism type: acquired Qualified Code(s): E03.9 - Hypothyroidism, unspecified (5) HTN (hypertension) Hypertension type: essential hypertension Qualified Code(s): I10 - Essential (primary) hypertension
[2020-02-27] MEDS ORDERED: HEPARIN SOD (PORCINE) 1000 UNIT/ML 10 ML VIAL IV SCH (07:00)
[2020-02-27] MEDS ORDERED: SODIUM CHLORIDE 0.9% 1000ML 1,000 ML IV PRN (07:00)
[2020-02-27] MEDS ORDERED: EPOETIN ALFA 4,000 UNIT/ML VIAL IV SCH (07:00)
[2020-02-27] MEDS: LEVOTHYROXINE SODIUM 200 MCG TABLET PO SCH (07:18)
[2020-02-27] MEDS: dilTIAZem HCL 180 MG CAPCR PO SCH (07:18)
[2020-02-27] MEDS: allopurinoL 100 MG TAB PO SCH (07:19)
[2020-02-27] MEDS: CALCIUM ACETATE 667 MG CAP/TAB PO SCH ×2 (07:19→16:44)
[2020-02-27] MEDS: PANTOprazole 40 MG TAB PO SCH (07:19)
[2020-02-27] MEDS: HEPARIN SOD 5,000 UNIT/0.5 ML VIAL SQ SCH ×2 (07:19→20:36)
[2020-02-27] MEDS: ASPIRIN 81 MG ECTAB PO SCH (07:19)
[2020-02-27] MEDS: METOPROLOL TARTRATE 25 MG TAB PO SCH ×2 (07:19→16:42)
[2020-02-27] MEDS: FAMOTIDINE 20 MG TAB PO SCH ×2 (07:19→20:36)
[2020-02-27 08:44] LABS: Hematocrit (blood only) 33.1 % (37-47); Hemoglobin 10.5 g/dL (12.0-16.0); Mean Corpuscular Hemoglobin 34.5 pg (25-34); Mean Corpuscular Hgb Conc 31.7 g/dL (32-36); Mean Corpuscular Volume 108.9 fL (80-100); Mean Platelet Volume 10.2 fL (7.4-10.4); Platelet Count 202 K/uL (130-400); RDW Coefficient of Variation 14.4 % (11.5-14.5); RDW Standard Deviation 56.8 fL (36.4-46.3); Red Blood Count 3.04 M/uL (4.2-5.4); White Blood Count 7.43 K/uL (4.8-10.8)
[2020-02-27 09:30] LABS: Albumin Globulin Ratio 0.6 (0.9-2); Albumin Level 2.5 gm/dl (3.4-5.0); BUN Creatinine Ratio 5.1 (10-20); Bilirubin,Total 0.4 mg/dl (0.2-1); Calcium 8.9 mg/dl (8.5-10.1); Creatinine Clr Calc Pharmacy 5.4 ml/min; Est GFR (African American) 6.7; Est GFR (Non-African American) 5.8; Globulin 4.3 gm/dl (2.5-4.0); Potassium 3.8 mmol/L (3.5-5.1); Total Protein 6.8 gm/dl (6.4-8.2)
[2020-02-27] MEDS: CHOLESTYRAMINE LIGHT 4 GM PKT PO SCH ×2 (09:43→21:35)
--- NOTE | 2020-02-27 09:54 | Nephrology Progress Note ---
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 Patient dialyzes MWF at [facility] (3.5 hrs 2K 2Ca F-160NR EDW 61kg) * HD today to resume regular MWF schedule * HD orders entered into EMR and HD RN notified (2) Anemia: * Will provide SARAH w/ dialysis to maintain target Hgb 10 - 11 (3) Abdominal pain: * Subjectively improved * Predominantly RUQ * Etiology unclear: Normal LFT, s/p cholecystectomy * Urology note reviewed: bilateral kidney stones at [facility] likely not obstructing. Recommended conservative management, monitoring Admission and Anticipated Discharge Date Admission Date: February 24, 2020 Subjective Ms. Morgan was seen & examined in her hospital room this morning. She reports that she is tolerating her diet. Her abdominal discomfort has improved. Ms. Morgan is awaiting dialysis later this morning Review of Systems Constitutional: + weakness; no fever Eyes: no problem reported Ear, Nose, Mouth, Throat: no problem reported Respiratory: no dyspnea Cardiovascular: no chest pain and no edema Gastrointestinal: + abdominal pain; no nausea and no diarrhea/loose stools Genitourinary: no dysuria and no hematuria Musculoskeletal: no back pain Integumentary: no rash Neurologic: no confusion Physical Exam Constitutional: + frail appearing; not in distress Eyes: PERRL, conjunctivae normal, anicteric sclerae ENMT: external ear and nose normal, oropharynx normal Neck: trachea midline, no thyromegaly Respiratory: normal respiratory effort, lungs clear to auscultation Cardiovascular: Rate/Rhythm: + tachycardic and + irregularly irregular Extremities: + AV fistula (+ bruit) Gastrointestinal (Abdomen): Inspection/Auscultation: + hypoactive bowel sounds Percussion/Palpation: + abdomen tender (RUQ); no guarding Musculoskeletal: Extremities: no cyanosis Skin: no rashes, warm and dry Neurologic: awake Results & Data ([facility]) Vital Signs (Past 12 Hours) Vital Signs Temp Pulse Pulse Pulse Resp BP BP 02/27/20 09:40 84 93/60 L 02/27/20 09:20 82 121/58 L 02/27/20 09:10 81 113/59 L 02/27/20 09:01 36.7 C 92 H 02/27/20 07:13 36.7 C 97 H 20 123/74 02/27/20 03:00 36.5 C 92 H 18 118/58 L 02/26/20 23:36 96 H 02/26/20 22:00 36.8 C 112 H 18 120/76 Pulse Ox 02/27/20 09:40 02/27/20 09:20 02/27/20 09:10 02/27/20 09:01 02/27/20 07:13 94 02/27/20 03:00 98 02/26/20 23:36 02/26/20 22:00 98 Laboratory Results Laboratory Tests 02/27/20 08:04 WBC 7.43 Hgb 10.5 L Hct 33.1 L Plt Count 202 Laboratory Tests 02/27/20 08:04 Sodium 133 L Potassium 3.8 Chloride 100 Carbon Dioxide 25 BUN 31 H Creatinine 6.07 H* Glucose 79 Total Bilirubin 0.4 AST 16 ALT 13 Alkaline Phosphatase 85 Albumin 2.5 L PG Care Time/CCT Total # of Minutes Spent Total Time Spent with Patient: Total time spent is greater than 50% in coordination of care (as documented) at patient's floor/unit and/or counseling patient: Coding Level of Care Code 22736 Subseq Hosp Care Lvl 3 Diagnoses ESRD (end stage renal disease) on dialysis N18.6; Z99.2 Anemia N18.6; D63.1; Z99.2 Anemia type: due to chronic kidney disease Chronic kidney disease stage: on chronic dialysis Abdominal pain R10.9 Abdominal location: unspecified location (1) Anemia Anemia type: due to chronic kidney disease Chronic kidney disease stage: on chronic dialysis Qualified Code(s): N18.6 - End stage renal disease; D63.1 - Anemia in chronic kidney disease; Z99.2 - Dependence on renal dialysis (2) Abdominal pain Abdominal location: unspecified location Qualified Code(s): R10.9 - Unspeci fied abdominal pain
[2020-02-27] MEDS: HEPARIN SOD (PORCINE) 1000 UNIT/ML 10 ML VIAL IV SCH ×2 (10:10→11:10)
--- NOTE | 2020-02-27 13:52 | Hospitalist Progress Note ---
Date of Service February 27, 2020 Assessment & Plan (1) Abdominal pain: unclear etiology, no acute findings on CT. Now completely resolved there are kidney stones but most of them except one are in the kidney, there is one stone in proximal left ureter no role for intervention per urology, no hydronephrosis CT shows no obstruction, no diverticulitis, no pancreatitis, status post cholecystectomy, no abnormalities in the liver. LFTs are negative abdomen tender, especially in upper quadrants C diff gene positive but toxin negative, no acute infection. Stool culture pending- negative to date symptoms of pain and nausea and diarrhea now resolved Tolerating regular diet Have since discontinued Zosyn as there is no clear infection that we are treating and doing well if she continues to do well then discharge on Thursday back to [facility] (2) Atrial fibrillation: rates well controlled on Diltiazem and metoprolol on aspirin 81mg, not on anticoagulation Transfer off telemetry (3) Chronic respiratory failure with hypoxia: stable on 2L no distress at all (4) ESRD (end stage renal disease): consult Dr. Do for HD orders had HD morning of 02/24 and again on 02/26 (5) Kidney stone: see above no need for intervention (6) Secondary hyperparathyroidism of renal origin: continue phosphate binders (7) Anemia: macrocytic, likely a component of anemia from ESRD Hb is stable at 10.5 (8) CAD (coronary artery disease): no chest pain or pressure continue aspirin (9) Hypothyroidism: continue Synthroid Recent TSH was normal (10) HTN (hypertension): BP stable, continue home regimen of diltiazem, metoprolol (11) DVT prophylaxis: Heparin SQ Disposition-improving, likely back to [facility] tomorrow Admission and Anticipated Discharge Date Admission Date: February 24, 2020 Subjective Patient has no complaints. Denies any abdominal pain or nausea. She ate most of her lunch in front of her. Denies chest pains or shortness of breath. She had hemodialysis today. I discussed her case with nephrology and no new concerns. Telemetry with atrial fibrillation with rates in the 80s to 100s Review of Systems Review of Systems: All systems reviewed & are unremarkable except as noted in HPI & below Physical Exam Constitutional: WD/WN, vitals as above Eyes: + anicteric sclerae Neck: trachea midline, no thyromegaly Respiratory: normal respiratory effort, lungs clear to auscultation Cardiovascular: Rate/Rhythm: regular rate and + irregularly irregular Heart Sounds: no murmur Extremities: + AV fistula (Left upper extremity); no edema Chest (Breasts): Chest: normal inspection of chest Gastrointestinal (Abdomen): normal bowel sounds, soft, nontender, no hepatosplenomegaly Musculoskeletal: Extremities: extremities normal to inspection; no cyanosis and no clubbing Skin: no rashes, warm and dry Neurologic: moves all extremities and awake; no focal motor deficits Psychiatric: Orientation: alert, oriented to person, oriented to place and cooperative Speech: normal rate/rhythm/volume of speech Affect: euthymic affect Lymphatic: no lymphedema Results & Data Results & Data ([facility]) Vital Signs (Past 12 Hours) Vital Signs Temp Pulse Pulse Pulse Resp BP BP 02/27/20 12:07 79 101/51 L 02/27/20 12:00 64 78/31 L 02/27/20 11:40 91 H 127/54 L 02/27/20 11:20 83 102/50 L 02/27/20 11:00 76 100/60 02/27/20 10:40 82 115/81 02/27/20 10:20 67 98/57 L 02/27/20 10:00 84 109/51 L 02/27/20 09:40 84 93/60 L 02/27/20 09:20 82 121/58 L 02/27/20 09:10 81 113/59 L 02/27/20 09:01 36.7 C 92 H 02/27/20 07:13 36.7 C 97 H 20 123/74 02/27/20 03:00 36.5 C 92 H 18 118/58 L Pulse Ox 02/27/20 12:07 02/27/20 12:00 02/27/20 11:40 02/27/20 11:20 02/27/20 11:00 02/27/20 10:40 02/27/20 10:20 02/27/20 10:00 02/27/20 09:40 02/27/20 09:20 02/27/20 09:10 02/27/20 09:01 02/27/20 07:13 94 02/27/20 03:00 98 Laboratory Results 02/27/20 02/27/20 02/26/20 Range/Units 08:04 08:04 19:35 WBC 7.43 (4.8-10.8) K/uL RBC 3.04 L (4.2-5.4) M/uL Hgb 10.5 L (12.0-16.0) g/dL Hct 33.1 L (37-47) % MCV 108.9 H (80-100) fL MCH 34.5 H (25-34) pg MCHC 31.7 L (32-36) g/dL RDW Std Deviation 56.8 H (36.4-46.3) fL RDW Coeff of Alejandro 14.4 (11.5-14.5) % Plt Count 202 (130-400) K/uL MPV 10.2 (7.4-10.4) fL Sodium 133 L (136-145) mmol/L Potassium 3.8 (3.5-5.1) mmol/L Chloride 100 (98-107) mmol/L Carbon Dioxide 25 (21-32) mmol/L Anion Gap 9.0 (3-11) BUN 31 H (7-18) mg/dl Creatinine 6.07 H* (0.6-1.2) mg/dl Est Cr Clr Drug Dosing 5.4 ml/min Est GFR ( Amer) 6.7 Est GFR (Non-Af Amer) 5.8 BUN/Creatinine Ratio 5.1 L (10-20) Glucose 79 (70-99) mg/dl Calcium 8.9 (8.5-10.1) mg/dl Total Bilirubin 0.4 (0.2-1) mg/dl AST 16 (15-37) U/L ALT 13 (12-78) U/L Alkaline Phosphatase 85 (45-117) U/L Total Protein 6.8 (6.4-8.2) gm/dl Albumin 2.5 L (3.4-5.0) gm/dl Globulin 4.3 H (2.5-4.0) gm/dl Albumin/Globulin Ratio 0.6 L (0.9-2) Specimen Hemolysis COVID-19 Eval Order SARS-CoV-2, RNA, NAAT NEGATIVE (NEGATIVE) 02/26/20 Range/Units 19:35 WBC (4.8-10.8) K/uL RBC (4.2-5.4) M/uL Hgb (12.0-16.0) g/dL Hct (37-47) % MCV (80-100) fL MCH (25-34) pg MCHC (32-36) g/dL RDW Std Deviation (36.4-46.3) fL RDW Coeff of Alejandro (11.5-14.5) % Plt Count (130-400) K/uL MPV (7.4-10.4) fL Sodium (136-145) mmol/L Potassium (3.5-5.1) mmol/L Chloride (98-107) mmol/L Carbon Dioxide (21-32) mmol/L Anion Gap (3-11) BUN (7-18) mg/dl Creatinine (0.6-1.2) mg/dl Est Cr Clr Drug Dosing ml/min Est GFR ( Amer) Est GFR (Non-Af Amer) BUN/Creatinine Ratio (10-20) Glucose (70-99) mg/dl Calcium (8.5-10.1) mg/dl Total Bilirubin (0.2-1) mg/dl AST (15-37) U/L ALT (12-78) U/L Alkaline Phosphatase (45-117) U/L Total Protein (6.4-8.2) gm/dl Albumin (3.4-5.0) gm/dl Globulin (2.5-4.0) gm/dl Albumin/Globulin Ratio (0.9-2) Specimen Hemolysis COVID-19 [facility] SARS-CoV-2, RNA, NAAT (NEGATIVE) PG Care Time/CCT Total # of Minutes Spent Total Time Spent with Patient: Total time spent is greater than 50% in coordination of care (as documented) at patient's floor/unit and/or counseling patient: Coding Level of Care Code 40361 Subseq Hosp Care Lvl 2 Diagnoses Abdominal pain R10.9 Abdominal location: unspecified location Atrial fibrillation I48.91 Chronic respiratory failure with hypoxia J96.11 ESRD (end stage renal disease) N18.6 Kidney stone N20.0 Secondary hyperparathyroidism of renal origin N25.81 Anemia N18.6; D63.1; Z99.2 Anemia type: due to chronic kidney disease Chronic kidney disease stage: on chronic dialysis CAD (coronary artery disease) I25.10 Coronary Disease-Associated Artery/Lesion type: [place] artery [place] vs. transplanted heart: [place] heart Associated angina: angina presence unspecified Hypothyroidism E03.9 Hypothyroidism type: acquired HTN (hypertension) I10 Hypertension type: essential hypertension DVT prophylaxis Z29.9 (1) Abdominal pain Abdominal location: unspecified location Qualified Code(s): R10.9 - Unspecified abdominal pain (2) Anemia Anemia type: due to chronic kidney disease Chronic kidney disease stage: on chronic dialysis Qualified Code(s): N18.6 - End stage renal disease; D63.1 - Anemia in chronic kidney disease; Z99.2 - Dependence on renal dialysis (3) CAD (coronary artery disease) Coronary Disease-Associated Artery/Lesion type: [place] artery [place] vs. transplanted heart: [place] heart Associated angina: angina presence unspecified Qualified Code(s): I25.10 - Atherosclerotic heart disease of [place] coronary artery without angina pectoris (4) Hypothyroidism Hypothyroidism type: acquired Qualified Code(s): E03.9 - Hypothyroidism, unspecified (5) HTN (hypertension) Hypertension type: essential hypertension Qualified Code(s): I10 - Essential (primary) hypertension
--- NOTE | 2020-02-27 14:09 | Urology Progress Note ---
Date of Service February 27, 2020 Assessment & Plan (1) Abdominal pain: (2) Kidney stone: 85 year-old female patient, with multiple comorbidities, admitted with intractable abdominal pain. - Plan of care reviewed with Dr. Cadena. - CT abd/pelvis notable for bilateral kidney stones - however do not appear to be obstructing, no hydronephrosis. - As abdominal pain is improving and patient is clinically progressing, will continue observation. - No emergent intervention indicated at this time. - Continue with supportive care and close monitoring. - Will arrange outpatient follow-up with urology service to monitor symptoms and kidney stones. - Please consult our service urgently if patient develops fever >101F or intractable pain or nausea. - Thank you for the consultation and we will continue to follow the patient peripherally. Admission and Anticipated Discharge Date Admission Date: February 24, 2020 Subjective Patient examined, sitting up in chair this afternoon. She did go to dialysis this morning. Reports overall, she is feeling better. States the abdominal discomfort has improved. Denies flank pain. Denies nausea or vomiting. Denies fevers or chills. Does void very little with dialysis but denies hematuria. No longer on antibiotic therapy. Chart review: Afebrile Wbc 7.43 Hgb 10.5 Creatinine 6.07 (6.98 on 02/24) Denies additional urologic concerns today. Review of Systems Constitutional: as per Subjective / HPI; no fever and no chills Gastrointestinal: as per Subjective / HPI; no nausea and no vomiting Genitourinary: as per Subjective / HPI Physical Exam Constitutional: well developed and well nourished; no acute distress and not ill appearing Respiratory: normal respiratory effort and able to speak in complete sentences; no respiratory distress and no audible wheezes Gastrointestinal (Abdomen): Inspection/Auscultation: abdomen normal to inspection; abdomen not distended Percussion/Palpation: abdomen soft; abdomen nontender and no guarding Psychiatric: Orientation: alert, oriented to person, oriented to place and co operative Affect: euthymic affect Genitourinary: no CVA tenderness Results & Data ([facility]) Vital Signs (Past 12 Hours) Vital Signs Temp Pulse Pulse Pulse Resp BP BP 02/27/20 12:07 79 101/51 L 02/27/20 12:00 64 78/31 L 02/27/20 11:40 91 H 127/54 L 02/27/20 11:20 83 102/50 L 02/27/20 11:00 76 100/60 02/27/20 10:40 82 115/81 02/27/20 10:20 67 98/57 L 02/27/20 10:00 84 109/51 L 02/27/20 09:40 84 93/60 L 02/27/20 09:20 82 121/58 L 02/27/20 09:10 81 113/59 L 02/27/20 09:01 36.7 C 92 H 02/27/20 07:13 36.7 C 97 H 20 123/74 02/27/20 03:00 36.5 C 92 H 18 118/58 L Pulse Ox 02/27/20 12:07 02/27/20 12:00 02/27/20 11:40 02/27/20 11:20 02/27/20 11:00 02/27/20 10:40 02/27/20 10:20 02/27/20 10:00 02/27/20 09:40 02/27/20 09:20 02/27/20 09:10 02/27/20 09:01 02/27/20 07:13 94 02/27/20 03:00 98 PG Care Time/CCT Total # of Minutes Spent Total Time Spent with Patient: Total time spent is greater than 50% in coordination of care (as documented) at patient's floor/unit and/or counseling patient: Coding Level of Care Code 47411 Subseq Hosp Care Lvl 2 Diagnoses Abdominal pain R10.9 Abdominal location: unspecified location Kidney stone N20.0 (1) Abdominal pain Abdominal location: unspecified location Qualified Code(s): R10.9 - Unspecified abdominal pain
[2020-02-27] MEDS ORDERED: CALCIUM CARBONATE 500 MG CHEWABLE TAB PO PRN (14:14)
[2020-02-27] MEDS ORDERED: NEPHROCAPS PO SCH (16:30)
[2020-02-27] MEDS: ATORVASTATIN 40 MG TAB PO SCH (20:36)
--- NOTE | 2020-02-28 00:13 | Communication Note ---
Date of Service: February 28, 2020 Notfied pt had a large abdominal bruise. On exam, she was sleeping soundly and was difficult to awake but on palpating the area over the bruise, she kept moaning in her sleep. Ordered an abdominal US to rule out a hematoma. H/H with CBC in the AM. 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
[2020-02-28] MEDS: LEVOTHYROXINE SODIUM 200 MCG TABLET PO SCH (05:31)
--- NOTE | 2020-02-28 06:56 | Ultrasound Report ---
ABDOMINAL WALL ULTRASOUND CLINICAL HISTORY: Left abdominal bruising. Evaluate for hematoma. COMPARISON STUDY: CT scan dated 02/24/2020 FINDINGS: A targeted ultrasound was performed with attention to the area of clinical concern in the superior um bilical region. There is diffuse soft tissue edema. There is a tiny subcutaneous collection measuring 8 x 7 x 3 mm possibly representing a small hematoma. IMPRESSION: 1. No large hematoma identified 2. Diffuse soft tissue edema 3. 8 x 7 x 3 mm complex hypoechoic collection within the subcutaneous tissues and the region of inter est. ACT 112: Negative or not required by law. Electronically signed by: Star Christensen M.D. 02/28/2020 6:55 AM
[2020-02-28] MEDS: FAMOTIDINE 20 MG TAB PO SCH (08:20)
[2020-02-28] MEDS: allopurinoL 100 MG TAB PO SCH (08:20)
[2020-02-28] MEDS: HEPARIN SOD 5,000 UNIT/0.5 ML VIAL SQ SCH (08:20)
[2020-02-28] MEDS: PANTOprazole 40 MG TAB PO SCH (08:21)
[2020-02-28] MEDS: ASPIRIN 81 MG ECTAB PO SCH (08:21)
[2020-02-28] MEDS: dilTIAZem HCL 180 MG CAPCR PO SCH (08:21)
[2020-02-28] MEDS: METOPROLOL TARTRATE 25 MG TAB PO SCH (08:21)
--- NOTE | 2020-02-28 09:02 | Urology Progress Note ---
Date of Service February 28, 2020 Assessment & Plan (1) Abdominal pain: (2) Kidney stone: 85 year-old female patient, with multiple comorbidities, admitted with intractable abdominal pain. - Plan of care reviewed with Dr. Carias. - CT abd/pelvis notable for bilateral kidney stones - however do not appear to be obstructing, no hydronephrosis. - Abdominal pain has since resolved, no complaints of pain today. - KUB reviewed, punctate calcifications without visible UPJ or ureteral stones. - No emergent intervention indicated at this time. - Continue with supportive care and close monitoring. - Will arrange outpatient follow-up with urology service to monitor symptoms and kidney stones. - Please consult our service urgently if patient develops fever >101F or intractable pain or nausea. - Thank you for the consultation and we will continue to follow the patient peripherally. Admission and Anticipated Discharge Date Admission Date: February 24, 2020 Subjective Patient examined, she is alert and comfortable. She reports her abdominal pain has resolved. Denies flank pain. Dialysis was completed yesterday, followed by nephrology. Denies nausea or vomiting. Her diarrhea has since resolved. Denies fevers or chills. Does void very little with dialysis but denies dysuria or hematuria. Feeling "much better" overall. Chart review: Afebrile Creatinine yesterday 6.07 (6.98 on 02/24) Abdominal ultrasound performed overnight - IMPRESSION: 1. No large hematoma identified 2. Diffuse soft tissue edema 3. 8 x 7 x 3 mm complex hypoechoic collection within the subcutaneous tissues and the region of interest. KUB performed today and notable for punctate calcifications on left. No clearly visible UPJ stones identified. No ureteral stones noted. Denies additional urologic concerns today. Review of Systems Constitutional: as per Subjective / HPI; no fever and no chills Gastrointestinal: as per Subjective / HPI; no abdominal pain, no nausea and no vomiting Genitourinary: as per Subjective / HPI Physical Exam Constitutional: well developed and well nourished; no acute distress and not ill appearing Respiratory: normal respiratory effort and able to speak in complete sentences; no respiratory distress and no audible wheezes Gastrointestinal (Abdomen): Inspection/Auscultation: abdomen normal to inspection; abdomen not distended Percussion/Palpation: abdomen soft; abdomen nontender and no guarding Psychiatric: Orientation: alert, oriented x 3 and cooperative Affect: euthymic affect Results & Data ([facility]) Vital Signs (Past 12 Hours) Vital Signs Temp Pulse Pulse Resp BP Pulse Ox 02/28/20 07:16 36.7 C 87 18 139/72 100 02/27/20 21:50 36.4 C L 105 H 16 140/82 96 PG Care Time/CCT Total # of Minutes Spent Total Time Spent with Patient: Total time spent is greater than 50% in coordin ation of care (as documented) at patient's floor/unit and/or counseling patient: Coding Level of Care Code 69148 Subseq Hosp Care Lvl 2 Diagnoses Abdominal pain R10.9 Abdominal location: unspecified location Kidney stone N20.0 (1) Abdominal pain Abdominal location: unspecified location Qualified Code(s): R10.9 - Unspecified abdominal pain
[2020-02-28] MEDS: CHOLESTYRAMINE LIGHT 4 GM PKT PO SCH (09:30)
--- NOTE | 2020-02-28 09:52 | Nephrology Progress Note ---
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 Patient dialyzes MWF at [facility] (3.5 hrs 2K 2Ca F-160NR EDW 61kg) * Volume status is acceptable. No acute indication for HD today * Will schedule next HD for am * If discharge is anticipated please have patient resume MWF outpatient HD at [facility] (2) Anemia: * Will provide SARAH w/ dialysis to maintain target Hgb 10 - 11 (3) Abdominal pain: * Subjectively improved * Predominantly RUQ * Etiology unclear: Normal LFT, s/p cholecystectomy * Urology note reviewed: bilateral kidney stones at [facility] likely not obstructing. Recommended conservative management, monitoring Admission and Anticipated Discharge Date Admission Date: February 24, 2020 Subjective Ms. Morgan was seen & examined in her hospital room this morning. She reports that she is tolerating her diet. Her abdominal discomfort has improved. Ms. Morgan was dialyzed yesterday for 2.5 L UF without complication. She voices no new medical concerns this morning Review of Systems Constitutional: + weakness; no fever Eyes: + problem reported visually impaired Ear, Nose, Mouth, Throat: no problem reported Respiratory: no dyspnea Cardiovascular: no chest pain and no edema Gastrointestinal: no abdominal pain, no nausea and no diarrhea/loose stools Genitourinary: no dysuria and no hematuria Musculoskeletal: no back pain Integumentary: no rash Neurologic: no confusion Physical Exam Constitutional: + frail appearing; not in distress Eyes: PERRL, conjunctivae normal, anicteric sclerae ENMT: external ear and nose normal, oropharynx normal Neck: trachea midline, no thyromegaly Respiratory: normal respiratory effort, lungs clear to auscultation Cardiovascular: Rate/Rhythm: + tachycardic and + irregularly irregular Extremities: + AV fistula (+ bruit) Gastrointestinal (Abdomen): Inspection/Auscultation: + hypoactive bowel sounds Percussion/Palpation: + abdomen tender (RUQ); no guarding Musculoskeletal: Extremities: no cyanosis Skin: no rashes, warm and dry Neurologic: awake Results & Data ([facility]) Vital Signs (Past 12 Hours) Vital Signs Temp Pulse Pulse Resp BP Pulse Ox 10/20/20 07:16 36.7 C 87 18 139/72 100 02/27/20 21:50 36.4 C L 105 H 16 140/82 96 PG Care Time/CCT Total # of Minutes Spent Total Time Spent with Patient: Total time spent is greater than 50% in coordination of care (as documented) at patient's floor/unit and/or counseling patient: Coding Level of Care Code 16115 Subseq Hosp Care Lvl 3 Diagnoses ESRD (end stage renal disease) N18.6 Anemia N18.6; D63.1; Z99.2 Anemia type: due to chronic kidney disease Chronic kidney disease stage: on chronic dialysis Abdominal pain R10.9 Abdominal location: unspecified location (1) Anemia Anemia type: due to chronic kidney disease Chronic kidney disease stage: on chronic dialysis Qualified Code(s): N18.6 - End stage renal disease; D63.1 - Anemia in chronic kidney disease; Z99.2 - Dependence on renal dialysis (2) Abdominal pain Abdominal location: unspecified location Qualified Code(s): R10.9 - Unspecified abdominal pain
--- NOTE | 2020-02-28 11:23 | XRay Report ---
KUB HISTORY: kidney stone COMPARISON: Abdomen and pelvis CT 02/24/2020. KUB 01/14/2018. FINDINGS: The bowel gas pattern is unremarkable. There are no dilated loops of small bowel to suggest an obstruction. . Punctate calcifications overlying the renal shadows. This likely represents a com bination of stones and vascular calcifications. The left UPJ stone seen on the prior study are not cl early identified and may be obscured by overlying bowel gas. No definite ureteral calculi. No pneumop eritoneum or pneumatosis. IMPRESSION: . Punctate calcifications overlying the renal shadows. This likely represents a combination of stones and vascular calcifications. The left UPJ stones seen on the prior study are not clearly identified and may be obscured by overlying bowel gas. No definite ureteral calculi. ACT 112: Negative or not required by law. Electronically signed by: Cleve Hill M.D. 02/28/2020 11:22 AM
--- NOTE | 2020-02-28 12:13 | Discharge Summary ---
Date of Service February 28, 2020 Admission HPI Per Admitting Provider 85 yo female with history of ESRD, atrial fibrillation, CAD who presents to the ED with the complaint of ongoing abdominal pain. Her daughter is at the bedside to help with the recent history. The pain is generalized, she says it is fairly constant, she has not had pain like this before. She says that eating makes the pain worse. She has not been eating very well the past few weeks. She has had some intermittent nausea and vomiting. She has experienced chills but never a fever, says she is always cold. She denies any chest pain. She was scheduled for HD today but she said she felt too sick, did not go to HD and ended up coming to the ED instead for evaluation. In the ED her vitals were stable. CT of the abdomen pelvis showed numerous kidney stones, most in the ureteropelvic junction, one was in the proximal left ureter. She denies making urine due to being on HD. She does not have any flank pain. The CT also showed a ventral and umbilical hernia, no bowel obstruction, evidence of diverticulosis but no convincing evidence of diverticulitis. WBC was 13k, Hb 11. Stool sample was collected due to diarrhea. Principal Diagnosis Abdominal pain, ureterolithiasis Discharge Exam Constitutional WD/WN, vitals as above Eyes + anicteric sclerae Neck trachea midline, no thyromegaly Respiratory normal respiratory effort, lungs clear to auscultation Cardiovascular Rate/Rhythm: regular rate and + irregularly irregular Heart Sounds: no murmur Extremities: + AV fistula (Left upper extremity); no edema Chest (Breasts) Chest: normal inspection of chest Gastrointestinal (Abdomen) normal bowel sounds, soft, nontender, no hepatosplenomegaly Musculoskeletal Extremities: extremities normal to inspection; no cyanosis and no clubbing Skin no rashes, warm and dry + ecchymosis (left lower abdomen with small hematoma palpable, spreading to left flank); no erythema Neurologic moves all extremities and awake; no focal motor deficits Psychiatric Orientation: alert, oriented to person, oriented to place and cooperative Speech: normal rate/rhythm/volume of speech Affect: euthymic affect Lymphatic no lymphedema Discharge Data Allergies Allergy/AdvReac Type Severity Reaction Status Date / Time bacitracin Allergy Intermediate EYES Verified 02/24/20 13:50 SWELLING-OINTMENT PLACED AROUND EYE polymyxin B Allergy Intermediate EYES Verified 02/24/20 13:50 [id number] PLACED AROUND EYE bee venom protein (honey bee) AdvReac Unknown Unknown Unverified 02/24/20 13:50 Consultations 02/24/20 14:10 ED Decision to Admit Stat 02/24/20 18:53 Consult Nephrology Routine Consult Urology Routine Ordered Studies 02/24/20 11:30 CT abd pelvis wo con Stat 02/28/20 00:09 US abdomen limited Urgent KUB Hospital Course (1) Abdominal pain: unclear etiology, no acute findings on CT except kidney stones. Now completely resolved there are kidney stones but most of them except one are in the kidney, there is one stone in proximal left ureter no role for intervention per urology, no hydronephrosis CT shows no obstruction, no diverticulitis, no pancreatitis, status post cholecystectomy, no abnormalities in the liver. LFTs are negative abdomen was tender, especially in upper quadrants, now improved C diff gene positive but toxin negative, no acute infection. Stool culture negative and diarrhea resolved with cholestyramine symptoms of pain and nausea and diarrhea now resolved Tolerating regular diet Have since discontinued Zosyn as there is no clear infection that we are treating and doing well (2) Atrial fibrillation: rates well controlled on Diltiazem and metoprolol on aspirin 81mg, not on anticoagulation (3) Chronic respiratory failure with hypoxia: stable on 2L no distress at all (4) ESRD (end stage renal disease): consult Dr. Do for HD orders had HD morning of 02/24 and again on 02/26 resume usual schedule on discharge (5) Kidney stone: see above no need for intervention f/u as outpt with Urology (6) Secondary hyperparathyroidism of renal origin: continue phosphate binders (7) Anemia: macrocytic, likely a component of anemia from ESRD Hb is stable at 10.5 (8) CAD (coronary artery disease): no chest pain or pressure continue aspirin (9) Hypothyroidism: continue Synthroid Recent TSH was normal (10) HTN (hypertension): BP stable, continue home regimen of diltiazem, metoprolol (11) DVT prophylaxis: Heparin SQ Disposition-improving, back to [facility] today Total Time Total Time Spent Total Time Spent (In Minutes): 35 min Total Time Includes: Examination of the Patient, Discharge Planning, Medication Reconciliation and Communication With Other Providers Discharge Plan Discharge Items Patient Disposition: Transfer Snf Fac Reason For Visit: ABDOMINAL PAIN, URETERAL STONES, DIARRHEA Discharge Diagnosis: Abdominal pain, ureteral stones, diarrhea Activity: Resume your previous activity Non-emergency contact: Primary Care Provider Call non-emergency contact if: you have any medication questions and your symptoms worsen Follow-up/Referrals: Yudelka Vasquez [Primary Care Provider] - Diet: Heart Healthy Addtl Attending Provider Instructions: You were admitted with abdominal pain and found to have kidney stones which did not require any intervention. You rpain resolved and no source of infection was found. Your diarrhea resolved as well. Please continue on your usual hemodialysis schedule. Follow up with Urology within 2-3 weeks. Pending Studies at Discharge: No Stand-Alone Forms: My [facility] Skilled Items Patient informed of condition?: Yes DNR: Yes Discharge Level of Care: Skilled Communicable Disease: No Discharge Prognosis: Improving Lines: None Urinary Catheter: No Medications and DC Order Prescriptions: Continued famotidine 20 mg tablet 20 mg PO BID RF: 0 calcium carbonate 500 mg calcium (1,250 mg) tablet,chewable 1,000 mg PO DAILY PRN (Reason: Heartburn) RF: 0 metoprolol tartrate 50 mg tablet 75 mg PO BIDM RF: 0 atorvastatin 40 mg tablet 40 mg PO HS RF: 0 nitroglycerin [Nitrostat] 0.4 mg Tablet, Sublingual 0.4 mg Sublingual DIRECTED PRN (Reason: Chest Pain) RF: 0 calcium acetate(phosphat bind) 667 mg Tablet 1,334 mg PO UD RF: 0 allopurinol 100 mg Tablet 100 mg PO QAM RF: 0 aspirin [Ecotrin Low Strength] 81 mg Tablet,Delayed Release (Dr/Ec) 81 mg PO QAM Qty: 30 RF: 0 diltiazem HCl 180 mg capsule,extended release 24hr 180 mg PO QAM RF: 0 levothyroxine 200 mcg tablet 200 mcg PO QAM RF: 0 Green Caps 1 mg Capsule 1 cap PO DAILY@1630 RF: 0 calcium acetate(phosphat bind) 667 mg capsule 1,334 mg PO UD RF: 0 omeprazole 20 mg Tablet,Delayed Release (Dr/Ec) 20 mg PO QAM RF: 0 Discharge Orders: Discharge Order (Routine); Ordered 02/28/20 Ordered By: Lyndsay Garduno Admission Data Admit Date/Time: 02/24/20 16:05 Attending Provider: Lyndsay Gardunoit Provider: Noble Benjamin Primary Care Provider: Yudelka Vasquez Other Providers: Cory Hussein ; Savita Do ; Reji Hoover Coding Level of Care Code D/C Day Management >30 mins Diagnoses Abdominal pain R10.9 Abdominal location: unspecified location Atrial fibrillation I48.91 Chronic respiratory failure with hypoxia J96.11 ESRD (end stage renal disease) N18.6 Kidney stone N20.0 Secondary hyperparathyroidism of renal origin N25.81 Anemia N18.6; D63.1; Z99.2 Anemia type: due to chronic kidney disease Chronic kidney disease stage: on chronic dialysis CAD (coronary artery disease) I25.10 Coronary Disease-Associated 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
[2020-02-29] MEDS ORDERED: HEPARIN SOD (PORCINE) 1000 UNIT/ML 10 ML VIAL IV SCH (07:00)
[2020-02-29] MEDS ORDERED: SODIUM CHLORIDE 0.9% 1000ML 1,000 ML IV PRN (07:00)
[2020-02-29] MEDS ORDERED: EPOETIN ALFA 4,000 UNIT/ML VIAL IV ONE (07:00)
[2020-02-29] MEDS ORDERED: HEPARIN SOD (PORCINE) 1000 UNIT/ML 10 ML VIAL IV ONE (07:00)
== END 2020-02-28 15:34 | DRG 391 ==
LOC: ED 10:37 → SUATTDRO 16:05 → 2W 16:05